=== PATIENT | female | born 1950 | race Caucasian/White ===

== ENCOUNTER 2023-04-07 12:58 | Outpatient (OUT) | payer MEDICARE, OTHER, SELFPAY ==
--- NOTE | 2023-04-07 13:04 | US_ITS ---
The [address] [address] Patient Name: ARMANDO COOK MRN: [id number] date: 1950 Sex: F Assigned Patient Location: US Current Patient Location: US Accession/Order Number: [id number] Exam Date: 04/07/2023 13:08 Report Date: 04/07/2023 15:54 At the request of: SCOTTY RIZVI Procedure: US venous doppler LE BI Exam: US venous doppler LE BI; [id number] HISTORY: Essential hypertension I10 COMPARISON: None TECHNIQUE: Venous duplex examination performed using B-mode, color flow, and spectral analysis. FINDINGS: The common femoral, saphenofemoral junction, femoral, popliteal, and left calf veins are patent. There is no evidence of intraluminal thrombus. These vessels exhibited normal compressibility. The right calf veins are not well visualized. Flow in the common femoral veins is bilaterally symmetric with normal respiratory phasicity. Bilateral Coburn cysts measuring 6.7 x 1.4 x 3.7 cm on the left and 6.2 x 2.8 x 1.9 cm on the right. US/US venous doppler LE BI IMPRESSION: 1. The right calf veins are not well visualized. 2. No acute deep venous thrombosis elsewhere in either lower extremity. 3. Bilateral Coburn's cysts. Electronically authenticated by: CECILLE CASTELLON Date: 04/07/2023 15:54
== END 2023-04-07 12:59 | disposition home or self-care (01) ==
LOC: US 12:59
PROVIDERS: PCP Family Medicine; Visit Provider Family Medicine
DX: R60.0 Localized edema (principal); M71.22 Synovial cyst of popliteal space [Baker], left knee; M71.21 Synovial cyst of popliteal space [Baker], right knee
CPT/HCPCS: 93970

== ENCOUNTER 2023-11-04 11:08 | Outpatient (OUT) | payer MEDICARE, OTHER, SELFPAY ==
[2023-11-04 12:26] LABS: Estimated Average Glucose 143 mg/dL; Glycohemoglobin A1C 6.6 % (4.5-6.2)
[2023-11-04 12:42] LABS: Basophils Percent Auto 0.8 % (0.2-2.0); Eosinophils Absolute Auto 0.1 10^3/uL (0.0-0.7); Eosinophils Percent Auto 2.5 % (0.9-7.0); Hematocrit 39.9 % (36.0-48.0); Hemoglobin 12.7 g/dL (12.0-16.0); Immature Granulocytes Abs Auto 0.01 10^3/uL (0.00-0.03); Immature Granulocytes Pct Auto 0.2 % (0.0-0.5); Lymphocytes Absolute Auto 1.4 10^3/uL (1.2-3.8); Lymphocytes Percent Auto 28.7 % (20.5-60.0); Mean Corpuscular HGB Conc 31.8 g/dL (29.9-35.2); Mean Corpuscular Hemoglobin 27.8 pg (26.7-34.0); Mean Corpuscular Volume 87.3 fL (81.0-99.0); Monocytes Absolute Auto 0.3 10^3/uL (0.3-0.8); Monocytes Percent Auto 6.7 % (1.7-12.0); Neutrophils Absolute Auto 2.9 10^3/uL (1.4-6.5); Neutrophils Percent Auto 61.1 % (43.0-75.0); Platelet Count 198 10^3/uL (150-450); Red Blood Count 4.57 10^6/uL (4.20-5.40); Red Cell Distribution Width 14.5 % (11.0-15.0); White Blood Count 4.8 10^3/uL (4.0-11.0)
[2023-11-04 13:16] LABS: Free T4 0.97 ng/dL (0.76-1.46)
[2023-11-04 13:21] LABS: Alanine Aminotransferase 59 U/L (14-59); Albumin Globulin Ratio 0.9; Albumin Level 3.6 g/dL (3.4-5.0); Alkaline Phosphatase 89 U/L (46-116); Anion Gap 14.7; Aspartate Amino Transferase 74 U/L (15-37); BUN Creatinine Ratio 14.3; Bilirubin Total 0.4 mg/dL (0.2-1.0); Calcium 9.3 mg/dL (8.5-10.1); Carbon Dioxide 25.3 mmol/L (21.0-32.0); Chloride 103 mmol/L (98-107); Chol HDL Ratio 3.5; Cholesterol 184 mg/dL (<=200); Estimated GFR (African America >60 (>=60); Estimated GFR (Non-African Ame >60 (>=60); Free T3 3.46 pg/mL (2.18-3.98); Globulin 4.2 g/dL; Glucose 165 mg/dL (74-106); HDL Cholesterol 52 mg/dL (40-60); Sodium 139 mmol/L (136-145); Thyroid Stimulating Hormone 4.406 uIU/mL (0.358-3.740); Total Protein 7.8 g/dL (6.4-8.2); Triglycerides 216 mg/dL (<=150); VLDL CHOLESTEROL 43.2 mg/dL
[2023-11-04 15:01] LABS: Bilirubin Urine NEGATIVE (NEGATIVE); Blood Urine NEGATIVE (NEGATIVE); Clarity Urine CLEAR (CLEAR); Color Urine LT. YELLOW (YELLOW); Glucose Urine UA NEGATIVE (NEGATIVE); Ketones Urine NEGATIVE (NEGATIVE); Leukocyte Esterase Urine NEGATIVE (NEGATIVE); Nitrite Urine NEGATIVE (NEGATIVE); Protein Urine NEGATIVE (NEG/TRACE); Urobilinogen Urine 0.2 EU/dL (0.2-1.0); pH Urine 5.5 (5.0-9.0)
== END 2023-11-04 11:09 | disposition home or self-care (01) ==
PROVIDERS: PCP Family Medicine; Visit Provider Family Medicine
DX: R35.0 Frequency of micturition (principal); R63.1 Polydipsia; I10 Essential (primary) hypertension; E78.5 Hyperlipidemia, unspecified
CPT/HCPCS: 80053; 80061; 81003; 83036; 84439; 84443; 84481; 85025; 87086; 87150; 87186

== ENCOUNTER 2025-01-03 11:54 | Outpatient (OUT) | payer MEDICARE, SELFPAY ==
[2025-01-03 12:48] LABS: Basophils Percent Auto 0.9 % (0.2-2.0); Eosinophils Absolute Auto 0.1 10^3/uL (0.0-0.7); Eosinophils Percent Auto 2.6 % (0.9-7.0); Hematocrit 40.5 % (36.0-48.0); Hemoglobin 13.4 g/dL (12.0-16.0); Immature Granulocytes Abs Auto 0.01 10^3/uL (0.00-0.03); Immature Granulocytes Pct Auto 0.2 % (0.0-0.5); Lymphocytes Absolute Auto 1.4 10^3/uL (1.2-3.8); Lymphocytes Percent Auto 30.8 % (20.5-60.0); Mean Corpuscular HGB Conc 33.1 g/dL (29.9-35.2); Mean Corpuscular Hemoglobin 29.1 pg (26.7-34.0); Mean Platelet Volume 10.4 fL (9.5-13.5); Monocytes Absolute Auto 0.3 10^3/uL (0.3-0.8); Monocytes Percent Auto 6.5 % (1.7-12.0); Neutrophils Absolute Auto 2.7 10^3/uL (1.4-6.5); Platelet Count 198 10^3/uL (150-450); Red Cell Distribution Width 14.2 % (11.0-15.0); White Blood Count 4.6 10^3/uL (4.0-11.0)
[2025-01-03 13:02] LABS: Alanine Aminotransferase 46 U/L (14-59); Albumin Globulin Ratio 0.9; Albumin Level 3.6 g/dL (3.4-5.0); Alkaline Phosphatase 89 U/L (46-116); Anion Gap 13.4; Aspartate Amino Transferase 42 U/L (15-37); BUN Creatinine Ratio 19.6; Bilirubin Total 0.3 mg/dL (0.2-1.0); Calcium 9.5 mg/dL (8.5-10.1); Carbon Dioxide 28.7 mmol/L (21.0-32.0); Chloride 102 mmol/L (98-107); Chol HDL Ratio 4.9; Cholesterol 240 mg/dL (<=200); Estimated GFR (African America >60 (>=60 mL/min/1.73m^2); Estimated GFR (Non-African Ame 56 (>=60 mL/min/1.73m^2); Free T3 3.08 pg/mL (2.18-3.98); Globulin 3.9 g/dL; Glucose 122 mg/dL (74-106); HDL Cholesterol 49 mg/dL (40-60); Potassium 4.1 mmol/L (3.5-5.1); Sodium 140 mmol/L (136-145); Thyroid Stimulating Hormone 2.788 uIU/mL (0.358-3.740); Total Protein 7.5 g/dL (6.4-8.2); Triglycerides 220 mg/dL (<=150)
[2025-01-03 13:14] LABS: Estimated Average Glucose 134 mg/dL; Glycohemoglobin A1C 6.3 % (4.5-6.2)
[2025-01-03 13:47] LABS: Bilirubin Urine NEGATIVE (NEGATIVE); Blood Urine TRACE-I (NEGATIVE); Clarity Urine SL CLOUDY (CLEAR); Color Urine LT. YELLOW (YELLOW); Glucose Urine UA NEGATIVE (NEGATIVE); Ketones Urine NEGATIVE (NEGATIVE); Leukocyte Esterase Urine MODERATE (NEGATIVE); Nitrite Urine POSITIVE (NEGATIVE); Protein Urine TRACE mg/dL (NEG/TRACE); Urobilinogen Urine 0.2 EU/dL (0.2-1.0)
[2025-01-03 14:03] LABS: Bacteria Urine LARGE #/HPF (NONE SEEN); Cast Seen? NONE SEEN #/LPF (NONE SEEN); Crystals Seen? None Seen #/HPF (None Seen); Mucus Urine NONE SEEN (NONE SEEN); RBC Urine 0-2 #/HPF (0-2); Squamous Epithelial Cell Urine RARE #/LPF (NONE/RARE); Transitional Epi Cells Urine RARE #/LPF (NONE SEEN); Urine Culture Indicated ALREADY ORDERED; WBC Urine 20-50 #/HPF (NONE SEEN)
== END 2025-01-03 11:55 | disposition home or self-care (01) ==
LOC: LAB 11:54
PROVIDERS: PCP Family Medicine; Visit Provider Family Medicine
DX: R53.83 Other fatigue (principal); R39.15 Urgency of urination; Z12.12 Encounter for screening for malignant neoplasm of rectum; R73.09 Other abnormal glucose; E78.5 Hyperlipidemia, unspecified
CPT/HCPCS: 36415; 80053; 80061; 81001; 83036; 84436; 84443; 84481; 85025; 87086; 87088; 87186

== ENCOUNTER 2025-03-08 14:50 | Outpatient (REF) | payer MEDICARE, SELFPAY ==
--- OUTSIDE RECORDS SUMMARY | 2025-03-11 10:22 | XMS_ITS | CCD ---
Author Organization [facility] Care Team Providers Care Photo Graphics Librarian Name Role Phone PHYSICIAN, DEFAULT Unavailable Unavailable PHYSICIAN, DEFAULT Unavailable Unavailable PHYSICIAN, DEFAULT Unavailable Unavailable PHYSICIAN, DEFAULT Unavailable Unavailable GALOUKAMIRACLE LEACH Attending Unavailable MOUKARBEL, DR RAUSCH Admitting Unavailable [...] Care Unavailable HOY, DR FAJARDO Consulting Unavailable HOY, DR FAJARDO Admitting Unavailable HOY, DR FAJARDO Attending Unavailable HOY, DR FAJARDO Primary Care Unavailable HOY, DR FAJARDO Consulting Unavailable MOUKARBEL, DR RAUSCH Admitting Unavailable MOUKARBEL, DR RAUSCH Attending Unavailable HOY, DR FAJARDO Primary Care Unavailable MOUKARBEL, DR RAUSCH Consulting Unavailable DAGO FRANK Attending Unavailable Scotty Holly MD Attending Provider Scotty Holly Attending Unavailable Scotty Holly Admitting Unavailable Scotty Holly MD Primary Care Provider [phone] Kennedy Wharton MD Attending Provider Allergies Allergy Classification Reported Allergen(s) Allergy Type Date of Onset Reaction(s) Facility (2 sources) Cephalexin; Translations: [CEPHALEXIN] Drug Allergy 8 Rash [facility] Repository (2 sources) Latex; Translations: [LATEX] Propensity to adverse reactions to drug (disorder) 9 Rash, Itching [facility] Repository (2 sources) Theophylline; Translations: [THEOPHYLLINE] Drug Allergy 7 [facility] Repository (1 source) AMOXICILLIN-POT CLAVULANATE; Translations: [AMOXICILLIN-PO T CLAVULANATE] Propensity to adverse reactions to drug (disorder) 3 [facility] Repository (1 source) Amoxicillin / Clavulanate Drug Allergy 7 [facility] Repository (1 source) Cephalexin Drug Allergy 7 [facility] Repository (1 source) natural latex rubber Drug allergy (disorder) [facility] Repository (1 source) Cephalexin Drug Allergy 8 Rash [facility] Medications Current Medications Medication Drug [...] Cx Nom (U) ORGANISM: Escherichia coli (O:ESCCOL) Lindsay Count >100,000 Aerobic SIOBHAN Charge (NMIC56) ---- [...] RESISTANT TO ALL B-LACTAM DRUGS. PERFORMED BY: [address] [place] [address] PATHOLOGIST SPECIAL DELIVERY MESSENGER RENETTA ALONZO M.D. Normal [facility] Comment on above: Performed By: #### C UU #### [address] Urine cultureOrdered By: Héctor Holly on 01-03-2025 Bacteria identified Cx Nom (U) Escherichia coli Abnormal [facility] ECHOCARDIO M/2D COMPLETEon 0 10-07-2022 ECHOCARDIO M/2D COMPLETE Patient: ARMANDO SWEET Exam Date: 10/07/2022 : 1950 Gender:F Ordering : DR MIRACLE HUERTAS M.D. Admission #: [id number] Family : DR SCOTTY HOLLY . Order #: [id number] CLICK HERE TO VIEW EXAM ECHOCARDIOGRAM REPORT [...] 63.83 ml, 63.83 ml Dictated by: Miracle Huertas M.D. on 10/07/2022 at 20:11 Approved by: Miracle Huertas M.D. on 10/07/2022 at 20:22 [facility] Office Visiton 10-06-2022 Follow-up visit [id number] MickiArmando Hari 1950 F Date Provider Department Center 10/06/2022 MIRACLE GONZALEZ [facility] Family History Problem Relation Age of Onset Coronary artery disease Mother Coronary artery disease Father Diabetes Brother Family Status - Relation Status Age at Mother Father Brother Level of Service:51103 CO OFFICE/OUTPATIENT ESTABLISHED MOD MDM 30-39 MIN Reason for Visit and Comments: Congestive Heart Failure [127] Valve Disorder [3372] Hyperlipidemia [182] Hypertension [856159] Normal [facility] INSULINon 04-30-2022 Insulin 14.5 uIU/mL Normal 2.6-24.9 [facility] Comment on above: Performed By: #### I NSULIN #### [facility] [address] [place] [address] Dr. Vicki Muro OCC BLD IMMUNO SCREENon 04-02 OCCULT BLOOD Negative Normal NEGATIVE [facility] Comment on above: Performed By: #### I NSULIN #### [facility] [address] [address] [address] Vicki Muro T4, T3U, FTI LABCORPon 04-30 Free Thyroxine Index 1.9 Normal 1.2-4.9 [facility] Comment on above: Performed By: #### T HYLC #### [facility] [address] [place] [address] Dr. Vicki Muro T3 Uptake 25 % Normal 24-39 [facility] Comment on above: Performed By: #### T HYLC #### [facility] [address] [address] [address] Vicki Muro T4 [Mass/Vol] 7.5 ug/dL Normal 4.5-12.0 [facility] Comment on above: Performed By: #### T HYLC #### [facility] [address] [place] [address] Dr. Vicki Muro VIT D 25-OH LABCORPon 2021 Vitamin D, 25-Hydroxy 54.8 ng/mL Normal 30.0-100.0 [facility] Comment on above: Result Comment: Ghislaine min D deficiency has been defined by the Adams of Medicine and an Endocrine Society practice guideline as a level of serum 25-OH vitamin D less than 20 ng/mL (1,2). The Endocrine Society went on to further define vitamin D insufficiency as a level between 21 and 29 ng/mL (2). 1. IOM (Adams of Medicine). 2010. Dietary reference intakes for calcium and D. [place]: The National Academies Press. 2. Bay MF, Michael WADSWORTH, Gaby JACOBS, et al. Evaluation, treatment, and prevention of vitamin D deficiency: an Endocrine Society clinical practice guideline. JCEM. 2010; 96(7):1911-30. Performed By: #### I NSULIN #### [facility] [address] [place] [address] Dr. Vicki Muro BNPon 04-29-2022 Natriuretic peptide B (Bld) [Mass/Vol] 350.0 pg/mL Normal <=900.0 [facility] Comment on above: Performed By: #### L IPID, CMP, BNP, TSH #### [facility] [address] [place] [address] Dr. Vicki Muro CBC AUTO DIFFon 04-29-2022 BASO # 0.0 103/ul Normal 0.0-0.1 [facility] Comment on above: Performed By: #### I NSULIN #### [facility] [address] [place] [address] Dr. Vicki Muro Basophils/100 WBC (Bld) 0.8 % Normal 0.2-2.0 [facility] Comment on above: Performed By: #### I NSULIN #### [facility] [address] [place] [address] Dr. Vicki Muro EO # 0.1 103/ul Normal 0.0-0.7 [facility] Comment on above: Performed By: #### I NSULIN #### [facility] [address] [place] [address] Dr. Vicki Muro Eosinophils/100 WBC (Bld) 2.4 % Normal 0.9-7.0 [facility] Comment on above: Performed By: #### I NSULIN #### [facility] [address] [place] [address] Dr. Vicki Muro Erythrocyte distribution width (RBC) [Ratio] 12.7 % Normal 11.0-15.0 [facility] Comment on above: Performed By: #### I NSULIN #### [facility] [address] [place] [address] Dr. Vicki Muro Hematocrit (Bld) [Volume fraction] 39.1 % Normal 36.0-48.0 [facility] Comment on above: Performed By: #### I NSULIN #### [facility] [address] [place] [address] Dr. Vicki Muro Hemoglobin (Bld) [Mass/Vol] 13.0 g/dL Normal 12.0-16.0 [facility] Comment on above: Performed By: #### I NSULIN #### [facility] [address] [place] [address] Dr. Vicki Muro IG # 0.01 10e3/ul Normal 0.00-0.03 [facility] Comment on above: Performed By: #### I NSULIN #### [facility] [address] [place] [address] Dr. Vicki Muro IG % 0.2 % Normal 0.0-0.5 [facility] Comment on above: Performed By: #### I NSULIN #### [facility] [address] [place] [address] Dr. Vicki Muro LYMPH # 1.6 103/ul Normal 1.2-3.8 [facility] Comment on above: Performed By: #### I NSULIN #### [facility] [address] [place] [address] Dr. Vicki Muro Lymphocytes/100 WBC (Bld) 29.5 % Normal 20.5-60.0 [facility] Comment on above: Performed By: #### I NSULIN #### [facility] [address] [place] [address] Dr. Vicki Muro MANUAL DIFF REQ NO Normal [facility] Comment on above: Performed By: #### I NSULIN #### [facility] [address] [place] [address] Dr. Vicki Muro MCH (RBC) [Entitic mass] 29.7 pg Normal 26.7-34.0 [facility] Comment on above: Performed By: #### I NSULIN #### [facility] [address] [place] [address] Dr. Vicki Muro MCHC (RBC) [Mass/Vol] 33.2 g/dL Normal 29.9-35.2 [facility] Comment on above: Performed By: #### I NSULIN #### [facility] [address] [place] [address] Dr. Vicki Muro MCV (RBC) [Entitic vol] 89.3 fL Normal 81.0-99.0 [facility] Comment on above: Performed By: #### I NSULIN #### [facility] [address] [place] [address] Dr. Vicki Muro MONO # 0.4 103/ul Normal 0.3-0.8 [facility] Comment on above: Performed By: #### I NSULIN #### [facility] [address] [place] [address] Dr. Vicki Muro Monocytes/100 WBC (Bld) 6.6 % Normal 1.7-12.0 [facility] Comment on above: Performed By: #### I NSULIN #### [facility] [address] [place] [address] Dr. Vicki Muro NEUT # 3.2 103/ul Normal 1.4-6.5 [facility] Comment on above: Performed By: #### I NSULIN #### [facility] [address] [place] [address] Dr. Vicki Muro Neutrophils/100 WBC (Bld) 60.5 % Normal 43.0-75.0 [facility] Comment on above: Performed By: #### I NSULIN #### [facility] [address] [place] [address] Dr. Vicki Muro Platelet mean volume (Bld) [Entitic vol] 10.0 fL Normal 9.5-13.5 [facility] Comment on above: Performed By: #### I NSULIN #### [facility] [address] [address] [address] Vicki Muro PLT 212 103/ul Normal 150-450 [facility] Comment on above: Performed By: #### I NSULIN #### [facility] [address] [address] [address] Vicki Muro RBC 4.38 106/ul Normal 4.20-5.40 [facility] Comment on above: Performed By: #### I NSULIN #### [facility] [address] [address] [address] Vicki Muro WBC 5.3 103/ul Normal 4.0-11.0 [facility] Comment on above: Performed By: #### I NSULIN #### [facility] [address] [address] [address] Vicki Muro GLYCOHEMOGLOBIN A1Con 2021 ADA RECOMMENDATION SEE BELOW Normal [facility] Comment on above: Result Comment: ADA RECOMMENDED LIMIT 4.0 - 6.0 ADA THERAPEUTIC TARGET < 7.0 ACTION SUGGESTED > 7.0 Performed By: #### I NSULIN #### [facility] [address] [address] [address] Vicki Muro Glucose [Mass/Vol] 126 mg/dL Normal [facility] Comment on above: Performed By: #### I NSULIN #### [facility] [address] [address] [address] Vicki Muro HbA1c (Bld) [Mass fraction] 6.0 % Normal 4.5-6.2 [facility] Comment on above: Performed By: #### I NSULIN #### [facility] [address] [address] [address] Vicki Muro IRONon 04-29-2022 Iron [Mass/Vol] 63.0 ug/dL Normal 50.0-170.0 [facility] Comment on above: Performed By: #### I SIERRA #### [facility] [address] [address] [address] Vicki Muro LIPID PROFILEon 04-29-2022 CHOL-HDL RATIO NORM SEE BELOW Normal [facility] Comment on above: Result Comment: 3.3 - 4.4 LOW RISK 4.4 - 7.1 AVERAGE RISK 7.1 - 11.0 MODERATE RISK >11.0 HIGH RISK Performed By: #### L IPID, CMP, BNP, TSH #### [facility] [address] [address] [address] Vicki Muro Cholesterol [Mass/Vol] 179 mg/dL Normal <=200 [facility] Comment on above: Performed By: #### L IPID, CMP, BNP, TSH #### [facility] [address] [address] [address] Vicki Muro Cholesterol in HDL [Mass/Vol] 53 mg/dL Normal 40-60 [facility] Comment on above: Performed By: #### L IPID, CMP, BNP, TSH #### [facility] [address] [place] [address] Dr. Vicki Muro Cholesterol in LDL [Mass/Vol] 85.8 mg/dL Normal [facility] Comment on above: Performed By: #### L IPID, CMP, BNP, TSH #### [facility] [address] [address] [address] Vicki Muro Cholesterol.total/Ch olesterol in HDL [Mass ratio] 3.4 {ratio} Normal [facility] Comment on above: Performed By: #### L IPID, CMP, BNP, TSH #### [facility] [address] [address] [address] Vicki Muro HDL NORMAL > or = 60 mg/dl - LO W CARDIOVASCULAR RISK <40 mg/dl - HIGH CARDIOVASCULAR RISK Normal [facility] Comment on above: Performed By: #### L IPID, CMP, BNP, TSH #### [facility] [address] [place] [address] Dr. Vicki Muro LDL CALC NORMAL SEE BELOW Normal [facility] Comment on above: Result Comment: <100 mg/dl OPTIMAL 100 - 129 mg/dl NEAR OR ABOVE OPTIMAL 130 - 159 mg/dl BORDERLINE HIGH 160 - 189 mg/dl HIGH >190 mg/dl VERY HIGH Performed By: #### L IPID, CMP, BNP, TSH #### [facility] [address] [address] [address] Vicki Muro Triglyceride [Mass/Vol] 201 mg/dL Critically high <=150 [facility] Comment on above: Performed By: #### L IPID, CMP, BNP, TSH #### [facility] [address] [address] [address] Vicki Muro VLDL CALC 40.2 mg/dL Normal [facility] Comment on above: Performed By: #### L IPID, CMP, BNP, TSH #### [facility] [address] [address] [address] Vicki Muro PROF 14(COMP METB)on 022 Albumin [Mass/Vol] 3.8 g/dL Normal 3.4-5.0 [facility] Comment on above: Performed By: #### L IPID, CMP, BNP, TSH #### [facility] [address] [place] [address] Dr. Vicki Muro Albumin/Globulin [Mass ratio] 1.0 {ratio} Normal [facility] Comment on above: Performed By: #### L IPID, CMP, BNP, TSH #### [facility] [address] [place] [address] Dr. Vicki Muro ALP [Catalytic activity/Vol] 108 U/L Normal 46-116 [facility] Comment on above: Performed By: #### L IPID, CMP, BNP, TSH #### [facility] [address] [place] [address] Dr. Vicki Muro ALT [Catalytic activity/Vol] 29 U/L Normal 14-59 [facility] Comment on above: Performed By: #### L IPID, CMP, BNP, TSH #### [facility] [address] [address] [address] Vicki Muro Anion gap [Moles/Vol] 13.1 mmol/L Normal [facility] Comment on above: Performed By: #### L IPID, CMP, BNP, TSH #### [facility] [address] [address] [address] Vicki Muro AST [Catalytic activity/Vol] 24 U/L Normal 15-37 [facility] Comment on above: Performed By: #### L IPID, CMP, BNP, TSH #### [facility] [address] [place] [address] Dr. Vicki Muro Bilirubin [Mass/Vol] 0.4 mg/dL Normal 0.2-1.0 [facility] Comment on above: Performed By: #### L IPID, CMP, BNP, TSH #### [facility] [address] [address] [address] Vicki Muro Calcium [Mass/Vol] 9.2 mg/dL Normal 8.5-10.1 [facility] Comment on above: Performed By: #### L IPID, CMP, BNP, TSH #### [facility] [address] [place] [address] Dr. Vicki Muro Chloride [Moles/Vol] 103 mmol/L Normal 98-107 [facility] Comment on above: Performed By: #### L IPID, CMP, BNP, TSH #### [facility] [address] [place] [address] Dr. Vicki Muro CO2 [Moles/Vol] 27.7 mmol/L Normal 21.0-32.0 [facility] Comment on above: Performed By: #### L IPID, CMP, BNP, TSH #### [facility] [address] [place] [address] Dr. Vicki Muro Creatinine [Mass/Vol] 0.81 mg/dL Normal 0.55-1.02 [facility] Comment on above: Performed By: #### L IPID, CMP, BNP, TSH #### [facility] [address] [place] [address] Dr. Vicki Muro EGFR-AF SAMMARINESE >60 Normal >=60 [facility] Comment on above: Performed By: #### L IPID, CMP, BNP, TSH #### [facility] [address] [place] [address] Dr. Vicki Muro EGFR-NON AF SAMMARINESE >60 Normal >=60 [facility] Comment on above: Performed By: #### L IPID, CMP, BNP, TSH #### [facility] [address] [address] [address] Vicki Muro Globulin (S) [Mass/Vol] 3.8 g/dL Normal [facility] Comment on above: Performed By: #### L IPID, CMP, BNP, TSH #### [facility] [address] [place] [address] Dr. Vicki Muro Glucose [Mass/Vol] 132 mg/dL Critically high 74-106 [facility] Comment on above: Performed By: #### L IPID, CMP, BNP, TSH #### [facility] [address] [place] [address] Dr. Vicki Muro Potassium [Moles/Vol] 3.8 mmol/L Normal 3.5-5.1 [facility] Comment on above: Performed By: #### L IPID, CMP, BNP, TSH #### [facility] [address] [place] [address] Dr. Vicki Muro Protein [Mass/Vol] 7.6 g/dL Normal 6.4-8.2 [facility] Comment on above: Performed By: #### L IPID, CMP, BNP, TSH #### [facility] [address] [place] [address] Dr. Vicki Muro Sodium [Moles/Vol] 140 mmol/L Normal 136-145 [facility] Comment on above: Performed By: #### L IPID, CMP, BNP, TSH #### [facility] [address] [place] [address] Dr. Vicki Muro Urea nitrogen [Mass/Vol] 10.0 mg/dL Normal 7.0-18.0 [facility] Comment on above: Performed By: #### L IPID, CMP, BNP, TSH #### [facility] [address] [place] [address] Dr. Vicki Muro Urea nitrogen/Creatinine [Mass ratio] 12.3 mg/mg Normal [facility] Comment on above: Performed By: #### L IPID, CMP, BNP, TSH #### [facility] [address] [place] [address] Dr. Vicki Muro TSHon 04-29-2022 TSH 2.265 uIU/mL Normal 0.358-3.740 [facility] Comment on above: Performed By: #### L IPID, CMP, BNP, TSH #### [facility] [address] [address] [address] Vicki Muro ECHOCARDIO M/2D COMPLETEon 0 12-30-2021 ECHOCARDIO M/2D COMPLETE Patient: ARMANDO SWEET Exam Date: 12/30/2021 : 1950 Gender:F Ordering : DR MIRACLE HUERTAS M.D. Admission #: [id number] Family : Order #: [id number] CLICK HERE TO VIEW EXAM ECHOCARDIOGRAM REPORT [...] Area(A4C): 21.80 cm2 Left Atrium Systolic Volume(A2C): 77944 mm3 Left Atrium Systolic Volume(A4C): 40852 mm3 Mitral Valve MV E to A [...] 4 mm[Hg] Right Atrium Dictated by: Miracle Huertas M.D. on 12/30/2021 at 15:06 Approved by: Miracle Huertas M.D. on 12/30/2021 at 15:20 Normal [facility] HEMOGRAM AND PLATELon 2021 Hematocrit (Bld) [Volume fraction] 39.8 % Normal 36.0-48.0 [facility] Comment on above: Performed By: #### H H #### [facility] [address] [place] [address] Dr. Vicki Muro Hemoglobin (Bld) [Mass/Vol] 13.0 g/dL Normal 12.0-16.0 [facility] Comment on above: Performed By: #### H H #### [facility] [address] [place] [address] Dr. Vicki Muro MCH (RBC) [Entitic mass] 30.2 pg Normal 26.7-34.0 [facility] Comment on above: Performed By: #### H H #### [facility] [address] [place] [address] Dr. Vicki Muro MCHC (RBC) [Mass/Vol] 32.7 g/dL Normal 29.9-35.2 [facility] Comment on above: Performed By: #### H H #### [facility] [address] [place] [address] Dr. Vicki Muro MCV (RBC) [Entitic vol] 92.6 fL Normal 81.0-99.0 [facility] Comment on above: Performed By: #### H H #### [facility] [address] [place] [address] Dr. Vicki Muro PLT 194 103/ul Normal 150-450 [facility] Comment on above: Performed By: #### H H #### [facility] [address] [place] [address] Dr. Vicki Muro RBC 4.30 106/ul Normal 4.20-5.40 [facility] Comment on above: Performed By: #### H H #### [facility] [address] [place] [address] Dr. Vicki Muro WBC 4.7 103/ul Normal 4.0-11.0 [facility] Comment on above: Performed By: #### H H #### [facility] [address] [address] [address] Vicki Muro LIPID PROFILEon 10-29-2021 CHOL-HDL RATIO NORM SEE BELOW Normal [facility] Comment on above: Result Comment: 3.3 - 4.4 LOW RISK 4.4 - 7.1 AVERAGE RISK 7.1 - 11.0 MODERATE RISK >11.0 HIGH RISK Performed By: #### I NSULIN #### [facility] [address] [address] [address] Vicki Muro Cholesterol [Mass/Vol] 193 mg/dL Normal <=200 [facility] Comment on above: Performed By: #### I NSULIN #### [facility] [address] [address] [address] Vicki Muro Cholesterol in HDL [Mass/Vol] 55 mg/dL Normal [facility] Comment on above: Performed By: #### I NSULIN #### [facility] [address] [address] [address] Vicki Muro Cholesterol in LDL [Mass/Vol] 97.2 mg/dL Normal [facility] Comment on above: Performed By: #### I NSULIN #### [facility] [address] [address] [address] Vicki Muro Cholesterol.total/Ch olesterol in HDL [Mass ratio] 3.5 {ratio} Normal [facility] Comment on above: Performed By: #### I NSULIN #### [facility] [address] [address] [address] Vicki Muro HDL NORMAL > or = 60 mg/dl - LO W CARDIOVASCULAR RISK <40 mg/dl - HIGH CARDIOVASCULAR RISK Normal [facility] Comment on above: Performed By: #### I NSULIN #### [facility] [address] [address] [address] Vicki Muro LDL CALC NORMAL SEE BELOW Normal [facility] Comment on above: Result Comment: <100 mg/dl OPTIMAL 100 - 129 mg/dl NEAR OR ABOVE OPTIMAL 130 - 159 mg/dl BORDERLINE HIGH 160 - 189 mg/dl HIGH >190 mg/dl VERY HIGH Performed By: #### I NSULIN #### [facility] [address] [address] [address] Vicki Muro Triglyceride [Mass/Vol] 204 mg/dL Critically high <=150 [facility] Comment on above: Performed By: #### I NSULIN #### [facility] [address] [place] [address] Dr. Vicki Muro VLDL CALC 40.8 mg/dL Normal [facility] Comment on above: Performed By: #### I NSULIN #### [facility] [address] [place] [address] Dr. Vicki Muro PROF 14(COMP METB)on 022 Albumin [Mass/Vol] 3.6 g/dL Normal 3.5-5.0 [facility] Comment on above: Performed By: #### I NSULIN #### [facility] [address] [place] [address] Dr. Vicki Muro Albumin/Globulin [Mass ratio] 1.0 {ratio} Normal [facility] Comment on above: Performed By: #### I NSULIN #### [facility] [address] [place] [address] Dr. Vicki Muro ALP [Catalytic activity/Vol] 92 U/L Normal 38-126 [facility] Comment on above: Performed By: #### I NSULIN #### [facility] [address] [place] [address] Dr. Vicki Muro ALT [Catalytic activity/Vol] 30 U/L Normal 9-52 [facility] Comment on above: Performed By: #### I NSULIN #### [facility] [address] [place] [address] Dr. Vicki Muro Anion gap [Moles/Vol] 11.3 mmol/L Normal [facility] Comment on above: Performed By: #### I NSULIN #### [facility] [address] [place] [address] Dr. Vicki Muro AST [Catalytic activity/Vol] 23 U/L Normal 14-36 [facility] Comment on above: Performed By: #### I NSULIN #### [facility] [address] [place] [address] Dr. Vicki Muro Bilirubin [Mass/Vol] 0.4 mg/dL Normal 0.2-1.3 [facility] Comment on above: Performed By: #### I NSULIN #### [facility] [address] [place] [address] Dr. Vicki Muro Calcium [Mass/Vol] 9.0 mg/dL Normal 8.4-10.2 [facility] Comment on above: Performed By: #### I NSULIN #### [facility] [address] [address] [address] Vicki Muro Chloride [Moles/Vol] 104 mmol/L Normal 98-107 [facility] Comment on above: Performed By: #### I NSULIN #### [facility] [address] [place] [address] Dr. Vicki Muro CO2 [Moles/Vol] 25.9 mmol/L Normal 22.0-30.0 [facility] Comment on above: Performed By: #### I NSULIN #### [facility] [address] [place] [address] Dr. Vicki Muro Creatinine [Mass/Vol] 0.86 mg/dL Normal 0.52-1.04 [facility] Comment on above: Performed By: #### I NSULIN #### [facility] [address] [place] [address] Dr. Vicki Muro EGFR-AF SAMMARINESE >60 Normal >=60 [facility] Comment on above: Performed By: #### I NSULIN #### [facility] [address] [place] [address] Dr. Vicki Muro EGFR-NON AF SAMMARINESE >60 Normal >=60 [facility] Comment on above: Performed By: #### I NSULIN #### [facility] [address] [address] [address] Vicki Muro Globulin (S) [Mass/Vol] 3.6 g/dL Normal [facility] Comment on above: Performed By: #### I NSULIN #### [facility] [address] [place] [address] Dr. Vicki Muro Glucose [Mass/Vol] 119 mg/dL Critically high 74-106 [facility] Comment on above: Performed By: #### I NSULIN #### [facility] [address] [address] [address] Vicki Muro Potassium [Moles/Vol] 4.4 mmol/L Normal 3.4-5.0 [facility] Comment on above: Performed By: #### I NSULIN #### [facility] [address] [address] [address] Vicki Muro Protein [Mass/Vol] 7.2 g/dL Normal 6.1-8.2 [facility] Comment on above: Performed By: #### I NSULIN #### [facility] [address] [address] [address] Vicki Muro Sodium [Moles/Vol] 137 mmol/L Normal 137-145 [facility] Comment on above: Performed By: #### I NSULIN #### [facility] [address] [address] [address] Vicki Muro Urea nitrogen [Mass/Vol] 14.0 mg/dL Normal 7.0-17.0 [facility] Comment on above: Performed By: #### I NSULIN #### [facility] [address] [address] [address] Vicki Muro Urea nitrogen/Creatinine [Mass ratio] 16.3 mg/mg Normal [facility] Comment on above: Performed By: #### I NSULIN #### [facility] [address] [address] [address] Vicki Muro Encounters Encounter Date Encounter Type Care Provider Facility Start: 03-09-2025 End: 03-09-2025 ambulatory Scotty Holly MD Work Phone: [facility] Work Phone: Start: 03-09-2025 End: 03-09-2025 Departed Referred Kennedy Wharton MD -[facility] Start: 01-27-2025 End: 02-01-2025 Transcribe Orders Scotty Holly MD Work Phone: Referring Physician Comment on above: Hypertension, unspec ified type (Primary Dx); Hyperlipidemia, unspecified hyperlipidemia type Start: 01-03-2025 End: 01-03-[address] [facility] Work Phone: Start: 01-03-2025 End: 01-03-2025 Departed Referred Scotty Holly MD Work Phone: [facility] Start: 11-17-2023 End: 11-17-2023 ambulatory DAGO Dick MAXINE Not Available Start: 10-07-2022 End: 10-08-[address] MIRACLE HUERTAS Facility:[facility] Start: 10-06-2022 End: 10-06-2022 [facility] Start: 04-30-2022 End: 04-30-[address] SCOTTY HOLLY Facility:[facility] Start: 04-29-2022 End: 04-30-[address] SCOTTY HOLLY Facility:[facility] Start: 12-30-2021 End: 12-31-[address] MIRACLE HUERTAS Facility:[facility] Start: 10-29-2021 End: 10-30-[address] MIRACLE HUERTAS Facility:[facility] Start: 08-09-2018 End: 08-10-2018 Patient encounter procedure DEFAULT PHYSICIAN Facility:[facility] Start: 06-03-2018 End: 06-04-2018 Patient encounter procedure DEFAULT PHYSICIAN Facility:[facility] Procedures Date Procedure Procedure Detail Performing Clinician Start: 01-03-2025 Urine culture Scotty chamorro MD Work Phone: Plan of Treatment Date Care Activity Detail Author Start: 2027 RSV Vaccine (1 - 1-dose 75+ series) RSV Vaccine (1 - 1-dose 75+ series) [facility] Start: 05-01-2025 Influenza vaccination Influenza Vaccine (Season Ended) [facility] Start: 03-09-2025 Bacteria identified in Urine by Culture Urine Culture [facility] Start: 03-09-2025 Urine culture [facility] Start: 01-03-2025 Bacteria identified in Urine by Culture Urine Culture [facility] Start: 01-03-2025 Urine culture [facility] Start: 08-31-2024 Advance Directive Discussion Advance Directive Discussion [facility] Start: 05-01-2024 Covid-19 Vaccine ( season) Covid-19 Vaccine ( season) [facility] Start: 2017 Screening for osteoporosis Bone Density Screening [facility] Start: 08-16-2011 Diabetes Screening Diabetes Screening [facility] Start: 2002 Pneumococcal Vaccine: 50+ (1 of 1 - PCV) Pneumococcal Vaccine: 50+ (1 of 1 - PCV) [facility] Start: 2002 Shingrix Vaccine (1 of 2) Shingrix Vaccine (1 of 2) [facility] Start: 1997 Lipid panel Lipid Screening [facility] Start: 1997 Screening for malignant neoplasm of colon [facility] Start: 1992 Screening for malignant neoplasm of breast Mammogram Screening [facility] Start: 1971 Urine microalbumin profile DTaP,Tdap,Td Vaccine (1 - Tdap) [facility] Start: 1970 Anxiety Screening Anxiety Screening [facility] Start: 1970 Depression Screening Depression Screening [facility] Start: 1970 Hepatitis C screening Hepatitis C Screening [facility] Payers Date Payer Category Payer Self-pay 2024 Medicare (Managed Care) [employer] MED[employer]ARE [id number] 2005 Private Health Insurance [employer] [id number] 1959 Medicare [id number] 1959 Unknown [id number] 1950 Unknown [id number] [id number] 1950 Unknown [id number]. 2.647 1950 Unknown [id number]. [id number] 1952 Unknown [id number]. [id number] 1952 Unknown [id number]. 2.593 1952 Unknown [id number]. [id number] 1952 Unknown [id number]. 2.593 1952 Unknown [id number] [id number] Private Health Insurance [employer] [id number] Unknown Unknown [id number] [id number] Social History Date Type Detail [facility] Start: 01-05-2025 Sex Female (finding) [facility] Start: 1950 Sex Assigned At Female F [facility] Start: 1950 Sex assigned at Not on file [facility] Gender identity Not on file [facility] inic Progress note 10-06-2022 Note Date & Type Note Facility 10-06-2022 Note [facility] - [facility] Subjective Armando Sweet is a 72 [...] but wasn't able to tolerate it. Dr. Huertas then increased her carvedilol to 12.5mg bid. [...] Substance Use Topics Alcohol use: Yes Comment: thien ALDRIDGE Armando is seen in follow-up. She is [...] 3 Recent Labs (more content not included)... [facility] Evaluation note Note Date & Type Note Facility Evaluation note No assessment information availa ble [facility] Work Phone: Evaluation note Note Date & Type Note Facility Evaluation note Diagnosis Hypertension, unspecified type- Primary Hyperlipidemia, unspecified hyperlipidemia type documented in this encounter [facility] Reason for referral (narrative) Note Date & Type Note Facility Reason for referral (narrative) No reason for referral information available [facility] Work Phone: Summary Purpose Family History No Family History Records FoundNo Family History Records FoundNo Family History Records FoundNo Family History Records FoundNo Family History Records Found Advance Directives No Advanced Directives Records FoundNo Advanced Directives Records FoundNo Advanced Directives Records FoundNo Advanced Directives Records FoundNo Advanced Directives Records Found Additional Source Comments INFORMATION SOURCE (unrecogn ized section and content) DATE CREATED AUTHOR 08/11/2018 [facility] DATE CREATED AUTHOR AUTHOR'S ORGANIZ ATION 10/06/2022 [facility] DATE CREATED AUTHOR AUTHOR'S ORGANIZ ATION 10/10/2022 [facility] DATE CREATED AUTHOR AUTHOR'S ORGANIZ ATION 11/18/2023 [facility] DATE CREATED AUTHOR AUTHOR'S ORGANIZ ATION 01/07/2025 [facility] Care Teams (unrecognized sec tion and content) Team Status: Inactive Member Role Status Dates Scotty Holly MD Attending Provider Active Sta rt: January 03, 2025 End: January 03, 2025 Photo Graphics Librarian Relationship Specialty Start Date End Date Scotty Holly MD PCP - General 05/08/08 Team Status: Inactive Member Role Status Dates Kennedy Wharton MD Attending Provider Active St art: March 09, 2025 End: March 09, 2025 Goals (unrecognized section and content) Goals may be documented in a n alternate sectionGoals may be documented in an alternate section Source Comments (unrecognize d section and content) In the event this informatio n is protected by the Federal Confidentiality of Alcohol and Drug Abuse Patient Records regulations: The Federal rules restrict any use of the information to criminally investigate or prosecute any alcohol or drug abuse patient.[facility] FOR RECORDS PERTAINING TO PATIENTS [...] BE BASED ON THE PRIMARY CLINICAL RECORDS. [employer] [facility]. provides no warranty or guarantee of the accuracy or completeness of information in this document.
== END 2025-03-08 14:51 | disposition home or self-care (01) ==
LOC: LAB 14:50
PROVIDERS: PCP Family Medicine; Visit Provider Family Medicine
DX: R53.83 Other fatigue (principal); R39.15 Urgency of urination; Z12.12 Encounter for screening for malignant neoplasm of rectum; R73.09 Other abnormal glucose; E78.5 Hyperlipidemia, unspecified
CPT/HCPCS: G0328

== ENCOUNTER 2025-03-08 22:36 | Inpatient (IN) | payer MEDICARE, SELFPAY ==
[2025-03-08] VITALS (9 sets, daily range): BP systolic 157–176; BP diastolic 73–93; PULSE 99–103; TEMP 37.4; O2SAT 88–100; BMI 42.0
--- OUTSIDE RECORDS SUMMARY | 2025-03-08 22:43 | XMS_ITS | Encounter Summary ---
Author Organization [facility] Address [address] [place] [address] Care Team Providers Care Formal Wear Rental Clerk Name Role Phone Jamie Holly MD Primary Care Provider [phone] Reason for Visit * Reason Comments Med Refill Encounter Details Date Type Department Care Team (Late st Contact Info) Description 11/16/2023 Refill [facility] Heart at [facility] [address] [place] [address] Samson Love MD [address] [facility] [address] [place] [phone] Benign hypertensive heart disease with heart failure (CMS/HCC); Nonrheumatic aortic (valve) insufficiency Social History Tobacco Use Types Packs/Day Years Used Date Smoking Tobacco: Former Cigarettes Smokeless Tobacco: Never Alcohol Use Standard Drinks/Week Comments Yes 0 (1 standard drink = 0.6 oz pur e alcohol) occasional [place] Safety & Environment Answer Date Rec orded Fear of Current or Ex-Partner Not on file Emotionally Abused Not on file 10/22/2023 Physically Abused Not on file 10/22/2023 Sexually Abused Not on file 10/22/2023 Physically or Sexually Abused Not on file Comments Unknown Sex and Gender Information Value Date Recorded Sex Assigned at Not on file Legal Sex Female 12:01 AM EDT Gender Identity Not on file Sexual Orientation Not on file documented as of this encounter Plan of Treatment Not on file documented as of this encounter Visit Diagnoses Diagnosis Benign hypertensive heart disease with heart failure (CMS/HCC) Nonrheumatic aortic (valve) insufficiency documented in this encounter Care Teams Formal Wear Rental Clerk Relationship Specialty Start Date End Date Jamie Holly MD [address] [facility] [place] [address] [address] PCP - General 10/06/22 documented as of this encounter
--- OUTSIDE RECORDS SUMMARY | 2025-03-08 22:43 | XMS_ITS | Clinical Summary ---
Author Organization [facility] Address [id number] [address] [place] [address] Care Team Providers Care Television Service Engineer Name Role Phone Unavailable Primary Care Provider Unavailabl e Medications meloxicam (MOBIC) 15 mg tabletIndications:O steoarthritis of knee, unspecified laterality, unspecified osteoarthritis type TAKE 1 TABLET BY MOUTH EVERY DAY WITH FOOD 30 tablet 3 2 Active Social History Tobacco Use Types Packs/Day Years Used Date Smoking Tobacco: Never Assessed Comments Unknown Sex and Gender Information Value Date Recorded Sex Assigned at Not on file Legal Sex Female 1:21 PM EDT Gender Identity Not on file Sexual Orientation Not on file Plan of Treatment Health Maintenance Due Date Last Done Comments Depression Screening 1964 Tobacco Screening 1964 Adult BMI Screening 1970 DTaP,Tdap and Td Vaccines (1 - Tdap) 1971 Zoster (Shingles) Vaccine (1 of 2) 2002 Fall Risk Screening 2017 Influenza Vaccine 05/01/2025 Medical Devices Not on file
--- OUTSIDE RECORDS SUMMARY | 2025-03-08 22:43 | XMS_ITS | Encounter Summary ---
Author Organization [facility] Address [address] [place] [address] Care Team Providers Care Terrazzo Mechanic Name Role Phone Jamie Holly MD Primary Care Provider [phone] Reason for Visit * Reason Comments Med Refill Encounter Details Date Type Department Care Team (Late st Contact Info) Description 04/07/2023 Refill [facility] at [facility] [address] [place] [address] Samson Love MD [address] [facility] [address] [facility] [place] [phone] Essential hypertension Social History Tobacco Use Types Packs/Day Years Used Date Smoking Tobacco: Former Cigarettes Smokeless Tobacco: Never Alcohol Use Standard Drinks/Week Comments Yes 0 (1 standard drink = 0.6 oz pur e alcohol) occasional Comments Unknown Sex and Gender Information Value Date Recorded Sex Assigned at Not on file Legal Sex Female 12:01 AM EDT Gender Identity Not on file Sexual Orientation Not on file documented as of this encounter Plan of Treatment Not on file documented as of this encounter Visit Diagnoses Diagnosis Essential hypertension Unspecified essential hypertension documented in this encounter Care Teams Terrazzo Mechanic Relationship Specialty Start Date End Date Jamie Holly MD [address] [facility] [place] [address] PCP - General 10/06/22 documented as of this encounter
--- OUTSIDE RECORDS SUMMARY | 2025-03-08 22:43 | XMS_ITS | Encounter Summary ---
Author Organization [facility] Address [address] [place] [address] Care Team Providers Care Rn Mds Name Role Phone Jamie Holly MD Primary Care Provider [phone] Reason for Visit * Reason Comments Med Refill Encounter Details Date Type Department Care Team (Late st Contact Info) Description 10/19/2022 Refill [facility] Heart at [facility] [address] [place] [address] Samson Love MD [address] [facility] [address] [facility] [place] [phone] Mixed hyperlipidemia; Nonrheumatic aortic (valve) insufficiency; Primary hypertension Social History Tobacco Use Types Packs/Day [...] on file Sexual Orientation Not on file COVID-19 Exposure Response Date Recorded In the last 10 days, have yo u been in contact with someone who was confirmed or suspected to have Coronavirus/COVID-19? No / Unsure 10/06/2022 9:38 AM EST documented as of this encounter Plan of Treatment Not on file documented as of this encounter Visit Diagnoses Diagnosis Mixed hyperlipidemia Nonrheumatic aortic (valve) insufficiency Primary hypertension Unspecified essential hypertension documented in this encounter Care Teams Rn Mds Relationship Specialty Start Date End Date Jamie Holly MD [address] [facility] [place] [place] [address] [address] PCP - General 10/06/22 documented as of this encounter
--- OUTSIDE RECORDS SUMMARY | 2025-03-08 22:43 | XMS_ITS | Encounter Summary ---
Author Organization [facility] Address [id number] [address] [place] [address] Care Team Providers Care Assistant Wrestling Coach Name Role Phone Unavailable Primary Care Provider Unavailabl e Encounter Details Date Type Department Care Team (Late st Contact Info) Description 01/22/2021 Telephone [facility] [address] [place] [phone] Keisha Fair CMA Social History Tobacco Use Types Packs/Day Years Used Date Smoking Tobacco: Never Assessed Comments Unknown Sex and Gender Information Value Date Recorded Sex Assigned at Not on file Legal Sex Female 1:21 PM EDT Gender Identity Not on file Sexual Orientation Not on file documented as of this encounter Plan of Treatment Not on file documented as of this encounter Visit Diagnoses Not on filedocumented in this encounter
--- OUTSIDE RECORDS SUMMARY | 2025-03-08 22:43 | XMS_ITS | Encounter Summary ---
Author Organization [facility] Address [address] [place] [address] Care Team Providers Care Pump Tender Name Role Phone Jamie Holly MD Primary Care Provider [phone] Reason for Visit * Reason Comments Med Refill Encounter Details Date Type Department Care Team (Late st Contact Info) Description 10/24/2023 Refill [facility] at [facility] [address] [place] [address] Samson Love MD [address] [facility] [address] [place] [phone] Mixed hyperlipidemia; Primary hypertension Social History Tobacco Use Types Packs/Day Years Used Date Smoking Tobacco: Former Cigarettes Smokeless Tobacco: Never Alcohol Use Standard Drinks/Week Comments Yes 0 (1 standard drink = 0.6 oz pur e alcohol) occasional [place] Safety & Environment Answer Date Rec orded [...] this encounter Visit Diagnoses Diagnosis Mixed hyperlipidemia Primary hypertension Unspecified essential hypertension documented in this encounter Care Teams Pump Tender Relationship Specialty Start Date End Date Jamie Holly MD [address] [place] [place] [address] PCP - General 10/06/22 documented as of this encounter
--- OUTSIDE RECORDS SUMMARY | 2025-03-08 22:43 | XMS_ITS | Clinical Summary ---
Author Organization [facility] Address [address] [place] [address] Care Team Providers Care Fur Grader Name Role Phone Jamie Holly MD Primary Care Provider [phone] Allergies Active Allergy Reactions Criticality Noted Date Comments Amoxicillin-Pot Clavulanate 10/06/19 23 Cephalexin Rash Low 06/22/2008 Latex Itching,Rash Medium 11/29/2008 Theophylline 10/06/2022 Medications aspirin 81 mg EC tablet in the morning. Active cetirizine (ZyrTEC) 10 mg tablet cetirizine 10 mg tablet TAKE 1 TABLET BY MOUTH EVERY DAY 9 Active venlafaxine XR (Effexor-XR) 150 mg 24 hr capsule 75 mg. Act imani zinc gluconate 50 mg tablet Take by mouth. Activ e rosuvastatin (Crestor) 5 mg tabletIndications: Mixed hyperlipidemia TAKE 1 TABLET BY MOUTH EVERY DAY IN THE MORNING 90 tablet 3 4 Active furosemide (Lasix) 20 mg tabletIndications: Nonrheumatic aortic (valve) insufficiency TAKE 1 TABLET BY MOUTH EVERY DAY IN THE MORNING 90 tablet 3 4 Active furosemide (Lasix) 40 mg tabletIndications: Benign hypertensive heart disease with heart failure (CMS/HCC) TAKE 1 TABLET BY MOUTH EVERY DAY IN THE MORNING 90 tablet 3 4 Active carvedilol (Coreg) 12.5 mg tabletIndications: Essential hypertension TAKE 1 TABLET (12.5 MG) BY MOUTH WITH BREAKFAST AND EVENING MEAL 180 tablet 3 4 Active carvedilol (Coreg) 6.25 mg tabletIndications: Primary hypertension TAKE 1 TABLET BY MOUTH WITH BREAKFAST AND EVENING MEAL 180 tablet 3 5 Active Active Problems Problem Noted Date Diagnosed Date Chronic diastolic congestive heart failure 10/06 Nonrheumatic aortic valve stenosis 10/06/2022 Nonrheumatic aortic valve insufficiency 10/06/19 Primary hypertension 10/06/2022 Mixed hyperlipidemia 10/06/2022 Chronic obstructive pulmonary disease 10/06/2022 LEXI (obstructive sleep apnea) 10/06/2022 Morbid obesity 10/06/2022 Encounters Date Type Department Care Team Description 01/10/2025 Refill [facility] Heart at [facility] [address] [place] [address] Samson Love MD Primary hypertension from Last 3 Months Family History Medical History Relation Name Comments Diabetes Brother Coronary artery disease Father Coronary artery disease Mother Relation Name Status Comments Brother Father Mother Social History Tobacco Use Types Packs/Day Years Used Date Smoking Tobacco: Former Cigarettes Smokeless Tobacco: Never Tobacco Cessation:Counseling Given: Not Answered Alcohol Use Standard Drinks/Week Comments Yes 0 [...] on file Sexual Orientation Not on file Last Filed Vital Signs Vital Sign Reading Time Taken Comments Blood Pressure 157/70 10/06/2022 9:42 AM EST Pulse 74 10/06/2022 9:42 AM EST Temperature - - Respiratory Rate - - Oxygen Saturation 98% 10/06/2022 9:42 AM EST Inhaled Oxygen Concentration - - Weight 125 kg (276 lb) 10/06/2022 9:42 AM EST Height 168.9 cm (5' 6.5 ) 10/06/2022 9:42 AM EST Body Mass Index 43.88 10/06/2022 9:42 AM EST Plan of Treatment Health Maintenance Due Date Last Done Comments CT Colonography 1952 Colonoscopy 1950 Colorectal Cancer Screening 1950 FIT-DNA 1950 FIT 1950 FOBT 1950 Medicare Annual Wellness (AWV) 1950 Sigmoidoscopy 1950 Depression Screening 1964 Pneumococcal Vaccine: 50+ Ye ars (1 of 2 - PCV) 1971 Adult Tetanus 1974 Mammogram 1992 Zoster Vaccines (1 of 2) 2002 Fall Risk Screening 2017 COVID-19 Vaccine (1 - 2023-2 5 season) 2024 Influenza Vaccine (#1) 2025 HIB Vaccines Aged Out No longer eligi ble based on patient's age to complete this topic HPV Vaccines Aged Out No longer eligi ble based on patient's age to complete this topic IPV Vaccines Aged Out No longer eligi ble based on patient's age to complete this topic Meningococcal B Vaccine Aged Out No l onger eligible based on patient's age to complete this topic Meningococcal Vaccine Aged Out No jeremy olga eligible based on patient's age to complete this topic Rotavirus Vaccines Aged Out No longer eligible based on patient's age to complete this topic Insurance [place] [address] Care Teams Fur Grader Relationship Specialty Start Date End Date Jamie Holly MD [address] [facility] [place] [id number] PCP - General 10/06/22
--- OUTSIDE RECORDS SUMMARY | 2025-03-08 22:43 | XMS_ITS | Encounter Summary ---
Author Organization [facility] Address [address] [address] Care Team Providers Care Mold Dresser Name Role Phone Jamie Holly MD Primary Care Provider [phone] Reason for Visit * Reason Comments Med Refill Encounter Details Date Type Department Care Team (Late st Contact Info) Description 12/25/2023 Refill [facility] Heart at [facility] [address] [place] [address] Samson Love MD [address] [facility] [address] [facility] [place] [phone] Benign hypertensive heart disease with heart failure (CMS/HCC) Social History Tobacco Use Types Packs/Day Years [...] hypertensive heart disease with heart failure (CMS/HCC) documented in this encounter Care Teams Mold Dresser Relationship Specialty Start Date End Date Jamie Holly MD [address] [facility] [place] [address] PCP - General 10/06/22 documented as of this encounter
--- OUTSIDE RECORDS SUMMARY | 2025-03-08 22:43 | XMS_ITS | Clinical Summary ---
Author Organization [facility] Address [address] [place] [address] Care Team Providers Care Cardiology Manager Name Role Phone Jamie Holly MD Primary Care Provider [phone] Allergies Active Allergy Reactions Criticality Noted Date Comments Cephalexin Rash 06/22/2008 Cephalexin Hcl Rash 06/22/2008 Latex Rash,Itching Medium 11/29/2008 Medications desvenlafaxine succinate(PRISTIQ 100 MG 24 HR TAB) take one daily 0 06/22/20 0 8 Active multivits w-ca,fe,other min(WOMEN'S MULTIPLE VITAMINS 18 MG-0.4 MG TAB) take one daily 0 06/22/20 0 8 Active COMPOUNDED PRESCRIPTION BIOTIN FORTE 0 9 Active cetirizine hcl(ZYRTEC 10 MG TAB) Take one(1) tablet daily. 30 12 9 Active anthralin(DRITHOC JEANETTE HP 1 % TOPICAL) use as instructed 1 trade size 3 9 Active clobetasol propionate(OLUX 0.05 % TOPICAL FOAM) apply to the affected areas in the scalp once daily in the morning large 3 9 Active KETOCONAZOLE 2 % SHAMPOO alternate this shampoo with head and shoulders large 3 9 Active Active Problems Problem Noted Date Diagnosed Date Alopecia areata 08/16/2008 Encounters Date Type Department Care Team Description 01/27/2025 Transcribe Orders Referring Physician [address] [place] [phone] Jamie Holly MD Hypertension, unspecified type (Primary Dx); Hyperlipidemia, unspecified hyperlipidemia type from Last 3 Months Social History Tobacco Use Types Packs/Day Years Used Date Smoking Tobacco: Never Assessed Comments No Sex and Gender Information Value Date Recorded Sex Assigned at Not on file Legal Sex Female 8:16 AM EST Gender Identity Not on file Sexual Orientation Not on file Last Filed Vital Signs Vital Sign Reading Time Taken Comments Blood Pressure 120/80 08/16/2008 10:08 AM EST Pulse - - Temperature - - Respiratory Rate - - Oxygen Saturation - - Inhaled Oxygen Concentration - - Weight - - Height - - Body Mass Index - - Plan of Treatment Health Maintenance Due Date Last Done Comments Anxiety Screening 1970 Depression Screening 1970 Hepatitis C Screening 1970 DTaP,Tdap,Td Vaccine (1 - Tdap) [address] Colonography 1997 Cologuard (FIT-DNA) 1997 Colonoscopy 1997 Colorectal Cancer Screening 1997 Fecal Occult Blood 1997 Lipid Screening 1997 Sigmoidoscopy 1997 Pneumococcal Vaccine: 50+ (1 of 1 - PCV) 2002 Shingrix Vaccine (1 of 2) 2002 Diabetes Screening 08/16/2011 08/16/2008, 06/22/2008 Bone Density Screening 2017 Covid-19 Vaccine ( season) 2024 Advance Directive Discussion 08/31/2024 Influenza Vaccine (Season Ended) 2025 RSV Vaccine (1 - 1-dose 75+ series) 2027 Procedures Procedure Name Priority Date/Time Associated Diagnosis Comments COMPREHENSIVE METABOLIC PANEL Routine 08/16/2008 11:05 AM EST Alopecia Areata Aftercare Seo Analyst Use Medicatn from Last 3 Months or Most Recently Relevant to Health Maintenance Results * COMP METABOLIC PANEL (08/16/2008 11:05 AM EST) Protein, Total 7.4 6.0 - 8.4 g/dL [facility] Albumin 4.3 3.5 - 5.0 g/dL [facility] Calcium 9.6 8.5 - 10.5 mg/dL [facility] Bilirubin, Total 0.2 0.0 - 1.5 mg/dL [facility] Alkaline Phosphatase 100 40 - 150 U/L [facility] AST 24 7 - 40 U/L [facility] Glucose 96 65 - 100 mg/dL [facility] BUN 11 8 - 25 mg/dL [facility] Creatinine 0.77 0.70 - 1.40 mg/dL [facility] Sodium 139 132 - 148 mmol/L [facility] Potassium 4.8 3.5 - 5.0 mmol/L [facility] Chloride 104 98 - 110 mmol/L [facility] CO2 26 23 - 32 mmol/L [facility] Anion Gap 9 0 - 15 mmol/L [facility] ALT 20 0 - 45 U/L [facility] eGFR- >60 [facility] eGFR-All Other Races >60 [facility] Comment: eGFR (Estimated GFR) Units of measure: mL/min/1.73 meters squared eGFR is derived from the reexpressed MDRD Study equation using the following parameters: serum creatinine, age, gender and race. The creatinine assay has been calibrated to be traceable to IDMS. An eGFR <60 mL/min/1.73m2 for >3 months is consistent with chronic kidney disease. Refer to KDOQI guidelines for clinical interpretation. Blood specimen (specimen) BLOOD SPECIMEN / Unknown 08/16/2008 11:05 AM EST us Sue Yoo MD LABORATORY Final Resul t [facility] [address] [place] [address] from Last 3 Months or Most Recently Relevant to Health Maintenance Insurance [employer] MEDICARE Care Teams Cardiology Manager Relationship Specialty Start Date End Date Jamie Holly MD PCP - General 05/08/08
--- OUTSIDE RECORDS SUMMARY | 2025-03-08 22:45 | XMS_ITS | CCD ---
Author Organization [facility] Care Team Providers Care Welding Estimator Name Role Phone PHYSICIAN, DEFAULT Unavailable Unavailable PHYSICIAN, DEFAULT Unavailable Unavailable PHYSICIAN, DEFAULT Unavailable Unavailable PHYSICIAN, DEFAULT Unavailable Unavailable MOUKAHANY, MIRACLE Attending Unavailable MOUKARBEL, DR RAUSCH Admitting Unavailable MOUKARBEL, DR RAUSCH Attending Unavailable HOY, DR FAJARDO Primary Care Unavailable MOUKARBEL, DR RAUSCH Consulting Unavailable MOUKARBEL, DR RAUSCH Admitting Unavailable MOUKARBEL, DR RAUSCH Attending Unavailable HOY, DR FAJARDO Primary Care Unavailable MOUKARBEL, DR RAUSCH Consulting Unavailable NICOLEY, DR FAJARDO Admitting Unavailable HOY, DR FAJARDO Attending Unavailable HOY, DR FAJARDO Primary Care Unavailable HOY, DR FAJARDO Consulting Unavailable DMITRI, DR FAJARDO Admitting Unavailable HOY, DR FAJARDO Attending Unavailable DMITRI, DR FAJARDO Primary Care Unavailable DMITRI, DR FAJARDO Consulting Unavailable MOUKARBEL, DR RAUSCH Admitting Unavailable MOUKARBEL, DR RAUSCH Attending Unavailable HOY, DR FAJARDO Primary Care Unavailable MOUKARBEL, DR RAUSCH Consulting Unavailable DAGO FRANK Attending Unavailable Scotty Rizvi MD Attending Provider [phone] Scotty Rizvi Attending Unavailable Scotty Rizvi Admitting Unavailable Scotty Rizvi MD Primary Care Provider Allergies Allergy Classification Reported Allergen(s) Allergy Type Date of Onset Reaction(s) Facility (2 sources) Cephalexin; Translations: [CEPHALEXIN] Drug Allergy 8 Rash [facility] Repository (2 sources) Latex; Translations: [LATEX] Propensity to adverse reactions to drug (disorder) 9 Rash, Itching [facility] Repository (2 sources) Theophylline; Translations: [THEOPHYLLINE] Drug Allergy 7 [facility] Repository (1 source) AMOXICILLIN-POT CLAVULANATE; Translations: [AMOXICILLIN-PO T CLAVULANATE] Propensity to adverse reactions to drug (disorder) 3 [facility] Repository (1 source) Amoxicillin / Clavulanate Drug Allergy 7 [facility] Repository (1 source) Cephalexin Drug Allergy 7 [facility] Repository (1 source) natural latex rubber Drug allergy (disorder) [facility] Repository (1 source) Cephalexin Drug Allergy 8 Rash [facility] Medications Current Medications Medication Drug Class(es) Dates Sig (Normalized) Sig (Original) anthralin 10 mg/ml topical cream (1 source) Start: 11-29-2008 anthralin(DRITHOCRE ME HP 1 % TOPICAL) use as instructed 1 trade size 3 11/29/2008 Active cetirizine hydrochloride 10 mg oral tablet (1 source) Histamine-1 Receptor Antagonist Start: 11-29-2008 cetirizine hcl(ZYRTEC 10 MG TAB) Take one(1) tablet daily. 30 12 11/29/2008 Active clobetasol propionate 0.5 mg/ml topical foam (1 source) Corticosteroid Start: 11-29-2008 clobetasol propionate(OLUX 0.05 % TOPICAL FOAM) apply to the affected areas in the scalp once daily in the morning large 3 11/29/2008 Active COMPOUNDED PRESCRIPTION (1 source) Start: 11-29-2008 COMPOUNDED PRESCRIPTION BIOTIN FORTE 0 11/29/2008 Active 24 hr desvenlafaxine succinate 100 mg extended release oral tablet (1 source) Serotonin and Norepinephrine Reuptake Inhibitor Start: 06-22-2008 desvenlafaxine succinate(PRISTIQ 100 MG 24 HR TAB) take one daily 0 06/22/2008 Active ketoconazole 20 mg/ml medicated shampoo (1 source) Azole Antifungal Start: 11-29-2008 KETOCONAZOLE 2 % SHAMPOO alternate this shampoo with head and shoulders large 3 11/29/2008 Active multivits w-ca,fe,other min(WOMEN'S MULTIPLE VITAMINS 18 MG-0.4 MG TAB) (1 source) Start: 06-22-2008 multivits w-ca,fe,other min(WOMEN'S MULTIPLE VITAMINS 18 MG-0.4 MG TAB) take one daily 0 06/22/2008 Active Problems Active Problems Problem Classification Problem Date Documented Da te Episodic/Chronic Chronic obstructive pulmonary disease and bronchiectasis (2 sources) Chronic obstructive pulmonary disease, unspecified; Translations: [Chronic obstructive pulmonary disease, unspecified] Onset: 10-06-2022 Chronic Congestive heart failure; nonhypertensive (3 sources) Chronic diastolic (congestive) heart failure; Translations: [Unspecified diastolic (congestive) heart failure] Onset: 04-30-2022 Chronic Disorders of lipid metabolism (12 sources) Mixed hyperlipidemia; Translations: [Hyperlipidemia, unspecified] Onset: 10-29-2021 Chronic Essential hypertension (5 sources) Essential (primary) hypertension; Translations: [Hypertensive disorder] Onset: 05-01-2022 Chronic Heart valve disorders (13 sources) Nonrheumatic aortic (valve) stenosis; Translations: [Nonrheumatic aortic (valve) insufficiency] Onset: 12-30-2021 Chronic Hypertension with complications and secondary hypertension (1 source) Hypertensive heart disease with heart failure; Translations: [HTN HEART DISEASE W/HEART FAIL] Onset: 04-30-2022 Chronic Nutritional deficiencies (1 source) Vitamin D deficiency, unspecified; Translations: [VITAMIN D DEFICIENCY UNSPECIFIED] Onset: 04-30-2022 Chronic Other nutritional; endocrine; and metabolic disorders (2 sources) Morbid (severe) obesity due to excess calories; Translations: [Morbid (severe) obesity due to excess calories] Onset: 10-06-2022 Chronic Residual codes; unclassified (2 sources) Obstructive sleep apnea (adult) (pediatric); Translations: [Obstructive sleep apnea (adult) (pediatric)] Onset: 10-06-2022 Chronic Past or Other Problems Problem Classification Problem Date Documented Da te Episodic/Chronic Deficiency and other anemia (1 source) Anemia, unspecified; Translations: [ANEMIA UNSPECIFIED] Onset: 04-30-2022 Episodic Diabetes mellitus without complication (1 source) Other abnormal glucose; Translations: [OTHER ABNORMAL GLUCOSE] Onset: 04-30-2022 Episodic Other lower respiratory disease (1 source) Other forms of dyspnea; Translations: [OTHER FORMS OF DYSPNEA] Onset: 05-01-2022 Episodic Other nutritional; endocrine; and metabolic disorders (1 source) Overweight; Translations: [OVERWEIGHT] Onset: 04-30-2022 Episodic Other screening for suspected conditions (not mental disorders or infectious disease) (5 sources) Encounter for screening for malignant neoplasm of rectum; Translations: [ENC SCREEN MALIG NEOPLASM RECTUM] Onset: 04-30-2022 Episodic Other skin disorders (1 source) Alopecia areata; Translations: [Alopecia areata, unspecified] Onset: 08-16-2008 08-16-2008 Episodic Results Test Name Value Interpretation Reference Range Facility Urine Cultureon 01-03-2025 Bacteria identified Cx Nom (U) ORGANISM: Escherichia coli (O:ESCCOL) [place] Count >100,000 Aerobic SIOBHAN Charge (NMIC56) ---- SUSCEPTIBILITY --- ORGANISM: O:ESCCOL ANTIBIOTIC INTERPRETATION SIOBHAN Amikacin S <16 Amoxacillin/K Clavulanate S <8 Ampicillin S <8 Ampicillin/Sulbactam S <4 Aztreonam S <4 Cefazolin S <2 Cefepime S <2 Ceftazidime S <1 Ceftazidime/Avibactam S <4 Ceftolozane/Tazobacta m S <2 Ceftriaxone S <1 Cefuroxime S <4 Ciprofloxacin R >2 Ertapenem S <0.5 Gentamicin S <2 Levofloxacin R >4 Meropenem S <1 Meropenem/Vaborbactam S <2 Nitrofurantoin S <32 Piperacillin/Tazobact am S <8 Tetracycline R >8 Tigecycline S <2 Tobramycin S <2 Trimethoprim/Sulfamet hoxazole S 22/38 S = SUSCEPTIBLE I = INTERMEDIATE R = RESISTANT BLANK = DATA NOT AVAILABLE, OR DRUG NOT ADVISABLE OR TESTED R* = RESISTANCE DUE TO EXTENDED SPECTRUM BETA-LACTAMASES ESBL = EXTENDED SPECTRUM BETA-LACTAMASE TFG = THYMIDINE-DEPENDENT STRAIN LUIS MIGUEL = BETA-LACTAMASE POSITIVE IB = INDUCIBLE BETA-LACTAMASE. APPEARS IN PLACE OF 'S' WITH SPECIES KNOWN TO POSSESS INDUCIBLE BETA-LACTAMASES. POTENTIALLY THEY MAY BECOME RESISTANT TO ALL B-LACTAM DRUGS. PERFORMED BY: [address] [place] [address] PATHOLOGIST CRIB PAD MAKER RENETTA ALONZO M.D. Normal [facility] Comment on above: Performed By: #### C UU #### [facility] [address] ECHOCARDIO M/2D COMPLETEon 0 10-07-2022 ECHOCARDIO M/2D COMPLETE Patient: ARMANDO SWEET Exam Date: 10/07/2022 : 1950 Gender:F Ordering : DR MIRACLE LOVE M.D. Admission #: [id number] Family : DR SCOTTY RIZVI . Order #: [id number] CLICK HERE TO VIEW EXAM ECHOCARDIOGRAM REPORT PROCEDURE: CARDIO PULMONARY ECHOCARDIO M/2D COMP INDICATIONS: Aortic valve stenosis, aortic valve insufficiency, hypertension COMPARISON: None. DESCRIPTION: COMPLETE ECHOCARDIOGRAM Real-time transthoracic echocardiography with 2D, M-mode, spectral and color flow Doppler performed. QUALITY: Technically difficult due to patients condition. 67 276# BP 132/86 LEFT VENTRICLE: Normal chamber size. Mild concentric left ventricular hypertrophy. Normal systolic function. LV EF: Normal left ventricular ejection fraction, (>55%). DIASTOLIC: Grade II diastolic dysfunction. ATRIAL SEPTUM: LEFT ATRIUM: Mild dilatation. RIGHT ATRIUM: Mild dilatation. RIGHT VENTRICLE: Normal chamber size. Normal right ventricular systolic function. TRICUSPID VALVE: Normal mobility and thickness. No stenosis with mild regurgitation. Doppler studies reveal moderately (45-60) elevated right sided pressures. RVSP 58 mmHg MITRAL VALVE: Normal mobility and thickness. No evidence of mitral valve stenosis. Moderate mitral annular calcification. Mild mitral regurgitation. AORTIC VALVE: Mildly calcified aortic valve. Doppler velocity suggest mild aortic valve stenosis. Mild aortic regurgitation. AORTIC ROOT: Normal diameter and appearance. PULMONIC VALVE: Not well visualized. No stenosis. No regurgitation. PERICARDIUM: No evidence of pericardial effusion. IVC: Not well visualized. PLEURA: CONCLUSION: 1. Mild concentric left ventricular hypertrophy. Normal ventricular systolic function. LVEF is 55 to 60%. 2. Grade 2 diastolic dysfunction. 3. Mild aortic stenosis and regurgitation. 4. Mild tricuspid and mitral regurgitation. 5. Moderately elevated right-sided pressures. 6. Technically difficult study with poor sound transmission. Adult Echocardiography Procedure Report Left Ventricle LVEDD (3.7 - 5.6 cm): 3.67 cm LVESD (2.2 - 4.0 cm): 2.61 cm LVIVS thickness (0.6 - 1.2 cm): 1.48 cm LVPW thickness (0.5 - 1.0 cm): 1.15 cm e': 0.06 m/s E - e': 17.92 LVOT Max Gradient: 5.77 mm[Hg] Peak Velocity (LVOT): 1.20 m/s Mean Velocity (LVOT): 0.77 m/s LVOT Diameter 2.48 cm Left Ventricular Ejection Fraction: 55-60 % Left Atrium LA Volume Index (2D A2C): 97.32 ml, 97.32 ml Left Atrium Systolic Dimension: 3.81 cm Mitral Valve MV E to A Ratio: 0.90 Mitral Valve A-Wave Peak Velocity: 1.17 m/s Mitral Valve E-Wave Peak Velocity: 1.05 m/s Right Ventricle Aorta AO Root Diam: 3.36 cm Aortic Valve AoV Area (Peak Rj): 3.66 cm2, 3.99 cm2 AoV Area (VTI): 3.57 cm2, 3.66 cm2 Peak Velocity(Antegrade Flow): 1.45 m/s, 1.71 m/s Peak Gradient(Antegrade Flow): 8.39 mm[Hg], 11.76 mm[Hg] Mean Velocity(Antegrade Flow): 1.10 m/s, 1.23 m/s Mean Gradient(Antegrade Flow): 5.21 mm[Hg], 6.79 mm[Hg] Velocity Time Integral: 36.56 cm, 38.28 cm Tricuspid Valve Peak Velocity (Regurgitant Flow): 3.33 m/s, 3.71 m/s Peak Velocity: 0.55 m/s Pulmonic Valve Peak Velocity: 1.05 m/s, 0.83 m/s Peak Gradient: 4.42 mm[Hg], 2.73 mm[Hg] Right Atrium Right Atrium Systolic Pressure: 63.83 ml, 63.83 ml Dictated by: Miracle Love M.D. on 10/07/2022 at 20:11 Approved by: Miracle Love M.D. on 10/07/2022 at 20:22 [facility] Office Visiton 10-06-2022 Follow-up visit [id number] Armando Sweet 1950 [facility] Provider Department [place] 10/06/2022MIRACLE ERICKSON [facility] Family History Problem Relation Age of Onset Coronary artery disease Mother Coronary artery disease Father Diabetes Brother Family Status - Relation Status Age at Mother Father Brother Level of Service:24717 NC OFFICE/OUTPATIENT ESTABLISHED MOD MDM 30-39 MIN Reason for Visit and Comments: Congestive Heart Failure [127] Valve Disorder [3372] Hyperlipidemia [182] Hypertension [186070] Normal [facility] INSULINon 04-30-2022 Insulin 14.5 uIU/mL Normal 2.6-24.9 [facility] Comment on above: Performed By: #### I NSULIN #### [facility] [address] [address] [address] Vicki Muro OCC BLD IMMUNO SCREENon 04-02 OCCULT BLOOD Negative Normal NEGATIVE [facility] Comment on above: Performed By: #### I NSULIN #### [facility] [address] [address] [address] Vicki Muro T4, T3U, FTI LABCORPon 04-30 Free Thyroxine Index 1.9 Normal 1.2-4.9 [facility] Comment on above: Performed By: #### T HYLC #### [facility] [address] [address] [address] Vicki Muro T3 Uptake 25 % Normal 24-39 [facility] Comment on above: Performed By: #### T HYLC #### [facility] [address] [address] [address] Vicki Muro T4 [Mass/Vol] 7.5 ug/dL Normal 4.5-12.0 [facility] Comment on above: Performed By: #### T HYLC #### [facility] [address] [address] [address] Vicki Muro VIT D 25-OH LABCORPon 2021 Vitamin D, 25-Hydroxy 54.8 ng/mL Normal 30.0-100.0 [facility] Comment on above: Result Comment: Ghislaine min D deficiency has been defined by the [place] of Medicine and an Endocrine Society practice guideline as a level of serum 25-OH vitamin D less than 20 ng/mL (1,2). The Endocrine Society went on to further define vitamin D insufficiency as a level between 21 and 29 ng/mL (2). 1. IOM ([place] of Medicine). 2010. Dietary reference intakes for calcium and D. [place]: The National Academies Press. 2. [place] MF, Michael WADSWORTH, Gaby JACOBS, et al. Evaluation, treatment, and prevention of vitamin D deficiency: an Endocrine Society clinical practice guideline. JCEM. 2010; 96(7):1911-30. Performed By: #### I NSULIN #### [facility] [address] [place] [address] Dr. Vicki Muro BNPon 04-29-2022 Natriuretic peptide B (Bld) [Mass/Vol] 350.0 pg/mL Normal <=900.0 [facility] Comment on above: Performed By: #### L IPID, CMP, BNP, TSH #### [facility] [address] [place] [address] Dr. Vicki Muro CBC AUTO DIFFon 04-29-2022 BASO # 0.0 103/ul Normal 0.0-0.1 [facility] Comment on above: Performed By: #### I NSULIN #### [facility] [address] [place] [address] Dr. Vicki Muro Basophils/100 WBC (Bld) 0.8 % Normal 0.2-2.0 [facility] Comment on above: Performed By: #### I NSULIN #### [facility] [address] [place] [address] Dr. Vicki Muro EO # 0.1 103/ul Normal 0.0-0.7 [facility] Comment on above: Performed By: #### I NSULIN #### [facility] [address] [place] [address] Dr. Vicki Muro Eosinophils/100 WBC (Bld) 2.4 % Normal 0.9-7.0 [facility] Comment on above: Performed By: #### I NSULIN #### [facility] [address] [place] [address] Dr. Vicki Muro Erythrocyte distribution width (RBC) [Ratio] 12.7 % Normal 11.0-15.0 [facility] Comment on above: Performed By: #### I NSULIN #### [facility] [address] [place] [address] Dr. Vicki Muro Hematocrit (Bld) [Volume fraction] 39.1 % Normal 36.0-48.0 [facility] Comment on above: Performed By: #### I NSULIN #### [facility] [address] [place] [address] Dr. Vicki Muro Hemoglobin (Bld) [Mass/Vol] 13.0 g/dL Normal 12.0-16.0 [facility] Comment on above: Performed By: #### I NSULIN #### [facility] [address] [place] [address] Dr. Vicki Muro IG # 0.01 10e3/ul Normal 0.00-0.03 [facility] Comment on above: Performed By: #### I NSULIN #### [facility] [address] [place] [address] Dr. Vicki Muro IG % 0.2 % Normal 0.0-0.5 [facility] Comment on above: Performed By: #### I NSULIN #### [facility] [address] [place] [address] Dr. Vicki Muro LYMPH # 1.6 103/ul Normal 1.2-3.8 [facility] Comment on above: Performed By: #### I NSULIN #### [facility] [address] [place] [address] Dr. Vicki Muro Lymphocytes/100 WBC (Bld) 29.5 % Normal 20.5-60.0 [facility] Comment on above: Performed By: #### I NSULIN #### [facility] [address] [place] [address] Dr. Vicki Muro MANUAL DIFF REQ NO Normal [facility] Comment on above: Performed By: #### I NSULIN #### [facility] [address] [place] [address] Dr. Vicki Muro MCH (RBC) [Entitic mass] 29.7 pg Normal 26.7-34.0 [facility] Comment on above: Performed By: #### I NSULIN #### [facility] [address] [place] [address] Dr. Vicki Muro MCHC (RBC) [Mass/Vol] 33.2 g/dL Normal 29.9-35.2 [facility] Comment on above: Performed By: #### I NSULIN #### [facility] [address] [place] [address] Dr. Vicki Muro MCV (RBC) [Entitic vol] 89.3 fL Normal 81.0-99.0 [facility] Comment on above: Performed By: #### I NSULIN #### [facility] [address] [place] [address] Dr. Vicki Muro MONO # 0.4 103/ul Normal 0.3-0.8 [facility] Comment on above: Performed By: #### I NSULIN #### [facility] [address] [place] [address] Dr. Vicki Muro Monocytes/100 WBC (Bld) 6.6 % Normal 1.7-12.0 [facility] Comment on above: Performed By: #### I NSULIN #### [facility] [address] [place] [address] Dr. Vicki Muro NEUT # 3.2 103/ul Normal 1.4-6.5 [facility] Comment on above: Performed By: #### I NSULIN #### [facility] [address] [place] [address] Dr. Vicki Muro Neutrophils/100 WBC (Bld) 60.5 % Normal 43.0-75.0 [facility] Comment on above: Performed By: #### I NSULIN #### [facility] [address] [place] [address] Dr. Vicki Muro Platelet mean volume (Bld) [Entitic vol] 10.0 fL Normal 9.5-13.5 [facility] Comment on above: Performed By: #### I NSULIN #### [facility] [address] [place] [address] Dr. Vicki Muro PLT 212 103/ul Normal 150-450 [facility] Comment on above: Performed By: #### I NSULIN #### [facility] [address] [address] [address] Vicki Muro RBC 4.38 106/ul Normal 4.20-5.40 [facility] Comment on above: Performed By: #### I NSULIN #### [facility] [address] [address] [address] Vicki Muro WBC 5.3 103/ul Normal 4.0-11.0 [facility] Comment on above: Performed By: #### I NSULIN #### [facility] [address] [address] [address] Vicki Muro GLYCOHEMOGLOBIN A1Con 2021 ADA RECOMMENDATION SEE BELOW Normal [facility] Comment on above: Result Comment: ADA RECOMMENDED LIMIT 4.0 - 6.0 ADA THERAPEUTIC TARGET < 7.0 ACTION SUGGESTED > 7.0 Performed By: #### I NSULIN #### [facility] [address] [address] [address] Vicki Muro Glucose [Mass/Vol] 126 mg/dL Normal [facility] Comment on above: Performed By: #### I NSULIN #### [facility] [address] [address] [address] Vicki Muro HbA1c (Bld) [Mass fraction] 6.0 % Normal 4.5-6.2 [facility] Comment on above: Performed By: #### I NSULIN #### [facility] [address] [address] [address] Vicki Muro IRONon 04-29-2022 Iron [Mass/Vol] 63.0 ug/dL Normal 50.0-170.0 [facility] Comment on above: Performed By: #### I SIERRA #### [facility] [address] [place] [address] Dr. Vicki Muro LIPID PROFILEon 04-29-2022 CHOL-HDL RATIO NORM SEE BELOW Normal [facility] Comment on above: Result Comment: 3.3 - 4.4 LOW RISK 4.4 - 7.1 AVERAGE RISK 7.1 - 11.0 MODERATE RISK >11.0 HIGH RISK Performed By: #### L IPID, CMP, BNP, TSH #### [facility] [address] [address] [address] Vicki Muro Cholesterol [Mass/Vol] 179 mg/dL Normal <=200 [facility] Comment on above: Performed By: #### L IPID, CMP, BNP, TSH #### [facility] [address] [address] [address] Vicki Muro Cholesterol in HDL [Mass/Vol] 53 mg/dL Normal 40-60 [facility] Comment on above: Performed By: #### L IPID, CMP, BNP, TSH #### [facility] [address] [place] [address] Dr. Vicki Muro Cholesterol in LDL [Mass/Vol] 85.8 mg/dL Normal [facility] Comment on above: Performed By: #### L IPID, CMP, BNP, TSH #### [facility] [address] [address] [address] Vicki Muro Cholesterol.total/Ch olesterol in HDL [Mass ratio] 3.4 {ratio} Normal [facility] Comment on above: Performed By: #### L IPID, CMP, BNP, TSH #### [facility] [address] [address] [address] Vicki Muro HDL NORMAL > or = 60 mg/dl - LO W CARDIOVASCULAR RISK <40 mg/dl - HIGH CARDIOVASCULAR RISK Normal [facility] Comment on above: Performed By: #### L IPID, CMP, BNP, TSH #### [facility] [address] [address] [address] Vicki Muro LDL CALC NORMAL SEE BELOW Normal [facility] Comment on above: Result Comment: <100 mg/dl OPTIMAL 100 - 129 mg/dl NEAR OR ABOVE OPTIMAL 130 - 159 mg/dl BORDERLINE HIGH 160 - 189 mg/dl HIGH >190 mg/dl VERY HIGH Performed By: #### L IPID, CMP, BNP, TSH #### [facility] [address] [address] [address] Vicki Muro Triglyceride [Mass/Vol] 201 mg/dL Critically high <=150 [facility] Comment on above: Performed By: #### L IPID, CMP, BNP, TSH #### [facility] [address] [place] [address] Dr. Vicki Muro VLDL CALC 40.2 mg/dL Normal [facility] Comment on above: Performed By: #### L IPID, CMP, BNP, TSH #### [facility] [address] [place] [address] Dr. Vicki Muro PROF 14(COMP METB)on 022 Albumin [Mass/Vol] 3.8 g/dL Normal 3.4-5.0 [facility] Comment on above: Performed By: #### L IPID, CMP, BNP, TSH #### [facility] [address] [place] [address] Dr. Vicki Muro Albumin/Globulin [Mass ratio] 1.0 {ratio} Normal [facility] Comment on above: Performed By: #### L IPID, CMP, BNP, TSH #### [facility] [address] [place] [address] Dr. Vicki Muro ALP [Catalytic activity/Vol] 108 U/L Normal 46-116 [facility] Comment on above: Performed By: #### L IPID, CMP, BNP, TSH #### [facility] [address] [place] [address] Dr. Vicki Muro ALT [Catalytic activity/Vol] 29 U/L Normal 14-59 [facility] Comment on above: Performed By: #### L IPID, CMP, BNP, TSH #### [facility] [address] [place] [address] Dr. Vicki Muro Anion gap [Moles/Vol] 13.1 mmol/L Normal [facility] Comment on above: Performed By: #### L IPID, CMP, BNP, TSH #### [facility] [address] [place] [address] Dr. Vicki Muro AST [Catalytic activity/Vol] 24 U/L Normal 15-37 [facility] Comment on above: Performed By: #### L IPID, CMP, BNP, TSH #### [facility] [address] [address] [address] Vicki Muro Bilirubin [Mass/Vol] 0.4 mg/dL Normal 0.2-1.0 [facility] Comment on above: Performed By: #### L IPID, CMP, BNP, TSH #### [facility] [address] [address] [address] Vicki Muro Calcium [Mass/Vol] 9.2 mg/dL Normal 8.5-10.1 [facility] Comment on above: Performed By: #### L IPID, CMP, BNP, TSH #### [facility] [address] [place] [address] Dr. Vicki Muro Chloride [Moles/Vol] 103 mmol/L Normal 98-107 [facility] Comment on above: Performed By: #### L IPID, CMP, BNP, TSH #### [facility] [address] [place] [address] Dr. Vicki Muro CO2 [Moles/Vol] 27.7 mmol/L Normal 21.0-32.0 [facility] Comment on above: Performed By: #### L IPID, CMP, BNP, TSH #### [facility] [address] [place] [address] Dr. Vicki Muro Creatinine [Mass/Vol] 0.81 mg/dL Normal 0.55-1.02 [facility] Comment on above: Performed By: #### L IPID, CMP, BNP, TSH #### [facility] [address] [place] [address] Dr. Vicki Muro EGFR-AF GERMAN >60 Normal >=60 [facility] Comment on above: Performed By: #### L IPID, CMP, BNP, TSH #### [facility] [address] [place] [address] Dr. Vicki Muro EGFR-NON AF GERMAN >60 Normal >=60 [facility] Comment on above: Performed By: #### L IPID, CMP, BNP, TSH #### [facility] [address] [place] [address] Dr. Vicki Muro Globulin (S) [Mass/Vol] 3.8 g/dL Normal [facility] Comment on above: Performed By: #### L IPID, CMP, BNP, TSH #### [facility] [address] [place] [address] Dr. Vicki Muro Glucose [Mass/Vol] 132 mg/dL Critically high 74-[address] [facility] Comment on above: Performed By: #### L IPID, CMP, BNP, TSH #### [facility] [address] [place] [address] Dr. Vicki Muro Potassium [Moles/Vol] 3.8 mmol/L Normal 3.5-5.1 [facility] Comment on above: Performed By: #### L IPID, CMP, BNP, TSH #### [facility] [address] [place] [address] Dr. Vicki Muro Protein [Mass/Vol] 7.6 g/dL Normal 6.4-8.2 [facility] Comment on above: Performed By: #### L IPID, CMP, BNP, TSH #### [facility] [address] [place] [address] Dr. Vicki Muro Sodium [Moles/Vol] 140 mmol/L Normal 136-145 [facility] Comment on above: Performed By: #### L IPID, CMP, BNP, TSH #### [facility] [address] [place] [address] Dr. Vicki Muro Urea nitrogen [Mass/Vol] 10.0 mg/dL Normal 7.0-18.0 [facility] Comment on above: Performed By: #### L IPID, CMP, BNP, TSH #### [facility] [address] [place] [address] Dr. Vicki Muro Urea nitrogen/Creatinine [Mass ratio] 12.3 mg/mg Normal [facility] Comment on above: Performed By: #### L IPID, CMP, BNP, TSH #### [facility] [address] [place] [address] Dr. Vicki Muro TSHon 04-29-2022 TSH 2.265 uIU/mL Normal 0.358-3.740 [facility] Comment on above: Performed By: #### L IPID, CMP, BNP, TSH #### [facility] [address] [address] [address] Vicki Muro ECHOCARDIO M/2D COMPLETEon 0 12-30-2021 ECHOCARDIO M/2D COMPLETE Patient: ARMANDO SWEET Exam Date: 12/30/2021 : 1950 Gender:F Ordering : DR MIRACLE LOVE M.D. Admission #: [id number] Family : Order #: [id number] CLICK HERE TO VIEW EXAM ECHOCARDIOGRAM REPORT PROCEDURE: CARDIO PULMONARY ECHOCARDIO M/2D COMP INDICATIONS: Aortic valve regurgitation COMPARISON: None. DESCRIPTION: COMPLETE ECHOCARDIOGRAM Real-time transthoracic echocardiography with 2D, M-mode, spectral and color flow Doppler performed. QUALITY: Technically difficult due to patient's condition. LEFT VENTRICLE: Normal chamber size. Mild concentric left ventricular hypertrophy. Visual estimation of left ventricular ejection fraction is 65%. No regional wall motion abnormalities. No significant ventricular outflow tract obstruction. LV EF: Normal left ventricular ejection fraction, (>55%). DIASTOLIC: Grade II diastolic dysfunction. ATRIAL SEPTUM: LEFT ATRIUM: Mild chamber dilation. RIGHT ATRIUM: Mild chamber dilatation. RIGHT VENTRICLE: Normal chamber size. Decreased right ventricular systolic function. TRICUSPID VALVE: Normal mobility and thickness. No stenosis with mild regurgitation. Doppler studies reveal mildly (35-45) elevated right sided pressures. RVSP 36 mmHg MITRAL VALVE: Normal mobility and thickness. Moderate mitral annular calcification. Mild mitral regurgitation. AORTIC VALVE: Normal trileaflet appearance. Moderately calcified aortic valve. Mildly diminished mobility. Doppler velocities suggest moderate aortic valve stenosis. DVI 0.3, BERNARDO (VTI) 1.45 cm?, BERNARDO (Vmax) 1.14 cm?, mean 18 mmHg, peak velocity 2.8 m/s mild aortic regurgitation. AORTIC ROOT: Normal diameter and appearance. PULMONIC VALVE: Not well visualized. No stenosis. No regurgitation. PERICARDIUM: No evidence of pericardial effusion. IVC: Not well visualized. PLEURA: CONCLUSION: 1. Mild concentric left ventricular hypertrophy. Normal left ventricular systolic function. LVEF is 65%. 2. Normal right ventricular systolic function. 3. Grade 2 diastolic dysfunction. 4. Mild left atrial enlargement. 5. Moderate aortic valve stenosis with mild regurgitation. 6. Mild mitral and tricuspid regurgitation. 7. No pericardial effusion. 8. Technically difficult study with poor sound transmission. Adult Echocardiography Procedure Report Left Ventricle LVEDD (3.7 - 5.6 cm): 4.23 cm LVESD (2.2 - 4.0 cm): 3.13 cm LVIVS thickness (0.6 - 1.2 cm): 1.47 cm LVPW thickness (0.5 - 1.0 cm): 1.14 cm e': 6.03 cm/s E - e': 20.20 LVOT Area (cm2): 4.15 cm2 LVOT Diameter 2.20 cm Left Ventricular Ejection Fraction: 65 % Left Atrium LA Volume Index (2D A2C): 29.70 ml/m2 Left Atrium Systolic Dimension: 4.10 cm Left Atrium Systolic Area(A2C): 21.50 cm2 Left Atrium Systolic Area(A4C): 21.80 cm2 Left Atrium Systolic Volume(A2C): 90963 mm3 Left Atrium Systolic Volume(A4C): 08405 mm3 Mitral Valve MV E to A Ratio: 0.90 Mitral Valve A-Wave Peak Velocity: 141.00 cm/s Mitral Valve E-Wave Peak Velocity: 122.00 cm/s Deceleration Time: 227 ms Right Ventricle Aorta AO Root Diam: 3.20 cm Aortic Valve Peak Velocity (Antegrade Flow): 224.00 cm/s, 237.00 cm/s AoV Area (Peak Rj): 1.14 cm2 AoV Area (VTI): 1.45 cm2 Peak Velocity(Antegrade Flow): 280.00 cm/s Peak Gradient(Antegrade Flow): 31 mm[Hg] Mean Velocity(Antegrade Flow): 203.00 cm/s Mean Gradient(Antegrade Flow): 18 mm[Hg] Velocity Time Integral: 65.30 cm Tricuspid Valve Peak Velocity (Regurgitant Flow): 261.00 cm/s Pulmonic Valve Peak Velocity: 96.60 cm/s Peak Gradient: 4 mm[Hg] Right Atrium Dictated by: Miracle Love M.D. on 12/30/2021 at 15:06 Approved by: Miracle Love M.D. on 12/30/2021 at 15:20 Normal [facility] HEMOGRAM AND PLATELon 2021 Hematocrit (Bld) [Volume fraction] 39.8 % Normal 36.0-48.0 [facility] Comment on above: Performed By: #### H H #### [facility] [address] [place] [address] Dr. Vicki Muro Hemoglobin (Bld) [Mass/Vol] 13.0 g/dL Normal 12.0-16.0 [facility] Comment on above: Performed By: #### H H #### [facility] [address] [place] [address] Dr. Vicki Muro MCH (RBC) [Entitic mass] 30.2 pg Normal 26.7-34.0 [facility] Comment on above: Performed By: #### H H #### [facility] [address] [place] [address] Dr. Vicki Muro MCHC (RBC) [Mass/Vol] 32.7 g/dL Normal 29.9-35.2 [facility] Comment on above: Performed By: #### H H #### [facility] [address] [place] [address] Dr. Vicki Muro MCV (RBC) [Entitic vol] 92.6 fL Normal 81.0-99.0 [facility] Comment on above: Performed By: #### H H #### [facility] [address] [place] [address] Dr. Vicki Muro PLT 194 103/ul Normal 150-450 [facility] Comment on above: Performed By: #### H H #### [facility] [address] [place] [address] Dr. Vicki Muro RBC 4.30 106/ul Normal 4.20-5.40 [facility] Comment on above: Performed By: #### H H #### [facility] [address] [place] [address] Dr. Vicki Muro WBC 4.7 103/ul Normal 4.0-11.0 [facility] Comment on above: Performed By: #### H H #### [facility] [address] [place] [address] Dr. Vicki Muro LIPID PROFILEon 10-29-2021 CHOL-HDL RATIO NORM SEE BELOW Normal [facility] Comment on above: Result Comment: 3.3 - 4.4 LOW RISK 4.4 - 7.1 AVERAGE RISK 7.1 - 11.0 MODERATE RISK >11.0 HIGH RISK Performed By: #### I NSULIN #### [facility] [address] [place] [address] Dr. Vicki Muro Cholesterol [Mass/Vol] 193 mg/dL Normal <=200 [facility] Comment on above: Performed By: #### I NSULIN #### [facility] [address] [address] [address] Vicki Muro Cholesterol in HDL [Mass/Vol] 55 mg/dL Normal [facility] Comment on above: Performed By: #### I NSULIN #### [facility] [address] [place] [address] Dr. Vicki Muro Cholesterol in LDL [Mass/Vol] 97.2 mg/dL Normal [facility] Comment on above: Performed By: #### I NSULIN #### [facility] [address] [address] [address] Vicki Muro Cholesterol.total/Ch olesterol in HDL [Mass ratio] 3.5 {ratio} Normal [facility] Comment on above: Performed By: #### I NSULIN #### [facility] [address] [place] [address] Dr. Vicki Muro HDL NORMAL > or = 60 mg/dl - LO W CARDIOVASCULAR RISK <40 mg/dl - HIGH CARDIOVASCULAR RISK Normal [facility] Comment on above: Performed By: #### I NSULIN #### [facility] [address] [place] [address] Dr. Vicki Muro LDL CALC NORMAL SEE BELOW Normal [facility] Comment on above: Result Comment: <100 mg/dl OPTIMAL 100 - 129 mg/dl NEAR OR ABOVE OPTIMAL 130 - 159 mg/dl BORDERLINE HIGH 160 - 189 mg/dl HIGH >190 mg/dl VERY HIGH Performed By: #### I NSULIN #### [facility] [address] [place] [address] Dr. Vicki Muro Triglyceride [Mass/Vol] 204 mg/dL Critically high <=150 [facility] Comment on above: Performed By: #### I NSULIN #### [facility] [address] [address] [address] Vicki Muro VLDL CALC 40.8 mg/dL Normal [facility] Comment on above: Performed By: #### I NSULIN #### [facility] [address] [place] [address] Dr. Vicki Muro PROF 14(COMP METB)on 022 Albumin [Mass/Vol] 3.6 g/dL Normal 3.5-5.0 [facility] Comment on above: Performed By: #### I NSULIN #### [facility] [address] [place] [address] Dr. Vicki Muro Albumin/Globulin [Mass ratio] 1.0 {ratio} Normal [facility] Comment on above: Performed By: #### I NSULIN #### [facility] [address] [place] [address] Dr. Vicki Muro ALP [Catalytic activity/Vol] 92 U/L Normal 38-126 [facility] Comment on above: Performed By: #### I NSULIN #### [facility] [address] [place] [address] Dr. Vicki Muro ALT [Catalytic activity/Vol] 30 U/L Normal 9-52 [facility] Comment on above: Performed By: #### I NSULIN #### [facility] [address] [place] [address] Dr. Vicki Muro Anion gap [Moles/Vol] 11.3 mmol/L Normal [facility] Comment on above: Performed By: #### I NSULIN #### [facility] [address] [place] [address] Dr. Vicki Muro AST [Catalytic activity/Vol] 23 U/L Normal 14-36 [facility] Comment on above: Performed By: #### I NSULIN #### [facility] [address] [place] [address] Dr. Vicki Muro Bilirubin [Mass/Vol] 0.4 mg/dL Normal 0.2-1.3 [facility] Comment on above: Performed By: #### I NSULIN #### [facility] [address] [address] [address] Vicki Muro Calcium [Mass/Vol] 9.0 mg/dL Normal 8.4-10.2 [facility] Comment on above: Performed By: #### I NSULIN #### [facility] [address] [address] [address] Vicki Muro Chloride [Moles/Vol] 104 mmol/L Normal 98-107 [facility] Comment on above: Performed By: #### I NSULIN #### [facility] [address] [address] [address] Vicki Muro CO2 [Moles/Vol] 25.9 mmol/L Normal 22.0-30.0 [facility] Comment on above: Performed By: #### I NSULIN #### [facility] [address] [place] [address] Dr. Vicki Muro Creatinine [Mass/Vol] 0.86 mg/dL Normal 0.52-1.04 [facility] Comment on above: Performed By: #### I NSULIN #### [facility] [address] [place] [address] Dr. Vicki Muro EGFR-AF GERMAN >60 Normal >=60 [facility] Comment on above: Performed By: #### I NSULIN #### [facility] [address] [place] [address] Dr. Vicki Muro EGFR-NON AF GERMAN >60 Normal >=60 [facility] Comment on above: Performed By: #### I NSULIN #### [facility] [address] [place] [address] Dr. Vicki Mruo Globulin (S) [Mass/Vol] 3.6 g/dL Normal [facility] Comment on above: Performed By: #### I NSULIN #### [facility] [address] [place] [address] Dr. Vicki Muro Glucose [Mass/Vol] 119 mg/dL Critically high 74-[address] [facility] Comment on above: Performed By: #### I NSULIN #### [facility] [address] [place] [address] Dr. Vicki Muro Potassium [Moles/Vol] 4.4 mmol/L Normal 3.4-5.0 [facility] Comment on above: Performed By: #### I NSULIN #### [facility] [address] [address] [address] Vicki Muro Protein [Mass/Vol] 7.2 g/dL Normal 6.1-8.2 [facility] Comment on above: Performed By: #### I NSULIN #### [facility] [address] [address] [address] Vicki Muro Sodium [Moles/Vol] 137 mmol/L Normal 137-145 [facility] Comment on above: Performed By: #### I NSULIN #### [facility] [address] [address] [address] Vicki Muro Urea nitrogen [Mass/Vol] 14.0 mg/dL Normal 7.0-17.0 [facility] Comment on above: Performed By: #### I NSULIN #### [facility] [address] [address] [address] Vicki Muro Urea nitrogen/Creatinine [Mass ratio] 16.3 mg/mg Normal [facility] Comment on above: Performed By: #### I NSULIN #### [facility] [address] [place] [address] Dr. Vicki Muro Encounters Encounter Date Encounter Type Care Provider Facility Start: 01-27-2025 End: 02-01-2025 Transcribe Orders Scotty Rizvi MD Work Phone: Referring Physician Comment on above: Hypertension, unspec ified type (Primary Dx); Hyperlipidemia, unspecified hyperlipidemia type Start: 01-03-2025 End: 01-03-2025 ambulatory Scotty Rizvi [facility] Work Phone: Start: 01-03-2025 End: 01-03-2025 Departed Referred Scotty Rizvi MD Work Phone: [facility] Start: 11-17-2023 End: 11-17-2023 ambulatory DAGO FRANK Not Available Start: 10-07-2022 End: 10-08-[address] MIRACLE LOVE Facility:[facility] Start: 10-06-2022 End: 10-06-2022 ambulatory MIRACLE LOVE [facility] Start: 04-30-2022 End: 04-30-[address] SCOTTY RIZVI Facility:[facility] Start: 04-29-2022 End: 04-30-[address] SCOTTY RIZVI Facility:[facility] Start: 12-30-2021 End: 12-31-[address] MIRACLE LOVE Facility:[facility] Start: 10-29-2021 End: 10-30-[address] MIRACLE LOVE Facility:[facility] Start: 08-09-2018 End: 08-10-2018 Patient encounter procedure DEFAULT PHYSICIAN Facility:[facility] Start: 06-03-2018 End: 06-04-2018 Patient encounter procedure DEFAULT PHYSICIAN Facility:[facility] Plan of Treatment Date Care Activity Detail Author Start: 2027 RSV Vaccine (1 - 1-dose 75+ series) RSV Vaccine (1 - 1-dose 75+ series) [facility] Start: 05-01-2025 Influenza vaccination Influenza Vaccine (Season Ended) [facility] Start: 01-03-2025 Bacteria identified in Urine by Culture Urine Culture [facility] Start: 01-03-2025 Urine culture [facility] Start: 08-31-2024 Advance Directive Discussion Advance Directive Discussion [facility] Start: 05-01-2024 Covid-19 Vaccine ( season) Covid-19 Vaccine ( season) [facility] Start: 2017 Screening for osteoporosis Bone Density Screening [facility] Start: 08-16-2011 Diabetes Screening Diabetes Screening [facility] Start: 2002 Pneumococcal Vaccine: 50+ (1 of 1 - PCV) Pneumococcal Vaccine: 50+ (1 of 1 - PCV) [facility] Start: 2002 Shingrix Vaccine (1 of 2) Shingrix Vaccine (1 of 2) [facility] Start: 1997 Lipid panel Lipid Screening [facility] Start: 1997 Screening for malignant neoplasm of colon [facility] Start: 1992 Screening for malignant neoplasm of breast Mammogram Screening [facility] Start: 1971 Urine microalbumin profile DTaP,Tdap,Td Vaccine (1 - Tdap) [facility] Start: 1970 Anxiety Screening Anxiety Screening [facility] Start: 1970 Depression Screening Depression Screening [facility] Start: 1970 Hepatitis C screening Hepatitis C Screening [facility] Payers Date Payer Category Payer Self-pay 2024 Medicare (Managed Care) [employer] [id number] 2005 Private Health Insurance [employer] [id number] 1959 Medicare [id number] 1959 Unknown [id number] 1950 Unknown [id number]. [id number] 1950 Unknown [id number] [id number]. 2.647 1950 Unknown [id number]. 2.593 1950 Unknown [id number]. 2.593 1950 Unknown [id number] [id number]. 2.593 1950 Unknown [id number] [id number]. 2.593 1950 Unknown [id number] [id number]. 2.593 1950 Unknown [id number] [id number]. 2.1259 Private Health Insurance [employer] [id number] Unknown Unknown [id number] [id number] Social History Date Type Detail [facility] Start: 01-05-2025 Sex Female (finding) [facility] Start: 1950 Sex Assigned At Female F [facility] Start: 1950 Sex assigned at Not on file [facility] Gender identity Not on file [facility] Progress note 10-06-2022 Note Date & Type Note Facility 10-06-2022 Note [facility] Subjective Armando Sweet is a 72 y.o. year old female patient being seen for Congestive Heart Failure, Valve Disorder, Hyperlipidemia, and Hypertension Patient here for 6 mo follow up diastolic heart failure, aortic valve stenosis, and hypertension. Had labs in Mar 2022. C/o swelling on the top of her feet and her toes. Denies chest pain. Says her DAVID is improving, and not as bad as it once was. She was started on amlodipine in December 2021 but wasn't able to tolerate it. Dr. Love then increased her carvedilol to 12.5mg bid. Patient Active Problem List Diagnosis Chronic diastolic congestive heart failure (CMS/HCC) Nonrheumatic aortic valve stenosis Nonrheumatic aortic valve insufficiency Primary hypertension Mixed hyperlipidemia Chronic obstructive pulmonary disease (CMS/HCC) LEXI (obstructive sleep apnea) Morbid obesity (CMS/HCC) Family History Problem Relation Name Age of Onset Coronary artery disease Mother Coronary artery disease Father Diabetes Brother Social History Tobacco Use Smoking status: Former Types: Cigarettes Smokeless tobacco: Never Substance Use Topics Alcohol use: Yes Comment: occasional LUIS CARLOS Armando is seen in follow-up. She is a 72-year-old woman with prior history of hypertension, morbid obesity [BMI 43.8], hyperlipidemia, COPD [pulmonary function testing October 2017], obstructive sleep apnea (mild, not using CPAP), diastolic heart failure, and aortic valve regurgitation. Echocardiogram in July 2018 showed moderate aortic valve regurgitation, mildly elevated right-sided pressures and grade 2 diastolic dysfunction. She is looking to possibly have bilateral knee surgery. This has been delayed due to COVID pandemic. She did not end up having surgery. At a prior visit I increased carvedilol to 6.25 mg twice daily. I checked an echocardiogram to follow-up on her aortic valve disease. This showed moderate aortic valve stenosis with mild regurgitation and normal ventricular function. I then further increased carvedilol to 12.5 mg bid. She did not tolerate amlodipine. She has no chest pain. She gets dyspnea on exertion. She is in NYHA class II-III. No palpitations. She has leg swelling, mostly at night. Review of Systems Cardiovascular: Positive for dyspnea on exertion and leg swelling. Musculoskeletal: Positive for arthritis, joint pain and myalgias. Objective Visit Vitals BP 157/70 (BP Location: Left wrist, Patient Position: Sitting) Pulse 74 Ht 1.689 m (5' 6.5 ) Wt 125 kg (276 lb) SpO2 98% BMI 43.88 kg/m??? Smoking Status Former BSA 2.42 m??? Physical Exam Constitutional: Appearance: She is well-developed. She is obese. She is not ill-appearing. HENT: Head: Normocephalic and atraumatic. Nose: Nose normal. Eyes: General: No scleral icterus. Pupils: Pupils are equal, round, and reactive to light. Neck: Thyroid: No thyromegaly. Vascular: No JVD. Cardiovascular: Rate and Rhythm: Normal rate and regular rhythm. Pulses: Radial pulses are 2+ on the right side and 2+ on the left side. Heart sounds: Murmur heard. Systolic (LUSB) murmur is present with a grade of 4/6. No friction rub. No gallop. Pulmonary: Effort: Pulmonary effort is normal. No respiratory distress. Breath sounds: Normal breath sounds. No wheezing or rales. Chest: Chest wall: No tenderness. Abdominal: General: Bowel sounds are normal. There is no distension. Palpations: Abdomen is soft. Tenderness: There is no abdominal tenderness. Musculoskeletal: General: No swelling. Cervical back: Neck supple. Right lower le+ Pitting Edema present. Left lower le+ Pitting Edema present. Skin: General: Skin is warm and dry. Neurological: General: No focal deficit present. Mental Status: She is alert and oriented to person, place, and time. Psychiatric: Mood and Affect: Mood normal. Behavior: Behavior is cooperative. Judgment: Judgment normal. Allergies Allergies Allergen Reactions Latex Itching and Rash Amoxicillin-Pot Clavulanate Theophylline Cephalexin Rash Medications Current Outpatient Medications: aspirin 81 mg EC tablet, in the morning., Disp: , Rfl: carvedilol (Coreg) 12.5 mg tablet, carvedilol 12.5 mg tablet TAKE 1 TABLET BY MOUTH TWICE A DAY, Disp: , Rfl: cetirizine (ZyrTEC) 10 mg tablet, cetirizine 10 mg tablet TAKE 1 TABLET BY MOUTH EVERY DAY, Disp: , Rfl: furosemide (Lasix) 20 mg tablet, in the morning., Disp: , Rfl: rosuvastatin (Crestor) 5 mg tablet, Take 5 mg by mouth at bedtime., Disp: , Rfl: venlafaxine XR (Effexor-XR) 150 mg 24 hr capsule, 75 mg., Disp: , Rfl: zinc gluconate 50 mg tablet, Take by mouth., Disp: , Rfl: carvedilol (Coreg) 6.25 mg tablet, Take 1 tablet (6.25 mg) by mouth with breakfast and with evening meal. Take in addition to the 12.5 mg tablet for a total of 18.75 mg twice daily., Disp: 180 tablet, Rfl: 3 Recent Labs (more content not included)... [facility] Evaluation note Note Date & Type Note Facility Evaluation note No assessment information availa [facility] Work Phone: Evaluation note Note Date & Type Note Facility Evaluation note Diagnosis Hypertension, unspecified type- Primary Hyperlipidemia, unspecified hyperlipidemia type documented in this encounter [facility] Summary Purpose Family History No Family History Records FoundNo Family History Records FoundNo Family History Records FoundNo Family History Records FoundNo Family History Records Found Advance Directives No Advanced Directives Records FoundNo Advanced Directives Records FoundNo Advanced Directives Records FoundNo Advanced Directives Records FoundNo Advanced Directives Records Found Additional Source Comments INFORMATION SOURCE (unrecogn ized section and content) DATE CREATED AUTHOR 08/11/2018 [facility] DATE CREATED AUTHOR AUTHOR'S ORGANIZ ATION 10/06/2022 [facility] DATE CREATED AUTHOR AUTHOR'S ORGANIZ ATION 10/10/2022 [facility] DATE CREATED AUTHOR AUTHOR'S ORGANIZ ATION 11/18/2023 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 Start Date End Date Scotty Rizvi MD PCP - General 05/08/08 Goals (unrecognized section and content) Goals may be documented in a n alternate section Source Comments (unrecognize d section and content) In the event this informatio n is protected by the Federal Confidentiality of Alcohol and Drug Abuse Patient Records regulations: The Federal rules restrict any use of the information to criminally investigate or prosecute any alcohol or drug abuse patient.[facility] FOR RECORDS PERTAINING TO PATIENTS WHO ARE OR HAVE BEEN ENROLLED IN A CHEMICAL DEPENDENCY/SUBSTANCEABUSE PROGRAM, SOME INFORMATION MAY BE OMITTED. This clinical summary was aggregated from multiple sources. Caution should be exercised in using it in the provision of clinical care. This summary normalizes information from multiple sources, and as a consequence, information in this document may materially change the coding, format and clinical context of patient data. In addition, data may be omitted in some cases. CLINICAL DECISIONS SHOULD BE BASED ON THE PRIMARY CLINICAL RECORDS. [facility]. provides no warranty or guarantee of the accuracy or completeness of information in this document.
--- NOTE | 2025-03-08 23:24 | ECG_ITS ---
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
--- NOTE | 2025-03-08 23:34 | ED.SOB1 ---
HPI - SOB/Dyspnea General Chief Complaint: Shortness of Breath/Dyspnea Stated Complaint: sob Time Seen by Provider: 03/08/25 23:30 Source: patient Mode of arrival: Wheelchair Limitations: no limitations History of Present Illness HPI Narrative: patient presents complaining of shortness of breath for the past week. History of COPD. ex smoker. Denies chest pain or fever but found to have low grade fever in triage. RA pulse ox 88%. Does not have home 02 Related Data Home Medications ?Medication ?Instructions ?Recorded ?Confirmed albuterol sulfate 2.5 mg/3 mL 2.5 mg inhalation Q6H PRN 03/08/25 03/09/25 (0.083 %) solution for nebulization shortness of breath or wheezing furosemide 40 mg tablet 40 mg PO .QD 03/08/25 03/09/25 venlafaxine 75 mg capsule,extended 75 mg PO .QD 03/08/25 03/09/25 release 24 hr aspirin 81 mg tablet 81 mg PO DAILY 03/09/25 03/09/25 carvedilol 6.25 mg tablet 6.25 mg PO BIDWM 03/09/25 03/09/25 cetirizine 10 mg tablet 10 mg PO .QD 03/09/25 03/09/25 cholecalciferol (vitamin D3) 125 125 mcg PO .QD 03/09/25 03/09/25 mcg (5,000 unit) capsule cyanocobalamin (vitamin B-12) 1,000 mcg sublingual .QD 03/09/25 03/09/25 1,000 mcg sublingual tablet multivitamin with folic acid 400 1 tab PO .QD 03/09/25 03/09/25 mcg tablet (Daily-Shari (with folic acid)) Allergies Allergy/AdvReac Type Severity Reaction Status Date / Time ciprofloxacin (From Cipro) Allergy Intermediate Rash Verified 03/09/25 10:17 amoxicillin (From Augmentin) Allergy Unknown Unknown Verified 03/08/25 23:45 cephalexin (From Keflex) Allergy Unknown Unknown Verified 03/08/25 23:45 clavulanic acid (From Allergy Unknown Unknown Verified 03/08/25 23:45 Augmentin) Latex, Natural Rubber Allergy Unknown Unknown Verified 03/08/25 23:45 theophylline Allergy Unknown Unknown Verified 03/08/25 23:45 Review of Systems ROS Status of ROS 10 or more systems reviewed and unremarkable except as noted in history and below [facility] Social History Highest level of school completed/degree received: high school graduate Little interest or pleasure in doing things: not at all Feeling down, depressed, or hopeless: not at all Exam Constitutional Vital Signs, click to edit/add: Last Vital Signs Temp 98.0 F 03/09/25 14:57 Pulse 69 03/09/25 14:57 Resp 16 03/09/25 14:57 BP 154/93 H 03/09/25 14:57 Pulse Ox 94 L 03/09/25 14:57 O2 Del Method Room Air 03/09/25 14:57 O2 Flow Rate 2 03/09/25 10:36 Common normals: no apparent distress, average body habitus, oriented x3, no limitations, healthy appearing, alert and well nourished HENLA Common normals: normocephalic and head/scalp atraumatic Eye Common normals: EOMs intact bilaterally and conjunctivae normal Respiratory Other: few end expiratory wheezes left chest Cardio Common normals: S1 normal heart sound and S2 normal heart sound Rate: tachycardic Heart sounds: murmur GI Common normals: Normal to inspection, nondistended, normoactive bowel sounds present, soft to palpation and non-tender Extremity Common normals: normal to inspection and full ROM Neuro Common normals: oriented x3, CN's II-XII intact bilaterally, moves all extremities and no focal motor deficits Psych Appearance: grossly normal Course Vital Signs Vital signs: Vital Signs Pulse Oximetry 89 L 03/08/25 23:07 Temperature 98.0 F 03/09/25 14:57 Pulse Rate 69 03/09/25 14:57 Respiratory Rate 16 03/09/25 14:57 Blood Pressure 154/93 H 03/09/25 14:57 Pulse Oximetry 94 L 03/09/25 14:57 Oxygen Delivery Method Room Air 03/09/25 14:57 Oxygen Delivery Flow Rate 2 03/09/25 10:36 MDM - SOB/Dyspnea MDM Narrative Medical decision making narrative: patient past history of COPD. short of breath for the past week. neg chest pain. Pulse ox at triage 88%. Troponin normal. BNP elevated. D-dimer elevated and CTA chest ordered and pending care transferred to Dr Santillan at change of shift Lab Data Labs: Lab Results 03/08/25 03/09/25 Range/Units 23:35 08:10 WBC 9.4 (4.0-11.0) 10^3/uL RBC 4.72 (4.20-5.40) 10^6/uL Hgb 13.5 (12.0-16.0) g/dL Hct 40.9 (36.0-48.0) % MCV 86.7 (81.0-99.0) fL MCH 28.6 (26.7-34.0) pg MCHC 33.0 (29.9-35.2) g/dL RDW 13.8 (11.0-15.0) % Plt Count 191 (150-450) 10^3/uL MPV 10.0 (9.5-13.5) fL Neut % (Auto) 80.3 H (43.0-75.0) % Lymph % (Auto) 11.0 L (20.5-60.0) % [place] % (Auto) 7.9 (1.7-12.0) % Eos % (Auto) 0.2 L (0.9-7.0) % Baso % (Auto) 0.2 (0.2-2.0) % Neut # (Auto) 7.5 H (1.4-6.5) 10^3/uL Lymph # (Auto) 1.0 L (1.2-3.8) 10^3/uL [place] # (Auto) 0.7 (0.3-0.8) 10^3/uL Eos # (Auto) 0.0 (0.0-0.7) 10^3/uL Baso # (Auto) 0.0 (0.0-0.1) 10^3/uL Abs Immat Gran (auto) 0.04 H (0.00-0.03) 10^3/uL Imm/Tot Granulo (auto) 0.4 (0.0-0.5) % D-Dimer 1.60 H* (<=0.59) mg/L FEU Sodium 134 L (136-145) mmol/L Potassium 3.9 (3.5-5.1) mmol/L Chloride 97 L (98-107) mmol/L Carbon Dioxide 25.8 (21.0-32.0) mmol/L Anion Gap 15.1 BUN 16.0 (7.0-18.0) mg/dL Creatinine 0.93 (0.55-1.02) mg/dL Est GFR ( Amer) >60 (>=60 mL/min/1.73m^2) Est GFR (Non-Af Amer) 59 L (>=60 mL/min/1.73m^2) BUN/Creatinine Ratio 17.2 Glucose 181 H (74-106) mg/dL Lactate 0.9 (0.4-2.0) mmol/L Calcium 9.5 (8.5-10.1) mg/dL Troponin I High Sens 38.3 (4.0-51.3) pg/mL NT-Pro-B Natriuret Pep 1057.0 H (<=900.0) pg/mL Urine Color Lt. yellow (YELLOW) Urine Clarity Clear (CLEAR) Urine pH 6.0 (5.0-9.0) Ur Specific [place] 1.015 (1.005-1.025) Urine Protein 100 A (NEG/TRACE) mg/dL Urine Glucose (UA) Negative (NEGATIVE) mg/dL Urine Ketones 15 A (NEGATIVE) mg/dL Urine Occult Blood Moderate A (NEGATIVE) Urine Nitrite Negative (NEGATIVE) Urine Bilirubin Negative (NEGATIVE) Urine Urobilinogen 0.2 (0.2-1.0) EU/dL Ur Leukocyte Esterase Small A (NEGATIVE) Urine RBC 10-20 A (0-2) #/HPF Urine WBC 20-50 A (NONE SEEN) #/HPF Ur Squamous Epith Cells Rare (NONE/RARE) #/LPF Urine Crystals None seen (None Seen) #/HPF Urine Bacteria Moderate A (NONE SEEN) #/HPF Urine Casts None seen (NONE SEEN) #/LPF Urine Mucus None seen (NONE SEEN) Ur Culture Indicated? Yes-[facility] [place] Discharge Plan Discharge Chief Complaint: Shortness of Breath/Dyspnea Clinical Impression: Acute exacerbation of chronic obstructive pulmonary disease Patient Disposition: Admitted As Inpatient Time of Disposition Decision: 08:18 Condition: Fair Discharge Date/Time: 03/09/25 10:36
--- NOTE | 2025-03-08 23:37 | XR_ITS ---
The [address] [address] Patient Name: ARMANDO COOK MRN: [id number] date: 1950 Sex: F Assigned Patient Location: ED.MAIN Current Patient Location: ED.MAIN Accession/Order Number: [id number] Exam Date: 03/09/2025 00:11 Report Date: 03/09/2025 00:12 At the request of: SHEILA TEE MD Procedure: XR chest 2V PA AND LATERAL CHEST: CLINICAL HISTORY: short of breath COMPARISON: None FINDINGS: Mildly prominent cardiomediastinal. No focal airspace opacity, effusion or pneumothorax. Degenerative changes of thoracic spine. XR/XR chest 2V IMPRESSION: NO ACUTE CARDIOPULMONARY ABNORMALITY. Impression dictated by: Tommy Garsia M.D. 03/09/2025 12:12 AM Dictation Location: [place] [address] Electronically authenticated by: [id number] Y Date: 03/09/2025 00:12
[2025-03-08 23:45] LABS: Hematocrit 40.9 % (36.0-48.0); Hemoglobin 13.5 g/dL (12.0-16.0); Immature Granulocytes Abs Auto 0.04 10^3/uL (0.00-0.03); Immature Granulocytes Pct Auto 0.4 % (0.0-0.5); Lymphocytes Absolute Auto 1.0 10^3/uL (1.2-3.8); Mean Corpuscular HGB Conc 33.0 g/dL (29.9-35.2); Mean Corpuscular Hemoglobin 28.6 pg (26.7-34.0); Mean Corpuscular Volume 86.7 fL (81.0-99.0); Platelet Count 191 10^3/uL (150-450); Red Blood Count 4.72 10^6/uL (4.20-5.40); White Blood Count 9.4 10^3/uL (4.0-11.0)
[2025-03-09] VITALS (78 sets, daily range): BP systolic 105–166; BP diastolic 43–93; PULSE 64–97; TEMP 36.6–36.7; O2SAT 72–100; BMI 42.3
[2025-03-09 00:06] LABS: Lactate/Lactic Acid 0.9 mmol/L (0.4-2.0)
[2025-03-09 00:11] LABS: Anion Gap 15.1; Blood Urea Nitrogen 16.0 mg/dL (7.0-18.0); Calcium 9.5 mg/dL (8.5-10.1); Carbon Dioxide 25.8 mmol/L (21.0-32.0); Chloride 97 mmol/L (98-107); Estimated GFR (African America >60 (>=60 mL/min/1.73m^2); Estimated GFR (Non-African Ame 59 (>=60 mL/min/1.73m^2); Glucose 181 mg/dL (74-106); NT Pro B Type Natriuretic Pept 1057.0 pg/mL (<=900.0); Potassium 3.9 mmol/L (3.5-5.1); Sodium 134 mmol/L (136-145)
[2025-03-09] MEDS: METHYLPREDNISOLONE SOD SUCC PF 125 MG/2 ML VIAL IVP (01:42)
--- NOTE | 2025-03-09 05:04 | PC.NURSE ---
this patient is back in bed from walking to the restroom, this patient and his family updated that we are still waiting on ct results to come back
[2025-03-09] MEDS: ALBUTEROL SULFATE 2.5 MG/3 ML VIAL NEB IH (08:16)
--- NOTE | 2025-03-09 08:18 | ED.GENADUL1 ---
HPI HPI - General Adult General Chief complaint: Shortness of Breath/Dyspnea Stated complaint: sob Time Seen by Provider: 03/08/25 23:30 Source: patient Mode of arrival: Wheelchair Limitations: no limitations History of Present Illness HPI narrative: 74-year-old female presented to the emergency department and was initially seen by Dr. Wharton. Please see his full history and physical exam. Related Data Home Medications ?Medication ?Instructions ?Recorded ?Confirmed albuterol sulfate 2.5 mg/3 mL mg 03/08/25 (0.083 %) solution for nebulization biotin 1 mg tablet 03/08/25 carvedilol 12.5 mg tablet mg 03/08/25 furosemide 40 mg tablet mg 03/08/25 rosuvastatin 5 mg tablet mg 03/08/25 venlafaxine 75 mg capsule,extended mg PO 03/08/25 release 24 hr aspirin 81 mg tablet 81 mg PO DAILY 03/09/25 03/09/25 cetirizine 10 mg tablet mg 03/09/25 cholecalciferol (vitamin D3) 125 03/09/25 mcg (5,000 unit) capsule cyanocobalamin (vitamin B-12) mcg 03/09/25 1,000 mcg sublingual tablet ibuprofen 800 mg tablet mg 03/09/25 multivitamin with folic acid 400 tab PO 03/09/25 mcg tablet (Daily-Shari (with folic acid)) Allergies Allergy/AdvReac Type Severity Reaction Status Date / Time amoxicillin (From Augmentin) Allergy Unknown Unknown Verified 03/08/25 23:45 cephalexin (From Keflex) Allergy Unknown Unknown Verified 03/08/25 23:45 clavulanic acid (From Allergy Unknown Unknown Verified 03/08/25 23:45 Augmentin) Latex, Natural Rubber Allergy Unknown Unknown Verified 03/08/25 23:45 theophylline Allergy Unknown Unknown Verified 03/08/25 23:45 PFSH PFSH Social History Little interest or pleasure in doing things: not at all Feeling down, depressed, or hopeless: not at all Exam Constitutional Vital Signs, click to edit/add: Last Vital Signs Temp 99.4 F 03/08/25 23:09 Pulse 82 03/09/25 04:40 Resp 22 H 03/09/25 04:40 BP 125/54 03/09/25 04:30 Pulse Ox 92 L 03/09/25 04:40 O2 Del Method Nasal Cannula 03/08/25 23:11 O2 Flow Rate 2 03/08/25 23:11 Course Vital Signs Vital signs: Vital Signs Pulse Oximetry 89 L 03/08/25 23:07 Temperature 99.4 F 03/08/25 23:09 Pulse Rate 82 03/09/25 04:40 Respiratory Rate 22 H 03/09/25 04:40 Blood Pressure 125/54 03/09/25 04:30 Pulse Oximetry 92 L 03/09/25 04:40 Oxygen Delivery Method Nasal Cannula 03/08/25 23:11 Oxygen Delivery Flow Rate 2 03/08/25 23:11 Medical Decision Making MDM Narrative Medical decision making narrative: CTA shows no evidence of PE or pneumonia or pneumothorax. She was given IV Solu-Medrol and aerosol treatment. She becomes dyspneic and hypoxic with exertion and she will be admitted. Findings were discussed with the patient. Differential Diagnosis Differential Diagnosis: Pneumonia, COPD exacerbation, pneumothorax, PE Lab Data Lab results reviewed: Yes I reviewed the patient's lab results Labs: Lab Results 03/08/25 Range/Units 23:35 WBC 9.4 (4.0-11.0) 10^3/uL RBC 4.72 (4.20-5.40) 10^6/uL Hgb 13.5 (12.0-16.0) g/dL Hct 40.9 (36.0-48.0) % MCV 86.7 (81.0-99.0) fL MCH 28.6 (26.7-34.0) pg MCHC 33.0 (29.9-35.2) g/dL RDW 13.8 (11.0-15.0) % Plt Count 191 (150-450) 10^3/uL MPV 10.0 (9.5-13.5) fL Neut % (Auto) 80.3 H (43.0-75.0) % Lymph % (Auto) 11.0 L (20.5-60.0) % [place] % (Auto) 7.9 (1.7-12.0) % Eos % (Auto) 0.2 L (0.9-7.0) % Baso % (Auto) 0.2 (0.2-2.0) % Neut # (Auto) 7.5 H (1.4-6.5) 10^3/uL Lymph # (Auto) 1.0 L (1.2-3.8) 10^3/uL [place] # (Auto) 0.7 (0.3-0.8) 10^3/uL Eos # (Auto) 0.0 (0.0-0.7) 10^3/uL Baso # (Auto) 0.0 (0.0-0.1) 10^3/uL Abs Immat Gran (auto) 0.04 H (0.00-0.03) 10^3/uL Imm/Tot Granulo (auto) 0.4 (0.0-0.5) % D-Dimer 1.60 H* (<=0.59) mg/L FEU Sodium 134 L (136-145) mmol/L Potassium 3.9 (3.5-5.1) mmol/L Chloride 97 L (98-107) mmol/L Carbon Dioxide 25.8 (21.0-32.0) mmol/L Anion Gap 15.1 BUN 16.0 (7.0-18.0) mg/dL Creatinine 0.93 (0.55-1.02) mg/dL Est GFR ( Amer) >60 (>=60 mL/min/1.73m^2) Est GFR (Non-Af Amer) 59 L (>=60 mL/min/1.73m^2) BUN/Creatinine Ratio 17.2 Glucose 181 H (74-106) mg/dL Lactate 0.9 (0.4-2.0) mmol/L Calcium 9.5 (8.5-10.1) mg/dL Troponin I High Sens 38.3 (4.0-51.3) pg/mL NT-Pro-B Natriuret Pep 1057.0 H (<=900.0) pg/mL Imaging Data Chest x-ray: Radiologist's impression: ITS Impressions Chest X-Ray 03/08/25 23:37 IMPRESSION: NO ACUTE CARDIOPULMONARY ABNORMALITY. Impression dictated by: Tommy Garsia M.D. 03/09/2025 12:12 AM Dictation Location: [place] [address] Electronically authenticated by: [id number] Y Date: 03/09/2025 00:12 CTA per radiologist shows no thoracic aortic aneurysm or dissection, no pulmonary embolus. ECG Data Attestation: I personally reviewed and interpreted this ECG as follows: (EKG on my interpretation shows sinus rhythm with a rate of 99.) Critical Care Time Critical Care Time Critical Care Time: Yes Total Critical Care Time: 40 Attestation: Due to the high probability of sudden and clinically significant deterioration in the patient's condition he/she required the highest level of my preparedness to intervene urgently I provided critical care time including documentation time, medication orders and management, reevaluation, vital sign assessment, ordering and reviewing of lab tests, ordering and reviewing of x-ray studies, and admission orders. Aggregate critical care time is 40 minutes including only time during which I was engaged in work directly related to his/her care and did not include time spent treating other patients simultaneously. Discharge Plan Discharge Chief Complaint: Shortness of Breath/Dyspnea Clinical Impression: Acute exacerbation of chronic obstructive pulmonary disease Patient Disposition: Admitted As Inpatient Time of Disposition Decision: 08:18 Condition: Fair
[2025-03-09 08:27] LABS: Glucose Urine UA NEGATIVE (NEGATIVE)
[2025-03-09 08:35] LABS: Cast Seen? NONE SEEN #/LPF (NONE SEEN); Crystals Seen? None Seen #/HPF (None Seen); Urine Culture Indicated YES-FRMC
[2025-03-09] MEDS: CIPROFLOXACIN IN 5 % DEXTROSE 400 MG/200 ML PREMIX 200 MG IV (09:38)
--- NOTE | 2025-03-09 11:58 | CA_ITS ---
Patient Name: ARMANDO COOK MR#: [id number] : 1950 Exam Date: 03/09/2025 Ordering Doctor: MATEUSZ HOLDEN ECHOCARDIOGRAM REPORT PROCEDURE: CA ECHO DOPPLER COMPLETE INDICATIONS: Diastolic HF COMPARISON: None. DESCRIPTION: COMPLETE ECHOCARDIOGRAM Real-time transthoracic echocardiography with 2D, M-mode, spectral and color flow Doppler performed. QUALITY: Technically difficult due to lung interference LEFT VENTRICLE: Normal chamber size. Mild concentric left ventricular hypertrophy. Normal left ventricle systolic function without wall motion abnormalities, estimated calculated left ventricular ejection fraction is 70%. LV EF: Normal left ventricular ejection fraction, (>55%). DIASTOLIC: Tissue Doppler was not performed, unable to evaluate diastolic function ATRIAL SEPTUM: Appears intact LEFT ATRIUM: Severe dilatation. RIGHT ATRIUM: Mild dilatation. RIGHT VENTRICLE: Normal chamber size. Systolic function appears normal. TRICUSPID VALVE: Normal mobility and thickness. No stenosis with mild regurgitation. No evidence of pulmonary hypertension.RVSP 34 mmHg MITRAL VALVE: Mitral valve leaflets were not well-visualized. Mild mitral valve stenosis mean pressure gradient 3.2 mmHg. Severe mitral annular calcification. Mild mitral regurgitation. AORTIC VALVE: Not well-visualized. Moderately calcified aortic valve. Mildly diminished mobility. No evidence of aortic valve stenosis. Mean pressure gradient 9 mmHg, DVI 0.5, BERNARDO 1.9 cm2. Mild aortic regurgitation. AORTIC ROOT: Normal diameter and appearance. Aortic arch is normal in size PULMONIC VALVE: Not well visualized. PERICARDIUM: No evidence of pericardial effusion. IVC: Not well visualized. PLEURA: CONCLUSION: Technically difficult study Mild concentric left ventricle hypertrophy Normal left ventricle systolic function without wall motion abnormalities, ejection fraction 70% Severely dilated left atrium and mildly dilated right atrium Normal right ventricle size and systolic function Normal right-sided pressures, RVSP 34 mmHg Mild mitral stenosis, mean pressure gradient 3.2 mmHg Mild mitral regurgitation Severe mitral annulus calcification Aortic valve sclerosis without stenosis Mild aortic insufficiency Mild tricuspid regurgitation Adult Echocardiography Procedure Report Left Ventricle LVEDD (3.7 - 5.6 cm): 4.30 cm LVESD (2.2 - 4.0 cm): 2.66 cm LVIVS thickness (0.6 - 1.2 cm): 1.34 cm LVPW thickness (0.5 - 1.0 cm): 1.54 cm e': E - e': LVOT Max Gradient: 4.51 mm[Hg] LVOT Area (cm2): 1.06 m/s Peak Velocity (LVOT): 1.06 m/s Mean Velocity (LVOT): 0.70 m/s LVOT Diameter 1.98 cm Left Ventricular Ejection Fraction: Left Atrium LA Volume Index (2D A2C): Left Atrium Systolic Dimension: 4.30 cm Mitral Valve MV E to A Ratio: 0.71 MV Max Gradient: MV Mean Gradient: Mitral Valve A-Wave Peak Velocity: 1.39 m/s Mitral Valve E-Wave Peak Velocity: 0.99 m/s Cardiovascular Orifice Area: Right Ventricle RV Internal Diastolic Dimension: Aorta AO Root Diam: 3.28 cm Ascending Ao Diam: Aortic Valve AoV Area (Peak Rj): 1.55 cm2, 1.55 cm2 AoV Area (VTI): 1.87 cm2, 1.87 cm2 Deceleration [place]: Pressure Half-Time: Peak Velocity(Antegrade Flow): 2.11 m/s, 1.95 m/s Peak Gradient(Antegrade Flow): 17.83 mm[Hg], 15.27 mm[Hg] Mean Velocity(Antegrade Flow): 1.38 m/s, 1.31 m/s Mean Gradient(Antegrade Flow): 8.94 mm[Hg], 8.25 mm[Hg] Velocity Time Integral: 48.94 cm, 45.03 cm Tricuspid Valve Peak Velocity (Regurgitant Flow): 2.57 m/s Peak Velocity: Pulmonic Valve Mean Gradient: Mean Velocity: Peak Velocity: 0.74 m/s Peak Gradient: 2.19 mm[Hg] Right Atrium Right Atrium Systolic Pressure: Dictated by: Amelia Avila MD on 03/10/2025 at 17:39 Approved by: Amelia Avila MD on 03/10/2025 at 17:49
--- NOTE | 2025-03-09 12:07 | PM.HP ---
HPI H&P: HPI History of Present Illness Chief complaint: sob, COPD ACUTE EXACERBATION Narrative: Mrs. Sweet is a 74-year-old female who came to the emergency room with a complaint of shortness of breath. Patient denies any cough. No fever or chills. No hemoptysis. No abdominal pain. No chest pain. Patient reported having lower extremity swelling mostly in her feet. Patient also reported having a frequent UTI. Opioid HPI Opioid Management Most Recent Pain and Opioid Data: Last Pain Assessment Today, 11:00 Last ORT Total Score 0 Today, 10:47 Last ORT Risk Category Low Risk Today, 10:47 Review of Systems ROS Status of ROS 10 or more systems reviewed and unremarkable except as noted in history and below PFSH PFSH Social History Highest level of school completed/degree received: high school graduate Little interest or pleasure in doing things: not at all Feeling down, depressed, or hopeless: not at all Meds Home Medications and Allergies Home Medications ?Medication ?Instructions ?Recorded ?Confirmed ?Type albuterol sulfate 2.5 mg/3 mL 2.5 mg inhalation Q6H PRN 03/08/25 03/09/25 History (0.083 %) solution for nebulization shortness of breath or wheezing furosemide 40 mg tablet 40 mg PO .QD 03/08/25 03/09/25 History venlafaxine 75 mg capsule,extended 75 mg PO .QD 03/08/25 03/09/25 History release 24 hr aspirin 81 mg tablet 81 mg PO DAILY 03/09/25 03/09/25 History carvedilol 6.25 mg tablet 6.25 mg PO BIDWM 03/09/25 03/09/25 History cetirizine 10 mg tablet 10 mg PO .QD 03/09/25 03/09/25 History cholecalciferol (vitamin D3) 125 125 mcg PO .QD 03/09/25 03/09/25 History mcg (5,000 unit) capsule cyanocobalamin (vitamin B-12) 1,000 mcg sublingual .QD 03/09/25 03/09/25 History 1,000 mcg sublingual tablet multivitamin with folic acid 400 1 tab PO .QD 03/09/25 03/09/25 History mcg tablet (Daily-Shari (with folic acid)) Allergies Allergy/AdvReac Type Severity Reaction Status Date / Time ciprofloxacin (From Cipro) Allergy Intermediate Rash Verified 03/09/25 10:17 amoxicillin (From Augmentin) Allergy Unknown Unknown Verified 03/08/25 23:45 cephalexin (From Keflex) Allergy Unknown Unknown Verified 03/08/25 23:45 clavulanic acid (From Allergy Unknown Unknown Verified 03/08/25 23:45 Augmentin) Latex, Natural Rubber Allergy Unknown Unknown Verified 03/08/25 23:45 theophylline Allergy Unknown Unknown Verified 03/08/25 23:45 Exam Narrative Exam Narrative: [pt is awake and alert. oriented to place, time and person, morbidly obese HEENT: [place] conjunctiva and NL buccal mucosa Neck: Supple, no tenderness Endocrine: No Thyromegaly. Vascular: No JVD or carotid bruit. Lymphatic: No cervical lymphadenopathy. Chest: Fine crackles Heart RRR, no extra sound or murmur. Abd: Soft, no tenderness, no rebound and no rigidity. Increase abd girth therefore clinically I could not exclude the possibility of intra abd mass or organomegaly. LE: No cyanosis or clubbing, no varices. Trace edema Neuro: A A O. Nl speech, comprehension and attention. Nl and symetrical motor and tone examination through out. []] Constitutional Vital Signs, click to edit/add: Last Vital Signs Temp 97.8 F 03/09/25 10:47 Pulse 69 03/09/25 10:47 Resp 16 03/09/25 10:47 BP 166/89 H 03/09/25 10:47 Pulse Ox 95 03/09/25 11:36 O2 Del Method Room Air 03/09/25 11:36 O2 Flow Rate 2 03/09/25 10:36 Results Labs Labs: Short CBC 03/08/25 Range/Units 23:35 WBC 9.4 (4.0-11.0) 10^3/uL Hgb 13.5 (12.0-16.0) g/dL Hct 40.9 (36.0-48.0) % Plt Count 191 (150-450) 10^3/uL BMP 03/08/25 23:35 Sodium 134 L Potassium 3.9 Chloride 97 L Carbon Dioxide 25.8 BUN 16.0 Creatinine 0.93 Glucose 181 H Calcium 9.5 Urine 03/09/25 Range/Units 08:10 Urine Color Lt. yellow (YELLOW) Urine Clarity Clear (CLEAR) Urine pH 6.0 (5.0-9.0) Ur Specific [place] 1.015 (1.005-1.025) Urine Protein 100 A (NEG/TRACE) mg/dL Urine Glucose (UA) Negative (NEGATIVE) mg/dL Assessment and Plan Assessment and Plan (1) Dyspnea: (2) UTI (urinary tract infection): (3) Hyperglycemia: (4) Diabetes: (5) Obesity: (6) Diastolic heart failure: (7) Hypertension: Plan Dyspnea, dyspnea on exertion which I suspect multifactorial Patient likely has acute on subacute diastolic heart failure. Patient is morbidly obese. Likely has restrictive lung disease contributing to her dyspnea sensation. Patient also may have obstructive sleep apnea. She may have a pulm hypertension contributing to her subjective dyspnea sensation. Patient was a smoker in the past but not heavy. She quit 25 years ago. She is labeled as having COPD. Not sure if the patient had the PFT in the past. I suspect her issues are more restrictive than obstructive I requested influenza and RSV testing however patient refused to have these done. I started patient on gentle diuresis. Requested echocardiogram to assess cardiac function and rule out any valvular disease. Certainly looking for pulmonary hypertension. CTA is negative for PE or any acute intrapulmonary pathology. I looked at the CTA which showed the basilar atelectasis versus lesion. Hypertension Continue home Coreg If her echocardiogram does not show cardiomyopathy, consider changing Coreg to CORNELIA inhibitor. UTI with microscopic hematuria Cultures pending. Patient is allergic to penicillin, cephalosporin and quinolones. I started patient on doxycycline. D-dimer is positive. CTA was negative for PE as per radiologist Requested venous study rule out DVT. Hyperglycemia. Patient denies any prior history of diabetes Previously recorded A1c was 6.5. Recheck A1c and started her on sliding scale coverage DVT prophylaxis Lovenox subcu Chronic medical conditions not listed above, incidental findings seen on labs and imaging. These would need to be addressed. Could be addressed when time and condition are appropriate. Could be addressed in the outpatient setting by PCP collaboration with other needed outpatient providers.
--- NOTE | 2025-03-09 12:16 | SWNOTE1 ---
Important Message from [employer] reviewed and discussed with patient. Pt. verbalized understanding and signed the form. Original given to patient and copy placed in patient?s chart.
--- NOTE | 2025-03-09 12:17 | SWNOTE1 ---
SW and I met with pt in room to discuss anticipated d/c needs. Pt is from home and lives with her . 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 She voices she has family support but does not like to ask for help a lot and be a burden. Pt was concerned about being away from home for too long. SW did confirm pt's can care for himself while she is in hospital. Otherwise pt is independent, she had a cane in the room. SW does not anticipate any needs for d/c at this time. SW to follow as needed.
[2025-03-09] MEDS: VENLAFAXINE HCL ER 75 MG CAPSULE PO (12:21)
[2025-03-09] MEDS: ENOXAPARIN SODIUM 40 MG/0.4 ML SYRINGE SUBQ (12:21)
[2025-03-09] MEDS: BUMETANIDE 1 MG/4 ML VIAL IVP ×2 (12:21→20:24)
[2025-03-09] MEDS: POTASSIUM CHLORIDE 10 MEQ ER TABLET 20 MEQ PO (12:21)
[2025-03-09] MEDS: DOXYCYCLINE HYCLATE 100 MG in 0.9 % SODIUM CHLORIDE 100 ML IV (13:18)
[2025-03-09] MEDS: INSULIN ASPART 300 UNIT/3 ML PEN SUBQ ×2 (16:45→22:44)
[2025-03-09] MEDS: CARVEDILOL 6.25 MG TABLET PO (16:46)
[2025-03-09] MEDS: METHYLPREDNISOLONE SOD SUCC PF 40 MG/ML VIAL IVP (20:20)
[2025-03-09] MEDS: IPRATROPIUM/ALBUTEROL SULFATE 3 ML AMPUL.NEB IH (21:20)
[2025-03-10] VITALS (10 sets, daily range): BP systolic 109–166; BP diastolic 59–99; PULSE 69–100; TEMP 36.6–37.2; O2SAT 93–98
[2025-03-10] MEDS: DOXYCYCLINE HYCLATE 100 MG in 0.9 % SODIUM CHLORIDE 100 ML IV (00:11)
[2025-03-10 06:06] LABS: Hematocrit 40.2 % (36.0-48.0); Hemoglobin 13.3 g/dL (12.0-16.0); Mean Corpuscular HGB Conc 33.1 g/dL (29.9-35.2); Mean Corpuscular Hemoglobin 28.9 pg (26.7-34.0); Mean Corpuscular Volume 87.4 fL (81.0-99.0); Platelet Count 235 10^3/uL (150-450); Red Blood Count 4.60 10^6/uL (4.20-5.40); White Blood Count 11.6 10^3/uL (4.0-11.0)
[2025-03-10 06:27] LABS: Alanine Aminotransferase 21 U/L (14-59); Albumin Globulin Ratio 0.7; Albumin Level 3.0 g/dL (3.4-5.0); Alkaline Phosphatase 90 U/L (46-116); Anion Gap 13.9; Aspartate Amino Transferase 19 U/L (15-37); Blood Urea Nitrogen 34.0 mg/dL (7.0-18.0); Calcium 10.1 mg/dL (8.5-10.1); Carbon Dioxide 27.4 mmol/L (21.0-32.0); Chloride 99 mmol/L (98-107); Estimated GFR (African America 60 (>=60 mL/min/1.73m^2); Estimated GFR (Non-African Ame 49 (>=60 mL/min/1.73m^2); Globulin 4.6 g/dL; Glucose 226 mg/dL (74-106); Potassium 4.3 mmol/L (3.5-5.1); Sodium 136 mmol/L (136-145); Total Protein 7.6 g/dL (6.4-8.2)
[2025-03-10] MEDS: VENLAFAXINE HCL ER 75 MG CAPSULE PO (08:09)
[2025-03-10] MEDS: POTASSIUM CHLORIDE 10 MEQ ER TABLET 20 MEQ PO (08:09)
[2025-03-10] MEDS: CARVEDILOL 6.25 MG TABLET PO ×2 (08:09→17:12)
[2025-03-10] MEDS: ASPIRIN 81 MG TAB.CHEW PO (08:09)
[2025-03-10] MEDS: ENOXAPARIN SODIUM 40 MG/0.4 ML SYRINGE SUBQ (08:09)
[2025-03-10] MEDS: BUMETANIDE 1 MG/4 ML VIAL IVP (08:09)
[2025-03-10] MEDS: METHYLPREDNISOLONE SOD SUCC PF 40 MG/ML VIAL IVP (08:09)
[2025-03-10] MEDS: INSULIN ASPART 300 UNIT/3 ML PEN SUBQ ×2 (08:10→21:22)
[2025-03-10] MEDS: IPRATROPIUM/ALBUTEROL SULFATE 3 ML AMPUL.NEB IH ×2 (09:41→20:29)
--- NOTE | 2025-03-10 11:11 | PM.PN ---
Progress Note: Subjective Subjective Interval history: Patient is feeling better today. Less shortness of breath. No abdominal pain. Less swelling in her legs Exam Narrative Exam Narrative: [pt is awake and alert. oriented to place, time and person, morbidly obese HEENT: [place] conjunctiva and NL buccal mucosa Neck: Supple, no tenderness Endocrine: No Thyromegaly. Vascular: No JVD or carotid bruit. Lymphatic: No cervical lymphadenopathy. Chest: Resolution of the fine crackles Heart RRR, no extra sound or murmur. Abd: Soft, no tenderness, no rebound and no rigidity. Increase abd girth therefore clinically I could not exclude the possibility of intra abd mass or organomegaly. LE: No cyanosis or clubbing, no varices. Resolution of the trace edema Neuro: A A O. Nl speech, comprehension and attention. Nl and symetrical motor and tone examination through out. []] Constitutional Vital Signs, click to edit/add: Last Vital Signs Temp 97.9 F 03/10/25 07:56 Pulse 74 03/10/25 09:41 Resp 18 03/10/25 04:00 BP 166/95 H 03/10/25 08:01 Pulse Ox 95 03/10/25 09:41 O2 Del Method Room Air 03/10/25 09:41 O2 Flow Rate 2 03/10/25 04:00 Progress Note: Objective Labs Labs: Short CBC 03/10/25 Range/Units 05:42 WBC 11.6 H (4.0-11.0) 10^3/uL Hgb 13.3 (12.0-16.0) g/dL Hct 40.2 (36.0-48.0) % Plt Count 235 (150-450) 10^3/uL BMP 03/10/25 05:42 Sodium 136 Potassium 4.3 Chloride 99 Carbon Dioxide 27.4 BUN 34.0 H Creatinine 1.09 H Glucose 226 H Calcium 10.1 Liver Function 03/10/25 Range/Units 05:42 Total Bilirubin 0.4 (0.2-1.0) mg/dL AST 19 (15-37) U/L ALT 21 (14-59) U/L Alkaline Phosphatase 90 (46-116) U/L Albumin 3.0 L (3.4-5.0) g/dL Progress Note: A&P Assessment and Plan (1) Dyspnea: (2) UTI (urinary tract infection): (3) Hyperglycemia: (4) Diabetes: (5) Obesity: (6) Diastolic heart failure: (7) Hypertension: Plan Dyspnea, dyspnea on exertion which I suspect multifactorial Patient likely has acute on subacute diastolic heart failure. Echocardiogram is pending Patient is morbidly obese. Likely has restrictive lung disease contributing to her dyspnea sensation. Patient also may have obstructive sleep apnea. She may have a pulm hypertension contributing to her subjective dyspnea sensation. Patient was a smoker in the past but not heavy. She quit 25 years ago. She is labeled as having COPD. Not sure if the patient had the PFT in the past. I suspect her issues are more restrictive than obstructive I requested influenza and RSV testing however patient refused to have these done. I started patient on gentle diuresis. Requested echocardiogram to assess cardiac function and rule out any valvular disease. Certainly looking for pulmonary hypertension. CTA is negative for PE or any acute intrapulmonary pathology. I looked at the CTA which showed rt basilar atelectasis versus lesion. Follow-up imaging 4 to 6 months Hypertension Continue home Coreg If her echocardiogram does not show cardiomyopathy, consider changing Coreg to CORNELIA inhibitor. UTI with microscopic hematuria Cultures pending. Patient is allergic to penicillin, cephalosporin and quinolones. I started patient on doxycycline. D-dimer is positive. CTA was negative for PE as per radiologist Requested venous study rule out DVT. This came back negative for DVT Hyperglycemia. Patient denies any prior history of diabetes Previously recorded A1c was 6.5. Recheck A1c and started her on sliding scale coverage Patient would benefit from metformin. I will initiate metformin 48 hours after CTA was completed in the emergency room department DVT prophylaxis Lovenox subcu Chronic medical conditions not listed above, incidental findings seen on labs and imaging. These would need to be addressed. Could be addressed when time and condition are appropriate. Could be addressed in the outpatient setting by PCP collaboration with other needed outpatient providers. I discussed her case with her , son and granddaughter at the bedside
[2025-03-10] MEDS: SITAGLIPTIN PHOSPHATE 50 MG TABLET 100 MG PO (11:39)
[2025-03-10] MEDS: TORSEMIDE 20 MG TABLET PO (11:39)
[2025-03-11 04:00] VITALS: BP 139/60; PULSE 79; TEMP 36.8; O2SAT 94
[2025-03-11 07:54] VITALS: BP 151/86; PULSE 82; TEMP 36.6; O2SAT 94
[2025-03-11] MEDS: CARVEDILOL 6.25 MG TABLET PO ×2 (08:30→16:08)
[2025-03-11] MEDS: VENLAFAXINE HCL ER 75 MG CAPSULE PO (08:30)
[2025-03-11] MEDS: TORSEMIDE 20 MG TABLET PO (08:30)
[2025-03-11] MEDS: POTASSIUM CHLORIDE 10 MEQ ER TABLET 20 MEQ PO (08:30)
[2025-03-11] MEDS: ASPIRIN 81 MG TAB.CHEW PO (08:30)
[2025-03-11] MEDS: SITAGLIPTIN PHOSPHATE 50 MG TABLET 100 MG PO (08:30)
[2025-03-11] MEDS: ENOXAPARIN SODIUM 40 MG/0.4 ML SYRINGE SUBQ (08:31)
[2025-03-11] MEDS: IPRATROPIUM/ALBUTEROL SULFATE 3 ML AMPUL.NEB IH ×2 (09:27→20:29)
[2025-03-11 09:29] VITALS: PULSE 82; O2SAT 98
--- NOTE | 2025-03-11 10:59 | PM.PN ---
Progress Note: Subjective Subjective Interval history: Patient is feeling much better today. Complete resolution of the shortness of breath. No abdominal pain. Less swelling in her legs Exam Narrative Exam Narrative: [pt is awake and alert. oriented to place, time and person, morbidly obese HEENT: [place] conjunctiva and NL buccal mucosa Neck: Supple, no tenderness Endocrine: No Thyromegaly. Vascular: No JVD or carotid bruit. Lymphatic: No cervical lymphadenopathy. Chest: Resolution of the fine crackles Heart RRR, no extra sound or murmur. Abd: Soft, no tenderness, no rebound and no rigidity. Increase abd girth therefore clinically I could not exclude the possibility of intra abd mass or organomegaly. LE: No cyanosis or clubbing, no varices. Resolution of the trace edema Neuro: A A O. Nl speech, comprehension and attention. Nl and symetrical motor and tone examination through out. []] Constitutional Vital Signs, click to edit/add: Last Vital Signs Temp 97.9 F 03/11/25 07:54 Pulse 82 03/11/25 09:29 Resp 20 03/11/25 07:54 BP 151/86 H 03/11/25 07:54 Pulse Ox 98 03/11/25 09:29 O2 Del Method Room Air 03/11/25 09:29 O2 Flow Rate 2 03/10/25 04:00 Progress Note: A&P Assessment and Plan (1) Dyspnea: (2) UTI (urinary tract infection): (3) Hyperglycemia: (4) Diabetes: (5) Obesity: (6) Diastolic heart failure: (7) Hypertension: Plan Dyspnea, dyspnea on exertion which I suspect multifactorial Patient likely has acute on subacute diastolic heart failure. Echocardiogram showed normal ejection fraction but left ventricular concentric hypertrophy. Patient is morbidly obese. Likely has restrictive lung disease contributing to her dyspnea sensation. Patient also may have obstructive sleep apnea. She may have a pulm hypertension contributing to her subjective dyspnea sensation. Patient was a smoker in the past but not heavy. She quit 25 years ago. She is labeled as having COPD. Not sure if the patient had the PFT in the past. I suspect her issues are more restrictive than obstructive I requested influenza and RSV testing however patient refused to have these done. I started patient on gentle diuresis. Requested echocardiogram to assess cardiac function and rule out any valvular disease. Certainly looking for pulmonary hypertension. CTA is negative for PE or any acute intrapulmonary pathology. I looked at the CTA which showed rt basilar atelectasis versus lesion. Follow-up imaging 4 to 6 months 03/11: Significant resolution of subjective shortness of breath. Improvement of her hypoxemia saturation 90% on room air. Hypertension Continue home Coreg UTI with microscopic hematuria Cultures pending. Patient is allergic to penicillin, cephalosporin and quinolones. I started patient on doxycycline. D-dimer is positive. CTA was negative for PE as per radiologist Requested venous study rule out DVT. This came back negative for DVT Type 2 diabetes Previously recorded A1c was 6.5. Start patient on metformin. DVT prophylaxis Lovenox subcu Chronic medical conditions not listed above, incidental findings seen on labs and imaging. These would need to be addressed. Could be addressed when time and condition are appropriate. Could be addressed in the outpatient setting by PCP collaboration with other needed outpatient providers. I discussed her case with her at the bedside
[2025-03-11 16:00] VITALS: BP 113/66; PULSE 87
[2025-03-11 19:42] VITALS: BP 126/69; PULSE 79; TEMP 36.7; O2SAT 92
[2025-03-11 20:29] VITALS: PULSE 86; O2SAT 95
[2025-03-11] MEDS: INSULIN ASPART 300 UNIT/3 ML PEN SUBQ (21:26)
[2025-03-12 07:35] VITALS: BP 142/82; PULSE 62; TEMP 36.5; O2SAT 94
[2025-03-12] MEDS: METFORMIN HCL 500 MG TAB.ER.24H PO (08:38)
[2025-03-12] MEDS: ENOXAPARIN SODIUM 40 MG/0.4 ML SYRINGE SUBQ (08:38)
[2025-03-12] MEDS: VENLAFAXINE HCL ER 75 MG CAPSULE PO (08:38)
[2025-03-12] MEDS: POTASSIUM CHLORIDE 10 MEQ ER TABLET 20 MEQ PO (08:38)
[2025-03-12] MEDS: SITAGLIPTIN PHOSPHATE 50 MG TABLET 100 MG PO (08:39)
[2025-03-12] MEDS: CARVEDILOL 6.25 MG TABLET PO (08:39)
[2025-03-12] MEDS: ASPIRIN 81 MG TAB.CHEW PO (08:39)
[2025-03-12] MEDS: IPRATROPIUM/ALBUTEROL SULFATE 3 ML AMPUL.NEB IH (09:34)
[2025-03-12 09:36] VITALS: PULSE 85; O2SAT 93
--- NOTE | 2025-03-12 11:26 | PM.DS1 ---
DS: Providers Provider Date of admission: 03/09/25 10:36 Primary care physician: Jamie Holly MD DS: Diagnosis Discharge Diagnosis (1) Dyspnea: (2) UTI (urinary tract infection): (3) Hyperglycemia: (4) Diabetes: (5) Obesity: (6) Diastolic heart failure: (7) Hypertension: Plan As listed above and others that are not listed DS: Summary Hospital Course Hospital Course: Mrs. Sweet is a 74-year-old female who came in with shortness of breath and dyspnea on exertion and was found to the following: Dyspnea, dyspnea on exertion which I suspect multifactorial Patient likely has acute on subacute diastolic heart failure. Echocardiogram showed normal ejection fraction but left ventricular concentric hypertrophy as well as dilatation of the left atrium.. Patient is morbidly obese. Likely has restrictive lung disease contributing to her dyspnea sensation. Patient also may have obstructive sleep apnea. She may have a pulm hypertension contributing to her subjective dyspnea sensation. Patient was a smoker in the past but not heavy. She quit 25 years ago. She is labeled as having COPD. Not sure if the patient had the PFT in the past. I suspect her issues are more restrictive than obstructive I requested influenza and RSV testing however patient refused to have these done. I started patient on gentle diuresis. Requested echocardiogram to assess cardiac function and rule out any valvular disease. CTA is negative for PE or any acute intrapulmonary pathology. I looked at the CTA which showed rt basilar atelectasis versus lesion. Follow-up imaging 4 to 6 months Venous studies negative for DVT. Positive for Coburn's cyst Patient will be discharged home on Demadex 20 mg daily and potassium 10 mEq daily. Hypertension Continue home Coreg UTI with microscopic hematuria Cultures pending. Patient is allergic to penicillin, cephalosporin and quinolones. Patient will be discharged on doxycycline after completing 4 days worth at the antibiotic. D-dimer is positive. CTA was negative for PE as per radiologist Requested venous study rule out DVT. This came back negative for DVT Type 2 diabetes Previously recorded A1c was 6.5. Start patient on metformin. Patient will be prescribed glucometer, lancets, strips to be sent to [facility]. Hospitalist team at [facility] will send to [facility] DVT prophylaxis Lovenox subcu Chronic medical conditions not listed above, incidental findings seen on labs and imaging. These would need to be addressed. Could be addressed when time and condition are appropriate. Could be addressed in the outpatient setting by PCP collaboration with other needed outpatient providers. I discussed her case with her at the bedside Patient has multiple complex medical issues as listed above and others that are not listed. All appear to be stable. Patient is feeling great. Back to baseline state. I do not have any clear or strong clinical justification to extend inpatient hospitalization. Patient however will require close and frequent monitoring as well as additional work-up, investigation and therapeutic intervention that could take place from this point on post discharge. That is to prevent relapse, decompensation, rehospitalization and other medical implications. I instructed patient to ask her primary care doctor to obtain [facility] record entirely to address abnormalities seen on labs and imaging that I have and have not addressed during this hospitalization, follow-up on pending blood work, imaging and pathology is if available and to follow-up on needed medical care in the outpatient setting. Time Spent with Patient Time attestation: Total time spent providing and/or coordinating discharge services: Exam Constitutional Vital Signs, click to edit/add: Last Vital Signs Temp 97.7 F 03/12/25 07:35 Pulse 85 03/12/25 09:36 Resp 20 03/12/25 07:35 BP 142/82 H 03/12/25 07:35 Pulse Ox 93 L 03/12/25 09:36 O2 Del Method Room Air 03/12/25 09:36 O2 Flow Rate 2 03/10/25 04:00 DS: Data Data Completed and Pending Labs on day of discharge: Labs from last 24 hours 03/12/25 03/11/25 07:29 21:25 POC Glucose 121 H 163 H Discharge Plan Discharge Disposition: Home, Self-Care Condition: Fair Discharge Medications: New ipratropium-albuterol 0.5 mg-3 mg(2.5 mg base)/3 mL Solution For Nebulization 3 ml inhalation Q6H PRN (Reason: wheezing and shortness of breath) Qty: 180 2RF metformin 500 mg Tablet Extended Release 24 Hr 500 mg PO QD@0800 Qty: 30 1RF torsemide 20 mg Tablet 20 mg PO QD Qty: 30 1RF potassium chloride 10 mEq Tablet,Er Particles/Crystals 10 meq PO QD Qty: 30 1RF doxycycline monohydrate 100 mg tablet 100 mg PO BID 6 Days Qty: 12 0RF Continued venlafaxine 75 mg capsule,extended release 24hr 75 mg PO .QD aspirin 81 mg tablet 81 mg PO DAILY cetirizine 10 mg tablet 10 mg PO .QD cyanocobalamin (vitamin B-12) 1,000 mcg tablet, sublingual 1,000 mcg sublingual .QD cholecalciferol (vitamin D3) 125 mcg (5,000 unit) capsule 125 mcg PO .QD multivitamin with folic acid [Daily-Shari (with folic acid)] 400 mcg tablet 1 tab PO .QD carvedilol 6.25 mg tablet 6.25 mg PO BIDWM Discontinued furosemide 40 mg tablet 40 mg PO .QD albuterol sulfate 2.5 mg /3 mL (0.083 %) solution for nebulization 2.5 mg inhalation Q6H PRN (Reason: shortness of breath or wheezing) Print Language: Kazakh Forms: Portal Instructions
[2025-03-12] MEDS: TORSEMIDE 20 MG TABLET 10 MG PO (11:30)
--- NOTE | 2025-03-13 11:27 | PC.NURSE ---
Follow up appt. with Dr. Holly on 03/17 @ [facility] [phone]
--- NOTE | 2025-03-13 13:14 | CM.NOTE ---
Dr. Raygoza aware of final culture report and attempted to contact pt without success. Pt will need to come as [facility] pt for IV antibiotics. [facility] form completed by Dr. Raygoza and faxed to Centralized scheduling, pharmacy and [facility] clinic. Will continue to attempt to reach pt.
--- NOTE | 2025-03-13 14:08 | CM.NOTE ---
Called Dr. Holly's office regarding final culture and updated with new IV antibiotic order x7 days in [facility]
--- NOTE | 2025-03-13 15:14 | CM.DCFOLLOWU ---
Person spoke with: Hilary How are you feeling? Having a lot of lower back pain How is your pain? lower back flank pain Did you understand your discharge instructions? Yes Do you have any questions about your discharge instructions? No Were you given any prescriptions at discharge? Yes Were you able to get your prescriptions filled? Yes Do you understand how to take your medications as ordered? Yes Do you have any questions about your follow up appointment and do you plan to keep your follow up appointment? Appt scheduled for patient and gave pt date and time today. Pt also changed to IV antibiotic d/t culture and pt will be contacted by centralized scheduling. Pt also given contact # for scheduling if she would not hear from them today. Pt verbalizes understanding of need for IV antibiotic Is there anything else that you would like to discuss? No Questions/Comments/Concerns/Other:
--- NOTE | 2025-03-14 08:17 | PM.EN ---
Event Note Event Note: Post discharge, urine culture report came back positive for ESBL E. coli. Patient was discharged home on doxycycline. Patient is allergic to Cipro, amoxicillin, cephalexin, Augmentin. Patient will be started on outpatient infusion of daily ertapenem 1 g for the next 7 days.
== END 2025-03-12 13:30 | disposition home or self-care (01) | DRG 291 ==
LOC: ER 03-09 10:42 → MS 03-09 10:42
PROVIDERS: Internal Medicine; Admitting Provider Internal Medicine; Emergency Provider Emergency Medicine; PCP Family Medicine; Visit Provider Internal Medicine
DX: I11.0 Hypertensive heart disease with heart failure (principal); I50.31 Acute diastolic (congestive) heart failure; N39.0 Urinary tract infection, site not specified; J44.1 Chronic obstructive pulmonary disease with (acute) exacerbation; Z68.41 Body mass index [BMI] 40.0-44.9, adult; R53.83 Other fatigue; R39.15 Urgency of urination; Z12.12 Encounter for screening for malignant neoplasm of rectum; E78.5 Hyperlipidemia, unspecified; R06.09 Other forms of dyspnea; E11.65 Type 2 diabetes mellitus with hyperglycemia; E66.01 Morbid (severe) obesity due to excess calories; Z87.891 Personal history of nicotine dependence; R31.29 Other microscopic hematuria; Z88.0 Allergy status to penicillin; Z88.1 Allergy status to other antibiotic agents; R79.89 Other specified abnormal findings of blood chemistry; Z79.84 Long term (current) use of oral hypoglycemic drugs; B96.20 Unspecified Escherichia coli [E. coli] as the cause of diseases classified elsewhere; J98.4 Other disorders of lung; G47.33 Obstructive sleep apnea (adult) (pediatric); M71.20 Synovial cyst of popliteal space [Baker], unspecified knee
CPT/HCPCS: 36415; 71046; 71275; 80048; 80053; 81001; 82948; 83605; 83880; 84484; 85025; 85027; 85378; 87086; 87088; 87186; 87804; 93005; 93306; 93970; 94640; 96365; 96375; 99285; G0328; J0696; J0744; J1650; J2919; Q9967

== ENCOUNTER 2025-03-21 07:54 | Outpatient (RCR) | payer MEDICARE, SELFPAY ==
[2025-03-15 10:00] VITALS: BP 147/77; PULSE 100; TEMP 36.3; O2SAT 97
[2025-03-15] MEDS: ERTAPENEM SODIUM 1 GM in 0.9 % SODIUM CHLORIDE 50 ML IV (10:15)
[2025-03-16 10:05] VITALS: BP 140/82; PULSE 84; TEMP 36.6; O2SAT 95
[2025-03-16] MEDS: ERTAPENEM SODIUM 1 GM in 0.9 % SODIUM CHLORIDE 50 ML IV (10:15)
[2025-03-17] MEDS: ERTAPENEM SODIUM 1 GM in 0.9 % SODIUM CHLORIDE 50 ML IV (10:38)
[2025-03-17 10:42] VITALS: BP 124/81; PULSE 86; TEMP 36.4; O2SAT 91
[2025-03-18] MEDS: ERTAPENEM SODIUM 1 GM in 0.9 % SODIUM CHLORIDE 50 ML IV (09:51)
[2025-03-18 10:11] VITALS: BP 137/73; PULSE 88; TEMP 36.4
[2025-03-19 09:54] VITALS: BP 132/66; PULSE 77; TEMP 36.4; O2SAT 96
[2025-03-19] MEDS: ERTAPENEM SODIUM 1 GM in 0.9 % SODIUM CHLORIDE 50 ML IV (09:56)
[2025-03-20] MEDS: ERTAPENEM SODIUM 1 GM in 0.9 % SODIUM CHLORIDE 50 ML IV (10:08)
[2025-03-20 10:17] VITALS: BP 129/82; PULSE 83; TEMP 36.4; O2SAT 96
[2025-03-21] MEDS: ERTAPENEM SODIUM 1 GM in 0.9 % SODIUM CHLORIDE 50 ML IV (13:08)
[2025-03-21 13:10] VITALS: BP 118/71; PULSE 81; TEMP 36.9; O2SAT 98
== END 2025-03-30 23:59 | disposition home or self-care (01) ==
LOC: INF 07:54
PROVIDERS: PCP Family Medicine; Visit Provider Internal Medicine
DX: N39.0 Urinary tract infection, site not specified (principal); Z16.12 Extended spectrum beta lactamase (ESBL) resistance; B96.20 Unspecified Escherichia coli [E. coli] as the cause of diseases classified elsewhere
CPT/HCPCS: 96365; G0463; J1335

== ENCOUNTER 2025-03-23 13:12 | Emergency (ER) | payer MEDICARE, SELFPAY ==
[2025-03-23 13:20] VITALS: BP 161/80; PULSE 79; TEMP 37; O2SAT 96; BMI 42.0
--- NOTE | 2025-03-23 13:42 | XR_ITS ---
The [address] [address] Patient Name: ARMANDO COOK MRN: [id number] date: 1950 Sex: F Assigned Patient Location: ER Current Patient Location: ER Accession/Order Number: [id number] Exam Date: 03/23/2025 15:00 Report Date: 03/23/2025 15:02 At the request of: MANUELA CLARK Procedure: XR lumbar spine 2-3V 2 views Lumbar Spine HISTORY: Left lower lumbar pain. COMPARISON: None POSTSURGICAL CHANGES: None BONY ALIGNMENT: Adequate HYPERMOBILITY:No bending imaging. LISTHESIS:None FRACTURE: None DEGENERATIVE CHANGES: Moderate multilevel spondylosis. Extensive lower lumbar facet degeneration SOFT TISSUES: Atherosclerosis BONY MINERALIZATION:Adequate XR/XR lumbar spine 2-3V IMPRESSION: Degenerative change greatest in the lower lumbar facets. Impression dictated by: Emir Herman M.D. 03/23/2025 3:02 PM Dictation Location: [employer] Electronically authenticated by: [id number] Date: 03/23/2025 15:02
--- NOTE | 2025-03-23 13:42 | XR_ITS ---
[facility] [place] [id number] Patient Name: ARMANDO COOK MRN: [id number] date: 1950 Sex: F Assigned Patient Location: ER Current Patient Location: ER Accession/Order Number: [id number] Exam Date: 03/23/2025 14:57 Report Date: 03/23/2025 14:59 At the request of: MANUELA CLARK Procedure: XR hip LT 2V w/ pelvis 2 views left hip with single view pelvis HISTORY: The left low back pain with radiation to the left knee comparison: None Adequate hip joint spaces. No AVN. No articular collapse. Mild bilateral SI joint degeneration. Minor spurring of the greater trochanter. XR/XR hip LT 2V w/ pelvis IMPRESSION: Mild left hip degeneration Impression dictated by: Emir Herman M.D. 03/23/2025 2:59 PM Dictation Location: [place] [address] Electronically authenticated by: [id number] Y Date: 03/23/2025 14:59
--- NOTE | 2025-03-23 13:42 | XR_ITS ---
[place] [id number] Patient Name: ARMANDO COOK MRN: [id number] date: 1950 Sex: F Assigned Patient Location: ER Current Patient Location: ER Accession/Order Number: [id number] Exam Date: 03/23/2025 14:59 Report Date: 03/23/2025 15:00 At the request of: MANUELA CLARK Procedure: XR knee LT 3V 3 views left knee plain film COMPARISON: None HISTORY: Left knee pain ACUTE FINDINGS: No acute findings DEGENERATIVE CHANGE: [id number] contact medial degeneration. Moderate patellofemoral degeneration. SOFT TISSUE FINDINGS: Unremarkable JOINT EFFUSION: None POSTOP CHANGES: None BONE MINERALIZATION: Adequate XR/XR knee LT 3V IMPRESSION: Extensive left knee degeneration Impression dictated by: Emir Herman M.D. 03/23/2025 3:00 PM Dictation Location: [place] [address] Electronically authenticated by: [id number] Y Date: 03/23/2025 15:00
--- NOTE | 2025-03-23 13:47 | ED.GENADUL1 ---
HPI HPI - General Adult General Chief complaint: Extremity Problem, Nontraumatic Stated complaint: LOWER EXTREMITY PAIN Time Seen by Provider: 03/23/25 13:14 Source: patient and family Mode of arrival: Wheelchair Limitations: no limitations History of Present Illness HPI narrative: Patient presents with Back: And hip pain that started this past week. Patient states worse with motion or change in position especially ambulating. Patient has history of arthritis she has seen orthopedics for knee injections which she states did not help was recommended for knee replacement which she refused at the time. Patient denies any falls, trauma, loss of bowel or bladder control, perineal anesthesia, loss sensation of perineum, fever, chills, dysuria, hematuria. Patient denies any ear pain, pharyngitis, cough, chest pain, belly pain. Onset (ago): day(s) Location: Reports back, pelvis, left and lower extremity Severity: moderate Quality: Reports sharp Exacerbating factors: Reports movement Related Data Home Medications ?Medication ?Instructions ?Recorded ?Confirmed venlafaxine 75 mg capsule,extended 75 mg PO .QD 03/08/25 03/23/25 release 24 hr aspirin 81 mg tablet 81 mg PO DAILY 03/09/25 03/23/25 carvedilol 6.25 mg tablet 6.25 mg PO BIDWM 03/09/25 03/23/25 cetirizine 10 mg tablet 10 mg PO .QD 03/09/25 03/23/25 cholecalciferol (vitamin D3) 125 125 mcg PO .QD 03/09/25 03/23/25 mcg (5,000 unit) capsule cyanocobalamin (vitamin B-12) 1,000 mcg sublingual .QD 03/09/25 03/23/25 1,000 mcg sublingual tablet multivitamin with folic acid 400 1 tab PO .QD 03/09/25 03/23/25 mcg tablet (Daily-Shari (with folic acid)) Previous Rx's ?Medication ?Instructions ?Recorded doxycycline monohydrate 100 mg 100 mg PO BID 6 days #12 tabs 03/12/25 tablet ipratropium 0.5 mg-albuterol 3 mg 3 ml inhalation Q6H PRN wheezing 03/12/25 (2.5 mg base)/3 mL nebulization and shortness of breath #180 mL soln metformin 500 mg tablet,extended 500 mg PO QD@0800 #30 tabs 03/12/25 release 24 hr potassium chloride 10 mEq 10 meq PO QD #30 tabs 03/12/25 tablet,extended release(part/cryst) torsemide 20 mg tablet 20 mg PO QD #30 tabs 03/12/25 tizanidine 2 mg capsule 2 mg PO Q8H #10 caps 03/23/25 tramadol 50 mg tablet 50 mg PO Q12H PRN pain #10 tabs 03/23/25 Allergies Allergy/AdvReac Type Severity Reaction Status Date / Time ciprofloxacin (From Cipro) Allergy Intermediate Rash Verified 03/23/25 13:28 amoxicillin (From Augmentin) Allergy Unknown Unknown Verified 03/23/25 13:28 cephalexin (From Keflex) Allergy Unknown Unknown Verified 03/23/25 13:28 clavulanic acid (From Allergy Unknown Unknown Verified 03/23/25 13:28 Augmentin) Latex, Natural Rubber Allergy Unknown Unknown Verified 03/23/25 13:28 theophylline Allergy Unknown Unknown Verified 03/23/25 13:28 Opioid HPI Opioid Management Most Recent Opioid Data: Last ORT Total Score 0 03/09/25, 10:47 Last ORT Risk Category Low Risk 03/09/25, 10:47 Review of Systems ROS Status of ROS 10 or more systems reviewed and unremarkable except as noted in history and below Constitutional Denies: fever or chills Ears, nose, mouth, and throat Denies: throat pain, neck pain or ear pain Cardiovascular Reports: swelling of feet/ankles; Denies: chest pain Respiratory Denies: shortness of breath or cough Gastrointestinal Denies: abdominal pain Genitourinary Reports: urinary frequency; Denies: painful urination or blood in urine Musculoskeletal Reports: back pain, extremity pain and joint pain Integumentary/Breast Denies: rash Neurological Denies: headache PFSH PFSH Social History Highest level of school completed/degree received: high school graduate Little interest or pleasure in doing things: not at all Feeling down, depressed, or hopeless: not at all Exam Constitutional Vital Signs, click to edit/add: Last Vital Signs Temp 98.6 F 03/23/25 13:20 Pulse 79 03/23/25 13:20 Resp 16 03/23/25 13:20 BP 161/80 H 03/23/25 13:20 Pulse Ox 96 03/23/25 13:20 O2 Del Method Room Air 03/23/25 13:20 Documenting provider has reviewed patient's vital signs: yes Common normals: no apparent distress and oriented x3 Exam limitations: no altered mental status General appearance: cooperative Nutritional appearance: obese Orientation/consciousness: Yes awake HENMT Common normals: normocephalic Face and sinus: normal facial exam Nose: external nose normal General ear: hearing not grossly impaired External ear: external ears normal Tympanic membrane: unable to visualize TM (cerumen Noted bilaterally) Mouth: oral and palatal mucosa normal Eye Common normals: PERRL, EOMs intact bilaterally and conjunctivae normal Neck & C-Spine Common normals: full ROM and supple General: no tenderness and no torticollis Cervical spine: cervical ROM normal Chest Common normals: inspection of chest normal Respiratory Common normals: normal respiratory effort and clear to auscultation bilaterally Effort & inspection: able to speak in complete sentences Cardio Common normals: regular rate, regular rhythm, S1 normal heart sound and S2 normal heart sound GI Common normals: Normal to inspection, nondistended, normoactive bowel sounds present, soft to palpation and non-tender Common normals: no CVA tenderness Back & Pelvis Common normals: no CVA tenderness, thoracic and lumbar spine normal to inspection and no thoracic nor lumbar tenderness Extremity Common normals: no calf tenderness and no pedal edema General: pulses normal Left lower extremity: hip joint and knee joint Other: tender Overlying posterior iliac crest, left hip, left knee Neuro Common normals: oriented x3 Sensorium/orientation: awake and alert Psych Common normals: mental status grossly normal, thought process normal, cooperative and affect normal Course Vital Signs Vital signs: Vital Signs Temperature 98.6 F 03/23/25 13:20 Pulse Rate 79 03/23/25 13:20 Respiratory Rate 16 03/23/25 13:20 Blood Pressure 161/80 H 03/23/25 13:20 Pulse Oximetry 96 03/23/25 13:20 Oxygen Delivery Method Room Air 03/23/25 13:20 Temperature 98.6 F 03/23/25 13:20 Pulse Rate 79 03/23/25 13:20 Respiratory Rate 16 03/23/25 13:20 Blood Pressure 161/80 H 03/23/25 13:20 Pulse Oximetry 96 03/23/25 13:20 Oxygen Delivery Method Room Air 03/23/25 13:20 Medical Decision Making MDM Narrative Medical decision making narrative: With reproducible musculoskeletal pain including posterior iliac crest, left hip primarily she does have some tenderness overlying inferior portion of left knee medially. Patient is ambulatory with cane she has a rollator and a walker. Patient was supposed to follow-up with her primary care doctor today but came to ER instead. She denies any loss of bowel or bladder control denies perineal anesthesia. Patient has been seen by orthopedics in the past including treatments and recommendation for TKA. We discussed follow-up including primary care, orthopedics and pain management. Patient states she does not want to go to pain management. Will add x-rays including lumbar left hip and pelvis and left knee. Medications will include Toradol 30 mg IM 60 mg orphenadrine IM and tramadol 50 mg p.o. Patient and family do not believe she took any ibuprofen today although she took it yesterday without relief. X-ray reports read by radiologist patient has DJD multiple sites including severe DJD mild to moderate DJD of hip. Postmedication patient feels better per nursing. Patient ambulatory in emergency room prior to medication including walking back to the bathroom with her cane. She does have walker and a rollator. Will discharge with tramadol 50 mg 1 every 12 hours as needed for pain no refills and tizanidine 2 mg every 8 hours #10. She will continue ibuprofen 800. Suspect care. Agreeable plan of care Differential Diagnosis Differential Diagnosis: Back pain, sciatica, DJD, musculoskeletal pain Discharge Plan Discharge Chief Complaint: Extremity Problem, Nontraumatic Clinical Impression: DJD (degenerative joint disease), DJD (degenerative joint disease) of knee, Musculoskeletal pain Patient Disposition: Home, Self-Care Time of Disposition Decision: 15:28 Mode of Transportation: Private Vehicle Prescriptions / Home Meds: New tizanidine 2 mg capsule 2 mg PO Q8H Qty: 10 0RF tramadol 50 mg tablet 50 mg PO Q12H PRN (Reason: pain) Qty: 10 0RF No Action venlafaxine 75 mg capsule,extended release 24hr 75 mg PO .QD aspirin 81 mg tablet 81 mg PO DAILY cetirizine 10 mg tablet 10 mg PO .QD cyanocobalamin (vitamin B-12) 1,000 mcg tablet, sublingual 1,000 mcg sublingual .QD cholecalciferol (vitamin D3) 125 mcg (5,000 unit) capsule 125 mcg PO .QD multivitamin with folic acid [Daily-Shari (with folic acid)] 400 mcg tablet 1 tab PO .QD carvedilol 6.25 mg tablet 6.25 mg PO BIDWM ipratropium-albuterol 0.5 mg-3 mg(2.5 mg base)/3 mL Solution For Nebulization 3 ml inhalation Q6H PRN (Reason: wheezing and shortness of breath) Qty: 180 2RF metformin 500 mg Tablet Extended Release 24 Hr 500 mg PO QD@0800 Qty: 30 1RF torsemide 20 mg Tablet 20 mg PO QD Qty: 30 1RF potassium chloride 10 mEq Tablet,Er Particles/Crystals 10 meq PO QD Qty: 30 1RF doxycycline monohydrate 100 mg tablet 100 mg PO BID 6 Days Qty: 12 0RF Print Language: Japanese Instructions: Osteoarthritis (ED), Musculoskeletal Pain (ED) Additional Instructions: Medical taking medication including tizanidine or tramadol as they may cause drowsiness follow-up with primary care and orthopedics. Return to if any symptoms worsen or new symptoms well. Referrals: Jamie Holly MD [Primary Care Provider, Family Practice] - As soon as possible Arturo Hill DO [Physician, Orthopedics] - 1 week
[2025-03-23] MEDS: KETOROLAC TROMETHAMINE 30 MG/ML VIAL IM (13:55)
[2025-03-23] MEDS: TRAMADOL HCL 50 MG TABLET PO (13:56)
[2025-03-23] MEDS: ORPHENADRINE 60 MG/2 ML VIAL IM (13:56)
== END 2025-03-23 15:58 | disposition home or self-care (01) ==
PROVIDERS: Emergency Provider Emergency Medicine; PCP Family Medicine
DX: M17.12 Unilateral primary osteoarthritis, left knee (principal); M16.12 Unilateral primary osteoarthritis, left hip; R52 Pain, unspecified
CPT/HCPCS: 72100; 73502; 73562; 96372; 99285; J1885; J2360

== ENCOUNTER 2025-04-13 09:52 | Outpatient (REF) | payer MEDICARE, SELFPAY ==
--- OUTSIDE RECORDS SUMMARY | 2025-03-29 23:59 | XMS_ITS | Continuity of Care Document ---
Author Organization [facility] Address [address] [place] [address] [place] [address] Care Team Providers Care Hand Embroiderer Name Role Phone Jamie Holly Primary Care Physician [phone] Encounter [email or web address] [id number] Date(s): 03/29/25 - 03/29/25 [facility] [address], [address], [place] [address]- us Discharge Disposition: Home (Routine DC) Attending Physician: Tavo ALONZO MD Referring Physician: Jamie Holly MD Encounter Type: Clinic Allergies, Adverse Reactions, Alerts Substance Criticality Severity Reaction Reaction Severity Status theophylline Hives Active Latex Hives Active Augmentin Hives Active Keflex Itching Active Medications aspirin 81 mg Chew Tab 81 mg = 1 tab(s), Chewed, Daily, Refills(s) 0 Start Date: 03/15/25 Status: Ordered Repeat number: 1 biotin 1000 mcg oral tablet 1,000 mcg = 1 tab(s), Oral, Daily, Refills(s) 0 Start Date: 03/15/25 Status: Ordered Repeat number: 1 budesonide 0.5 mg/2 mL Inh Susp 0.5 mg = 2 mL, NEB, BID, PRN Shortness of breath or wheezing, Refills(s) 0 Start Date: 03/15/25 Status: Ordered Repeat number: 1 carvedilol 12.5 mg Tab 12.5 mg = 1 tab(s), Oral, BID, Refills(s) 0 Start Date: 03/15/25 Status: Ordered Repeat number: 1 cetirizine 10 mg Tab 10 mg = 1 tab(s), Oral, Daily, Refills(s) 0 Start Date: 03/15/25 Status: Ordered Repeat number: 1 Collagen Skin Renewal as directed, Refill(s) 0 Start Date: 03/15/25 Status: Ordered Repeat number: 1 ibuprofen 800 mg Tab 800 mg = 1 tab(s), Oral, q6hr, PRN as needed for pain, Refills(s) 0 Start Date: 03/15/25 Status: Ordered Repeat number: 1 Lasix 40 mg Tab 40 mg = 1 tab(s), Oral, Daily, Refills(s) 0 Start Date: 03/15/25 Status: Ordered Repeat number: 1 magnesium oxide 400 mg Tab 400 mg = 1 tab(s), Oral, Daily, Refills(s) 0 Start Date: 03/15/25 Status: Ordered Repeat number: 1 Multi Vitamins oral tablet 1 tab(s), Oral, Daily, Refill(s) 0 Start Date: 03/15/25 Status: Ordered Repeat number: 1 rosuvastatin 5 mg Tab 5 mg = 1 tab(s), Oral, Daily, Refills(s) 0 Start Date: 03/15/25 Status: Ordered Repeat number: 1 venlafaxine 75 mg Cap-ER 75 mg = 1 cap(s), Oral, Daily, Refills(s) 0 Start Date: 03/15/25 Status: Ordered Repeat number: 1 Ventolin HFA 90 mcg/inh Aerosol-Adpt 2 inh, Inhalation, q6hr Shortness of breath or wheezing, Refill(s) 0 Start Date: 03/15/25 Status: Ordered Repeat number: 1 Vitamin B-12 1000 mcg oral tablet 1,000 mcg = 1 tab(s), Oral, Daily, Refills(s) 0 Start Date: 03/15/25 Status: Ordered Repeat number: 1 Vitamin D3 5000 intl units oral capsule 125 mcg = 1 cap(s), Oral, Daily, with food, Refills(s) 0 Start Date: 03/15/25 Status: Ordered Repeat number: 1 Zinc Refills(s) 0 Start Date: 03/15/25 Status: Ordered Repeat number: 1 Problem List Condition Confirmation Course Effective Dates Status H ealth Status Informant Aortic incompetence, non-rheumatic Confirmed 10/06/22 Active Aortic stenosis, non-rheumatic Confirmed 10/06/22 Active Asthma Confirmed Active Chronic diastolic heart failure Confirmed 10/06/22 Active Chronic obstructive pulmonary disease Confirmed 10/06/22 Active Diabetes mellitus Confirmed 03/09/25 Active Sigmoid diverticulosis Confirmed Active Essential hypertension Confirmed 10/06/22 Active Hyperlipidemia Confirmed 10/29/21 Active Class 3 obesity Confirmed Active LEXI (obstructive sleep apnea) Confirmed Active Occult blood positive stool Confirmed Active Restless leg syndrome Confirmed Active Procedures Procedure Date Related Diagnosis Body Site Status Colonoscopy 06/01/10 Completed History of cervical spine surgery Completed Hysterectomy Completed Social History Social History Type Response Sex Female Sex Representation Female (finding) Note * Diamond Cunningham DO: PERFORM, SIGN, VERIFY Event Display: Progress Note-Physician Authored Date: [id number] Patient: ARMANDO COOK Age: 59 years Sex: Female : 54 Associated Diagnoses: None Author: Diamond Cunningham DO Postoperative Information Date/ Time: 04/02/10 13:17:00 Preoperative Diagnosis: menorrhagia. Postoperative Diagnosis: same plus endometriosis. Procedure: laproscopic hysterectomy with BSO. Anesthesia Method: As documented on anesthesia record, General. Performed by: Chapincito Topete Jr., DO. Continuity Clerk: Haritha Barnett. Findings: endometriosis, possible adeno. Specimens Removed: uterus tubes and ovaries. Estimated Blood Loss: 200 ml. Intake and Output: Reviewed Results: . Complications: None. Electronically Signed By: Diamond Cunningham DO Date and Time Signed: 04/02/10 13:20 EDT Patient Care team information Care Team Personnel Name: Jamie Holly MD Position: FT Physician Member Role: Primary Care Physician [address]: [address] [place] [address] Telecom: Insurance Providers Guarantor name: ARMANDO COOK Health Plan Information #: 1 Payer: NA Payer Identifier: [id number] Member Number: [id number] Group Number: [id number] Subscriber Identifier: [id number] Relationship to Subscriber: Self Coverage Type: MEDICARE Coverage Verification Date: 25 Telecom: Address:
--- OUTSIDE RECORDS SUMMARY | 2025-04-10 09:30 | XMS_ITS ---
Author Organization [facility] [place] Address [address] [place] [address] Care Team Providers Care Travel Ticketing Reviewer Name Role Phone Morteza Holly Primary Care Provider Allergies Allergen (clinical drug ingredient) Drug/Non Drug Allergy documented on EMR Reaction Allergy Type Onset Date Status Latex Latex (uncoded) hives Allergy Acti ve amoxicillin / clavulanate Augmentin hives Drug Allergy Active Keflex itching Drug Allergy Active theophylline Theophylline hives/GI upset Drug Allergy Active Results Component Value Reference Range Notes UA (Urinalysis, Dipstix only - w/o micro) Reviewed date:04/10/2025 01:42:43 PM Interpretation: Performing Lab: Notes/Report: COLOR yellow Yellow - Ruth - CLARITY clear Clear - Clear GLUCOSE - 0 - 133 MG/DL ALBUMIN - NEG - NEG MG/DL BILIRUBIN - NEG - NEG MG/DL SPECIFIC GRAVITY 1.010 1.001 - 1.035 KETONES - NEG - NEG MG/DL BLOOD, UR - PH, UR 5.0 5 - 9 UROBILNOGEN - 0.2 - 1 MG/DL NITRITE - NEG - NEG ESTERASE (KAREEM) + NEG - NEG MG/DL REASON FOR VISIT check up cant sit and wait/ uti check, patient is co left hip/leg pain, trouble walking Medications Medication SIG (Take, Route, Frequency, Duration) Notes Start Date End Date Status Vitamin B12 1000 MCG 1 tablet Orally Once a day for 90 days 01/31/2025 Active Vitamin D3 125 MCG (5000 UT) 1 capsule Orally Once a day for 90 days Active Zinc Active Venlafaxine HCl ER 75 MG TAKE 1 CAPSULE BY MOUTH EVERY DAY for 90 days Active Ventolin HFA 108 (90 Base) MCG/ACT 2 puff as needed Inhalation every 4 hrs for 30 PRN 07/14/2023 Active Nebulizer - Use daily with solution four times daily as needed for 90 days Nebulizer Machine or Nebulizer Compressor 02/26/2023 Active Nebulizer Mask and Tubing-Adult - Dx: Asthma dx J45.99 qid prn for 30 days Active Nebulizer Mask and Tubing-Adult - Nebulizer mask and tubing Dx: Asthma Daily for 365 days 04/03/2023 Active Rosuvastatin Calcium 5 MG 1 tablet Orally Once a day Not-Taking tiZANidine HCl 4 MG 1 tablet at bedtime as needed Orally Once a day for 30 days 04/03/2025 Active Daily-Shari Multivitamin - TAKE 2 TABLETS BY MOUTH EVERY DAY WITH ENERGY for 30 days Active Ibuprofen 800 MG TAKE 1 TABLET BY MOUTH EVERY 6 HOURS NEEDED WITH FOOD OR MILK for 30 Active Magnesium 400 MG as directed Orally once daily 06/02/2024 Active metFORMIN HCl 500 MG 1 tablet with a meal Orally Once a day for 30 days 04/03/2025 Active Compression Stocking Below Knee 20-30mmHg - 04/03/2023 Active Budesonide 0.5 MG/2ML 2 mL Inhalation Twice a day 07/14/2023 Active Carvedilol 6.25 MG 1 tablet with food Orally Twice a day Active Cetirizine HCl Activ e Cetirizine HCl 10 MG TAKE 1 TABLET BY MOUTH EVERY DAY Orally Once a day for 90 days Active Collagen Active Biotin 1000 MCG 1 tablet Orally Once a day 06/02/2024 Active Potassium Chloride ER 10 MEQ 1 tablet with food Orally Twice a day Active Torsemide 20 MG 1 tablet Orally Once a day Active Albuterol Sulfate (2.5 MG/3ML) 0.083% 3 mL as needed Inhalation every 6 hrs Dx: J45.909 PRN 02/25/2023 Active Aspirin 81 MG 1 tablet Orally Once a day Active Social History Tobacco Use: Social History Observation Description Date Details (start date - stop date) Former Smoker NA - 09/30/2007 Tobacco Use/Smoking Question Answer Notes Patient is a former smoker When did you stop smoking? 09/30/2007 How long has it been since you last smoked? > 10 years AUDIT-C (Standard) Question Answer Notes Did you have a drink containing alcohol in the p ast year? No Points 0 Interpretation Negative Problems Problem Type SNOMED Code ICD Code Onset Dates Problem Status W/U Status Risk Notes Problem Chronic obstructive pulmonary disease, unspecified (J44.9) Active confirmed Vital Signs Blood pressure systolic 148 mm Hg 04/10/20 25 Blood pressure diastolic 78 mm Hg 025 Height 66 in 04/10/2025 Weight 256.6 lbs 04/10/2025 BMI 41.41 kg/m2 04/10/2025 Encounters Encounter Location Date Provider Diagnosis [facility] [address] [place] [address] 04/10/2025 Morteza Holly Urinary frequency R3 5.0 and Chronic obstructive pulmonary disease, unspecified J44.9 Assessments Encounter Date Diagnosis (ICD Code) Assessment Notes Treatment Notes Treatment Clinical Notes Section Notes 04/10/2025 Urinary frequency (ICD-10 - R35.0) 04/10/2025 Chronic obstructive pulmonary disease, unspecified (ICD-10 - J44.9) stable - no cough Plan Of Treatment Treatment Notes Assessment Notes Chronic obstructive pulmonary disease, u nspecified stable - no cough Pending Test Test Name Order Date Urinalysis Microscopic 04/10/2025 CULTURE URINE 04/10/2025 US renal bladder 04/10/2025 Progress Notes * Hilary COOKDOB: [birth year] (74 yo F)Acc No.[id number]:04/10/2025 Progress Note Patient: Hilary GARCES Provider: Adam Holly ([facility])MD :1950 A ge:74 Y S ex:Female Date:04/10/2025 Address:[address] [facility] Check In:01:27 PM ESTCheck O ut:02:22 PM EST Subjective: * Chief Complaints: * C heck up cant sit and wait/ uti checkPatient is co left hip/leg pain, trouble walking * HPI: G eneral: After in hiospital - has had pain in hips - diff walking - much worse after positoning for X-ray Was seen there for UTI _. * ROS: E ENT: hearing changes d enies. v isual changes d enies.?non-healing mouth sores d enies. s wollen glands or neck lumps d enies. h oarseness d enies. s ore throat d enies. d ifficulty swallowing d enies. n ose bleeds d enies. n mian congestion d enies. e ar ache d enies. e ar discharge?denies. r inging in ears d enies. l ight sensitivity d enies. e ye pain d enies. b lurring d enies. e ye irritation d enies. d ouble vision d enies.?vision loss d enies. G eneral/Constitutional: Sweats: D enies. F atigue d enies. S leep problems d enies. A norexia d enies. M alaise d enies. W eight loss d enies.?Fatigue or Weakness d enies. F ever or Chills d enies. C ardiovascular: Shortness of Breath w/lying flat d enies. L ightheadedness/dizziness d enies. C hest tightness/ heavy pressure d enies. S welling of legs, ankles, or feet d enies. W aking up with shortness of breath d enies. C hest pain denies. P alpitations d enies. W eight gain d enies. R espiratory: Chronic or frequent cough d enies. C oughing up blood?denies. D ifficulty breathing d enies. P roductive cough d enies. S noring?denies. S hortness of breath that awakens from sleep (PND) d enies. C hest pain d enies. S putum production d enies. W heezing d enies. M usculoskeletal: Joint pain d enies. J oint Fluid d enies. B ack pain d enies. K nee pain d enies. N tripp pain d enies. J oint Stiffness d enies. M uscle cramps d enies. W eakness of muscles d enies. A rthritis d enies. M uscle aches d enies. P ain in shoulder(s) d enies. S wollen joints d enies. * Active Problem List G47.33 Obstructive sleep ap keturah (adult) (pediatric) Modified On:04/03/2023 Status:confirmed I35.1 Nonrheumatic aortic (valve) insufficiency Modified On:04/03/2023 Status:confirmed I10 Essential (primary) hypertension Modified On:11/03/2023 Status:confirmed J45.909 Unspecified asthma, uncomplicated Modified On:04/03/2023 Status:confirmed E78.5 Hyperlipidemia, unsp ecified Modified On:11/03/2023 Status:confirmed G25.81 Restless legs syndro me Modified On:04/03/2023 Status:confirmed R53.82 Chronic fatigue, uns pecified Modified On:04/03/2023 Status:confirmed M19.90 Unspecified osteoart hritis, unspecified site Modified On:04/03/2023 Status:confirmed M50.30 Other cervical disc degeneration, unspecified cervical region Modified On:04/03/2023 Status:confirmed L63.9 Alopecia areata, uns pecified Modified On:04/03/2023 Status:confirmed M71.21 Synovial cyst of pop liteal space [[place]], right knee Modified On:04/08/2023 Status:confirmed M71.22 Synovial cyst of pop liteal space [[place]], left knee Modified On:04/08/2023 Status:confirmed R63.1 Polydipsia Modified On:11/03/2023 Status:confirmed G62.9 Neuropathy Modified On:07/04/2024 Status:confirmed E78.5 Borderline hyperlipi demia Modified On:11/25/2024 Status:confirmed J44.9 Chronic obstructive pulmonary disease, unspecified Modified On:04/10/2025 Status:confirmed * Medical History: * Surgical History: N tripp Surgery Partial Hysterectomy Colonoscopy * Hospitalization/Major Diagno stic Procedure: N o Hospitalization History. * Family History: F ather: , colon polyp, Heart Disease, diagnosed with Unspecified heart disease. M other: , type II diabetes, Heart Disease, diagnosed with Diabetes mellitus without mention of complication, type II or unspecified type, not stated as uncontrolled, Unspecified heart disease.?Brother(s): alive, type II diabetes, kidney failure, diagnosed with Diabetes mellitus without mention of complication, type II or unspecified type, not stated as uncontrolled, Chronic kidney disease, unspecified. S on(s): alive. D aughter(s): alive, Chron's disease. 2 brother(s) . 2 son(s) , 2 daughter(s) . . Brothers: 1 living, 1 . * Social History: T obacco Use: T obacco Use/Smoking P atient is a f ormer smoker W hen did you stop smoking? 0 09/30/2007 H ow long has it been since you last smoked??> 10 years D rug/Alcohol: A ALEXIS-C (Standard) D id you have a drink containing alcohol in the past year? N o P oints 0 I nterpretation N egative * Medications: T akingAlbuterol Sulfate (2.5 MG/3ML) 0.083% Nebulization Solution 3 mL as needed Inhalation every 6 hrs Dx: J45.909, Notes to Pharmacist: PRNAspirin 81 MG Tablet Chewable 1 tablet Orally Once a day Biotin 1000 MCG Tablet 1 tablet Orally Once a day Budesonide 0.5 MG/2ML Suspension 2 mL Inhalation Twice a day Carvedilol 6.25 MG Tablet 1 tablet with food Orally Twice a day Cetirizine HCl Cetirizine HCl 10 MG Tablet TAKE 1 TABLET BY MOUTH EVERY DAY Orally Once a day Collagen Compression Stocking Below Knee 20-30mmHg - - Daily-Shari Multivitamin(Multiple Vitamin) - Tablet TAKE 2 TABLETS BY MOUTH EVERY DAY WITH ENERGY Ibuprofen 800 MG Tablet TAKE 1 TABLET BY MOUTH EVERY 6 HOURS NEEDED WITH FOOD OR MILK Magnesium 400 MG Capsule as directed Orally once daily metFORMIN HCl 500 MG Tablet 1 tablet with a meal Orally Once a day Nebulizer - Miscellaneous Use daily with solution four times daily as needed , Notes to Pharmacist: Nebulizer Machine or Nebulizer CompressorNebulizer Mask and Tubing-Adult - miscellaneous Dx: Asthma dx J45.99 qid prn Nebulizer Mask and Tubing-Adult - miscellaneous Nebulizer mask and tubing Dx: Asthma Daily Potassium Chloride ER 10 MEQ Tablet Extended Release 1 tablet with food Orally Twice a day tiZANidine HCl 4 MG Tablet 1 tablet at bedtime as needed Orally Once a day Torsemide 20 MG Tablet 1 tablet Orally Once a day Venlafaxine HCl ER 75 MG Capsule Extended Release 24 Hour TAKE 1 CAPSULE BY MOUTH EVERY DAY Ventolin HFA(Albuterol Sulfate HFA) 108 (90 Base) MCG/ACT Aerosol Solution 2 puff as needed Inhalation every 4 hrs , Notes to Pharmacist: PRNVitamin B12 1000 MCG Tablet 1 tablet Orally Once a day Vitamin D3 125 MCG (5000 UT) Capsule 1 capsule Orally Once a day Zinc Taking Albuterol Sulfate (2.5 MG/3ML) 0.083% Nebulization Solution 3 mL as needed Inhalation every 6 hrs Dx: J45.909, Notes to Pharmacist: PRNTaking Aspirin 81 MG Tablet Chewable 1 tablet Orally Once a day Taking Biotin 1000 MCG Tablet 1 tablet Orally Once a day Taking Budesonide 0.5 MG/2ML Suspension 2 mL Inhalation Twice a day Taking Carvedilol 6.25 MG Tablet 1 tablet with food Orally Twice a day Taking Cetirizine HCl Taking Cetirizine HCl 10 MG Tablet TAKE 1 TABLET BY MOUTH EVERY DAY Orally Once a day Taking Collagen Taking Compression Stocking Below Knee 20-30mmHg - - Taking Daily-Shari Multivitamin(Multiple Vitamin) - Tablet TAKE 2 TABLETS BY MOUTH EVERY DAY WITH ENERGY Taking Ibuprofen 800 MG Tablet TAKE 1 TABLET BY MOUTH EVERY 6 HOURS NEEDED WITH FOOD OR MILK Taking Magnesium 400 MG Capsule as directed Orally once daily Taking metFORMIN HCl 500 MG Tablet 1 tablet with a meal Orally Once a day Taking Nebulizer - Miscellaneous Use daily with solution four times daily as needed , Notes to Pharmacist: Nebulizer Machine or Nebulizer CompressorTaking Nebulizer Mask and Tubing-Adult - miscellaneous Dx: Asthma dx J45.99 qid prn Taking Nebulizer Mask and Tubing-Adult - miscellaneous Nebulizer mask and tubing Dx: Asthma Daily Taking Potassium Chloride ER 10 MEQ Tablet Extended Release 1 tablet with food Orally Twice a day Taking tiZANidine HCl 4 MG Tablet 1 tablet at bedtime as needed Orally Once a day Taking Torsemide 20 MG Tablet 1 tablet Orally Once a day Taking Venlafaxine HCl ER 75 MG Capsule Extended Release 24 Hour TAKE 1 CAPSULE BY MOUTH EVERY DAY Taking Ventolin HFA(Albuterol Sulfate HFA) 108 (90 Base) MCG/ACT Aerosol Solution 2 puff as needed Inhalation every 4 hrs , Notes to Pharmacist: PRNTaking Vitamin B12 1000 MCG Tablet 1 tablet Orally Once a day Taking Vitamin D3 125 MCG (5000 UT) Capsule 1 capsule Orally Once a day Taking Zinc Not-Taking/PRNRosuvastatin Calcium 5 MG Tablet 1 tablet Orally Once a day Medication List reviewed and reconciled with the patientNot-Taking/PRN Rosuvastatin Calcium 5 MG Tablet 1 tablet Orally Once a day Medication List reviewed and reconciled with the patient * Allergies: A ugmentin: hives - AllergyTheophylline: hives/GI upset - AllergyKeflex: itching - AllergyLatex: hives - Allergyno[Allergies Verified] Objective: * Vitals: W t:256.6lbs, Ht: 66 in, BP:148/78mm Hg, BMI:41.41Index, Ht-cm: 167.64 cm, Wt-k.39 kg. * Examination: P hysical Exam: GENERAL: w ell developed, well nourished, in no acute distress. HEAD: n ormocephalic/atraumatic. EYES: p upils equal, round and reactive to light, conjunctivae and sclerae normal. EARS: n o deformity or lesion of external ear, canals and TM appear normal bilaterally, TM's intact, not inflamed with normal light reflex, hearing grossly normal to conversational speech. NOSE: n o deformity, discharge, inflammation, or lesions.? MOUTH: m ucous membranes moist, normal oropharynx and posterior pharynx without lesions or exudates, tongue normal, dentition normal. NECK: n tripp supple, no masses or palpable cervical nodes, trachea midline, thyroid without nodules, masses, tenderness, or enlargement. CHEST: n o chest wall deformity, no chest wall tenderness.? LUNGS: n ormal respiratory effort and clear to auscultation, no wheezes, rales, or rhonchi, good air exchange. CARDIO: r egular rate and rhythm, normal S1 and S2, nor murmur, rub, or gallop. PULSES: n ormal capillary refill. ABDOMEN: s oft, non-distended, non-tender, no masses. MUSCULOSKELETAL: n o deformity or scoliosis noted, normal range of motion, joints normal, no erythema, edema, effusion, or ecchymosis. EXTREMITY: n o clubbing, cyanosis, edema, or deformity with normal ROM in both upper and lower bilateral extremities. NEUROLOGIC: g rossly normal. SKIN: n o rashes, ulcerations, or suspicious lesions. LYMPH NODES: n o cervical adenopathy, nodes normal. MENTAL STATUS: a lert and oriented x3, normal mood and affect. Assessment: * Assessment: 1. U rinary frequency - R35.0 (Primary) 2 . C hronic obstructive pulmonary disease, unspecified - J44.9 Plan: * Treatment: 2.?Chronic obstructive pulmonary disease, unspecified? Notes: stable - no cough?? * Labs: * L ab: UA (Urinalysis, Dipstix only - w/o micro) (Collection Date & Time - 04/10/2025) Value Reference Range C OLOR yellow Yellow - Ruth - * C LARITY clear Clear - Clear * G LUCOSE - 0 - 133 MG/DL * A LBUMIN - NEG - NEG MG/DL * B ILIRUBIN - NEG - NEG MG/DL * S PECIFIC GRAVITY 1.010 1.001 - 1.035 * K ETONES - NEG - NEG MG/DL * B LOOD, UR - * P H, UR 5.0 5 - 9 * U ROBILNOGEN - 0.2 - 1 MG/DL * N ITRITE - NEG - NEG * E STERASE (KAREEM) + NEG - NEG MG/DL * Procedure Codes: 8 1002 URINALYSIS WO MICRO * Preventive Medicine: Screenings/Counseling: B GA ACTION PLAN Above Normal BMI Follow-up D ietary management education, guidance, and counseling F ALL RISK SCREENING Fall Risk Assessment: N o falls in the past year * * Sign off status: Completed Visit Status: C HK (Check Out) true * Provider: Adam Holly ([facility])MD Date: 0 04/10/2025 Generated for Damaris palumbo/Amaury/eTransmitting on: 0 04/13/2025 09:54 AM EDT History and Physical Notes * HPI (History of Present Illness) Category Sub-Category Detail Notes Category Not es General After in hiospital - has had pain in hips - diff walking - much worse after positoning for X-ray Was seen there for UTI _ Examination Category Sub-Category Detail Notes Category Not es Physical Exam GENERAL: well developed, well nourished, in no acute distress HEAD: normocephalic/atraum atic EYES: pupils equal, round and reactive to light, conjunctivae and sclerae normal EARS: no deformity or lesi on of external ear, canals and TM appear normal bilaterally, TM's intact, not inflamed with normal light reflex, hearing grossly normal to conversational speech NOSE: no deformity, discha rge, inflammation, or lesions MOUTH: mucous membranes jerry st, normal oropharynx and posterior pharynx without lesions or exudates, tongue normal, dentition normal NECK: neck supple, no mass es or palpable cervical nodes, trachea midline, thyroid without nodules, masses, tenderness, or enlargement CHEST: no chest wall deform ity, no chest wall tenderness LUNGS: normal respiratory e ffort and clear to auscultation, no wheezes, rales, or rhonchi, good air exchange CARDIO: regular rate and rhy thm, normal S1 and S2, nor murmur, rub, or gallop PULSES: normal capillary ref ill ABDOMEN: soft, non-distended, non-tender, no masses RECTAL: MUSCULOSKELETAL: no deformity or scol iosis noted, normal range of motion, joints normal, no erythema, edema, effusion, or ecchymosis EXTREMITY: no clubbing, cyanosi s, edema, or deformity with normal ROM in both upper and lower bilateral extremities NEUROLOGIC: grossly normal SKIN: no rashes, ulceratio ns, or suspicious lesions LYMPH NODES: no cervical adenopat hy, nodes normal MENTAL STATUS: alert and oriented x 3, normal mood and affect
--- OUTSIDE RECORDS SUMMARY | 2025-04-10 09:53 | XMS_ITS ---
Author Organization [facility] in [place] Address [address] [place] [address] Care Team Providers Care Technical Systems Architect Name Role Phone Morteza Holly Primary Care Provider [phone] Allergies Allergen (clinical drug ingredient) Drug/Non Drug Allergy documented on EMR Reaction Allergy Type Onset Date Status Latex Latex (uncoded) hives Allergy Acti ve amoxicillin / clavulanate Augmentin hives Drug Allergy Active Keflex itching Drug Allergy Active ciprofloxacin Ciprofloxacin Unknown Drug Allergy Active theophylline Theophylline hives/GI upset Drug Allergy Active REASON FOR VISIT Cipro Encounters Encounter Location Date Provider Diagnosis [facility] [address] [place] [address] 04/10/2025 Morteza Elayne Plan Of Treatment No Information Progress Notes * Hilary COOKDOB: [birth year] (74 yo F)Acc No.[id number]:04/10/2025 Patient: Zarina GARCIAHilary RODRIGUEZ :1950 A ge:74 Y S ex:Female Address:[address] [place] [id number] Subjective: * Chief Complaints: * C ipro * Medical History: * Surgical History: * Hospitalization/Major Diagno stic Procedure: * Medications: * Allergies: A ugmentin: hives - AllergyTheophylline: hives/GI upset - AllergyKeflex: itching - AllergyLatex: hives - AllergyCiprofloxacin Objective: * Vitals: * Physical Examination: Assessment: Plan: * Treatment: * Procedure Codes: * true * Date: Generated for Damaris palumbo/Amaury/Abel on: 0 04/13/2025 09:55 AM EDT
--- OUTSIDE RECORDS SUMMARY | 2025-04-13 09:54 | XMS_ITS | Clinical Summary ---
Author Organization [facility] Address [address] [place] [address] Care Team Providers Care First Aid Teacher Name Role Phone Jamie Holly MD Primary Care Provider [phone] Allergies Active Allergy Reactions Criticality Noted Date Comments Amoxicillin-Pot Clavulanate Other 10/06/19 Cephalexin Other,Rash,Unknown Low 06/22/2008 Cortisone Unknown 11/17/2023 Latex Itching,Other,Rash Medium 11/29/2008 Theophylline Other 10/06/2022 Medications aspirin 81 MG EC tablet Take 2 tablets every day by oral route. Active biotin 1000 MCG tablet Take 1 mg by mouth Daily 10/20/2023 Active carvedilol (Coreg) 12.5 MG tablet Take 1 tablet by mouth in the morning and 1 tablet before bedtime. Active carvedilol (Coreg) 6.25 MG tablet TAKE 1 TABLET TWICE A DAY BY ORAL ROUTE FOR 90 DAYS. 10/26/2023 Active cetirizine (ZyrTEC) 10 MG tablet Take 1 tablet by mouth Daily Active furosemide (Lasix) 40 MG tablet Take 40 mg by mouth in the morning. 10/08/2023 Active Multiple Vitamin (Daily-Shari Multivitamin) tablet TAKE 2 TABLETS BY MOUTH EVERY DAY WITH ENERGY 10/25/2023 Active rosuvastatin (Crestor) 5 MG tablet Take 1 tablet by mouth Daily Active venlafaxine XR (Effexor XR) 75 MG 24 hr capsule Take 1 capsule by mouth Daily Active zinc gluconate 50 MG tablet Take by mouth Active Active Problems Problem Noted Date Diagnosed Date Chronic diastolic congestive heart failure 10/06 Chronic obstructive pulmonary disease 10/06/2022 LEXI (obstructive sleep apnea) 10/06/2022 Primary hypertension 10/06/2022 Mixed hyperlipidemia 07/14/2017 Family History Medical History Relation Name Comments Stroke Father Diabetes Mother Heart disease Mother Stroke Mother Cancer Other GI problems Other Glaucoma Other Mental illness Other Relation Name Status Comments Father Mother Other Social History Tobacco Use Types Packs/Day Years Used Date Smoking Tobacco: Former Cigarettes 0.5 35 1 972 - 2007 Tobacco Cessation:Counseling Given: Not Answered Comments:Last smoked >10 years Alcohol Use Standard Drinks/Week Comments Never 0 (1 standard drink = 0.6 oz pur e alcohol) Comments Unknown Sex and Gender Information Value Date Recorded Sex Assigned at Not on file Legal Sex Female 6:38 PM EDT Gender Identity Not on file Sexual Orientation Not on file Last Filed Vital Signs Vital Sign Reading Time Taken Comments Blood Pressure - - Pulse - - Temperature - - Respiratory Rate - - Oxygen Saturation - - Inhaled Oxygen Concentration - - Weight 125 kg (275 lb) 11/17/2023 2:09 PM EDT Height 167.6 cm (5' 6 ) 11/17/2023 2:09 PM EDT Body Mass Index 44.39 11/17/2023 2:09 PM EDT Plan of Treatment Not on file Insurance [employer] Care Teams First Aid Teacher Relationship Specialty Start Date End Date Jamie Holly MD PCP - General Family Medicine 11/17/23
--- OUTSIDE RECORDS SUMMARY | 2025-04-13 09:54 | XMS_ITS | Clinical Summary ---
Author Organization [facility] Address [address] [place] [id number] Care Team Providers Care Recharger Name Role Phone Jamie Holly MD Primary Care Provider [phone] Allergies Active Allergy Reactions Criticality Noted Date [...] Team Description 01/27/2025 Transcribe Orders Referring Physician [address] [place] [phone] Jamie Holly MD Hypertension, unspecified type (Primary [...] 08/16/2011 08/16/2008, 06/22/2008 Bone Density Screening 2017 Advance Directive Discussion 08/31/2024 Influenza Vaccine (#1) 2025 RSV Vaccine (1 - 1-dose 75+ series) 2027 Procedures Procedure Name Priority Date/Time Associated Diagnosis Comments COMPREHENSIVE METABOLIC PANEL Routine 08/16/2008 11:05 AM EST Alopecia Areata Aftercare [facility] Use Medicatn from Last 3 Months or Most Recently Relevant to Health Maintenance Results * COMP METABOLIC PANEL (08/16/2008 11:05 AM EST) Protein, Total 7.4 6.0 - 8.4 g/dL [facility] Albumin 4.3 3.5 - 5.0 g/dL [facility] Calcium 9.6 8.5 - 10.5 mg/dL [facility] Bilirubin, Total 0.2 0.0 - 1.5 mg/dL [facility] Alkaline Phosphatase 100 40 - 150 U/L [facility] AST 24 7 - 40 U/L [facility] Glucose 96 65 - 100 mg/dL [facility] BUN 11 8 - 25 mg/dL [facility] Creatinine 0.77 0.70 - 1.40 mg/dL [facility] Sodium 139 132 - 148 mmol/L [facility] Potassium 4.8 3.5 - 5.0 mmol/L [facility] Chloride 104 98 - 110 mmol/L [facility] CO2 26 23 - 32 mmol/L [facility] Anion Gap 9 0 - 15 mmol/L [facility] ALT 20 0 - 45 U/L [facility] eGFR- >60 [facility] eGFR-All Other Races >60 [facility] Comment: eGFR (Estimated GFR) Units of [...] Sue Yoo MD LABORATORY Final Resul t [facility] [address] [place] [address] from Last 3 Months or Most Recently Relevant to Health Maintenance Insurance [employer] MED[employer] Care Teams Recharger Relationship Specialty Start Date End Date Jamie Holly MD PCP - General 05/08/08
--- OUTSIDE RECORDS SUMMARY | 2025-04-13 09:55 | XMS_ITS | Patient Health Record ---
Author Organization [facility] in [place] Address [address] [place] [address] Care Team Providers Care Inventory Management Specialist Name Role Phone Morteza Holly Primary Care [...] ESTERASE (KAREEM) + NEG - NEG MG/DL FREE T3 Reviewed date:01/03/2025 02:56:40 PM Interpretation: Performing Lab: Notes/Report: [facility] , Free T3 3.08 2.18-3.98 pg/mL Performing Lab: see note ML - [facility] LB GLYCOHEMOGLOBIN A1C Reviewed date:01/03/2025 02:56:40 PM Interpretation: Performing Lab: Notes/Report: [facility] , Glycohemoglobin A1C 6.3 4.5-6.2 % ADA THERAPEUTIC TARGET < 7.0 ACTION SUGGESTED > 7.0 ADA RECOMMENDED LIMIT 4.0 - 6.0 Estimated Average Glucose 134 Performing Lab: see note ML - [facility] LB LIPID PROFILE Reviewed date:01/03/2025 02:56:40 PM Interpretation: Performing Lab: Notes/Report: [facility] , Triglycerides 220 <=150 mg/dL Cholesterol 240 <=200 mg/dL HDL Cholesterol 49 40-60 mg/dL <40 mg/dl - HIGH CARDIOVASCULAR RISK > or =60 mg/dl - LOW CARDIOVASCULAR RISK LDL Cholesterol Calculated 147.0 >190 mg/dl VERY HIGH 130-159 mg/dl BORDERLINE HIGH <100 mg/dl OPTIMAL 160-189 mg/dl HIGH 100-129 mg/dl NEAR OR ABOVE OPTIMAL VLDL CHOLESTEROL 44.0 Chol HDL Ratio 4.9 >11.0 HIGH RISK 4.4 - 7.1 AVERAGE RISK 3.3 - 4.4 LOW RISK 7.1 - 11.0 MODERATE RISK Performing Lab: see note ML - [facility] LB PROF 14(COMP METB) Reviewed date:01/03/2025 02:56:40 PM Interpretation: Performing Lab: Notes/Report: [facility] , Sodium 140 136-145 mmol/L Potassium 4.1 3.5-5.1 mmol/L Chloride 102 98-107 mmol/L Carbon Dioxide 28.7 21.0-32.0 mmol/L Anion Gap 13.4 Glucose 122 74-106 mg/dL Blood Urea Nitrogen 19.0 7.0-18.0 mg/dL Creatinine 0.97 0.55-1.02 mg/dL Estimated GFR ( Hawa >60 >=60 mL/min/1.73m 2 Estimated GFR (Non- Rosario 56 >=60 mL/min/1.73m 2 BUN Creatinine Ratio 19.6 Calcium 9.5 8.5-10.1 mg/dL Bilirubin Total 0.3 0.2-1.0 mg/dL Aspartate Amino Transferase 42 15-37 U/L Alanine Aminotransferase 46 14-59 U/L Alkaline Phosphatase 89 46-116 U/L Total Protein 7.5 6.4-8.2 g/dL Albumin Level 3.6 3.4-5.0 g/dL Globulin 3.9 Albumin Globulin Ratio 0.9 Performing Lab: see note ML - [facility] LB T4 Reviewed date:01/03/2025 02:56:40 PM Interpretation: Performing Lab: Notes/Report: [facility] , T4 Thyroxine 8.20 4.80-13.90 ug/dL Performing Lab: see note ML - [facility] LB TSH Reviewed date:01/03/2025 02:56:40 PM Interpretation: Performing Lab: Notes/Report: [facility] , Thyroid Stimulating Hormone 2.788 0.358-3.740 uIU/mL Performing Lab: see note ML - [facility] LB CBC AUTO DIFF Reviewed date:03/09/2025 06:51:33 PM Interpretation: Performing Lab: Notes/Report: [facility] , White Blood Count 9.4 4.0-11.0 10 3/uL Red Blood Count 4.72 4.20-5.40 10 6/uL Hemoglobin 13.5 12.0-16.0 g/dL Hematocrit 40.9 36.0-48.0 % Mean Corpuscular Volume 86.7 81.0-99.0 fL Mean Corpuscular Hemoglobin 28.6 26.7-34.0 pg Mean Corpuscular HGB Conc 33.0 29.9-35.2 g/dL Red Cell Distribution Width 13.8 11.0-15.0 % Platelet Count 191 150-450 10 3/uL Mean Platelet Volume 10.0 9.5-13.5 fL Neutrophils Percent Auto 80.3 43.0-75.0 % Lymphocytes Percent Auto 11.0 20.5-60.0 % Monocytes Percent Auto 7.9 1.7-12.0 % Eosinophils Percent Auto 0.2 0.9-7.0 % Basophils Percent Auto 0.2 0.2-2.0 % Immature Granulocytes Pct Auto 0.4 0.0-0.5 % Neutrophils Absolute Auto 7.5 1.4-6.5 10 3/uL Lymphocytes Absolute Auto 1.0 1.2-3.8 10 3/uL Monocytes Absolute Auto 0.7 0.3-0.8 10 3/uL Eosinophils Absolute Auto 0.0 0.0-0.7 10 3/uL Basophils Absolute Auto 0.0 0.0-0.1 10 3/uL Immature Granulocytes Abs Auto 0.04 0.00-0.03 10 3/uL Performing Lab: see note ML - [facility] LB D-DIMER Reviewed date:03/09/2025 06:51:33 PM Interpretation: Performing Lab: Notes/Report: [facility] , D Dimer 1.60 <=0.59 mg/L FEU of disorders including advanced age, , coronary reference range. D-Dimers may also be elevated for a variety or anticoagulant therapy, stress, and generalized event cannot be diagnosed with certainty on the basis of the hospitalization. size, and age of the thrombus. Therefore, a thromboembolic disease, cancer, liver disease, infection, inflammation, thromboembolic events can be variable due to localization, Increases in D-Dimer concentration observed with RESULTS CALLED TO AUGUST ROTH RN @BY Cecilia Roche at 0126 hematoma, DIC, trauma, post-surgery, diabetes, thrombolytic Performing Lab: see note ML - [facility] LB LACTATE or LACTIC ACID Reviewed date:03/09/2025 06:51:33 PM Interpretation: Performing Lab: Notes/Report: [facility] , Lactate/Lactic Acid 0.9 0.4-2.0 mmol/L Performing Lab: see note ML - [facility] LB PROF CHEM 8 (BAS METB) Reviewed date:03/09/2025 06:51:33 PM Interpretation: Performing Lab: Notes/Report: [facility] , Sodium 134 136-145 mmol/L Potassium 3.9 3.5-5.1 mmol/L Chloride 97 98-107 mmol/L Carbon Dioxide 25.8 21.0-32.0 mmol/L Anion Gap 15.1 Glucose 181 74-106 mg/dL Blood Urea Nitrogen 16.0 7.0-18.0 mg/dL Creatinine 0.93 0.55-1.02 mg/dL Estimated GFR ( Hawa >60 >=60 mL/min/1.73m 2 Estimated GFR (Non- Rosario 59 >=60 mL/min/1.73m 2 BUN Creatinine Ratio 17.2 Calcium 9.5 8.5-10.1 mg/dL Performing Lab: see note ML - [facility] LB Troponin I High Sensitivity Reviewed date:03/09/2025 06:51:33 PM Interpretation: Performing Lab: Notes/Report: [facility] , Troponin I High Sensitivity 38.3 4.0-51.3 pg/mL NOTE: HIGH-SENSITIVITY TROPONIN ASSAY IS NOT INTENDED TO BE PERCENTILE OF cTnI DISTRIBUTION IN A REFERENCE POPULATION, REFERENCE LIMIT (URL) OF TROPONIN, DEFINED THE 99TH UNIVERSAL DEFINITION OF MYOCARDIAL INFARCTION. THE UPPER 99TH PERCENTILE = 51.4 PG/ML CUT-OFF POINTS HAVE BEEN ESTABLISHED BASED ON THE FOURTH HAS BEEN CONFIRMED THE DECISION THRESHOLD FOR NH WITH OTHER DIAGNOSTIC AND CLINICAL INFORMATION. DIAGNOSIS. USED IN ISOLATION BUT SHOULD BE INTERPRETED IN CONJUNCTION Performing Lab: see note ML - [facility] LB Occult Blood* Reviewed date:03/12/2025 04:17:26 PM Interpretation: Performing Lab: Notes/Report: [facility] , Occult Blood Positive Performing Lab: see note - [facility] LB ECG 12 lead Reviewed date:03/14/2025 08:59:32 PM Interpretation: Performing Lab: Notes/Report: Source Facility: [place] [address] [place] [address] Electrocardiograph Report Signed Patient: ARMANDO SWEET MR#: [id number] : 1950 Acct:[id number] Age/Sex: 74 / F ADM Date: 03/08/25 Loc: [place] 222-[address]: Urban Holden M.D. 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 Signed By: 03/14/25 1300 DD/ 23 TD/TT: Slope Tender: [place] [address] Electrocardiograph Report Signed Patient: DO RICO SWEET MR#: [id number] : 1950 Acct:[id number] Age/Sex: 74 / F ADM Date: 03/08/25 Loc: [place] 222-[address]: Urban Holden M.D. 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 Signed By: 03/14/25 1300 DD/ 23 TD/TT: Slope Tender: EASTON Cortes, reflex to culture Reviewed date:03/09/2025 06:51:33 PM Interpretation: Performing Lab: Notes/Report: [facility] , Color Urine LT. YELLOW YELLOW Clarity Urine CLEAR CLEAR Specific [place] Urine 1.015 1.005-1.025 pH Urine 6.0 5.0-9.0 Protein Urine 100 NEG/TRACE mg/dL Glucose Urine UA NEGATIVE NEGATIVE mg/dL Bilirubin Urine NEGATIVE NEGATIVE Ketones Urine 15 NEGATIVE mg/dL Blood Urine MODERATE NEGATIVE Nitrite Urine NEGATIVE NEGATIVE Urobilinogen Urine 0.2 0.2-1.0 EU/dL Leukocyte Esterase Urine SMALL NEGATIVE WBC Urine 20-50 NONE SEEN #/HPF RBC Urine 10-20 0-2 #/HPF Bacteria Urine MODERATE NONE SEEN #/HPF Mucus Urine NONE SEEN NONE SEEN Squamous Epithelial Cell Urine RARE NONE/RARE #/LPF Crystals Seen? None Seen None Seen #/HPF Cast Seen? NONE SEEN NONE SEEN #/LPF Urine Culture Indicated YES-[facility] Performing Lab: see note ML - [facility] LB Urine Culture - [facility] Reviewed date:03/14/2025 08:59:32 PM Interpretation: Performing Lab: Notes/Report: [facility] , Urine Culture - [facility] See Below For Report Isolated Urine Culture - FR Antibiotic Interpretation SIOBHAN Status O:ESBLPESCL Testing performed at [facility] [place] Count Organism: 1.1 Urine Culture - [facility] Urine Culture - FR [address], [place] [address] Isolated Urine Culture - FR Antibiotic Interpretation SIOBHAN Status O:ESBLPESCL Testing performed at [facility] [place] Count Organism: 1.1 Urine Culture - FR Urine Culture - [facility] See Below For Report Isolated Urine Culture - FR Antibiotic Interpretation SIOBHAN Status O:ESBLPESCL Testing performed at [facility] [place] Count Organism: 1.1 Urine Culture - FR Urine Culture - [facility] See Below For Report Isolated Urine Culture - FR Antibiotic Interpretation SIOBHAN Status O:ESBLPESCL Testing performed at [facility] [place] Count Organism: 1.1 Urine Culture - [facility] Urine Culture - [facility] >100,000 Isolated Urine Culture - [facility] Antibiotic Interpretation SIOBHAN Status O:ESBLPESCL Testing performed at [facility] [place] Count Organism: 1.1 Urine Culture - FR Urine Culture - FR See Below For Report Isolated Urine Culture - [facility] Antibiotic Interpretation SIOBHAN Status O:ESBLPESCL Testing performed at [facility] [place] Count Organism: 1.1 Urine Culture - FR Urine Culture - [facility] Amikacin S F Isolated Urine Culture - FR Antibiotic Interpretation SIOBHAN Status O:ESBLPESCL Testing performed at [facility] [place] Count Organism: 1.1 Urine Culture - FR Urine Culture - FR Amoxicillin/Clavula vibha S F Isolated Urine Culture - FR Antibiotic Interpretation SIOBHAN Status O:ESBLPESCL Testing performed at [facility] [place] Count Organism: 1.1 Urine Culture - FR Urine Culture - [facility] Ampicillin R F Isolated Urine Culture - [facility] Antibiotic Interpretation SIOBHAN Status O:ESBLPESCL Testing performed at [facility] [place] Count Organism: 1.1 Urine Culture - [facility] Urine Culture - [facility] Aztreonam R F Isolated Urine Culture - [facility] Antibiotic Interpretation SIOBHAN Status O:ESBLPESCL Testing performed at [facility] [place] Count Organism: 1.1 Urine Culture - [facility] Urine Culture - [facility] Ceftazidime R F Isolated Urine Culture - [facility] [place] Antibiotic Interpretation SIOBHAN Status O:ESBLPESCL Testing performed at [facility] [place] Count Organism: 1.1 Urine Culture - [facility] Urine Culture - [facility] Ceftazidime/Avibact am S F Isolated Urine Culture - [facility] [place] Antibiotic Interpretation SIOBHAN Status O:ESBLPESCL Testing performed at [facility] [place] Count Organism: 1.1 Urine Culture - [facility] Urine Culture - [facility] Ceftolozane/Tazobac iqbal S F Isolated Urine Culture - [facility] [place] Antibiotic Interpretation SIOBHAN Status O:ESBLPESCL Testing performed at [facility] [place] Count Organism: 1.1 Urine Culture - [facility] Urine Culture - [facility] Ciprofloxacin I F Isolated Urine Culture - [facility] Antibiotic Interpretation SIOBHAN Status O:ESBLPESCL Testing performed at [facility] [place] Count Organism: 1.1 Urine Culture - [facility] Urine Culture - [facility] Ertapenem S F Isolated Urine Culture - [facility] Antibiotic Interpretation SIOBHAN Status O:ESBLPESCL Testing performed at [facility] [place] Count Organism: 1.1 Urine Culture - [facility] Urine Culture - [facility] Gentamicin R F Isolated Urine Culture - [facility] [place] Antibiotic Interpretation SIOBHAN Status O:ESBLPESCL Testing performed at [facility] [place] Count Organism: 1.1 Urine Culture - [facility] [place] Urine Culture - [facility] Levofloxacin S F Isolated Urine Culture - [facility] Antibiotic Interpretation SIOBHAN Status O:ESBLPESCL Testing performed at [facility] [place] Count Organism: 1.1 Urine Culture - [facility] Urine Culture - [facility] Meropenem S F Isolated Urine Culture - [facility] Antibiotic Interpretation SIOBHAN Status O:ESBLPESCL Testing performed at [facility] [place] Count Organism: 1.1 Urine Culture - [facility] Urine Culture - [facility] Meropenem/Vaborbact am S F Isolated Urine Culture - [facility] [place] Antibiotic Interpretation SIOBHAN Status O:ESBLPESCL Testing performed at [facility] [place] Count Organism: 1.1 Urine Culture - [facility] Urine Culture - [facility] Nitrofurantoin S F Isolated Urine Culture - [facility] Antibiotic Interpretation SIOBHAN Status O:ESBLPESCL Testing performed at [facility] [place] Count Organism: 1.1 Urine Culture - [facility] Urine Culture - [facility] Tetracycline R F Isolated Urine Culture - [facility] Antibiotic Interpretation SIOBHAN Status O:ESBLPESCL Testing performed at [facility] [place] Count Organism: 1.1 Urine Culture - [facility] Urine Culture - [facility] Tigecycline S F Isolated Urine Culture - [facility] Antibiotic Interpretation SIOBHAN Status O:ESBLPESCL Testing performed at [facility] [place] Count Organism: 1.1 Urine Culture - [facility] Urine Culture - [facility] Tobramycin R F Isolated Urine Culture - [facility] Antibiotic Interpretation SIOBHAN Status O:ESBLPESCL Testing performed at [facility] Count Organism: 1.1 Urine Culture - [facility] Urine Culture - [facility] Ampicillin/Sulbactam I F Isolated Urine Culture - [facility] Antibiotic Interpretation SIOBHAN Status O:ESBLPESCL Testing performed at [facility] Count Organism: 1.1 Urine Culture - [facility] Urine Culture - [facility] Cefazolin R F Isolated Urine Culture - [facility] Antibiotic Interpretation SIOBHAN Status O:ESBLPESCL Testing performed at [facility] Count Organism: 1.1 Urine Culture - [facility] Urine Culture - [facility] Cefepime R F Isolated Urine Culture - [facility] Antibiotic Interpretation SIOBHNA Status O:ESBLPESCL Testing performed at [facility] Count Organism: 1.1 Urine Culture - [facility] Urine Culture - [facility] Ceftriaxone R F Isolated Urine Culture - [facility] Antibiotic Interpretation SIOBHAN Status O:ESBLPESCL Testing performed at [facility] Count Organism: 1.1 Urine Culture - [facility] Urine Culture - [facility] Cefuroxime R F Isolated Urine Culture - [facility] Antibiotic Interpretation SIOBHAN Status O:ESBLPESCL Testing performed at [facility] Count Organism: 1.1 Urine Culture - [facility] Urine Culture - [facility] Piperacillin/Tazoba ctam S F Isolated Urine Culture - [facility] [place] Antibiotic Interpretation SIOBHAN Status O:ESBLPESCL Testing performed at [facility] Count Organism: 1.1 Urine Culture - [facility] [place] Urine Culture - [facility] Trimethoprim/Sulfa R F Isolated Urine Culture - [facility] [place] Antibiotic Interpretation SIOBHAN Status O:ESBLPESCL Testing performed at [facility] Count Organism: 1.1 Urine Culture - [facility] Performing Lab: see note SEE REPORT - [employer] Sticker Id information not found for OBX-specific senior producer legend ML - [facility] LB XR chest 2V Reviewed date:03/09/2025 06:51:33 PM Interpretation: Performing Lab: Notes/Report: Source Facility: [facility] [place] [address] [place] [address] XRay Report Signed Patient: ARMANDO SWEET MR#: [id number] : 1950 Acct:[id number] Age/Sex: 74 / F ADM Date: 03/08/25 Loc: ER Attending Dr: Ordering Physician: Kennedy Wharton Date of Service: 03/08/25 Procedure(s): XR chest 2V Accession Number(s): [id number] cc: Kennedy Wharton; Jamie Holly M.D. [place] [address] Patient Name: ARMANDO SWEET MRN: [id number] date: 1950 Sex: F Assigned Patient Location: ED.MAIN Current Patient Location: ED.MAIN Accession/Order Number: [id number] Exam Date: 03/09/2025 00:11 Report Date: 03/09/2025 00:12 At the request of: KENNEDY WHARTON MD Procedure: XR chest 2V PA AND LATERAL CHEST: CLINICAL HISTORY: short of breath COMPARISON: None FINDINGS: Mildly prominent cardiomediastinal. No focal airspace opacity, effusion or pneumothorax. Degenerative changes of thoracic spine. XR/XR chest 2V IMPRESSION: NO ACUTE CARDIOPULMONARY ABNORMALITY. Impression dictated by: Tommy Garsia M.D. 03/09/2025 12:12 AM Dictation Location: [place] [address] Electronically authenticated by: [id number] Y Date: 03/09/2025 00:12 Dictated By: Tommy Garsia M.D. Signed By: 03/09/25 001 DD/ TD/TT: Slope Tender: [place] [address] XRay Report Signed Patient: DO RICO SWEET MR#: [id number] : 1950 Acct:[id number] Age/Sex: 74 / F ADM Date: 03/08/25 Loc: ER Attending Dr: Ordering Physician: Kennedy Wharton Date of Service: 03/08/25 Procedure(s): XR chest 2V Accession Number(s): [id number] cc: Kennedy Wharton; Jamie Holly M.D. [place] [address] Patient Name: ARMANDO SWEET MRN: [id number] date: 1950 Sex: F Assigned Patient Location: ED.MAIN Current Patient Loca tion: ED.MAIN Accession/Order Numb er: [id number] Exam Date: 03/09/2025 00:11 Report Date: 03/09/2025 00:12 At the request of: KENNEDY WHARTON MD Procedure: XR chest 2V PA AND LATERAL CHEST: CLINICAL HISTORY: sh ort of breath COMPARISON: None FINDINGS: Mildly prominent cardiomediastinal. No focal airspace opacity, effusion or pneumothorax. Degenerative changes of thoracic spine. X R/XR chest 2V IMPRESSION: NO ACUTE CARDIOPULMO NARY ABNORMALITY. Impression dictated by: Tommy Garsia M.D. 03/09/2025 12:12 AM Dictation Location: [place] [address] Electronically authenticated by: [id number] Y Date: 03/09/2025 00:12 Dictated By: Lorraine Garsia M.D. Signed By: 03/09/25 0014 DD/ 0012 TD/TT: Slope Tender: PROF Reid(COMP METB) Reviewed date:03/12/2025 04:17:26 PM Interpretation: Performing Lab: Notes/Report: [facility] , Sodium 136 136-145 mmol/L Potassium 4.3 3.5-5.1 mmol/L Chloride 99 98-107 mmol/L Carbon Dioxide 27.4 21.0-32.0 mmol/L Anion Gap 13.9 Glucose 226 74-106 mg/dL Blood Urea Nitrogen 34.0 7.0-18.0 mg/dL Creatinine 1.09 0.55-1.02 mg/dL Estimated GFR ( Hawa 60 >=60 mL/min/1.73m 2 Estimated GFR (Non- Rosario 49 >=60 mL/min/1.73m 2 BUN Creatinine Ratio 31.2 Calcium 10.1 8.5-10.1 mg/dL Bilirubin Total 0.4 0.2-1.0 mg/dL Aspartate Amino Transferase 19 15-37 U/L Alanine Aminotransferase 21 14-59 U/L Alkaline Phosphatase 90 46-116 U/L Total Protein 7.6 6.4-8.2 g/dL Albumin Level 3.0 3.4-5.0 g/dL Globulin 4.6 Albumin Globulin Ratio 0.7 Performing Lab: see note ML - [facility] LB CBC no Diff (Hemogram) Reviewed date:03/12/2025 04:17:26 PM Interpretation: Performing Lab: Notes/Report: [facility] , White Blood Count 11.6 4.0-11.0 10 3/uL Red Blood Count 4.60 4.20-5.40 10 6/uL Hemoglobin 13.3 12.0-16.0 g/dL Hematocrit 40.2 36.0-48.0 % Mean Corpuscular Volume 87.4 81.0-99.0 fL Mean Corpuscular Hemoglobin 28.9 26.7-34.0 pg Mean Corpuscular HGB Conc 33.1 29.9-35.2 g/dL Red Cell Distribution Width 13.8 11.0-15.0 % Platelet Count 235 150-450 10 3/uL Mean Platelet Volume 10.4 9.5-13.5 fL Performing Lab: see note - [facility] LB XR lumbar spine 2-3V Reviewed date:03/23/2025 05:03:13 PM Interpretation: Performing Lab: Notes/Report: Source Facility: [facility] [place] [address] [place] [address] XRay Report Signed Patient: ARMANDO SWEET MR#: [id number] : 1950 Acct:[id number] Age/Sex: 74 / F ADM Date: 03/23/25 Loc: ER Attending Dr: Ordering Physician: Manuela Gutierrez Date of Service: 03/23/25 Procedure(s): XR lumbar spine 2-3V Accession Number(s): [id number] cc: Manuela Gutierrez; Jamie Holly M.D. [address] [address] Patient Name: ARMANDO SWEET MRN: [id number] date: 1950 Sex: F Assigned Patient Location: ER Current Patient Location: ER Accession/Order Number: [id number] Exam Date: 03/23/2025 15:00 Report Date: 03/23/2025 15:02 At the request of: MANUELA CLARK Procedure: XR lumbar spine 2-3V 2 views Lumbar Spine HISTORY: Left lower lumbar pain. COMPARISON: None POSTSURGICAL CHANGES: None BONY ALIGNMENT: Adequate HYPERMOBILITY:No bending imaging. LISTHESIS:None FRACTURE: None DEGENERATIVE CHANGES: Moderate multilevel spondylosis. Extensive lower lumbar facet degeneration SOFT TISSUES: Atherosclerosis BONY MINERALIZATION:Adequate XR/XR lumbar spine 2-3V IMPRESSION: Degenerative change greatest in the lower lumbar facets. Impression dictated by: Emir Herman M.D. 03/23/2025 3:02 PM Dictation Location: [place] [address] Electronically authenticated by: [id number] Y Date: 03/23/2025 15:02 Dictated By: Emir Herman D.O. Signed By: 03/23/25 1504 DD/ 1502 TD/TT: Slope Tender: [place] [address] XRay Report Signed Patient: DO RICO SWEET MR#: [id number] : 1950 Acct:[id number] Age/Sex: 74 / F ADM Date: 03/23/25 Loc: ER Attending Dr: Ordering Physician: Manuela Gutierrez Date of Service: 03/23/25 Procedure(s): XR lum bar spine 2-3V Accession Number(s): [id number] cc: Manuela santiago; Jamie Holly M.D. [place] [address] Patient Name: ARMANDO SWEET MRN: [id number] date: 1950 Sex: F Assigned Patient Location: ER Current Patient Loca tion: ER Accession/Order Numb er: [id number] Exam Date: 03/23/2025 15:00 Report Date: 03/23/2025 15:02 At the request of: MANUELA CLARK Procedure: XR lumbar spine 2-3V 2 views Lumbar Spine HISTORY: Left lower lumbar pain. COMPARISON: None POSTSURGICAL CHANGES : None BONY ALIGNMENT: Adequate HYPERMOBILITY:No jess ding imaging. LISTHESIS:None FRACTURE: None DEGENERATIVE CHANGES : Moderate multilevel spondylosis. Extensive lower lumbar facet degeneration SOFT TISSUES: Atherosclerosis BONY MINERALIZATION:Adequate X R/XR lumbar spine 2-3V IMPRESSION: Degenera tive change greatest in the lower lumbar facets. Impression dictated by: Emir Herman M.D. 03/23/2025 3:02 PM Dictation Location: [place] [address] Electronically authenticated by: [id number] Y Date: 03/23/2025 15:02 Dictated By: Donald Herman D.O. Signed By: 03/23/25 1504 DD/ 150 TD/TT: Slope Tender: XR KNEE LT 3V Reviewed date:03/23/2025 05:03:13 PM Interpretation: Performing Lab: Notes/Report: Source Facility: [place] [address] XRay Report Signed Patient: ARMANDO SWEET MR#: [id number] : 1950 Acct:[id number] Age/Sex: 74 / F ADM Date: 03/23/25 Loc: ER Attending Dr: Ordering Physician: Manuela Gutierrez Date of Service: 03/23/25 Procedure(s): XR knee LT 3V Accession Number(s): [id number] cc: Manuela Gutierrez; Jamie Holly M.D. The [address] [address] Patient Name: ARMANDO SWEET MRN: [id number] date: 1950 Sex: F Assigned Patient Location: ER Current Patient Location: ER Accession/Order Number: [id number] Exam Date: 03/23/2025 14:59 Report Date: 03/23/2025 15:00 At the request of: MANUELA CLARK Procedure: XR knee LT 3V 3 views left knee plain film COMPARISON: None HISTORY: Left knee pain ACUTE FINDINGS: No acute findings DEGENERATIVE CHANGE: Zzzv-xx-aynx contact medial degeneration. Moderate patellofemoral degeneration. SOFT TISSUE FINDINGS: Unremarkable JOINT EFFUSION: None POSTOP CHANGES: None BONE MINERALIZATION: Adequate XR/XR knee LT 3V IMPRESSION: Extensive left knee degeneration Impression dictated by: Emir Herman M.D. 03/23/2025 3:00 PM Dictation Location: [place] [address] Electronically authenticated by: [id number] Y Date: 03/23/2025 15:00 Dictated By: Emir Herman D.O. Signed By: 03/23/25 1503 DD/ 1500 TD/TT: Slope Tender: [place] [address] XRay Report Signed Patient: DO RICO SWEET MR#: [id number] : 1950 Acct:[id number] Age/Sex: 74 / F ADM Date: 03/23/25 Loc: ER Attending Dr: Ordering Physician: Manuela Gutierrez Date of Service: 03/23/25 Procedure(s): XR kne e LT 3V Accession Number(s): [id number] cc: Manuela santiago; Jamie Holly M.D. [address] [address] Patient Name: ARMANDO SWEET MRN: [id number] date: 1950 Sex: F Assigned Patient Location: ER Current Patient Loca tion: ER Accession/Order Numb er: [id number] Exam Date: 03/23/2025 14:59 Report Date: 03/23/2025 15:00 At the request of: MANUELA CLARK Procedure: XR knee LT 3V [address] ain film COMPARISON: None HISTORY: Left knee pain ACUTE FINDINGS: No a cute findings DEGENERATIVE CHANGE: Yizu-do-vhnf contact medial degeneration. Moderate patellofemoral degeneration. SOFT TISSUE FINDINGS : Unremarkable JOINT EFFUSION: None POSTOP CHANGES: None BONE MINERALIZATION: Adequate X R/XR knee LT 3V IMPRESSION: Extensiv e left knee degeneration Impression dictated by: Emir Herman M.D. 03/23/2025 3:00 PM Dictation Location: [place] [address] Electronically authenticated by: [id number] Y Date: 03/23/2025 15:00 Dictated By: Donald Herman D.O. Signed By: 03/23/25 1503 DD/ 1500 TD/TT: Slope Tender: BNP Reviewed date:03/09/2025 06:51:33 PM Interpretation: Performing Lab: Notes/Report: [facility] , NT Pro B Type Natriuretic Pept 1057.0 <=900.0 pg/mL Performing Lab: see note ML - [facility] LB Urine Culture - FR Reviewed date:01/09/2025 08:52:33 PM Interpretation: Performing Lab: Notes/Report: [facility] , Urine Culture - FR See Below For Report Isolated Urine Culture - [facility] O:ESCCOL Testing performed at [facility] Antibiotic Interpretation SIOBHAN Status Urine Culture - FR Organism: 1.1 [place] Count Urine Culture - FR [address] [place] [address] Isolated Urine Culture - FR O:ESCCOL Testing performed at [facility] Antibiotic Interpretation SIOBHAN Status Urine Culture - FR Organism: 1.1 [place] Count Urine Culture - [facility] See Below For Report Isolated Urine Culture - [facility] O:ESCCOL Testing performed at [facility] Antibiotic Interpretation SIOBHAN Status Urine Culture - FR Organism: 1.1 [place] Count Urine Culture - [facility] See Below For Report Isolated Urine Culture - [facility] O:ESCCOL Testing performed at [facility] Antibiotic Interpretation SIOBHAN Status Urine Culture - FR Organism: 1.1 [place] Count Urine Culture - [facility] >100,000 Isolated Urine Culture - FR O:ESCCOL Testing performed at [facility] Antibiotic Interpretation SIOBHAN Status Urine Culture - FR Organism: 1.1 [place] Count Urine Culture - [facility] See Below For Report Isolated Urine Culture - [facility] O:ESCCOL Testing performed at [facility] Antibiotic Interpretation SIOBHAN Status Urine Culture - FR Organism: 1.1 [place] Count Urine Culture - [facility] Amikacin S F Isolated Urine Culture - FR O:ESCCOL Testing performed at [facility] Antibiotic Interpretation SIOBHAN Status Urine Culture - FR Organism: 1.1 [place] Count Urine Culture - [facility] Amoxicillin/Clavula vibha S F Isolated Urine Culture - [facility] O:ESCCOL Testing performed at [facility] Antibiotic Interpretation SIOBHAN Status Urine Culture - FR Organism: 1.1 [place] Count Urine Culture - [facility] Ampicillin S F Isolated Urine Culture - [facility] O:ESCCOL Testing performed at [facility] Antibiotic Interpretation SIOBHAN Status Urine Culture - FR Organism: 1.1 [place] Count Urine Culture - [facility] Aztreonam S F Isolated Urine Culture - [facility] O:ESCCOL Testing performed at [facility] Antibiotic Interpretation SOIBHAN Status Urine Culture - [facility] Organism: 1.1 [place] Count Urine Culture - [facility] Ceftazidime S F Isolated Urine Culture - [facility] O:ESCCOL Testing performed at [facility] Antibiotic Interpretation SIOBHAN Status Urine Culture - [facility] Organism: 1.1 [place] Count Urine Culture - [facility] Ceftazidime/Avibactam S F Isolated Urine Culture - [facility] O:ESCCOL Testing performed at [facility] Antibiotic Interpretation SIOBHAN Status Urine Culture - [facility] Organism: 1.1 [place] Count Urine Culture - [facility] Ceftolozane/Tazobac iqbal S F Isolated Urine Culture - [facility] O:ESCCOL Testing performed at [facility] Antibiotic Interpretation SIOBHAN Status Urine Culture - FR Organism: 1.1 [place] Count Urine Culture - [facility] Ciprofloxacin R F Isolated Urine Culture - FR O:ESCCOL Testing performed at [facility] Antibiotic Interpretation SIOBHAN Status Urine Culture - [facility] Organism: 1.1 [place] Count Urine Culture - [facility] Ertapenem S F Isolated Urine Culture - FR O:ESCCOL Testing performed at [facility] Antibiotic Interpretation SIOBHAN Status Urine Culture - FR Organism: 1.1 [place] Count Urine Culture - [facility] Gentamicin S F Isolated Urine Culture - FR O:ESCCOL Testing performed at [facility] Antibiotic Interpretation SIOBHAN Status Urine Culture - FR Organism: 1.1 [place] Count Urine Culture - [facility] Levofloxacin R F Isolated Urine Culture - FR O:ESCCOL Testing performed at [facility] Antibiotic Interpretation SIOBHAN Status Urine Culture - FR Organism: 1.1 [place] Count Urine Culture - FR Meropenem S F Isolated Urine Culture - FR O:ESCCOL Testing performed at [facility] Antibiotic Interpretation SIOBHAN Status Urine Culture - FR Organism: 1.1 [place] Count Urine Culture - [facility] Meropenem/Vaborbact am S F Isolated Urine Culture - FR O:ESCCOL Testing performed at [facility] Antibiotic Interpretation SIOBHAN Status Urine Culture - FR Organism: 1.1 [place] Count Urine Culture - [facility] Nitrofurantoin S F Isolated Urine Culture - FR O:ESCCOL Testing performed at [facility] Antibiotic Interpretation SIOBHAN Status Urine Culture - FR Organism: 1.1 [place] Count Urine Culture - [facility] Tetracycline R F Isolated Urine Culture - FR O:ESCCOL Testing performed at [facility] Antibiotic Interpretation SIOBHAN Status Urine Culture - [facility] Organism: 1.1 [place] Count Urine Culture - [facility] Tigecycline S F Isolated Urine Culture - [facility] O:ESCCOL Testing performed at [facility] Antibiotic Interpretation SIOBHAN Status Urine Culture - [facility] Organism: 1.1 [place] Count Urine Culture - [facility] Tobramycin S F Isolated Urine Culture - FR O:ESCCOL Testing performed at [facility] Antibiotic Interpretation SIOBHAN Status Urine Culture - FR Organism: 1.1 [place] Count Urine Culture - [facility] Ampicillin/Sulbactam S F Isolated Urine Culture - FR O:ESCCOL Testing performed at [facility] Antibiotic Interpretation SIOBHAN Status Urine Culture - FR Organism: 1.1 [place] Count Urine Culture - [facility] Cefazolin S F Isolated Urine Culture - FR O:ESCCOL Testing performed at [facility] Antibiotic Interpretation SIOBHAN Status Urine Culture - FR Organism: 1.1 [place] Count Urine Culture - [facility] Cefepime S F Isolated Urine Culture - FR O:ESCCOL Testing performed at [facility] Antibiotic Interpretation SIOBHAN Status Urine Culture - FR Organism: 1.1 [place] Count Urine Culture - FR Ceftriaxone S F Isolated Urine Culture - [facility] O:ESCCOL Testing performed at [facility] Antibiotic Interpretation SIOBHAN Status Urine Culture - [facility] Organism: 1.1 [place] Count Urine Culture - [facility] Cefuroxime S F Isolated Urine Culture - [facility] O:ESCCOL Testing performed at [facility] Antibiotic Interpretation SIOBHAN Status Urine Culture - [facility] Organism: 1.1 [place] Count Urine Culture - [facility] Piperacillin/Tazoba ctam S F Isolated Urine Culture - [facility] O:ESCCOL Testing performed at [facility] Antibiotic Interpretation SIOBHAN Status Urine Culture - [facility] Organism: 1.1 [place] Count Urine Culture - [facility] Trimethoprim/Sulfa S F Isolated Urine Culture - [facility] O:ESCCOL Testing performed at [facility] Antibiotic Interpretation SIOBHAN Status Urine Culture - [facility] Organism: 1.1 [place] Count Performing Lab: see note ML - [facility] LB SEE REPORT - [employer] Sticker Id information not found for OBX-specific senior producer legend UA RANDOM W or MICROSCOPIC Reviewed date:01/03/2025 02:56:40 PM Interpretation: Performing Lab: Notes/Report: [facility] , Color Urine LT. YELLOW YELLOW Clarity Urine SL CLOUDY CLEAR Specific [place] Urine 1.020 1.005-1.025 pH Urine 6.0 5.0-9.0 Protein Urine TRACE NEG/TRACE mg/dL Glucose Urine UA NEGATIVE NEGATIVE mg/dL Bilirubin Urine NEGATIVE NEGATIVE Ketones Urine NEGATIVE NEGATIVE mg/dL Blood Urine TRACE-I NEGATIVE Nitrite Urine POSITIVE NEGATIVE Urobilinogen Urine 0.2 0.2-1.0 EU/dL Leukocyte Esterase Urine MODERATE NEGATIVE WBC Urine 20-50 NONE SEEN #/HPF RBC Urine 0-2 0-2 #/HPF Bacteria Urine LARGE NONE SEEN #/HPF Mucus Urine NONE SEEN NONE SEEN Squamous Epithelial Cell Urine RARE NONE/RARE #/LPF Transitional Epi Cells Urine RARE NONE SEEN #/LPF Crystals Seen? None Seen None Seen #/HPF Cast Seen? NONE SEEN NONE SEEN #/LPF Urine Culture Indicated ALREADY ORDERED Performing Lab: see note ML - [facility] LB CBC AUTO DIFF Reviewed date:01/03/2025 02:56:40 PM Interpretation: Performing Lab: Notes/Report: [facility] , White Blood Count 4.6 4.0-11.0 10 3/uL Red Blood Count 4.60 4.20-5.40 10 6/uL Hemoglobin 13.4 12.0-16.0 g/dL Hematocrit 40.5 36.0-48.0 % Mean Corpuscular Volume 88.0 81.0-99.0 fL Mean Corpuscular Hemoglobin 29.1 26.7-34.0 pg Mean Corpuscular HGB Conc 33.1 29.9-35.2 g/dL Red Cell Distribution Width 14.2 11.0-15.0 % Platelet Count 198 150-450 10 3/uL Mean Platelet Volume 10.4 9.5-13.5 fL Neutrophils Percent Auto 59.0 43.0-75.0 % Lymphocytes Percent Auto 30.8 20.5-60.0 % Monocytes Percent Auto 6.5 1.7-12.0 % Eosinophils Percent Auto 2.6 0.9-7.0 % Basophils Percent Auto 0.9 0.2-2.0 % Immature Granulocytes Pct Auto 0.2 0.0-0.5 % Neutrophils Absolute Auto 2.7 1.4-6.5 10 3/uL Lymphocytes Absolute Auto 1.4 1.2-3.8 10 3/uL Monocytes Absolute Auto 0.3 0.3-0.8 10 3/uL Eosinophils Absolute Auto 0.1 0.0-0.7 10 3/uL Basophils Absolute Auto 0.0 0.0-0.1 10 3/uL Immature Granulocytes Abs Auto 0.01 0.00-0.03 10 3/uL Performing Lab: see note ML - [facility] LB UA DIP NONAUTO WO MICRO ([phone]) - IN OFFICE Reviewed date:01/03/2025 02:56:40 PM Interpretation: Performing Lab: Notes/Report: COLOR bright yellow CLARITY clear GLUCOSE n BILIRUBIN n KETONE n SPECIFIC GRAVITY 1.010 BLOOD 5-10 PH n PROTEIN 150 UROBILINOGEN n NITRITE n LEUKOCYTE ESTERASE 70++ XR hip LT 2V w/ pelvis Reviewed date:03/23/2025 05:03:13 PM Interpretation: Performing Lab: Notes/Report: Source Facility: [facility] [place] [address] [place] [address] XRay Report Signed Patient: ARMANDO SWEET MR#: [id number] : 1950 Acct:[id number] Age/Sex: 74 / F ADM Date: 03/23/25 Loc: ER Attending Dr: Ordering Physician: Manuela Gutierrez Date of Service: 03/23/25 Procedure(s): XR hip LT 2V w/ pelvis Accession Number(s): [id number] cc: Manuela Gutierrez; Jamie Holly M.D. [place] [address] Patient Name: ARMANDO SWEET MRN: [facility]:[id number] date: 1950 Sex: F Assigned Patient Location: ER Current Patient Location: ER Accession/Order Number: [id number] Exam Date: 03/23/2025 14:57 Report Date: 03/23/2025 14:59 At the request of: MANUELA CLARK Procedure: XR hip LT 2V w/ pelvis 2 views left hip with single view pelvis HISTORY: The left low back pain with radiation to the left knee comparison: None Adequate hip joint spaces. No AVN. No articular collapse. Mild bilateral SI joint degeneration. Minor spurring of the greater trochanter. XR/XR hip LT 2V w/ pelvis IMPRESSION: Mild left hip degeneration Impression dictated by: Emir Herman M.D. 03/23/2025 2:59 PM Dictation Location: [place] [address] Electronically authenticated by: [id number] Y Date: 03/23/2025 14:59 Dictated By: Emir Herman D.O. Signed By: 03/23/25 1507 DD/ 1459 TD/TT: Slope Tender: [place] [address] XRay Report Signed Patient: DO RICO SWEET MR#: [id number] : 1950 Acct:[id number] Age/Sex: 74 / F ADM Date: 03/23/25 Loc: ER Attending Dr: Ordering Physician: Manuela Gutierrez Date of Service: 03/23/25 Procedure(s): XR hip LT 2V w/ pelvis Accession Number(s): [id number] cc: Manuela santiago; Jamie Holly M.D. [place] [address] Patient Name: ARMANDO SWEET MRN: [facility]:[id number] date: 1950 Sex: F Assigned Patient Location: ER Current Patient Loca tion: ER Accession/Order Numb er: [id number] Exam Date: 03/23/2025 14:57 Report Date: 03/23/2025 14:59 At the request of: MANUELA CLARK Procedure: XR hip LT 2V w/ pelvis 2 views left hip wit h single view pelvis HISTORY: The left lo w back pain with radiation to the left knee comparison: None Adequate hip joint spaces. No AVN. No articular collapse. Mild bilateral SI joint degeneration. Minor spurring of the greater trochanter. X R/XR hip LT 2V w/ pelvis IMPRESSION: Mild lef t hip degeneration Impression dictated by: Emir Herman M.D. 03/23/2025 2:59 PM Dictation Location: [place] [address] Electronically authenticated by: [id number] Y Date: 03/23/2025 14:59 Dictated By: Donald Herman D.O. Signed By: 03/23/25 1501 DD/ 1459 TD/TT: Slope Tender: RAVINDER echo doppler complete Reviewed date:03/12/2025 04:17:26 PM Interpretation: Performing Lab: Notes/Report: Source Facility: [place] [address] [place] [address] Cardiology Report Signed Patient: ARMANDO SWEET MR#: [id number] : 1950 Acct:[id number] Age/Sex: 74 / F ADM Date: 03/08/25 Loc: [place] 222-[address]: Urban Holden M.D. Ordering Physician: Urban Holden M.D. Date of Service: 03/09/25 Procedure(s): CA echo doppler complete Accession Number(s): [id number] cc: Jamie Holly M.D.; Urban Holden M.D. Patient Name: ARMANDO SWEET MR#: [id number] : 1950 Exam Date: 03/09/2025 Ordering Doctor: URBAN HOLDEN ECHOCARDIOGRAM REPORT PROCEDURE: CA ECHO DOPPLER COMPLETE INDICATIONS: Diastolic HF COMPARISON: None. DESCRIPTION: COMPLETE ECHOCARDIOGRAM Real-time transthoracic echocardiography with 2D, M-mode, spectral and color flow Doppler performed. QUALITY: Technically difficult due to lung interference LEFT VENTRICLE: Normal chamber size. Mild concentric left ventricular hypertrophy. Normal left ventricle systolic function without wall motion abnormalities, estimated calculated left ventricular ejection fraction is 70%. LV EF: Normal left ventricular ejection fraction, (>55%). DIASTOLIC: Tissue Doppler was not performed, unable to evaluate diastolic function ATRIAL SEPTUM: Appears intact LEFT ATRIUM: Severe dilatation. RIGHT ATRIUM: Mild dilatation. RIGHT VENTRICLE: Normal chamber size. Systolic function appears normal. TRICUSPID VALVE: Normal mobility and thickness. No stenosis with mild regurgitation. No evidence of pulmonary hypertension.RVSP 34 mmHg MITRAL VALVE: Mitral valve leaflets were not well-visualized. Mild mitral valve stenosis mean pressure gradient 3.2 mmHg. Severe mitral annular calcification. Mild mitral regurgitation. AORTIC VALVE: Not well-visualized. Moderately calcified aortic valve. Mildly diminished mobility. No evidence of aortic valve stenosis. Mean pressure gradient 9 mmHg, DVI 0.5, BERNARDO 1.9 cm2. Mild aortic regurgitation. AORTIC ROOT: Normal diameter and appearance. Aortic arch is normal in size PULMONIC VALVE: Not well visualized. PERICARDIUM: No evidence of pericardial effusion. IVC: Not well visualized. PLEURA: CONCLUSION: Technically difficult study Mild concentric left ventricle hypertrophy Normal left ventricle systolic function without wall motion abnormalities, ejection fraction 70% Severely dilated left atrium and mildly dilated right atrium Normal right ventricle size and systolic function Normal right-sided pressures, RVSP 34 mmHg Mild mitral stenosis, mean pressure gradient 3.2 mmHg Mild mitral regurgitation Severe mitral annulus calcification Aortic valve sclerosis without stenosis Mild aortic insufficiency Mild tricuspid regurgitation Adult Echocardiography Procedure Report Left Ventricle LVEDD (3.7 - 5.6 cm): 4.30 cm LVESD (2.2 - 4.0 cm): 2.66 cm LVIVS thickness (0.6 - 1.2 cm): 1.34 cm LVPW thickness (0.5 - 1.0 cm): 1.54 cm e': E - e': LVOT Max Gradient: 4.51 mm[Hg] LVOT Area (cm2): 1.06 m/s Peak Velocity (LVOT): 1.06 m/s Mean Velocity (LVOT): 0.70 m/s LVOT Diameter 1.98 cm Left Ventricular Ejection Fraction: Left Atrium LA Volume Index (2D A2C): Left Atrium Systolic Dimension: 4.30 cm Mitral Valve MV E to A Ratio: 0.71 MV Max Gradient: MV Mean Gradient: Mitral Valve A-Wave Peak Velocity: 1.39 m/s Mitral Valve E-Wave Peak Velocity: 0.99 m/s Cardiovascular Orifice Area: Right Ventricle RV Internal Diastolic Dimension: Aorta AO Root Diam: 3.28 cm Ascending Ao Diam: Aortic Valve AoV Area (Peak Rj): 1.55 cm2, 1.55 cm2 AoV Area (VTI): 1.87 cm2, 1.87 cm2 Deceleration [place]: Pressure Half-Time: Peak Velocity(Antegrade Flow): 2.11 m/s, 1.95 m/s Peak Gradient(Antegrade Flow): 17.83 mm[Hg], 15.27 mm[Hg] Mean Velocity(Antegrade Flow): 1.38 m/s, 1.31 m/s Mean Gradient(Antegrade Flow): 8.94 mm[Hg], 8.25 mm[Hg] Velocity Time Integral: 48.94 cm, 45.03 cm Tricuspid Valve Peak Velocity (Regurgitant Flow): 2.57 m/s Peak Velocity: Pulmonic Valve Mean Gradient: Mean Velocity: Peak Velocity: 0.74 m/s Peak Gradient: 2.19 mm[Hg] Right Atrium Right Atrium Systolic Pressure: Dictated by: Amelia Avila MD on 03/10/2025 at 17:39 Approved by: Amelia Avila MD on 03/10/2025 at 17:49 Dictated By: Amelia Avila M.D. Signed By: 03/10/251749 DD/ 174 TD/TT: Slope Tender: [place] [address] Cardiology Report Signed Patient: DO RICO SWEET MR#: [id number] : 1950 Acct:[id number] Age/Sex: 74 / F ADM Date: 03/08/25 Loc: [place] 222-[address]: Urban Holden M.D. Ordering Physician: Urban Holden M.D. Date of Service: 03/09/25 Procedure(s): CA ech o doppler complete Accession Number(s): [id number] cc: Jamie Holly M.D. ; Urban Holden M.D. Patient Name: ARMANDO SWEET MR#: [id number] : 1950 Exam Date: 03/09/2025 Ordering Doctor: JUAN HOLDEN ECHOCARDIOGRAM REPORT PROCEDURE: CA ECHO DOPPLER COMPLETE INDICATIONS: Diastolic HF COMPARISON: None. DESCRIPTION: COMPLET E ECHOCARDIOGRAM Real-time transthoracic echocardiography wit h 2D, M-mode, spectral and color flow Doppler performed. QUALITY: Technically difficult due to lung interference LEFT VENTRICLE: Norm al chamber size. Mild concentric left ventricular hypertrophy. Normal left ventricle systolic function without wall motion abnormalities, estim ated calculated left ventricular ejection fraction is 70%. LV EF: Normal left ventricular ejection fraction, (>55%). DIASTOLIC: Tissue Do ppler was not performed, unable to evaluate diastolic function ATRIAL SEPTUM: Appea rs intact LEFT ATRIUM: Severe dilatation. RIGHT ATRIUM: Mild dilatation. RIGHT VENTRICLE: Nor mal chamber size. Systolic function appears normal. TRICUSPID VALVE: Nor mal mobility and thickness. No stenosis with mild regurgitation. No evidence of pulmonary hypertension.RVSP 34 mmHg MITRAL VALVE: Mitral valve leaflets were not well-visualized. Mild mitral valve stenosi s mean pressure gradient 3.2 mmHg. Severe mitral annular calcification. Mild mitral regurgitation. AORTIC VALVE: Not well-visualized. Moderately calcified aortic valve. Mildly diminished mobility. No evidence of aortic valve stenosis. Mean pressure gradient 9 mmHg, DVI 0.5, BERNARDO 1.9 cm2. Mild aortic regurgitation. AORTIC ROOT: Normal diameter and appearance. Aortic arch is jackson l in size PULMONIC VALVE: Not well visualized. PERICARDIUM: No evid ence of pericardial effusion. IVC: Not well visualized. PLEURA: CONCLUSION: Technically difficul t study Mild concentric left ventricle hypertrophy Normal left ventricl e systolic function without wall motion abnormalities, ejection fraction 70% Severely dilated lef t atrium and mildly dilated right atrium Normal right ventric le size and systolic function Normal right-sided pressures, RVSP 34 mmHg Mild mitral stenosis , mean pressure gradient 3.2 mmHg Mild mitral regurgitation Severe mitral annulu s calcification Aortic valve scleros is without stenosis Mild aortic insufficiency Mild tricuspid regurgitation Adult Echocardiograp hy Procedure Report Left Ventricle LVEDD (3.7 - 5.6 cm) : 4.30 cm LVESD (2.2 - 4.0 cm) : 2.66 cm LVIVS thickness (0.6 - 1.2 cm): 1.34 cm LVPW thickness (0.5 - 1.0 cm): 1.54 cm e': E - e': LVOT Max Gradient: 4 .51 mm[Hg] LVOT Area (cm2): 1.06 m/s Peak Velocity (LVOT) : 1.06 m/s Mean Velocity (LVOT) : 0.70 m/s LVOT Diameter 1.98 cm Left Ventricular Eje ction Fraction: Left Atrium LA Volume Index (2D A2C): Left Atrium Systolic Dimension: 4.30 cm Mitral Valve MV E to A Ratio: 0.71 MV Max Gradient: MV Mean Gradient: Mitral Valve A-Wave Peak Velocity: 1.39 m/s Mitral Valve E-Wave Peak Velocity: 0.99 m/s Cardiovascular Orifi ce Area: Right Ventricle RV Internal Diastoli c Dimension: Aorta AO Root Diam: 3.28 cm Ascending Ao Diam: Aortic Valve AoV Area (Peak Rj): 1.55 cm2, 1.55 cm2 AoV Area (VTI): 1.87 cm2, 1.87 cm2 Deceleration Sabine: Pressure Half-Time: Peak Velocity(Antegr tomasa Flow): 2.11 m/s, 1.95 m/s Peak Gradient(Antegr tomasa Flow): 17.83 mm[Hg], 15.27 mm[Hg] Mean Velocity(Antegr tomasa Flow): 1.38 m/s, 1.31 m/s Mean Gradient(Antegr tomasa Flow): 8.94 mm[Hg], 8.25 mm[Hg] Velocity Time Integr al: 48.94 cm, 45.03 cm Tricuspid Valve Peak Velocity (Regurgitant Flow): 2.57 m/s Peak Velocity: Pulmonic Valve Mean Gradient: Mean Velocity: Peak Velocity: 0.74 m/s Peak Gradient: 2.19 mm[Hg] Right Atrium Right Atrium Systoli c Pressure: Dictated by: Amelia Avila MD on 03/10/2025 at 17:39 Approved by: Amelia Avila MD on 03/10/2025 at 17:49 Dictated By: Amelia Avila M.D. Signed By: 03/10/251749 DD/ 48 TD/TT: Slope Tender: Reason For Referral Diagnosis 1 Positive occult stoo l blood test (R19.5) Referral Organization [facility] Referring Provider First Name Morteza Referring Provider Last Name Elayne Referring Provider Speciality Family Med kendall Referred Provider Tavo Borrego Referred Provider Specialty General Surg ana Referral Priority Routine Medications Medication SIG (Take, Route, Frequency, Duration) Notes Start Date End Date Status Biotin 1000 MCG 1 tablet Orally Once a day 06/02/2024 Active Budesonide 0.5 MG/2ML 2 mL Inhalation Twice a day 07/14/2023 Active Carvedilol 6.25 MG 1 tablet with food Orally Twice a day Active Cetirizine HCl Activ e Potassium Chloride ER 10 MEQ 1 tablet with food Orally Twice a day Active Vitamin B12 1000 MCG 1 tablet Orally Once a day for 90 days 01/31/2025 Active Torsemide 20 MG 1 tablet Orally Once a day Active Vitamin D3 125 MCG (5000 UT) 1 capsule Orally Once a day for 90 days Active Albuterol Sulfate (2.5 MG/3ML) 0.083% 3 mL as needed Inhalation every 6 hrs Dx: J45.909 PRN 02/25/2023 Active Zinc Active Aspirin 81 MG 1 tablet Orally Once a day Active Rosuvastatin Calcium 5 MG 1 tablet Orally Once a day Not-Taking tiZANidine HCl 4 MG 1 tablet at bedtime as needed Orally Once a day for 30 days 04/03/2025 Active Venlafaxine HCl ER 75 MG TAKE [...] Asthma Daily for 365 days 04/03/2023 Active Daily-Shari Multivitamin - TAKE 2 TABLETS [...] a day for 30 days 04/03/2025 Active Cetirizine HCl 10 MG TAKE 1 TABLET BY MOUTH EVERY DAY Orally Once a day for 90 days Active Collagen Active Compression Stocking Below Knee 20-30mmHg - 04/03/2023 Active Social History Tobacco Use: Social History Observation Description Date Details (start date - stop date) Former Smoker NA - 09/30/2007 Tobacco Use/Smoking Question Answer Notes Patient is a former smoker When did you stop smoking? 09/30/2007 How long has it been since you last smoked? > 10 years Alcohol Screen (Audit-C) Question Answer Notes Did you have a drink containing alcohol in the p ast year? No Points 0 Interpretation Negative AUDIT-C (Standard) Question Answer Notes Did you have a drink containing alcohol in the p ast year? No Points 0 Interpretation Negative Problems Problem Type SNOMED Code ICD Code Onset Dates Problem Status W/U Status Risk Notes Problem 00853917 Essential (primary) hypertension (I10) Active confirmed Problem 72552668 Obstructive slee p apnea (adult) (pediatric) (G47.33) Active confirmed Problem Chronic obstructive pulmonary disease (46020745) Chronic obstructive pulmonary disease, unspecified (J44.9) Active confirmed Problem 91184942 Hyperlipidemia, unspecified (E78.5) Active confirmed Problem 11788132 Restless legs syndrome (G25.81) Active confirmed Problem 570024307 Nonrheumatic aortic (valve) insufficiency (I35.1) Active confirmed Problem 001932169 Unspecified asthma, uncomplicated (J45.909) Active confirmed Problem 80825872 Alopecia areata, unspecified (L63.9) Active confirmed Problem 351758618 Unspecified osteoarthritis, unspecified site (M19.90) Active confirmed Problem 09577411 Other cervical disc degeneration, unspecified cervical region (M50.30) Active confirmed Problem 505078133050361 Synovial cyst of popliteal space [[place]], right knee (M71.21) Active confirmed Problem 225770022028754 Synovial cyst of popliteal space [[place]], left knee (M71.22) Active confirmed Problem 26826144 Chronic fatigue, unspecified (R53.82) Active confirmed Problem 67926823 Polydipsia (R63.1) Active confirmed Problem Neuropathy (409071835) Neuropathy (G62.9) Active confirmed Problem Hyperlipidaemia (41151456) Borderline hyperlipidemia (E78.5) Active confirmed Vital Signs Blood pressure diastolic 78 mm Hg 04/10/2025 Height 66 in 04/10/2025 Blood pressure systolic 148 mm Hg 04/10/2025 Weight 256.6 lbs 04/10/2025 BMI 41.41 kg/m2 04/10/2025 Encounters Encounter Location Date Provider Diagnosis [facility] [address] [place] [address] 04/10/2025 Morteza Hoy Urinary frequency R3 5.0 and Chronic obstructive pulmonary disease, unspecified J44.9 [facility] [address] [place] [address] 06/02/2024 Morteza Hoy Urinary frequency R3 5.0 ; Obstructive sleep apnea (adult) (pediatric) G47.33 ; Essential (primary) hypertension I10 ; Unspecified osteoarthritis, unspecified site M19.90 and Polydipsia R63.1 [facility] [address] [place] [address] 04/18/2024 [facility] [address] [place] [address] 05/16/2024 Morteza Holly [facility] [address] [place] [address] 06/02/2024 Morteza [facility] [address] [place] [address] 06/30/2024 [facility] [address] [place] [address] 08/03/2024 Morteza Hoy Urinary frequency R3 5.0 [facility] [address] [place] [address] 08/08/2024 Morteza [facility] [address] [place] [address] 08/09/2024 Morteza srikanth [facility] [address] [facility] [address] 11/22/2024 Morteza Hoy Urinary urgency R39. 15 ; Other fatigue R53.83 ; Other abnormal glucose R73.09 ; Borderline hyperlipidemia E78.5 and Encounter for screening for malignant neoplasm of rectum Z12.12 [facility] [address] [facility] [address] 01/03/2025 Morteza srikanth [facility] [address] [facility] [place] [address] 01/05/2025 Morteza srikanth [facility] [address] [facility] [place] [address] 01/08/2025 Morteza srikanth [facility] [address] [facility] [address] 01/11/2025 Morteza [facility] [address] [facility] [address] 01/24/2025 Morteza Holly Dysuria R30.0 [facility] [address] [facility] [address] 01/31/2025 Morteza srikanth [facility] [address] [facility] [place] [address] 03/09/2025 Morteza [facility] [address] [facility] [address] 03/12/2025 Morteza Holly Positive occult stoo l blood test R19.5 [facility] [address] [facility] [place] [address] 03/13/2025 Morteza Holly [facility] [address] [facility] [place] [address] 03/14/2025 Morteza Holly [facility] [address] [facility] [place] [address] 03/23/2025 Morteza Holly [facility] [address] [facility] [place] [address] 03/27/2025 Morteza [facility] [address] [facility] [address] 04/03/2025 Morteza Holly Urinary frequency R3 5.0 [facility] [address] [place] [address] 04/10/2025 Morteza Holly Assessments Encounter Date Diagnosis (ICD Code) Assessment Notes Treatment Notes Treatment Clinical Notes Section Notes 04/10/2025 Urinary frequency (ICD-10 - R35.0) 04/10/2025 Chronic obstructive pulmonary disease, unspecified (ICD-10 - J44.9) stable - no cough 08/03/2024 Urinary frequency (ICD-10 - R35.0) 11/22/2024 Urinary urgency (ICD-10 - R39.15) 06/02/2024 Urinary frequency (ICD-10 - R35.0) 06/02/2024 Obstructive sleep apnea (adult) (pediatric) (ICD-10 - G47.33) wearing mask 01/24/2025 Dysuria (ICD-10 - R30.0) 03/12/2025 Positive occult stool blood test (ICD-10 - R19.5) 04/03/2025 Urinary frequency (ICD-10 - R35.0) 06/02/2024 Essential (primary) hypertension (ICD-10 - I10) great control 11/22/2024 Other fatigue (ICD-10 - R53.83) 11/22/2024 Other abnormal glucose (ICD-10 - R73.09) 06/02/2024 Unspecified osteoarthritis, unspecified site (ICD-10 - M19.90) stabel with meds 06/02/2024 Polydipsia (ICD-10 - R63.1) treating for UTI 11/22/2024 Borderline hyperlipidemia (ICD-10 - E78.5) 11/22/2024 Encounter for screening for malignant neoplasm of rectum (ICD-10 - Z12.12) Plan Of Treatment Pending Test Test Name Order Date CMP (COMPLETE METABOLIC PANEL) UA (URINALYSIS, COMPLETE) 11/22/2024 UA (URINALYSIS, COMPLETE) 01/24/2025 US Lower Extremity LT 04/03/2023 US Lower Extremity RT 04/03/2023 T3 FREE, T4 FREE and TSH 11/02/2023 Urinalysis Microscopic 04/10/2025 Urine Culture 11/02/2023 Urine Culture 11/22/2024 Urine Culture 01/24/2025 FECAL OCCULT BLOOD 11/22/2024 CMP - Comprehensive Metabolic Panel 10/30 CBC AUTO DIFF 11/22/2024 CULTURE URINE 04/10/2025 GLYCOHEMOGLOBIN A1C 11/04/2023 GLYCOHEMOGLOBIN A1C 11/22/2024 LIPID PROFILE 11/22/2024 SNR 04 URINALYSIS 11/02/2023 THYROID PROFILE WITH TSH 11/04/2023 URINE MICROSCOPIC ONLY 11/22/2024 US JAXON DOP LEG BRYAN 04/06/2023 THYROID PANEL (T4/TSH/FREE T3) US renal bladder 04/10/2025 Insurance Providers Payer Name Payer Address Payer Phone Subscriber Number Group Number Insured Name Patient Relationship to Insured Coverage Start Date Coverage End Date [place]ICARE [place] [address] [phone] [id number] Armando Sweet Self - patient is the insured O MEDICARE SUPPLEMEN T [address] [place] [address] [id number] Armando Sweet Self - patient is the insured Medical (General) History Medical History History ICD Code LEXI (obstructive sleep apnea) G47.33 Over weight E66.3 COVID-19 U07.1 Diastolic heart failure I50.30 Aortic insufficiency I35.1 Asthma J45.909 Hypertension I10 Hyperlipidemia E78.5 Kidney stones N20.0 Dyspnea R06.00 Restless legs G25.81 Chronic fatigue syndrome R53.82 Knee osteoarthritis M17.9 Cervical disc disease M50.90 Alopecia areata L63.9 Shingles B02.9 atrial enlargement Surgical History Surgery Date(Month/Year) Colonoscopy Partial Hysterectomy Neck Surgery
--- OUTSIDE RECORDS SUMMARY | 2025-04-13 09:55 | XMS_ITS | Clinical Summary ---
Author Organization [facility] Address [id number] [address] [place] [address] Care Team Providers Care Self Contained Behavior Unit Teacher Name Role Phone Unavailable Primary Care Provider [...]
--- OUTSIDE RECORDS SUMMARY | 2025-04-13 09:55 | XMS_ITS | Encounter Summary ---
Author Organization [facility] Address [id number] [address] [place] [address] Care Team Providers Care Psych Assistant Name Role Phone Unavailable Primary Care Provider Unavailabl e Encounter Details Date Type Department Care Team (Late st Contact Info) Description 01/22/2021 Telephone [facility] [address] [place] [address] Keisha Fair CMA Social History Tobacco Use [...]
--- OUTSIDE RECORDS SUMMARY | 2025-04-13 09:57 | XMS_ITS | CCD ---
Author Organization [facility] Care Team Providers Care Ostomy Nurse Name Role Phone PHYSICIAN, DEFAULT Unavailable Unavailable PHYSICIAN, DEFAULT Unavailable Unavailable PHYSICIAN, DEFAULT Unavailable Unavailable PHYSICIAN, DEFAULT Unavailable Unavailable MOUKARBEL, DR RAUSCH Admitting Unavailable MOUKARBEL, DR RAUSCH Attending Unavailable HOY, DR FAJARDO Primary Care Unavailable MOUKARBEL, DR RAUSCH Consulting Unavailable MOUKARBEL, DR RAUSCH Admitting Unavailable MOUKARBEL, DR RAUSCH Attending Unavailable HOY, DR FAJARDO Primary Care Unavailable MOUKARBEL, DR RAUSCH Consulting Unavailable HOY, DR FAJARDO Admitting Unavailable [...] Scotty Holly MD Attending Provider Scotty Holly MD Primary Care Provider [phone] Kennedy Wharton MD Attending Provider Scotty Holly Attending Unavailable Scotty Holly Admitting Unavailable Kennedy Wharton Admitting Unavailable Kennedy Wharton Attending Unavailable Scotty Holly Primary Care Physician [phone] Tavo ALONZO Attending Unavailable Scotty Holly Referring Unavailable Allergies Allergy Classification Reported Allergen(s) Allergy Type Date of Onset Reaction(s) Facility (2 sources) Amoxicillin / Clavulanate; Translations: [Augmentin] Drug Allergy 7 [facility] Repository (2 sources) Cephalexin; Translations: [Keflex] Drug Allergy 7 [facility] Repository (1 source) natural latex rubber Drug allergy (disorder) [facility] Repository (2 sources) Theophylline; Translations: [theophylline] Drug Allergy 7 [facility] Repository (2 sources) Cephalexin; Translations: [cephalexin] Drug Allergy 8 Rash, Itching (finding) [facility] (1 source) Cephalexin Drug Allergy 8 Rash [facility] (3 sources) Latex; Translations: [Latex] Drug Intolerance 9 Rash, Itching, Weal (disorder) [facility] (1 source) Amoxicillin / Clavulanate; Translations: [amoxicillin-cl avulanate] Drug Allergy Weal (disorder) [facility] (1 source) Theophylline; Translations: [theophylline] Drug Allergy Weal (disorder) [facility] Medications Current Medications Medication Drug Class(es) Dates Sig (Normalized) Sig (Original) anthralin 10 mg/ml topical cream (1 source) Start: 11-29-2008 anthralin(DRITHO CREME HP 1 % TOPICAL) use as instructed 1 trade size 3 11/29/2008 Active aspirin 81 mg chewable tablet (1 source) Platelet Aggregation Inhibitor, Nonsteroidal Anti-inflammatory Drug Start: 03-15-2025 aspirin 81 mg Chew Tab 81 mg = 1 tab(s), Chewed, Daily, Refills(s) 0 Start Date: 03/15/25 Status: Ordered Repeat number: 1 biotin 1 mg oral tablet (1 source) Start: 03-15-2025 take 1 tablet by mouth once daily biotin 1000 mcg oral tablet 1,000 mcg = 1 tab(s), Oral, Daily, Refills(s) 0 Start Date: 03/15/25 Status: Ordered Repeat number: 1 budesonide 0.25 mg/ml inhalation suspension (1 source) Corticosteroid Start: 03-15-2025 take 0.5 mg by inhalation twice daily as needed for wheezing budesonide 0.5 mg/2 mL Inh Susp 0.5 mg = 2 mL, NEB, BID, PRN Shortness of breath or wheezing, Refills(s) 0 Start Date: 03/15/25 Status: Ordered Repeat number: 1 carvedilol 12.5 mg oral tablet (1 source) alpha-Adrenergic Otoniel, beta-Adrenergic Otoniel Start: 03-15-2025 take 1 tablet by mouth twice daily carvedilol 12.5 mg Tab 12.5 mg = 1 tab(s), Oral, BID, Refills(s) 0 Start Date: 03/15/25 Status: Ordered Repeat number: 1 cetirizine hydrochloride 10 mg oral tablet (2 sources) Histamine-1 Receptor Antagonist Start: 03-15-2025 take 1 tablet by mouth once daily cetirizine 10 mg Tab 10 mg = 1 tab(s), Oral, Daily, Refills(s) 0 Start Date: 03/15/25 Status: Ordered Repeat number: 1 Start: 11-29-2008 cetirizine hcl (ZYRTEC 10 MG TAB) Take one(1) tablet daily. 30 12 11/29/2008 Active clobetasol propionate 0.5 mg/ml topical foam (1 source) Corticosteroid Start: 11-29-2008 clobetasol propionate(OLUX 0.05 % TOPICAL FOAM) apply to the affected areas in the scalp once daily in the morning large 3 11/29/2008 Active Collagen Skin Renewal (1 source) Start: 03-15-2025 Collagen Skin Renewal as directed, Refill(s) 0 Start Date: 03/15/25 Status: Ordered Repeat number: 1 COMPOUNDED PRESCRIPTION (1 source) Start: 11-29-2008 COMPOUNDED PRESCRIPTION BIOTIN FORTE 0 11/29/2008 Active 24 hr desvenlafaxine succinate 100 mg extended release oral tablet (1 source) Serotonin and Norepinephrine Reuptake Inhibitor Start: 06-22-2008 desvenlafaxine succinate(PRISTIQ 100 MG 24 HR TAB) take one daily 0 06/22/2008 Active furosemide 40 mg oral tablet (1 source) Loop Diuretic Start: 03-15-2025 take 1 tablet by mouth once daily Lasix 40 mg Tab 40 mg = 1 tab(s), Oral, Daily, Refills(s) 0 Start Date: 03/15/25 Status: Ordered Repeat number: 1 ibuprofen 800 mg oral tablet (1 source) Nonsteroidal Anti-inflammatory Drug Start: 03-15-2025 take 1 tablet by mouth every six hours as needed for pain ibuprofen 800 mg Tab 800 mg = 1 tab(s), Oral, q6hr, PRN as needed for pain, Refills(s) 0 Start Date: 03/15/25 Status: Ordered Repeat number: 1 ketoconazole 20 mg/ml medicated shampoo (1 source) Azole Antifungal Start: 11-29-2008 KETOCONAZOLE 2 % SHAMPOO alternate this shampoo with head and shoulders large 3 11/29/2008 Active magnesium oxide 400 mg oral tablet (1 source) Start: 03-15-2025 take 1 tablet by mouth once daily magnesium oxide 400 mg Tab 400 mg = 1 tab(s), Oral, Daily, Refills(s) 0 Start Date: 03/15/25 Status: Ordered Repeat number: 1 Multi Vitamins oral tablet (1 source) Start: 03-15-2025 take 1 tablet by mouth once daily Multi Vitamins oral tablet 1 tab(s), Oral, Daily, Refill(s) 0 Start Date: 03/15/25 Status: Ordered Repeat number: 1 multivits w-ca,fe,other min(WOMEN'S MULTIPLE VITAMINS 18 MG-0.4 MG TAB) (1 source) Start: 06-22-2008 multivits w-ca,fe,other min(WOMEN'S MULTIPLE VITAMINS 18 MG-0.4 MG TAB) take one daily 0 06/22/2008 Active rosuvastatin calcium 5 mg oral tablet (1 source) HMG-CoA Reductase Inhibitor Start: 03-15-2025 take 1 tablet by mouth once daily rosuvastatin 5 mg Tab 5 mg = 1 tab(s), Oral, Daily, Refills(s) 0 Start Date: 03/15/25 Status: Ordered Repeat number: 1 24 hr venlafaxine 75 mg extended release oral capsule (1 source) Serotonin and Norepinephrine Reuptake Inhibitor Start: 03-15-2025 take 1 capsule by mouth once daily venlafaxine 75 mg Cap-ER 75 mg = 1 cap(s), Oral, Daily, Refills(s) 0 Start Date: 03/15/25 Status: Ordered Repeat number: 1 Ventolin HFA 90 mcg/inh Aerosol-Adpt (1 source) Start: 03-15-2025 Ventolin HFA 90 mcg/inh Aerosol-Adpt 2 inh, Inhalation, q6hr Shortness of breath or wheezing, Refill(s) 0 Start Date: 03/15/25 Status: Ordered Repeat number: 1 Vitamin B-12 1000 mcg oral tablet (1 source) Start: 03-15-2025 take 1 tablet by mouth once daily Vitamin B-12 1000 mcg oral tablet 1,000 mcg = 1 tab(s), Oral, Daily, Refills(s) 0 Start Date: 03/15/25 Status: Ordered Repeat number: 1 Vitamin D3 5000 intl units oral capsule (1 source) Start: 03-15-2025 take 1 capsule by mouth once daily at mealtime Vitamin D3 5000 intl units oral capsule 125 mcg = 1 cap(s), Oral, Daily, with food, Refills(s) 0 Start Date: 03/15/25 Status: Ordered Repeat number: 1 Zinc (1 source) Start: 03-15-2025 Zinc Refills(s) 0 Start Date: 03/15/25 Status: Ordered Repeat number: 1 Problems Active Problems Problem Classification Problem Date Documented Da te Episodic/Chronic Asthma (1 source) Asthma 03-15-2025 Chronic Chronic obstructive pulmonary disease and bronchiectasis (1 source) Chronic obstructive lung disease Onset: 10-06-2022 03-15-2025 Chronic Congestive heart failure; nonhypertensive (2 sources) Unspecified diastolic (congestive) heart failure; Translations: [Chronic diastolic heart failure] Onset: 04-30-2022 03-15-2025 Chronic Diabetes mellitus without complication (2 sources) Type 2 diabetes mellitus without complications; Translations: [Diabetes mellitus] Onset: 03-09-2025 03-15-2025 Chronic Disorders of lipid metabolism (11 sources) Hyperlipidemia, unspecified; Translations: [Mixed hyperlipidemia] Onset: 10-29-2021 Chronic Diverticulosis and diverticulitis (1 source) Diverticulosis of sigmoid colon 03-22-2025 Chronic Essential hypertension (4 sources) Essential (primary) hypertension; Translations: [Hypertensive disorder] Onset: 05-01-2022 02-01-2025 Chronic Heart valve disorders (11 sources) Nonrheumatic aortic (valve) stenosis; 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, aortic and tricuspid valves] Onset: 12-30-2021 Chronic Hypertension with complications and secondary hypertension (1 source) Hypertensive heart disease with heart failure; Translations: [HTN HEART DISEASE W/HEART FAIL] Onset: 04-30-2022 Chronic Nutritional deficiencies (1 source) Vitamin D deficiency, unspecified; Translations: [VITAMIN D DEFICIENCY UNSPECIFIED] Onset: 08-31-2022 Chronic Other gastrointestinal disorders (1 source) Occult blood in stools 03-22-2025 Episodic Other hereditary and degenerative nervous system conditions (1 source) Restless legs 03-15-2025 Chronic Other nutritional; endocrine; and metabolic disorders (1 source) Obese class III 03-15-2025 Chronic Residual codes; unclassified (1 source) Obstructive sleep apnea syndrome 03-15-2025 Chronic Past or Other Problems Problem Classification [...] Test Name Value Interpretation Reference Range Facility 36on 03-31-2025 36 Patient hasn't been seen since 2022 [facility] Urine Cultureon 03-09-2025 Bacteria identified Cx Nom (U) ORGANISM: Escherichia coli (ESBL) (O:ESCCOLESBL) Kimball Count >100,000 Aerobic SIOBHAN Charge (NMIC56) ---- SUSCEPTIBILITY --- ORGANISM: O:ESCCOLESBL ANTIBIOTIC INTERPRETATION SIOBHAN Amikacin S <16 Amoxacillin/K Clavulanate S <8 Ampicillin R >16 Ampicillin/Sulbactam I 1616/8 Aztreonam R >16 Cefazolin R >16 Cefepime R >16 Ceftazidime R 4 Ceftazidime/Avibactam S <4 Ceftolozane/Tazobacta m S <2 Ceftriaxone R >32 Cefuroxime R >16 Ciprofloxacin I 0.5 Ertapenem S <0.5 Gentamicin R >8 Levofloxacin S <0.5 Meropenem S <1 Meropenem/Vaborbactam S <2 Nitrofurantoin S <32 Piperacillin/Tazobact am S <8 Tetracycline R >8 Tigecycline S <2 Tobramycin R >8 Trimethoprim/Sulfamet hoxazole R >2 S = SUSCEPTIBLE I = INTERMEDIATE R [...] RESISTANT TO ALL B-LACTAM DRUGS. PERFORMED BY: [place] [address] PATHOLOGIST [employer]ILITY GELATIN MAKER NETTIE OLIVERA M.D. Normal [facility] Comment on above: Performed By: #### C UU #### [address] Urine Cultureon 01-03-2025 Bacteria identified Cx Nom (U) ORGANISM: Escherichia coli (O:ESCCOL) Kimball Count >100,000 Aerobic SIOBHAN Charge (NMIC56) ---- [...] <2 Tobramycin S <2 Trimethoprim/Sulfamet hoxazole S S = SUSCEPTIBLE I = INTERMEDIATE R [...] RESISTANT TO ALL B-LACTAM DRUGS. PERFORMED BY: [place] [address] PATHOLOGIST UTILITY GELATIN MAKER RENETTA ALONZO M.D. Normal [facility] Comment on above: Performed By: #### C UU #### [address] Urine cultureOrdered By: Héctor Holly on 01-03-2025 Bacteria identified Cx Nom (U) Escherichia coli Abnormal [facility] ECHOCARDIO M/2D COMPLETEon 0 10-07-2022 ECHOCARDIO M/2D COMPLETE Patient: ARMANDO SWEET Exam Date: 10/07/2022 : 1950 Gender:F Ordering : DR MIRACLE HUERTAS M.D. Admission #: [id number] Family : DR SCOTTY HOLLY . Order #: [id number] CLICK HERE TO VIEW EXAM ECHOCARDIOGRAM REPORT [...] Miracle Huertas M.D. on 10/07/2022 at 20:22 Normal [facility] INSULINon 04-30-2022 Insulin 14.5 uIU/mL Normal 2.6-24.9 [facility] Comment on above: Performed By: #### I NSULIN #### [facility] Laboratory [address] [place] [address] Dr. Vicki Muro OCC BLD IMMUNO SCREENon 04-02 OCCULT BLOOD Negative Normal NEGATIVE [facility] Comment on above: Performed By: #### I NSULIN #### [facility] Laboratory [address] [place] [address] Dr. Vicki Muro T4, T3U, FTI LABCORPon 04-30 Free Thyroxine Index 1.9 Normal 1.2-4.9 [facility] Comment on above: Performed By: #### T HYLC #### [facility] Laboratory [address] [place] [address] Dr. Vicki Muro T3 Uptake 25 % Normal 24-39 [facility] Comment on above: Performed By: #### T HYLC #### [facility] Laboratory [address] [place] [address] Dr. Vicki Muro T4 [Mass/Vol] 7.5 ug/dL Normal 4.5-12.0 [facility] Comment on above: Performed By: #### T HYLC #### [facility] Laboratory [address] [place] [address] Dr. Vicki Muro VIT D 25-OH LABCORPon 2021 Vitamin D, 25-Hydroxy 54.8 ng/mL Normal 30.0-100.0 [facility] Comment on above: Result Comment: Ghislaine min D deficiency has been defined by the [place] of Medicine and an Endocrine Society practice guideline as a level of serum 25-OH vitamin D less than 20 ng/mL (1,2). The Endocrine Society went on to further define vitamin D insufficiency as a level between 21 and 29 ng/mL (2). 1. IOM ([place] of Medicine). 2010. Dietary reference intakes for calcium and D. [place]: The National Academies Press. 2. Bay MF, Michael [place], Gaby JACOBS, et al. Evaluation, treatment, and prevention of vitamin D deficiency: an Endocrine Society clinical practice guideline. JCEM. 2010; 96(7):1911-30. Performed By: #### I NSULIN #### [facility] Laboratory [address] [place] [address] Dr. Vicki Muro BNPon 04-29-2022 Natriuretic peptide B (Bld) [Mass/Vol] 350.0 pg/mL Normal <=900.0 [facility] Comment on above: Performed By: #### L IPID, CMP, BNP, TSH #### [facility] Laboratory [address] [place] [address] Dr. Vicki Muro CBC AUTO DIFFon 04-29-2022 BASO # 0.0 103/ul Normal 0.0-0.1 [facility] Comment on above: Performed By: #### I NSULIN #### [facility] Laboratory [address] [place] [address] Dr. Vicki Muro Basophils/100 WBC (Bld) 0.8 % Normal 0.2-2.0 [facility] Comment on above: Performed By: #### I NSULIN #### [facility] Laboratory [address] [place] [address] Dr. Vicki Muro EO # 0.1 103/ul Normal 0.0-0.7 [facility] Comment on above: Performed By: #### I NSULIN #### [facility] Laboratory [address] [place] [address] Dr. Vicki Muro Eosinophils/100 WBC (Bld) 2.4 % Normal 0.9-7.0 [facility] Comment on above: Performed By: #### I NSULIN #### [facility] [address] [place] [address] Dr. Vicki Muro Erythrocyte distribution width (RBC) [Ratio] 12.7 % Normal 11.0-15.0 [facility] Comment on above: Performed By: #### I NSULIN #### [facility] Laboratory [address] [place] [address] Dr. Vicki Muro Hematocrit (Bld) [Volume fraction] 39.1 % Normal 36.0-48.0 [facility] Comment on above: Performed By: #### I NSULIN #### [facility] Laboratory [address] [place] [address] Dr. Vicki Muro Hemoglobin (Bld) [Mass/Vol] 13.0 g/dL Normal 12.0-16.0 [facility] Comment on above: Performed By: #### I NSULIN #### [facility] [address] [place] [address] Dr. Vicki Muro IG # 0.01 10e3/ul Normal 0.00-0.03 [facility] Comment on above: Performed By: #### I NSULIN #### [facility] Laboratory [address] [place] [address] Dr. Vicki Muro IG % 0.2 % Normal 0.0-0.5 [facility] Comment on above: Performed By: #### I NSULIN #### [facility] Laboratory [address] [place] [address] Dr. Vicki Muro LYMPH # 1.6 103/ul Normal 1.2-3.8 [facility] Comment on above: Performed By: #### I NSULIN #### [facility] Laboratory [address] [place] [address] Dr. Vicki Muro Lymphocytes/100 WBC (Bld) 29.5 % Normal 20.5-60.0 [facility] Comment on above: Performed By: #### I NSULIN #### [facility] [address] [place] [address] Dr. Vicki Muro MANUAL DIFF REQ NO Normal [facility] Comment on above: Performed By: #### I NSULIN #### [facility] Laboratory [address] [place] [address] Dr. Vicki Muro MCH (RBC) [Entitic mass] 29.7 pg Normal 26.7-34.0 [facility] Comment on above: Performed By: #### I NSULIN #### [facility] [address] [place] [address] Dr. Vicki Muro MCHC (RBC) [Mass/Vol] 33.2 g/dL Normal 29.9-35.2 [facility] Comment on above: Performed By: #### I NSULIN #### [facility] [address] [place] [address] Dr. Vicki Muro MCV (RBC) [Entitic vol] 89.3 fL Normal 81.0-99.0 [facility] Comment on above: Performed By: #### I NSULIN #### [facility] [address] [place] [address] Dr. Vicki Muro MONO # 0.4 103/ul Normal 0.3-0.8 [facility] Comment on above: Performed By: #### I NSULIN #### [facility] Laboratory [address] [place] [address] Dr. Vicki Muro Monocytes/100 WBC (Bld) 6.6 % Normal 1.7-12.0 [facility] Comment on above: Performed By: #### I NSULIN #### [facility] Laboratory [address] [place] [address] Dr. Vicki Muro NEUT # 3.2 103/ul Normal 1.4-6.5 [facility] Comment on above: Performed By: #### I NSULIN #### [facility] Laboratory [address] [place] [address] Dr. Vicki Muro Neutrophils/100 WBC (Bld) 60.5 % Normal 43.0-75.0 [facility] Comment on above: Performed By: #### I NSULIN #### [facility] Laboratory [address] [address] [address] Vicki Muro Platelet mean volume (Bld) [Entitic vol] 10.0 fL Normal 9.5-13.5 [facility] Comment on above: Performed By: #### I NSULIN #### [facility] [address] [place] [address] Dr. Vicki Muro PLT 212 103/ul Normal 150-450 [facility] Comment on above: Performed By: #### I NSULIN #### [facility] [address] [address] [address] Vicki Muro RBC 4.38 106/ul Normal 4.20-5.40 [facility] Comment on above: Performed By: #### I NSULIN #### [facility] [address] [place] [address] Dr. Vicki Muro WBC 5.3 103/ul Normal 4.0-11.0 [facility] Comment on above: Performed By: #### I NSULIN #### [facility] [address] [place] [address] Dr. Vicki Muro GLYCOHEMOGLOBIN A1Con 2021 ADA RECOMMENDATION SEE BELOW Normal [facility] Comment on above: Result Comment: ADA RECOMMENDED LIMIT 4.0 - 6.0 ADA THERAPEUTIC TARGET < 7.0 ACTION SUGGESTED > 7.0 Performed By: #### I NSULIN #### [facility] [address] [place] [address] Dr. Vicki Muro Glucose [Mass/Vol] 126 mg/dL Normal [facility] Comment on above: Performed By: #### I NSULIN #### [facility] [address] [place] [address] Dr. Vicki Muro HbA1c (Bld) [Mass fraction] 6.0 % Normal 4.5-6.2 [facility] Comment on above: Performed By: #### I NSULIN #### [facility] [address] [place] [address] Dr. Vicki Muro IRONon 04-29-2022 Iron [Mass/Vol] 63.0 ug/dL Normal 50.0-170.0 [facility] Comment on above: Performed By: #### I SIERRA #### [facility] [address] [address] [address] Vicki Muro LIPID PROFILEon 04-29-2022 CHOL-HDL RATIO NORM SEE BELOW Normal [facility] Comment on above: Result Comment: 3.3 - 4.4 LOW RISK 4.4 - 7.1 AVERAGE RISK 7.1 - 11.0 MODERATE RISK >11.0 HIGH RISK Performed By: #### L IPID, CMP, BNP, TSH #### [facility] [address] [address] [address] Vicki Muro Cholesterol [Mass/Vol] 179 mg/dL Normal <=200 [facility] Comment on above: Performed By: #### L IPID, CMP, BNP, TSH #### [facility] [address] [address] [address] Vicki Muro Cholesterol in HDL [Mass/Vol] 53 mg/dL Normal 40-60 [facility] Comment on above: Performed By: #### L IPID, CMP, BNP, TSH #### [facility] [address] [address] [address] Vicki Muro Cholesterol in LDL [Mass/Vol] 85.8 mg/dL Normal [facility] Comment on above: Performed By: #### L IPID, CMP, BNP, TSH #### [facility] [address] [address] [address] Vicki Muro Cholesterol.total/Ch olesterol in HDL [Mass ratio] 3.4 {ratio} Normal [facility] Comment on above: Performed By: #### L IPID, CMP, BNP, TSH #### [facility] [address] [address] [address] Vicki Muro HDL NORMAL > or = 60 mg/dl - LO W CARDIOVASCULAR RISK <40 mg/dl - HIGH CARDIOVASCULAR RISK Normal [facility] Comment on above: Performed By: #### L IPID, CMP, BNP, TSH #### [facility] [address] [address] [address] Vicki Muro LDL CALC NORMAL SEE BELOW Normal [facility] Comment on above: Result Comment: <100 mg/dl OPTIMAL 100 - 129 mg/dl NEAR OR ABOVE OPTIMAL 130 - 159 mg/dl BORDERLINE HIGH 160 - 189 mg/dl HIGH >190 mg/dl VERY HIGH Performed By: #### L IPID, CMP, BNP, TSH #### [facility] [address] [address] [address] Vicki Muro Triglyceride [Mass/Vol] 201 mg/dL Critically high <=150 [facility] Comment on above: Performed By: #### L IPID, CMP, BNP, TSH #### [facility] [address] [address] [address] Vicki Muro VLDL CALC 40.2 mg/dL Normal [facility] Comment on above: Performed By: #### L IPID, CMP, BNP, TSH #### [facility] [address] [address] [address] Vicki Muro PROF 14(COMP METB)on 022 Albumin [Mass/Vol] 3.8 g/dL Normal 3.4-5.0 [facility] Comment on above: Performed By: #### L IPID, CMP, BNP, TSH #### [facility] [address] [address] [address] Vicki Muro Albumin/Globulin [Mass ratio] 1.0 {ratio} Normal [facility] Comment on above: Performed By: #### L IPID, CMP, BNP, TSH #### [facility] [address] [address] [address] Vicki Muro ALP [Catalytic activity/Vol] 108 U/L Normal 46-116 [facility] Comment on above: Performed By: #### L IPID, CMP, BNP, TSH #### [facility] Laboratory [address] [address] [address] Vicki Muro ALT [Catalytic activity/Vol] 29 U/L Normal 14-59 [facility] Comment on above: Performed By: #### L IPID, CMP, BNP, TSH #### [facility] Laboratory [address] [address] [address] Vicki Muro Anion gap [Moles/Vol] 13.1 mmol/L Normal [facility] Comment on above: Performed By: #### L IPID, CMP, BNP, TSH #### [facility] Laboratory [address] [address] [address] Vicki Muro AST [Catalytic activity/Vol] 24 U/L Normal 15-37 [facility] Comment on above: Performed By: #### L IPID, CMP, BNP, TSH #### [facility] Laboratory [address] [address] [address] Vicki Muro Bilirubin [Mass/Vol] 0.4 mg/dL Normal 0.2-1.0 [facility] Comment on above: Performed By: #### L IPID, CMP, BNP, TSH #### [facility] Laboratory [address] [place] [address] Dr. Vicki Muro Calcium [Mass/Vol] 9.2 mg/dL Normal 8.5-10.1 [facility] Comment on above: Performed By: #### L IPID, CMP, BNP, TSH #### [facility] Laboratory [address] [address] [address] Vicki Muro Chloride [Moles/Vol] 103 mmol/L Normal 98-107 [facility] Comment on above: Performed By: #### L IPID, CMP, BNP, TSH #### [facility] Laboratory [address] [place] [address] Dr. Vicki Muro CO2 [Moles/Vol] 27.7 mmol/L Normal 21.0-32.0 [facility] Comment on above: Performed By: #### L IPID, CMP, BNP, TSH #### [facility] Laboratory [address] [place] [address] Dr. Vicki Muro Creatinine [Mass/Vol] 0.81 mg/dL Normal 0.55-1.02 [facility] Comment on above: Performed By: #### L IPID, CMP, BNP, TSH #### [facility] Laboratory [address] [place] [address] Dr. Vicki Muro EGFR-AF SUDANESE >60 Normal >=60 [facility] Comment on above: Performed By: #### L IPID, CMP, BNP, TSH #### [facility] Laboratory [address] [address] [address] Vicki Muro EGFR-NON AF SUDANESE >60 Normal >=60 [facility] Comment on above: Performed By: #### L IPID, CMP, BNP, TSH #### [facility] Laboratory [address] [address] [address] Vicki Muro Globulin (S) [Mass/Vol] 3.8 g/dL Normal [facility] Comment on above: Performed By: #### L IPID, CMP, BNP, TSH #### [facility] Laboratory [address] [address] [address] Vicki Muro Glucose [Mass/Vol] 132 mg/dL Critically high 74-106 [facility] Comment on above: Performed By: #### L IPID, CMP, BNP, TSH #### [facility] Laboratory [address] [address] [address] Vicki Muro Potassium [Moles/Vol] 3.8 mmol/L Normal 3.5-5.1 [facility] Comment on above: Performed By: #### L IPID, CMP, BNP, TSH #### [facility] Laboratory [address] [address] [address] Vicki Muro Protein [Mass/Vol] 7.6 g/dL Normal 6.4-8.2 [facility] Comment on above: Performed By: #### L IPID, CMP, BNP, TSH #### [facility] Laboratory [address] [address] [address] Vicki Muro Sodium [Moles/Vol] 140 mmol/L Normal 136-145 [facility] Comment on above: Performed By: #### L IPID, CMP, BNP, TSH #### [facility] Laboratory [address] [address] [address] Vicki Muro Urea nitrogen [Mass/Vol] 10.0 mg/dL Normal 7.0-18.0 [facility] Comment on above: Performed By: #### L IPID, CMP, BNP, TSH #### [facility] Laboratory [address] [address] [address] Vicki Muro Urea nitrogen/Creatinine [Mass ratio] 12.3 mg/mg Normal [facility] Comment on above: Performed By: #### L IPID, CMP, BNP, TSH #### [facility] Laboratory [address] [address] [address] Vicki Muro TSHon 04-29-2022 TSH 2.265 uIU/mL Normal 0.358-3.740 [facility] Comment on above: Performed By: #### L IPID, CMP, BNP, TSH #### [facility] Laboratory [id number] Vicki Muro ECHOCARDIO M/2D COMPLETEon 0 12-30-2021 ECHOCARDIO M/2D COMPLETE Patient: ARMANDO SWEET Exam Date: 12/30/2021 : 1950 Gender:F Ordering : DR MIRACLE HUERTAS M.D. Admission #: [id number] Family : Order #: [id number] CLICK HERE TO VIEW EXAM ECHOCARDIOGRAM REPORT [...] Area(A4C): 21.80 cm2 Left Atrium Systolic Volume(A2C): 86785 mm3 Left Atrium Systolic Volume(A4C): 97419 mm3 Mitral Valve MV E to A [...] M.D. on 12/30/2021 at 15:20 Normal [facility] HEMOGRAM AND PLATELon 2021 Hematocrit (Bld) [Volume fraction] 39.8 % Normal 36.0-48.0 [facility] Comment on above: Performed By: #### H H #### [facility] Laboratory [address] [place] [address] Dr. Vicki Muro Hemoglobin (Bld) [Mass/Vol] 13.0 g/dL Normal 12.0-16.0 [facility] Comment on above: Performed By: #### H H #### [facility] Laboratory [address] [place] [address] Dr. Vicki Muro MCH (RBC) [Entitic mass] 30.2 pg Normal 26.7-34.0 [facility] Comment on above: Performed By: #### H H #### [facility] Laboratory [address] [place] [address] Dr. Vicki Muro MCHC (RBC) [Mass/Vol] 32.7 g/dL Normal 29.9-35.2 [facility] Comment on above: Performed By: #### H H #### [facility] Laboratory [address] [place] [address] Dr. Vicki Muro MCV (RBC) [Entitic vol] 92.6 fL Normal 81.0-99.0 [facility] Comment on above: Performed By: #### H H #### [facility] Laboratory [address] [place] [address] Dr. Vicki Muro PLT 194 103/ul Normal 150-450 [facility] Comment on above: Performed By: #### H H #### [facility] Laboratory [address] [place] [address] Dr. Vicki Muro RBC 4.30 106/ul Normal 4.20-5.40 [facility] Comment on above: Performed By: #### H H #### [facility] Laboratory [address] [place] [address] Dr. Vicki Muro WBC 4.7 103/ul Normal 4.0-11.0 [facility] Comment on above: Performed By: #### H H #### [facility] Laboratory [address] [address] [address] Vicki Muro LIPID PROFILEon 10-29-2021 CHOL-HDL RATIO NORM SEE BELOW Normal [facility] Comment on above: Result Comment: 3.3 - 4.4 LOW RISK 4.4 - 7.1 AVERAGE RISK 7.1 - 11.0 MODERATE RISK >11.0 HIGH RISK Performed By: #### I NSULIN #### [facility] Laboratory [address] [address] [address] Vicki Muro Cholesterol [Mass/Vol] 193 mg/dL Normal <=200 [facility] Comment on above: Performed By: #### I NSULIN #### [facility] Laboratory [address] [address] [address] Vicki Muro Cholesterol in HDL [Mass/Vol] 55 mg/dL Normal [facility] Comment on above: Performed By: #### I NSULIN #### [facility] Laboratory [address] [address] [address] Vicki Muro Cholesterol in LDL [Mass/Vol] 97.2 mg/dL Normal [facility] Comment on above: Performed By: #### I NSULIN #### [facility] Laboratory [address] [address] [address] Vicki Muro Cholesterol.total/Ch olesterol in HDL [Mass ratio] 3.5 {ratio} Normal [facility] Comment on above: Performed By: #### I NSULIN #### [facility] Laboratory [address] [address] [address] Vicki Muro HDL NORMAL > or = 60 mg/dl - LO W CARDIOVASCULAR RISK <40 mg/dl - HIGH CARDIOVASCULAR RISK Normal [facility] Comment on above: Performed By: #### I NSULIN #### [facility] Laboratory [address] [address] [address] Vicki Muro LDL CALC NORMAL SEE BELOW Normal [facility] Comment on above: Result Comment: <100 mg/dl OPTIMAL 100 - 129 mg/dl NEAR OR ABOVE OPTIMAL 130 - 159 mg/dl BORDERLINE HIGH 160 - 189 mg/dl HIGH >190 mg/dl VERY HIGH Performed By: #### I NSULIN #### [facility] Laboratory [address] [place] [address] Dr. Vicki Muro Triglyceride [Mass/Vol] 204 mg/dL Critically high <=150 [facility] Comment on above: Performed By: #### I NSULIN #### [facility] Laboratory [address] [place] [address] Dr. Vicki Muro VLDL CALC 40.8 mg/dL Normal [facility] Comment on above: Performed By: #### I NSULIN #### [facility] Laboratory [address] [place] [address] Dr. Vicki Muro PROF 14(COMP METB)on 022 Albumin [Mass/Vol] 3.6 g/dL Normal 3.5-5.0 [facility] Comment on above: Performed By: #### I NSULIN #### [facility] Laboratory [address] [place] [address] Dr. Vicki Muro Albumin/Globulin [Mass ratio] 1.0 {ratio} Normal [facility] Comment on above: Performed By: #### I NSULIN #### [facility] Laboratory [address] [place] [address] Dr. Vicki Muro ALP [Catalytic activity/Vol] 92 U/L Normal 38-126 [facility] Comment on above: Performed By: #### I WAYNEULIN #### [facility] Laboratory [address] [place] [address] Dr. Vicki Muro ALT [Catalytic activity/Vol] 30 U/L Normal 9-52 [facility] Comment on above: Performed By: #### I NSULIN #### [facility] Laboratory [address] [place] [address] Dr. Vicki Muro Anion gap [Moles/Vol] 11.3 mmol/L Normal [facility] Comment on above: Performed By: #### I NSULIN #### [facility] Laboratory [address] [place] [address] Dr. Vicki Muro AST [Catalytic activity/Vol] 23 U/L Normal 14-36 [facility] Comment on above: Performed By: #### I NSULIN #### [facility] Laboratory [address] [address] [address] Vicki Muro Bilirubin [Mass/Vol] 0.4 mg/dL Normal 0.2-1.3 [facility] Comment on above: Performed By: #### I NSULIN #### [facility] Laboratory [address] [address] [address] Vicki Muro Calcium [Mass/Vol] 9.0 mg/dL Normal 8.4-10.2 [facility] Comment on above: Performed By: #### I NSULIN #### [facility] Laboratory [address] [place] [address] Dr. Vicki Muro Chloride [Moles/Vol] 104 mmol/L Normal 98-107 [facility] Comment on above: Performed By: #### I NSULIN #### [facility] Laboratory [address] [place] [address] Dr. Vicki Muro CO2 [Moles/Vol] 25.9 mmol/L Normal 22.0-30.0 [facility] Comment on above: Performed By: #### I NSULIN #### [facility] Laboratory [address] [place] [address] Dr. Vicki Muro Creatinine [Mass/Vol] 0.86 mg/dL Normal 0.52-1.04 [facility] Comment on above: Performed By: #### I NSULIN #### [facility] Laboratory [address] [place] [address] Dr. Vicki Muro EGFR-AF SUDANESE >60 Normal >=60 [facility] Comment on above: Performed By: #### I NSULIN #### [facility] Laboratory [address] [place] [address] Dr. Vicki Muor EGFR-NON AF SUDANESE >60 Normal >=60 [facility] Comment on above: Performed By: #### I NSULIN #### [facility] Laboratory [address] [place] [address] Dr. Vicki Muro Globulin (S) [Mass/Vol] 3.6 g/dL Normal [facility] Comment on above: Performed By: #### I NSULIN #### [facility] Laboratory [address] [address] [address] Vicki Muro Glucose [Mass/Vol] 119 mg/dL Critically high 74-106 [facility] Comment on above: Performed By: #### I NSULIN #### [facility] Laboratory [address] [address] [address] Vicki Muro Potassium [Moles/Vol] 4.4 mmol/L Normal 3.4-5.0 [facility] Comment on above: Performed By: #### I NSULIN #### [facility] Laboratory [address] [address] [address] Vicki Muro Protein [Mass/Vol] 7.2 g/dL Normal 6.1-8.2 [facility] Comment on above: Performed By: #### I NSULIN #### [facility] Laboratory [address] [place] [address] Dr. Vicki Muro Sodium [Moles/Vol] 137 mmol/L Normal 137-145 [facility] Comment on above: Performed By: #### I NSULIN #### [facility] Laboratory [address] [address] [address] Vicki Muro Urea nitrogen [Mass/Vol] 14.0 mg/dL Normal 7.0-17.0 [facility] Comment on above: Performed By: #### I NSULIN #### [facility] Laboratory [address] [address] [address] Vicki Muro Urea nitrogen/Creatinine [Mass ratio] 16.3 mg/mg Normal [facility] Comment on above: Performed By: #### I NSULIN #### [facility] Laboratory [address] [address] [address] Vicki Muro Encounters Encounter Date Encounter Type Care Provider Facility Start: 03-29-2025 End: 03-29-2025 ambulatory Tavo ALONZO Facility:[facility] Start: 03-29-2025 End: 03-29-2025 Patient encounter procedure Tavo ALONZO [facility] [place] Start: 03-13-2025 ambulatory Tavo ALONZO Facility:[facility] Start: 03-09-2025 End: 03-09-2025 ambulatory Kennedy Wharton [facility] Work Phone: Start: 03-09-2025 End: 03-09-2025 Departed Referred Kennedy Wharton MD -[facility] Start: 01-27-2025 End: 02-01-2025 Transcribe Orders Scotty Holly MD Work Phone: Referring Physician Comment on above: Hypertension, unspec ified type (Primary Dx); Hyperlipidemia, unspecified hyperlipidemia type Start: 01-03-2025 End: 01-03-2025 ambulatory Scotty Holly [facility] Work Phone: Start: 01-03-2025 End: 01-03-2025 Departed Referred Scotty Holly MD Work Phone: [facility] Start: 11-17-2023 End: 11-17-2023 ambulatory DAGO FRANK Not Available Start: 10-07-2022 End: 10-08-[address] MIRACLE HUERTAS Facility:[facility] Start: 04-30-2022 End: 04-30-[address] SCOTTY HOLLY Facility:[facility] Start: 04-29-2022 End: 04-30-[address] SCOTTY HOLLY Facility:[facility] Start: 12-30-2021 End: 12-31-[address] MIRACLE HUERTAS Facility:[facility] Start: 10-29-2021 End: 10-30-[address] MIRACLE HUERTAS Facility:[facility] Start: 08-09-2018 End: 08-10-2018 Patient encounter procedure DEFAULT PHYSICIAN Facility:[facility] Start: 06-03-2018 End: 06-04-2018 Patient encounter procedure DEFAULT PHYSICIAN Facility:[facility] Procedures Date Procedure Procedure Detail Performing Clinician Start: 01-03-2025 Urine culture Scotty chamorro MD Work Phone: Start: 06-01-2010 Colonoscopy Tavo SMITH History of surgical procedure on cervical spine Tavo ALONZO Hysterectomy Tavo ALONZO Plan of Treatment Date Care Activity Detail Author Start: 2027 RSV Vaccine (1 - 1-dose 75+ series) RSV Vaccine (1 - 1-dose 75+ series) [facility] Start: 05-01-2025 Influenza vaccination Influenza Vaccine (Season Ended) [facility] Start: 03-09-2025 Bacteria identified in Urine by Culture Urine Culture [facility] Start: 03-09-2025 Urine culture [facility] Start: 01-03-2025 Bacteria identified in Urine by Culture Urine Culture [facility] Start: 01-03-2025 Urine culture [facility] Start: 08-31-2024 Advance Directive Discussion Advance Directive Discussion [facility] Start: 05-01-2024 Covid-19 Vaccine ( season) Covid-19 Vaccine ( season) [facility] Start: 2017 Screening for osteoporosis Bone Density Screening [facility] Start: 08-16-2011 Diabetes Screening Diabetes Screening [facility] Start: 2002 Pneumococcal Vaccine: 50+ (1 of 1 - PCV) Pneumococcal Vaccine: 50+ (1 of 1 - PCV) [facility] Start: 2002 Shingrix Vaccine (1 of 2) Shingrix Vaccine (1 of 2) [facility] Start: 1997 Lipid panel Lipid Screening [facility] Start: 1997 Screening for malignant neoplasm of colon [facility] Start: 1992 Screening for malignant neoplasm of breast Mammogram Screening [facility] Start: 1971 Urine microalbumin profile DTaP,Tdap,Td Vaccine (1 - Tdap) [facility] Start: 1970 Anxiety Screening Anxiety Screening [facility] Start: 1970 Depression Screening Depression Screening [facility] Start: 1970 Hepatitis C screening Hepatitis C Screening [facility] Payers Date Payer Category Payer Medicare [id number] 2025 Private Health Insurance [id number] 2025 Self-pay 2024 Medicare (Managed Care) [employer] MED[employer]ARE [id number] 2005 Private Health Insurance [employer] [id number] 1959 Medicare [id number] 1959 Unknown [id number] 1950 Unknown [id number]. 2.647 1950 Unknown [id number] [id number]. 2.647 1950 Unknown [id number] [id number]. 2.593 1950 Unknown [id number] [id number]. 2.593 1950 Unknown [id number] [id number]. 2.593 1950 Unknown [id number] [id number]. 2.593 1950 Unknown [id number] [id number]. 2.593 1950 Unknown [id number] [id number]. 2.1259 1950 Unknown [id number] [id number]. 2.727 Private Health Insurance [employer] [id number] Unknown Unknown [id number] [id number]. 2.531 Unknown [id number] [id number]. 2.531 Social History Date Type Detail Facility Tobacco smoking stat [facility] Unknown if ever smoked [facility] Start: 12-12-2009 End: 01-05-2025 Sex Female (finding) [facility] Start: 1950 Sex Assigned At Female F [facility] Start: 1950 Sex assigned at Not on file [facility] Gender identity Not on file [facility] Tobacco smoking status [facility] [place] Evaluation + Plan note Note Date & Type Note Facility Evaluation + Plan note No data available for this section [facility] [place] Evaluation note Note Date & Type Note Facility Evaluation note No assessment information availa [facility] Work Phone: Evaluation note Note Date & Type Note Facility Evaluation note Diagnosis Hypertension, unspecified type- Primary Hyperlipidemia, unspecified hyperlipidemia type documented in this encounter [facility] Discharge instructions Note Date & Type Note Facility Hospital Discharge instructions No data available for this section [facility] [place] Progress note Note Date & Type Note Facility Progress note No data available for this section [facility] [place] Reason for referral (narrative) Note Date & Type Note Facility Reason for referral (narrative) No reason for referral information available [facility] Work Phone: Summary Purpose Family History No Family History Records FoundNo Family History Records FoundNo Family History Records FoundNo Family History Records Found No data available for this section No Family History Records FoundNo Family History Records Found Advance Directives No Advanced Directives Records FoundNo Advanced Directives Records FoundNo Advanced Directives Records FoundNo Advanced Directives Records FoundNo Advanced Directives Records FoundNo Advanced Directives Records Found Additional Source Comments INFORMATION SOURCE (unrecogn ized section and content) DATE CREATED AUTHOR 08/11/2018 [facility] DATE CREATED AUTHOR AUTHOR'S ORGANIZ ATION 10/10/2022 [facility] DATE CREATED AUTHOR AUTHOR'S ORGANIZ ATION 11/18/2023 [facility] EPIC DATE CREATED AUTHOR AUTHOR'S ORGANIZ ATION 03/13/2025 [facility] DATE CREATED AUTHOR AUTHOR'S ORGANIZ ATION 04/01/2025 [facility] DATE CREATED AUTHOR AUTHOR'S ORGANIZ ATION 04/02/2025 [facility] Care Teams (unrecognized sec tion and content) Team Status: Inactive Member Role Status Dates Scotty Holly MD Attending Provider Active Sta rt: January 03, 2025 End: January 03, 2025 Ostomy Nurse Relationship Specialty Start Date End Date Scotty Holly MD PCP - General 05/08/08 Team Status: Inactive Member Role Status Dates Kennedy Wharton MD Attending Provider Active St art: March 09, 2025 End: March 09, 2025 Goals (unrecognized section and content) Goals may be documented in a n alternate sectionGoals may be documented in an alternate section No data available for this section Source Comments (unrecognize d section and content) In the event this informatio n is protected by the Federal Confidentiality of Alcohol and Drug Abuse Patient Records regulations: The Federal rules restrict any use of the information to criminally investigate or prosecute any alcohol or drug abuse patient.[facility] FOR RECORDS PERTAINING TO PATIENTS WHO ARE [...] BE BASED ON THE PRIMARY CLINICAL RECORDS. [facility] [employer]. provides no warranty or guarantee of the accuracy or completeness of information in this document.
[2025-04-13 10:06] LABS: Glucose Urine UA NEGATIVE (NEGATIVE)
[2025-04-13 10:30] LABS: Cast Seen? SEEN #/LPF (NONE SEEN); Crystals Seen? None Seen #/HPF (None Seen); Urine Culture Indicated ALREADY ORDERED
== END 2025-04-13 09:53 | disposition home or self-care (01) ==
LOC: LAB 09:52
PROVIDERS: PCP Family Medicine; Visit Provider Family Medicine
DX: R35.0 Frequency of micturition (principal)
CPT/HCPCS: 81001; 87086; 87088; 87186

== ENCOUNTER 2025-05-04 12:35 | Outpatient (OUT) | payer MEDICARE, SELFPAY ==
--- OUTSIDE RECORDS SUMMARY | 2025-04-16 10:36 | XMS_ITS ---
Author Organization [facility] in [place] Address [address] [place] [address] Care Team Providers Care Head Resident Name Role Phone Morteza Holly Primary Care Provider [phone] REASON FOR VISIT Urine Cx Medications Medication SIG (Take, Route, Fr equency, Duration) Notes Start Date End Date Status Macrobid 100 MG 1 capsule with food Orally every 12 hrs for 5 day(s) 04/18/2025 Active Encounters Encounter Location Date Provider Diagnosis [facility] [address] [place] [address] 04/16/2025 Morteza Holly Plan Of Treatment Medication Medication Name Sig Start Date Stop Date Notes Macrobid 100 MG 1 capsule with food Orally every 12 hrs for 5 day(s) 04/18/2025 Progress Notes * Hilary COOKDOB: [birth year] (74 yo F)Acc No.[id number]:04/16/2025 Patient: Zarina Hilary RICHARD :1950 A ge:74 Y S ex:Female Address:[address] [place], [address] * Refills Start Macrobid Capsule, 100 MG, Orally, 10, 1 capsule with food, every 12 hrs, 5 day(s) * true * Date: Generated for Printi ng/Faxing/eTransmitting on: 0 05/04/2025 12:37 PM EDT
--- OUTSIDE RECORDS SUMMARY | 2025-04-24 10:58 | XMS_ITS ---
Author Organization The [facility] in [place] Address [address] [place] [address] Care Team Providers Care Treatment Specialist Name Role Phone Morteza Holly Primary Care Provider REASON FOR VISIT refill Medications Medication SIG (Take, Route, Fr equency, Duration) Notes Start Date End Date Status tiZANidine HCl 4 MG 1 tablet at bedtime as needed Orally Once a day for 30 days 04/03/2025 Ac tive Encounters Encounter Location Date Provider Diagnosis [facility] [address] [place] [address] 04/24/2025 Morteza Holly Plan Of Treatment Medication Medication Name Sig Start Date Stop Date Notes tiZANidine HCl 4 MG 1 tablet at bedtime as needed Orally Once a day for 30 days 04/03/2025 Progress Notes * Hilary COOKDOB: [birth year] (74 yo F)Acc No.[id number]:04/24/2025 Patient: Zarina Hilary RICHARD :1950 A ge:74 Y S ex:Female Address:[address] [place] [address], [address] * Refills Refill tiZANidine HCl Tablet, 4 MG, Orally, 30, 1 tablet at bedtime as needed, Once a day, 30 days, Refills=11 * true * Date: Generated for Printi ng/Faxing/eTransmitting on: 0 05/04/2025 12:38 PM EDT
--- OUTSIDE RECORDS SUMMARY | 2025-04-25 12:27 | XMS_ITS ---
Author Organization The [facility] in [place] Address [address] [place] [address] Care Team Providers Care News Writer Name Role Phone Morteza Holly Primary Care Provider REASON FOR VISIT Back Pain/ Med Issue Encounters Encounter Location Date Provider Diagnosis [facility] [address] [place] [address] 04/25/2025 Morteza Holly Plan Of Treatment No Information Progress Notes * Hilary COOKDOB: [birth year] (74 yo F)Acc No.[id number]:04/25/2025 Patient: Zarina Hilary RICHARD :1950 A ge:74 Y S ex:Female Address:[address] [facility] [address] * true * Date: Generated for Roxyi linwood/Faluisg/eTransmitting on: 0 05/04/2025 12:37 PM EDT
--- OUTSIDE RECORDS SUMMARY | 2025-04-27 09:30 | XMS_ITS ---
Author Organization The [facility] in [place] Address [address] [place] [address] Care Team Providers Care Automotive Wholesale Parts Advisor Name Role Phone Morteza Holly Primary Care Provider [phone] Allergies Allergen (clinical drug ingredient) Drug/Non Drug Allergy documented on EMR Reaction Allergy Type Onset Date Status Latex Latex (uncoded) hives Allergy Acti ve amoxicillin / clavulanate Augmentin hives Drug Allergy Active Keflex itching Drug Allergy Active ciprofloxacin Ciprofloxacin Unknown Drug Allergy Active theophylline Theophylline hives/GI upset Drug Allergy Active REASON FOR VISIT low back pain- ongoing - Had UTI and finished ATB 3 days ago- has repeat urine set up for [facility] and US renal/ bladder next Medications Medication SIG (Take, Route, Frequency, Duration) Notes Start Date End Date Status Cefdinir 300 MG 2 capsule Orally once a day for 10 days tolerated in the past 04/27/2025 Active metFORMIN HCl 500 MG 1 tablet with a meal Orally Once a day for 30 days 04/03/2025 Active Nebulizer - Use daily with solution four times daily as needed for 90 days Nebulizer Machine or Nebulizer Compressor 02/26/2023 Active Nebulizer Mask and Tubing-Adult - Dx: Asthma dx J45.99 qid prn for 30 days Active Magnesium 400 MG as directed Orally once daily 06/02/2024 Active Daily-Shari Multivitamin - TAKE 2 TABLETS BY MOUTH EVERY DAY WITH ENERGY for 30 days Active Ibuprofen 800 MG TAKE 1 TABLET BY MOUTH EVERY 6 HOURS NEEDED WITH FOOD OR MILK for 30 Active Compression Stocking Below Knee 20-30mmHg - 04/03/2023 Active Budesonide 0.5 MG/2ML 2 mL Inhalation Twice a day 07/14/2023 Active Carvedilol 6.25 MG 1 tablet with food Orally Twice a day Active Cetirizine HCl 10 MG TAKE 1 TABLET BY MOUTH EVERY DAY FOR 90 DAYS for 90 Active Pyridium 200 MG 1 tablet after meals Orally Three times a day for 2 days 04/27/2025 Active Albuterol Sulfate (2.5 MG/3ML) 0.083% 3 mL as needed Inhalation every 6 hrs Dx: J45.909 PRN 02/25/2023 Active Aspirin 81 MG 1 tablet Orally Once a day Active Zinc Active Ventolin HFA 108 (90 Base) MCG/ACT 2 puff as needed Inhalation every 4 hrs for 30 PRN 07/14/2023 Active Vitamin B12 1000 MCG 1 tablet Orally Once a day for 90 days 01/31/2025 Active Venlafaxine HCl ER 75 MG TAKE 1 CAPSULE BY MOUTH EVERY DAY for 90 days Active Nebulizer Mask and Tubing-Adult - Nebulizer mask and tubing Dx: Asthma Daily for 365 days 04/03/2023 Active Potassium Chloride ER 10 MEQ 1 tablet with food Orally Twice a day Active tiZANidine HCl 4 MG 1 tablet at bedtime as needed Orally Once a day for 30 days 04/03/2025 Active Torsemide 20 MG 1 tablet Orally Once a day Active Social History Tobacco Use: Social History Observation Description Date Details (start date - stop date) Former Smoker NA - 09/30/2007 Tobacco Use/Smoking Question Answer Notes Patient is a former smoker When did you stop smoking? 09/30/2007 How long has it been since you last smoked? > 10 years Vital Signs Blood pressure systolic 124 mm Hg 04/27/20 25 Blood pressure diastolic 78 mm Hg 025 Height 66 in 04/27/2025 Weight 262.0 lbs 04/27/2025 BMI 42.28 kg/m2 04/27/2025 Encounters Encounter Location Date Provider Diagnosis [address] [address] 04/27/2025 Morteza Hoy UTI (urinary tract infection), uncomplicated N39.0 and Dysuria R30.0 Assessments Encounter Date Diagnosis (ICD Code) Assessment Notes Treatment Notes Treatment Clinical Notes Section Notes 04/27/2025 UTI (urinary tract infection), uncomplicated (ICD-10 - N39.0) Drink plenty of water. Avoid drinks like coffee, alcohol and soft frinks, as these can irritate your bladder and aggravate your frequent or urgent need to urinate. Apply a warm heating pad to your abdomen to minimize bladder pressure or discomfort. You have been prescribed antibiotics for a urinary tract infection. Antibiotics may bother your stomach, so try taking them with a light meal (unless instructed otherwise by your pharmacist). It is important to take them until they are finished. You can use idab-cef-kqoeabx acetaminophen or ibuprofen if needed for pain. You should follow up with your Primary Care Physician or return to clinic if not improving in the next 3-5 days. 04/27/2025 Dysuria (ICD-10 - R30.0) Plan Of Treatment Medication Medication Name Sig Start Date Stop Date Notes Cefdinir 300 MG 2 capsule Orally onc e a day for 10 days 04/27/2025 tolerated in the pas t Pyridium 200 MG 1 tablet after meals Orally Three times a day for 2 days 04/27/2025 Treatment Notes Assessment Notes UTI (urinary tract infection ), uncomplicated Drink plenty of water. Avoid drinks like coffee, alcohol and soft frinks, as these can irritate your bladder and aggravate your frequent or urgent need to urinate. Apply a warm heating pad to your abdomen to minimize bladder pressure or discomfort. You have been prescribed antibiotics for a urinary tract infection. Antibiotics may bother your stomach, so try taking them with a light meal (unless instructed otherwise by your pharmacist). It is important to take them until they are finished. You can use eyzl-txp-ksevmip acetaminophen or ibuprofen if needed for pain. You should follow up with your Primary Care Physician or return to clinic if not improving in the next 3-5 days. Next Appt Details Follow Up: 3-5 days if no im provement, Reason: Progress Notes * Hilary COOKDOB: [birth year] (74 yo F)Acc No.[id number]:04/27/2025 Progress Note Patient: Hilary GARCES Provider: Adam Holly ([facility])MD :1950 A ge:74 Y S ex:Female Date:04/27/2025 Address:[address], [place], [id number] Check In:01:13 PM ESTCheck O ut:02:05 PM EST Subjective: * Chief Complaints: * l ow back pain- ongoing - Had UTI and finished ATB 3 days ago- has repeat urine set up for [facility] and US renal/ bladder next * HPI: U TI: The patient complains of s ymptoms of UTI. The symptoms have been present for 1 -2 days. The symptoms are m oderate. Symptomatic treatment has included O TC Medication. Associated symptoms include i ncreased urge to urinate, painful urination, pelvic pain. poor romin back due to gemini - laying make wrosae unless feet are up. * ROS: G eneral/Constitutional: Malaise d enies. C hills d enies. F ever d enies. S kin: Rash d enies. C ardiovascular: Edema d enies. P alpitations d enies. ? R espiratory: Chest pain d enies. C ough d enies. ? G astrointestinal: Abdominal pain d enies. N ausea d enies. V omiting d enies. G enitourinary: Comments S [facility] for details. S kin: Rash d enies. * Active Problem List G47.33 [...] Hysterectomy Colonoscopy * Hospitalization/Major Diagno stic Procedure: D enies Past Hospitalization * Family History: F ather: , colon [...] been since you last smoked??> 10 years * Medications: T akingAlbuterol Sulfate (2.5 MG/3ML) 0.083% Nebulization Solution 3 mL as needed Inhalation every 6 hrs Dx: J45.909, Notes to Pharmacist: PRNAspirin 81 MG Tablet Chewable 1 tablet Orally Once a day Budesonide 0.5 MG/2ML Suspension 2 mL Inhalation Twice a day Carvedilol 6.25 MG Tablet 1 tablet with food Orally Twice a day Cetirizine HCl 10 MG Tablet TAKE 1 TABLET BY MOUTH EVERY DAY FOR 90 DAYS Compression Stocking Below Knee 20-30mmHg - - [...] Tablet 1 tablet Orally Once a day Zinc Taking Albuterol [...] Orally Twice a day Taking Cetirizine HCl 10 MG Tablet TAKE 1 TABLET BY MOUTH EVERY DAY FOR 90 DAYS Taking Compression Stocking Below Knee 20-30mmHg - [...] 1 tablet Orally Once a day Taking Zinc DiscontinuedBactrim DS(Sulfamethoxazole-Trimethoprim) 800-160 MG Tablet 1 tablet Orally Twice daily Biotin 1000 MCG Tablet 1 tablet Orally Once a day Cetirizine HCl Collagen Ibuprofen 800 MG Tablet 1 tablet with food or milk as needed Orally every 8 hrs Macrobid(Nitrofurantoin Monohyd Macro) 100 MG Capsule 1 capsule with food Orally every 12 hrs Rosuvastatin Calcium 5 MG Tablet 1 tablet Orally Once a day Vitamin D3 125 MCG (5000 UT) Capsule 1 capsule Orally Once a day Medication List reviewed and reconciled with the patientDiscontinued Bactrim DS(Sulfamethoxazole- Trimethoprim) 800-160 MG Tablet 1 tablet Orally Twice daily Discontinued Biotin 1000 MCG Tablet 1 tablet Orally Once a day Discontinued Cetirizine HCl Discontinued Collagen Discontinued Ibuprofen 800 MG Tablet 1 tablet with food or milk as needed Orally every 8 hrs Discontinued Macrobid(Nitrofurantoin Monohyd Macro) 100 MG Capsule 1 capsule with food Orally every 12 hrs Discontinued Rosuvastatin Calcium 5 MG Tablet 1 tablet Orally Once a day Discontinued Vitamin D3 125 MCG (5000 UT) Capsule 1 capsule Orally Once a day Medication List reviewed and reconciled with the patient * Allergies: A ugmentin: hives - AllergyTheophylline: hives/GI upset - AllergyKeflex: itching - AllergyLatex: hives - AllergyCiprofloxacinno[Allergies Verified] Objective: * Vitals: W t:262.0lbs, Ht: 66 in, BP:124/78mm Hg, BMI:42.28Index, Ht-cm: 167.64 cm, Wt-k.84 kg. * Examination: G eneral Examination: GENERAL APPEARANCE: w ell developed, well nourished, in no acute distress. ENT: ear and nose external appearance normal. ENMT: tongue, hard and soft palate and posterior pharynx appear normal. LYMPH NODES: n o axillary, supraclavicular or inguinal adenopathy. LUNGS: c lear to auscultation bilaterally. CARDIO: S 1, S2 normal, no murmurs, rubs, gallops. ABDOMEN: s oft, nontender, nondistended. GENITOURINARY: Bladder non-distended, urethra normal.? MUSCULOSKELETAL: full range of motion. SKIN: no rashes, warm and dry. NEUROLOGIC: alert and oriented to time, place, & person. PSYCH: mood/affect full range. Assessment: * Assessment: 1. U TI (urinary tract infection), uncomplicated - N39.0 (Primary) 2 . D ysuria - R30.0 Plan: * Treatment: * Procedure Codes: 8 1000 URINALYSIS, Modifiers: QW * Preventive Medicine: Screenings/Counseling: B CT ACTION PLAN Above Normal BMI Follow-up D ietary management education, guidance, and counseling * Follow Up: 3 -5 days if no improvement * * Sign off status: Completed Visit Status: C HK (Check Out) true * Provider: Adam Holly ([facility])MD Date: 0 04/27/2025 Generated for Roxyi linwood/Amaury/eTransmitting on: 0 05/04/2025 12:38 PM EDT History and Physical Notes * HPI (History of Present Illness) Category Sub-Category Detail Notes Category Not es UTI The patient complains of symptoms of UTI poor romin back due to gemini - laying make wrosae unless feet are up The symptoms have been present for 1-2 d ays The symptoms are moderate Symptomatic treatment has included OTC M edication Associated symptoms include increased ur ge to urinate, painful urination, pelvic pain Examination Category Sub-Category Detail Notes Category Not es General Examination GENERAL APPEARANCE: well dev eloped, well nourished, in no acute distress ENT: ear and nose externa l appearance normal CARDIO: S1, S2 normal, no mu rmurs, rubs, gallops LUNGS: clear to auscultatio n bilaterally ABDOMEN: soft, nontender, non distended NEUROLOGIC: alert and oriented t o time, place, & person SKIN: no rashes, warm and dry MUSCULOSKELETAL: full range of motion LYMPH NODES: no axillary, supracl avicular or inguinal adenopathy PSYCH: mood/affect full ran ge ENMT: tongue, hard and sof t palate and posterior pharynx appear normal GENITOURINARY: Bladder non-distende d, urethra normal
--- OUTSIDE RECORDS SUMMARY | 2025-04-28 09:45 | XMS_ITS ---
Author Organization The [facility] in [place] Address [address] [place] [address] Care Team Providers Care Deck Molder Name Role Phone Morteza Holly Primary Care Provider [phone] REASON FOR VISIT rf potassium Medications Medication SIG (Take, Route, Frequency, Duration) Notes Start Date End Date Status Potassium Chloride ER 10 MEQ 1 tablet with food Orally Twice a day for 90 days Active Encounters Encounter Location Date Provider Diagnosis [facility] [address] [place] [address] 04/28/2025 Morteza Holly Plan Of Treatment Medication Medication Name Sig Start Date Stop Date Notes Potassium Chloride ER 10 MEQ 1 tablet wi th food Orally Twice a day for 90 days Progress Notes * Hilary COOKDOB: [birth year] (74 yo F)Acc No.[id number]:04/28/2025 Patient: Zarina Hilary RICHARD :1950 A ge:74 Y S ex:Female Address:[address] [place], [address] * Refills Refill Potassium Chloride ER Tablet Extended Release, 10 MEQ, Orally, 180 Tablet, 1 tablet with food, Twice a day, 90 days, Refills=3 * true * Date: Generated for Damaris palumbo/Moirag/eTransmitting on: 0 05/04/2025 12:38 PM EDT
--- NOTE | 2025-05-04 12:36 | US_ITS ---
The [address] [address] Patient Name: ARMANDO COOK MRN: [id number] date: 1950 Sex: F Assigned Patient Location: US Current Patient Location: US Accession/Order Number: [id number] Exam Date: 05/04/2025 12:40 Report Date: 05/04/2025 13:24 At the request of: SCOTTY RIZVI MD Procedure: US renal bladder BILATERAL RENAL AND BLADDER ULTRASOUND CLINICAL HISTORY: Urinary Frequency COMPARISON: None Estimation of renal size is approximately 8.8 cm on the right and 10.7 cm on the left. There is an echogenic focus with twinkle artifact at the inferior pole of the left kidney that may be a stone. It is approximately 3 - 4 mm in size. No hydronephrosis is identified. No renal mass lesions were imaged. There is no perinephric fluid. The urinary bladder is partially distended with a volume of 43 mL. No obvious contour or intraluminal abnormalities are seen. Bilateral ureteral jets are visualized. US/US renal bladder IMPRESSION: NO OBSTRUCTIVE UROPATHY. POSSIBLE LEFT NEPHROLITHIASIS. Impression dictated by: Rosa Isela Coello M.D. 05/04/2025 1:24 PM Dictation Location: [place] [address] Electronically authenticated by: [id number] Y Date: 05/04/2025 13:24
--- OUTSIDE RECORDS SUMMARY | 2025-05-04 12:37 | XMS_ITS | Clinical Summary ---
Author Organization [facility] Address [address] [place], [place] [address] Care Team Providers Care Comb Machine Operator Name Role Phone Jamie Holly MD Primary Care Provider [phone] Allergies Active Allergy Reactions Criticality Noted Date [...] Noted Date Diagnosed Date Alopecia areata 08/16/2008 Social History Tobacco Use Types Packs/Day Years [...] 08/16/2008 11:05 AM EST Alopecia Areata Aftercare [facility] Use Medicatn from Last 3 Months or Most Recently Relevant to Health Maintenance Results * COMP METABOLIC PANEL (08/16/2008 11:05 AM EST) Protein, Total 7.4 6.0 - 8.4 g/dL [facility] Albumin 4.3 3.5 - 5.0 g/dL [facility] Calcium 9.6 8.5 - 10.5 mg/dL [facility] Bilirubin, Total 0.2 0.0 - 1.5 mg/dL [facility] Alkaline Phosphatase 100 40 - 150 U/L [facility] AST 24 7 - 40 U/L [facility] Glucose 96 65 - 100 mg/dL [facility] BUN 11 8 - 25 mg/dL [facility] Creatinine 0.77 0.70 - 1.40 mg/dL [facility] Sodium 139 132 - 148 mmol/L [facility] Potassium 4.8 3.5 - 5.0 mmol/L [facility] Chloride 104 98 - 110 mmol/L [facility] CO2 26 23 - 32 mmol/L [facility] Anion Gap 9 0 - 15 mmol/L [facility] ALT 20 0 - 45 U/L [facility] eGFR- >60 [facility] eGFR-All Other Races >60 [facility] Comment: eGFR (Estimated GFR) Units of [...] Sue Yoo MD LABORATORY Final Resul t [facility] [address] [facility] [place] [address] from Last 3 Months or Most Recently Relevant to Health Maintenance Insurance [employer] MED[employer]ARE Care Teams Comb Machine Operator Relationship Specialty Start Date End Date Jamie Holly MD PCP - General 05/08/08
--- OUTSIDE RECORDS SUMMARY | 2025-05-04 12:38 | XMS_ITS | Patient Health Record ---
Author Organization The [facility] in [place] Address [address] [place] [address] Care Team Providers Care Nightclub Manager Name Role Phone Morteza Holly Primary Care [...] Results Component Value Reference Range Notes UA DIP NONAUTO WO MICRO (810 02) - IN OFFICE Reviewed date:01/03/2025 02:56:40 PM Interpretation: Performing Lab: Notes/Report: COLOR bright yellow CLARITY clear GLUCOSE n BILIRUBIN n KETONE n SPECIFIC GRAVITY 1.010 BLOOD 5-10 PH n PROTEIN 150 UROBILINOGEN n NITRITE n LEUKOCYTE ESTERASE 70++ UA (Urinalysis, Dipstix only - w/o micro) [...] ESTERASE (KAREEM) + NEG - NEG MG/DL GLYCOHEMOGLOBIN A1C Reviewed date:01/03/2025 02:56:40 PM Interpretation: Performing Lab: Notes/Report: [facility] , Glycohemoglobin A1C 6.3 4.5-6.2 % ADA THERAPEUTIC TARGET < 7.0 ACTION SUGGESTED > 7.0 ADA RECOMMENDED LIMIT 4.0 - 6.0 Estimated Average Glucose 134 Performing Lab: see note ML - [facility] LB Occult Blood* Reviewed date:03/12/2025 04:17:26 PM Interpretation: Performing Lab: Notes/Report: [facility] , Occult Blood Positive Performing Lab: see note - [facility] LB UA Micro, reflex to culture Reviewed date:03/09/2025 06:51:33 PM Interpretation: Performing Lab: Notes/Report: [facility] , Color Urine LT. YELLOW YELLOW Clarity Urine CLEAR CLEAR Specific Randolph Urine 1.015 1.005-1.025 pH Urine 6.0 5.0-9.0 [...] SEEN NONE SEEN #/LPF Urine Culture Indicated [place] [place] Performing Lab: see note ML - [facility] Urine Culture - [facility] [place] Reviewed date:03/14/2025 08:59:32 PM Interpretation: Performing Lab: Notes/Report: [facility] , Urine Culture - [facility] [place] See Below For Report Isolated Urine Culture - [facility] [place] Antibiotic Interpretation SIOBHAN Status O:ESBLPESCL Testing performed at [facility] [place] Count Organism: 1.1 Urine Culture - [facility] [place] Urine Culture - [facility] [place] [address] [place] [address] Isolated Urine Culture - [facility] [place] Antibiotic Interpretation SIOBHAN Status O:ESBLPESCL Testing performed at [facility] [place] Count Organism: 1.1 Urine Culture - [facility] [place] Urine Culture - [facility] [place] See Below For Report Isolated Urine Culture - [facility] [place] Antibiotic Interpretation SIOBHAN Status O:ESBLPESCL Testing performed at [facility] [place] Count Organism: 1.1 Urine Culture - [facility] [place] Urine Culture - [facility] [place] See Below For Report Isolated Urine Culture - [facility] [place] Antibiotic Interpretation SIOBHAN Status O:ESBLPESCL Testing performed at [facility] [place] Count Organism: 1.1 Urine Culture - [facility] [place] Urine Culture - [facility] [place] >100,000 Isolated Urine Culture - [facility] [place] Antibiotic Interpretation SIOBHAN Status O:ESBLPESCL Testing performed at [facility] [place] Count Organism: 1.1 Urine Culture - [facility] [place] Urine Culture - [facility] [place] See Below For Report Isolated Urine Culture - [facility] [place] Antibiotic Interpretation SIOBHAN Status O:ESBLPESCL Testing performed at [facility] [place] Count Organism: 1.1 Urine Culture - [facility] [place] Urine Culture - [facility] [place] Amikacin S F Isolated Urine Culture - [facility] [place] Antibiotic Interpretation SIOBHAN Status O:ESBLPESCL Testing performed at [facility] [place] Count Organism: 1.1 Urine Culture - [facility] [place] Urine Culture - [facility] [place] Amoxicillin/Clavula vibha S F Isolated Urine Culture - [facility] [place] Antibiotic Interpretation SIOBHAN Status O:ESBLPESCL Testing performed at [facility] [place] Count Organism: 1.1 Urine Culture - [facility] [place] Urine Culture - [facility] [place] Ampicillin R F Isolated Urine Culture - [facility] [place] Antibiotic Interpretation SIOBHAN Status O:ESBLPESCL Testing performed at [facility] [place] Count Organism: 1.1 Urine Culture - [facility] [place] Urine Culture - [facility] [place] Aztreonam R F Isolated Urine Culture - [facility] [place] Antibiotic Interpretation SIOBHAN Status O:ESBLPESCL Testing performed at [facility] [place] Count Organism: 1.1 Urine Culture - [facility] [place] Urine Culture - [facility] [place] Ceftazidime R F Isolated Urine Culture - [facility] [place] Antibiotic Interpretation SIOBHAN Status O:ESBLPESCL Testing performed at [facility] [place] Count Organism: 1.1 Urine Culture - [facility] [place] Urine Culture - [facility] [place] Ceftazidime/Avibactam S F Isolated Urine Culture - [facility] [place] Antibiotic Interpretation SIOBHAN Status O:ESBLPESCL Testing performed at [facility] [place] Count Organism: 1.1 Urine Culture - [facility] [place] Urine Culture - [facility] [place] Ceftolozane/Tazobac iqbal S F Isolated Urine Culture - [facility] [place] Antibiotic Interpretation SIOBHAN Status O:ESBLPESCL Testing performed at [facility] [place] Count Organism: 1.1 Urine Culture - [facility] [place] Urine Culture - [facility] [place] Ciprofloxacin I F Isolated Urine Culture - [facility] [place] Antibiotic Interpretation SIOBHAN Status O:ESBLPESCL Testing performed at [facility] [place] Count Organism: 1.1 Urine Culture - [facility] [place] Urine Culture - [facility] [place] Ertapenem S F Isolated Urine Culture - [facility] [place] Antibiotic Interpretation SIOBHAN Status O:ESBLPESCL Testing performed at [facility] [place] Count Organism: 1.1 Urine Culture - [facility] [place] Urine Culture - [facility] [place] Gentamicin R F Isolated Urine Culture - [facility] [place] Antibiotic Interpretation SIOBHAN Status O:ESBLPESCL Testing performed at [facility] [place] Count Organism: 1.1 Urine Culture - [facility] [place] Urine Culture - [facility] [place] Levofloxacin S F Isolated Urine Culture - [facility] [place] Antibiotic Interpretation SIOBHAN Status O:ESBLPESCL Testing performed at [facility] [place] Count Organism: 1.1 Urine Culture - [facility] [place] Urine Culture - [facility] [place] Meropenem S F Isolated Urine Culture - [facility] [place] Antibiotic Interpretation SIOBHAN Status O:ESBLPESCL Testing performed at [facility] [place] Count Organism: 1.1 Urine Culture - [facility] [place] Urine Culture - [facility] [place] Meropenem/Vaborbactam S F Isolated Urine Culture - [facility] [place] Antibiotic Interpretation SIOBHAN Status O:ESBLPESCL Testing performed at [facility] [place] Count Organism: 1.1 Urine Culture - [facility] [place] Urine Culture - [facility] [place] Nitrofurantoin S F Isolated Urine Culture - [facility] [place] Antibiotic Interpretation SIOBHAN Status O:ESBLPESCL Testing performed at [facility] [place] Count Organism: 1.1 Urine Culture - [facility] [place] Urine Culture - [facility] [place] Tetracycline R F Isolated Urine Culture - [facility] [place] Antibiotic Interpretation SIOBHAN Status O:ESBLPESCL Testing performed at [facility] [place] Count Organism: 1.1 Urine Culture - [facility] [place] Urine Culture - [facility] [place] Tigecycline S F Isolated Urine Culture - [facility] [place] Antibiotic Interpretation SIOBHAN Status O:ESBLPESCL Testing performed at [facility] [place] Count Organism: 1.1 Urine Culture - [facility] [place] Urine Culture - [facility] [place] Tobramycin R F Isolated Urine Culture - [facility] [place] Antibiotic Interpretation SIOBHAN Status O:ESBLPESCL Testing performed at [facility] [place] Count Organism: 1.1 Urine Culture - [facility] [place] Urine Culture - [facility] [place] Ampicillin/Sulbactam I F Isolated Urine Culture - [facility] [place] Antibiotic Interpretation SIOBHAN Status O:ESBLPESCL Testing performed at [facility] [place] Count Organism: 1.1 Urine Culture - [facility] [place] Urine Culture - [facility] [place] Cefazolin R F Isolated Urine Culture - [facility] [place] Antibiotic Interpretation SIOBHAN Status O:ESBLPESCL Testing performed at [facility] [place] Count Organism: 1.1 Urine Culture - FR Urine Culture - [facility] [place] Cefepime R F Isolated Urine Culture - [facility] [place] Antibiotic Interpretation SIOBHAN Status O:ESBLPESCL Testing performed at [facility] [place] Count Organism: 1.1 Urine Culture - FR Urine Culture - FR Ceftriaxone R F Isolated Urine Culture - [facility] [place] Antibiotic Interpretation SIOBHAN Status O:ESBLPESCL Testing performed at [facility] [place] Count Organism: 1.1 Urine Culture - FR Urine Culture - FR Cefuroxime R F Isolated Urine Culture - [facility] [place] Antibiotic Interpretation SIOBHAN Status O:ESBLPESCL Testing performed at [facility] [place] Count Organism: 1.1 Urine Culture - [facility] [place] Urine Culture - [facility] [place] Piperacillin/Tazoba ctam S F Isolated Urine Culture - [facility] [place] Antibiotic Interpretation SIOBHAN Status O:ESBLPESCL Testing performed at [facility] [place] Count Organism: 1.1 Urine Culture - [facility] [place] Urine Culture - [place] Trimethoprim/Sulfa R F Isolated Urine Culture - [facility] [place] Antibiotic Interpretation SIOBHAN Status O:ESBLPESCL Testing performed at 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 Ordering Physician: Urban Holden M.D. Date of Service: 03/09/25 Procedure(s): CA echo doppler complete Accession Number(s): [id number] cc: Jamie Holly M.D.; Urban Holden M.D. Patient Name: ARMANDO SWEET MR#: [id number] : 1950 Exam Date: 03/09/2025 Ordering Doctor: [...] Area (VTI): 1.87 cm2, 1.87 cm2 Deceleration [place]: Pressure Half-Time: Peak Velocity(Antegrade Flow): 2.11 m/s, [...] Dictated By: Amelia Avila M.D. Signed By: 03/10/25 1750 DD/ 1749 TD/TT: Line Haul Driver: [place] [address] Cardiology Report Signed Patient: DO RICO SWEET MR#: [id number] : 1950 Acct:[id number] Age/Sex: 74 / F ADM Date: 03/08/25 Loc: [place] 222-[address]: Urban Holden M.D. Ordering Physician: Urban Holden M.D. Date of Service: 03/09/25 Procedure(s): CA ech o doppler complete Accession Number(s): [id number] cc: Jamie Holly M.D. ; Urban Holden M.D. Patient Name: ARMANDO SWEET MR#: [id number] : 1950 Exam Date: 03/09/2025 Ordering Doctor: [...] Area (VTI): 1.87 cm2, 1.87 cm2 Deceleration [place]: Pressure Half-Time: Peak Velocity(Antegr tomasa Flow): 2.11 [...] M.D. Signed By: 03/10/251749 DD/ 174 TD/TT: Line Haul Driver: EASTON RANDOM W or MICROSCOPIC Reviewed date:04/13/2025 04:49:25 PM Interpretation: Performing Lab: Notes/Report: [facility] , Color Urine LT. YELLOW YELLOW Clarity Urine CLEAR CLEAR Specific Randolph Urine 1.015 1.005-1.025 pH Urine 5.5 5.0-9.0 Protein Urine NEGATIVE NEG/TRACE mg/dL Glucose Urine UA NEGATIVE NEGATIVE mg/dL Bilirubin Urine NEGATIVE NEGATIVE Ketones Urine NEGATIVE NEGATIVE mg/dL Blood Urine TRACE-I NEGATIVE Nitrite Urine POSITIVE NEGATIVE Urobilinogen Urine 0.2 0.2-1.0 EU/dL Leukocyte Esterase Urine TRACE NEGATIVE WBC Urine 10-20 NONE SEEN #/HPF RBC Urine 2-5 0-2 #/HPF Bacteria Urine MODERATE NONE SEEN #/HPF Mucus Urine NONE SEEN NONE SEEN Squamous Epithelial Cell Urine RARE NONE/RARE #/LPF Crystals Seen? None Seen None Seen #/HPF Cast Seen? SEEN NONE SEEN #/LPF Hyaline Casts Urine RARE Urine Culture Indicated ALREADY ORDERED Performing Lab: see note ML - [facility] PROF 14(COMP METB) Reviewed date:03/12/2025 04:17:26 PM Interpretation: Performing Lab: Notes/Report: [facility] , Sodium 136 136-145 mmol/L Potassium [...] 0.7 Performing Lab: see note ML - [facility] LB XR chest 2V Reviewed date:03/09/2025 06:51:33 PM Interpretation: Performing Lab: Notes/Report: Source Facility: [facility] [place] [address] [place] [address] XRay Report Signed Patient: ARMANDO SWEET MR#: [id number] : 1950 Acct:[id number] Age/Sex: 74 / F ADM Date: 03/08/25 Loc: ER Attending Dr: Ordering Physician: Kennedy Wharton Date of Service: 03/08/25 Procedure(s): XR chest 2V Accession Number(s): [id number] cc: Jamie Bautista M.D. [place] [address] Patient Name: ARMANDO SWEET MRN: [id number] date: 1950 Sex: F Assigned Patient Location: ED.MAIN Current Patient Location: ED.MAIN Accession/Order Number: [id number] Exam Date: 03/09/2025 00:11 Report Date: 03/09/2025 [...] Garsia M.D. 03/09/2025 12:12 AM Dictation Location: [place] [address] Electronically authenticated by: [id number] Y Date: 03/09/2025 00:12 Dictated By: Tommy Garsia M.D. Signed By: 03/09/2513 DD/ TD/TT: Line Haul Driver: [place] [address] XRay Report Signed Patient: DO RICO SWEET MR#: [id number] : 1950 Acct:[id number] Age/Sex: 74 / F ADM Date: 03/08/25 Loc: ER Attending Dr: Ordering Physician: Kennedy Wharton Date of Service: 03/08/25 Procedure(s): XR chest 2V Accession Number(s): [id number] cc: Kennedy Wharton; Jamie Holly M.D. [address] [address] Patient Name: ARMANDO SWEET MRN: [id number] date: 1950 Sex: F Assigned Patient Location: ED.MAIN Current Patient Loca tion: ED.MAIN Accession/Order Numb er: [id number] Exam Date: 03/09/2025 00:11 Report Date: 03/09/2025 [...] Garsia M.D. 03/09/2025 12:12 AM Dictation Location: [place] [address] Electronically authenticated by: [id number] Y Date: 03/09/2025 00:12 Dictated By: Lorraine Garsia M.D. Signed By: 03/09/25 0014 DD/ TD/TT: Line Haul Driver: ECG 12 lead Reviewed date:03/14/2025 08:59:32 PM Interpretation: Performing Lab: Notes/Report: Source Facility: [place] [address] Electrocardiograph Report Signed Patient: ARMANDO SWEET MR#: [id number] : 1950 Acct:[id number] Age/Sex: 74 / F ADM Date: 03/08/25 Loc: [place] 222-[address]: Urban Holden M.D. 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 Signed By: 03/14/25 1300 DD/ 23 TD/TT: Line Haul Driver: [place] [address] Electrocardiograph Report Signed Patient: DO RICO SWEET MR#: [id number] : 1950 Acct:[id number] Age/Sex: 74 / F ADM Date: 03/08/25 Loc: MS 222-[address]: Urban Holden M.D. 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 Signed By: 03/14/25 1300 DD/ 2324 TD/TT: Line Haul Driver: Troponin I High Sensitivity Reviewed date:03/09/2025 06:51:33 PM Interpretation: Performing Lab: Notes/Report: [facility] , Troponin I High Sensitivity 38.3 4.0-51.3 pg/mL NOTE: HIGH-SENSITIVITY TROPONIN ASSAY IS NOT INTENDED TO BE PERCENTILE OF cTnI DISTRIBUTION IN A REFERENCE POPULATION, REFERENCE LIMIT (URL) OF TROPONIN, DEFINED THE 99TH UNIVERSAL DEFINITION OF MYOCARDIAL INFARCTION. THE UPPER 99TH PERCENTILE = 51.4 PG/ML CUT-OFF POINTS HAVE BEEN ESTABLISHED BASED ON THE FOURTH HAS BEEN CONFIRMED THE DECISION THRESHOLD FOR DE WITH OTHER DIAGNOSTIC AND CLINICAL INFORMATION. DIAGNOSIS. USED IN ISOLATION BUT SHOULD BE INTERPRETED IN CONJUNCTION Performing Lab: see note ML - [facility] LB PROF CHEM 8 (BAS METB) Reviewed date:03/09/2025 06:51:33 PM Interpretation: Performing Lab: Notes/Report: [facility] , Sodium 134 136-145 mmol/L Potassium [...] mg/dL Performing Lab: see note ML - [facility] LB LACTATE or LACTIC ACID Reviewed date:03/09/2025 06:51:33 PM Interpretation: Performing Lab: Notes/Report: [facility] , Lactate/Lactic Acid 0.9 0.4-2.0 mmol/L Performing Lab: see note ML - [facility] LB D-DIMER Reviewed date:03/09/2025 06:51:33 PM Interpretation: Performing Lab: Notes/Report: [facility] , D Dimer 1.60 <=0.59 mg/L [...] thrombolytic Performing Lab: see note ML - [facility] LB CBC AUTO DIFF Reviewed date:03/09/2025 06:51:33 PM Interpretation: Performing Lab: Notes/Report: [facility] , White Blood Count 9.4 4.0-11.0 [...] Performing Lab: see note ML - [facility] LB BNP Reviewed date:03/09/2025 06:51:33 PM Interpretation: Performing Lab: Notes/Report: [facility] , NT Pro B Type Natriuretic Pept 1057.0 <=900.0 pg/mL Performing Lab: see note ML - [facility] LB Urine Culture - [facility] [place] Reviewed date:01/09/2025 08:52:33 PM Interpretation: Performing Lab: Notes/Report: [facility] , Urine Culture - [facility] [place] See Below For Report Isolated Urine Culture - [facility] [place] O:ESCCOL Testing performed at [facility] Antibiotic Interpretation SIOBHAN Status Urine Culture - [facility] [place] Organism: 1.1 [place] Urine Culture - [facility] [place] [address] [place] [address] Isolated Urine Culture - [facility] [place] O:ESCCOL Testing performed at [facility] Antibiotic Interpretation SIOBHAN Status Urine Culture - [facility] [place] Organism: 1.1 [place] Count Urine Culture - [facility] [place] See Below For Report Isolated Urine Culture - FR O:ESCCOL Testing performed at [facility] Antibiotic Interpretation SIOBHAN Status Urine Culture - FR Organism: 1.1 [place] Count Urine Culture - [facility] See Below For Report Isolated Urine Culture - [facility] O:ESCCOL Testing performed at [facility] Antibiotic Interpretation SIOBHAN Status Urine Culture - FR Organism: 1.1 [place] Count Urine Culture - FR >100,000 Isolated Urine Culture - FR O:ESCCOL Testing performed at [facility] Antibiotic Interpretation SIOBHAN Status Urine Culture - FR Organism: 1.1 [place] Count Urine Culture - [facility] See Below For Report Isolated Urine Culture - FR O:ESCCOL Testing performed at [facility] Antibiotic Interpretation SIOBHAN Status Urine Culture - FR Organism: 1.1 [place] Count Urine Culture - FR Amikacin S F Isolated Urine Culture - FR O:ESCCOL Testing performed at [facility] Antibiotic Interpretation SIOBHAN Status Urine Culture - FR Organism: 1.1 [place] Count Urine Culture - FR Amoxicillin/Clavula vibha S F Isolated Urine Culture - FR O:ESCCOL Testing performed at [facility] Antibiotic Interpretation SIOBHAN Status Urine Culture - FR Organism: 1.1 [place] Count Urine Culture - FR Ampicillin S F Isolated Urine Culture - FR O:ESCCOL Testing performed at [facility] Antibiotic Interpretation SIOBHAN Status Urine Culture - FR Organism: 1.1 [place] Count Urine Culture - FR Aztreonam S F Isolated Urine Culture - FR O:ESCCOL Testing performed at [facility] Antibiotic Interpretation SIOBHAN Status Urine Culture - FR Organism: 1.1 [place] Count Urine Culture - FR Ceftazidime S F Isolated Urine Culture - FR O:ESCCOL Testing performed at [facility] Antibiotic Interpretation SIOBHAN Status Urine Culture - FR Organism: 1.1 [place] Count Urine Culture - FR Ceftazidime/Avibactam S F Isolated Urine Culture - FR O:ESCCOL Testing performed at [facility] Antibiotic Interpretation SIOBHAN Status Urine Culture - FR Organism: 1.1 [place] Count Urine Culture - FR Ceftolozane/Tazobac iqbal S F Isolated Urine Culture - FR O:ESCCOL Testing performed at [facility] Antibiotic Interpretation SIOBHAN Status Urine Culture - FR Organism: 1.1 [place] Count Urine Culture - FR Ciprofloxacin R F Isolated Urine Culture - FR O:ESCCOL Testing performed at [facility] Antibiotic Interpretation SIOBHAN [place] Culture [place] [facility] [place]: 1.1 [place] Count Urine Culture [place] [facility] [place] Ertapenem S F Isolated Urine Culture - FR O:ESCCOL Testing performed at [facility] Antibiotic Interpretation SIOBHAN Status Urine Culture - FR Organism: 1.1 [place] Count Urine Culture - [facility] [place] Gentamicin S F Isolated Urine Culture - FR O:ESCCOL Testing performed at [facility] Antibiotic Interpretation SIOBHAN Status Urine Culture - FR Organism: 1.1 [place] Count Urine Culture - [facility] [place] Levofloxacin R F Isolated Urine Culture [place] [facility] [place] O:ESCCOL Testing performed at [facility] Antibiotic Interpretation SIOBHAN Status Urine Culture - [facility] [place]ism: 1.1 [place] Count Urine Culture - [facility] [place] Meropenem S F Isolated Urine Culture - [facility] [place] O:ESCCOL Testing performed at [facility] Antibiotic Interpretation SIOBHAN Status Urine Culture - [facility] [place]ism: 1.1 [place] Count Urine Culture - [facility] [place] Meropenem/Vaborbactam S F Isolated Urine Culture - [facility] [place] O:ESCCOL Testing performed at [facility] Antibiotic Interpretation SIOBHAN Status Urine Culture - [facility] [place] Organism: 1.1 [place] Count Urine Culture - [facility] [place] Nitrofurantoin S F Isolated Urine Culture - [facility] [place] O:ESCCOL Testing performed at [facility] Antibiotic Interpretation SIOBHAN Status Urine Culture - [facility] [place] Organism: 1.1 [place] Count Urine Culture - [facility] [place] Tetracycline R F Isolated Urine Culture - [facility] [place] O:ESCCOL Testing performed at [facility] Antibiotic Interpretation SIOBHAN Status Urine Culture - [facility] [place] Organism: 1.1 [place] Count Urine Culture - [facility] [place] Tigecycline S F Isolated Urine Culture - FR O:ESCCOL Testing performed at [facility] Antibiotic Interpretation SIOBHAN Status Urine Culture - [facility] [place] Organism: 1.1 [place] Count Urine Culture - [facility] [place] Tobramycin S F Isolated Urine Culture - FR O:ESCCOL Testing performed at [facility] Antibiotic Interpretation SIOBHAN Status Urine Culture - [facility] [place] Organism: 1.1 [place] Count Urine Culture - [facility] [place] Ampicillin/Sulbactam S F Isolated Urine Culture - FR O:ESCCOL Testing performed at [facility] Antibiotic Interpretation SIOBHAN Status Urine Culture - [facility] [place] Organism: 1.1 [place] Count Urine Culture - [facility] [place] Cefazolin S F Isolated Urine Culture - FR O:ESCCOL Testing performed at [facility] Antibiotic Interpretation SIOBHAN Status Urine [facility] - [facility] Organism: 1.1 [place] Count Urine Culture - [facility] Cefepime S F Isolated Urine Culture - [facility] O:ESCCOL Testing performed at [facility] Antibiotic Interpretation SIOBHAN Status Urine Culture - [facility] Organism: 1.1 [place] Count Urine Culture - [facility] Ceftriaxone S F Isolated Urine Culture - [facility] O:ESCCOL Testing performed at [facility] Antibiotic Interpretation SIOBHAN Status Urine Culture - [facility] Organism: 1.1 [place] Count Urine Culture - [facility] Cefuroxime S F Isolated Urine Culture - [facility] O:ESCCOL Testing performed at [facility] Antibiotic Interpretation SIOBHAN Status Urine Culture - [facility] Organism: 1.1 [place] Count Urine Culture - [facility] Piperacillin/Tazoba ctam S F Isolated Urine Culture - [facility] O:ESCCOL Testing performed at [facility] Antibiotic Interpretation SIOBHAN Status Urine Culture - [facility] Organism: 1.1 [place] Count Urine Culture - [facility] Trimethoprim/Sulfa S F Isolated Urine Culture - [facility] O:ESCCOL Testing performed at 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 YELLOW YELLOW Clarity Urine SL CLOUDY CLEAR Specific [place] Urine 1.020 1.005-1.025 pH Urine 6.0 5.0-9.0 [...] ORDERED Performing Lab: see note ML - [facility] LB TSH Reviewed date:01/03/2025 02:56:40 PM Interpretation: Performing Lab: Notes/Report: [facility] , Thyroid Stimulating Hormone 2.788 0.358-3.740 uIU/mL Performing Lab: see note ML - [facility] LB T4 Reviewed date:01/03/2025 02:56:40 PM Interpretation: Performing Lab: Notes/Report: [facility] , T4 Thyroxine 8.20 4.80-13.90 ug/dL Performing Lab: see note ML - [facility] LB PROF 14(COMP METB) Reviewed date:01/03/2025 02:56:40 PM Interpretation: Performing Lab: Notes/Report: [facility] , Sodium 140 136-145 mmol/L Potassium [...] Performing Lab: see note ML - [facility] LB LIPID PROFILE Reviewed date:01/03/2025 02:56:40 PM Interpretation: Performing Lab: Notes/Report: [facility] , Triglycerides 220 <=150 mg/dL Cholesterol [...] Performing Lab: see note ML - [facility] LB FREE T3 Reviewed date:01/03/2025 02:56:40 PM Interpretation: Performing Lab: Notes/Report: [facility] , Free T3 3.08 2.18-3.98 pg/mL Performing Lab: see note ML - [facility] LB CBC AUTO DIFF Reviewed date:01/03/2025 02:56:40 PM Interpretation: Performing Lab: Notes/Report: [facility] , White Blood Count 4.6 4.0-11.0 [...] Performing Lab: see note ML - [facility] LB Urine Culture - [facility] Reviewed date:04/17/2025 01:58:49 PM Interpretation: Performing Lab: Notes/Report: [facility] , Urine Culture - [facility] See Below For Report Organism: 1.1 [place] Count Urine Culture - [facility] Isolated Testing performed at [facility] O:ESBLPESCL Urine Culture - [facility] Antibiotic Interpretation SIOBHAN Status Urine Culture - [facility] [address], [place] [address] Organism: 1.1 [place] Count Urine Culture - [facility] Isolated Testing performed at [facility] O:ESBLPESCL Urine Culture - [facility] Antibiotic Interpretation SIOBHAN Status Urine Culture - [facility] See Below For Report Organism: 1.1 [place] Count Urine Culture - [facility] Isolated Testing performed at [facility] O:ESBLPESCL Urine Culture - [facility] Antibiotic Interpretation SIOBHAN Status Urine Culture - [facility] See Below For Report Organism: 1.1 [place] Count Urine Culture - [facility] Isolated Testing performed at [facility] O:ESBLPESCL Urine Culture - [facility] Antibiotic Interpretation SIOBHAN Status Urine Culture - [facility] >100,000 Organism: 1.1 [place] Count Urine Culture - [facility] Isolated Testing performed at [facility] O:ESBLPESCL Urine Culture - [facility] Antibiotic Interpretation SIOBHAN Status Urine Culture - [facility] See Below For Report Organism: 1.1 [place] Count Urine Culture - [facility] Isolated Testing performed at [facility] O:ESBLPESCL Urine Culture - [facility] Antibiotic Interpretation SIOBHAN Status Urine Culture - [facility] Amikacin S F Organism: 1.1 [place] Count Urine Culture - [facility] Isolated Testing performed at [facility] O:ESBLPESCL Urine Culture - [facility] Antibiotic Interpretation SIOBHAN Status Urine Culture - [facility] Amoxicillin/Clavula vibha S F Organism: 1.1 [place] Count Urine Culture - [facility] Isolated Testing performed at [facility] O:ESBLPESCL Urine Culture - [facility] Antibiotic Interpretation SIOBHAN Status Urine Culture - [facility] Ampicillin R F Organism: 1.1 [place] Count Urine Culture - [facility] Isolated Testing performed at [facility] O:ESBLPESCL Urine Culture - [facility] Antibiotic Interpretation SIOBHAN Status Urine Culture - [facility] Aztreonam R F Organism: 1.1 [place] Count Urine Culture - [facility] Isolated Testing performed at [facility] O:ESBLPESCL Urine Culture - FR Antibiotic Interpretation SIOBHAN Status Urine Culture - FR Ceftazidime R F Organism: 1.1 [place] Count Urine Culture - [facility] Isolated Testing performed at [facility] O:ESBLPESCL Urine Culture - [facility] Antibiotic Interpretation SIOBHAN Status Urine Culture - [facility] Ceftazidime/Avibactam S F Organism: 1.1 [place] Count Urine Culture - [facility] Isolated Testing performed at [facility] O:ESBLPESCL Urine Culture - [facility] Antibiotic Interpretation SIOBHAN Status Urine Culture - [facility] Ceftolozane/Tazobac iqbal S F Organism: 1.1 [place] Count Urine Culture - [facility] Isolated Testing performed at [facility] O:ESBLPESCL Urine Culture - FR Antibiotic Interpretation SIOBHAN Status Urine Culture - FR Ciprofloxacin S F Organism: 1.1 [place] Count Urine Culture - [facility] Isolated Testing performed at [facility] O:ESBLPESCL Urine Culture - [facility] Antibiotic Interpretation SIOBHAN Status Urine Culture - FR Ertapenem S F Organism: 1.1 [place] Count Urine Culture - [facility] Isolated Testing performed at [facility] O:ESBLPESCL Urine Culture - [facility] Antibiotic Interpretation SIOBHAN Status Urine Culture - FR Gentamicin R F Organism: 1.1 [place] Count Urine Culture - [facility] Isolated Testing performed at [facility] O:ESBLPESCL Urine Culture - FR Antibiotic Interpretation SIOBHAN Status Urine Culture - FR Levofloxacin S F Organism: 1.1 [place] Count Urine Culture - [facility] Isolated Testing performed at [facility] O:ESBLPESCL Urine Culture - [facility] Antibiotic Interpretation SIOBHAN Status Urine Culture - [facility] Meropenem S F Organism: 1.1 [place] Count Urine Culture - [facility] Isolated Testing performed at [facility] O:ESBLPESCL Urine Culture - [facility] Antibiotic Interpretation SIOBHAN Status Urine Culture - [facility] Meropenem/Vaborbactam S F Organism: 1.1 [place] Count Urine Culture - [facility] Isolated Testing performed at [facility] O:ESBLPESCL Urine Culture - [facility] Antibiotic Interpretation SIOBHAN Status Urine Culture - FR Nitrofurantoin S F Organism: 1.1 [place] Count Urine Culture - [facility] Isolated Testing performed at [facility] O:ESBLPESCL Urine Culture - [facility] Antibiotic Interpretation SIOBHAN Status Urine Culture - [facility] Tetracycline R F Organism: 1.1 [place] Count Urine Culture - [facility] Isolated Testing performed at [facility] O:ESBLPESCL Urine Culture - [facility] Antibiotic Interpretation SIOBHAN Status Urine Culture - [facility] Tigecycline S F Organism: 1.1 [place] Count Urine Culture - [facility] Isolated Testing performed at [facility] O:ESBLPESCL Urine Culture - [facility] Antibiotic Interpretation SIOBHAN Status Urine Culture - [facility] Tobramycin I F Organism: 1.1 [place] Count Urine Culture - [facility] Isolated Testing performed at [facility] O:ESBLPESCL Urine Culture - [facility] Antibiotic Interpretation SIOBHAN Status Urine Culture - [facility] Ampicillin/Sulbactam I F Organism: 1.1 [place] Count Urine Culture - [facility] Isolated Testing performed at [facility] O:ESBLPESCL Urine Culture - [facility] Antibiotic Interpretation SIOBHAN Status Urine Culture - [facility] Cefazolin R F Organism: 1.1 [place] Count Urine Culture - [facility] Isolated Testing performed at [facility] O:ESBLPESCL Urine Culture - [facility] Antibiotic Interpretation SIOBHAN Status Urine Culture - [facility] Cefepime R F Organism: 1.1 [place] Count Urine Culture - [facility] Isolated Testing performed at [facility] O:ESBLPESCL Urine Culture - [facility] Antibiotic Interpretation SIOBHAN Status Urine Culture - [facility] Ceftriaxone R F Organism: 1.1 [place] Count Urine Culture - [facility] Isolated Testing performed at [facility] O:ESBLPESCL Urine Culture - [facility] Antibiotic Interpretation SIOBHAN Status Urine Culture - [facility] Cefuroxime R F Organism: 1.1 [place] Count Urine Culture - [facility] Isolated Testing performed at [facility] O:ESBLPESCL Urine Culture - [facility] Antibiotic Interpretation SIOBHAN Status Urine Culture - [facility] Piperacillin/Tazoba ctam S F Organism: 1.1 [place] Count Urine Culture - [facility] Isolated Testing performed at [facility] O:ESBLPESCL Urine Culture - [facility] Antibiotic Interpretation SIOBHAN Status Urine Culture - [facility] Trimethoprim/Sulfa R F Organism: 1.1 [place] Count Urine Culture - [facility] Isolated Testing performed at 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 The [place] [address] Patient Name: ARMANDO SWEET MRN: [id number] date: 1950 Sex: F Assigned Patient Location: ER Current Patient Location: ER Accession/Order Number: [id number] Exam Date: 03/23/2025 15:00 Report Date: 03/23/2025 [...] Herman M.D. 03/23/2025 3:02 PM Dictation Location: [place] [address] Electronically authenticated by: [id number] Y Date: 03/23/2025 15:02 Dictated By: Emir Herman D.O. Signed By: 03/23/25 1504 DD/ 150 TD/TT: Line Haul Driver: [place] [address] XRay Report Signed Patient: DO RICO SWEET MR#: [id number] : 1950 Acct:[id number] Age/Sex: 74 / F ADM Date: 03/23/25 Loc: ER Attending Dr: Ordering Physician: Manuela Tucker Date of Service: 03/23/25 Procedure(s): XR lum bar spine 2-3V Accession Number(s): [id number] cc: Manuela santiago; Jamie Holly M.D. The [place] [address] Patient Name: ARMANDO SWEET MRN: [id number] date: 1950 Sex: F Assigned Patient Location: ER Current Patient Loca tion: ER Accession/Order Numb er: [id number] Exam Date: 03/23/2025 15:00 Report Date: 03/23/2025 15:02 At the request of: MANUELA TUCKER II PA Procedure: XR lumbar spine 2-3V 2 views [...] Herman M.D. 03/23/2025 3:02 PM Dictation Location: [place] [address] Electronically authenticated by: [id number] Y Date: 03/23/2025 15:02 Dictated By: Donald Herman D.O. Signed By: 03/23/25 1504 DD/ 1502 TD/TT: Line Haul Driver: XR hip LT 2V w/ pelvis Reviewed date:03/23/2025 05:03:13 PM Interpretation: Performing Lab: Notes/Report: Source Facility: [place] [address] [place] [address] XRay Report Signed Patient: ARMANDO SWEET MR#: [id number] : 1950 Acct:[id number] Age/Sex: 74 / F ADM Date: 03/23/25 Loc: ER Attending Dr: Ordering Physician: Manuela Tucker Date of Service: 03/23/25 Procedure(s): XR hip LT 2V w/ pelvis Accession Number(s): [id number] cc: Manuela Tucker; Jamie Holly M.D. The [address] [id number] Patient Name: ARMANDO SWEET MRN: [id number] date: 1950 Sex: F Assigned Patient Location: ER Current Patient Location: ER Accession/Order Number: [id number] Exam Date: 03/23/2025 14:57 Report Date: 03/23/2025 [...] Herman M.D. 03/23/2025 2:59 PM Dictation Location: [place] [address] Electronically authenticated by: [id number] Y Date: 03/23/2025 14:59 Dictated By: Emir Herman D.O. Signed By: 03/23/25 1501 DD/ 1459 TD/TT: Line Haul Driver: [place] [address] XRay Report Signed Patient: DO RICO SWEET MR#: [id number] : 1950 Acct:[id number] Age/Sex: 74 / F ADM Date: 03/23/25 Loc: ER Attending Dr: Ordering Physician: Manuela Tucker Date of Service: 03/23/25 Procedure(s): XR hip LT 2V w/ pelvis Accession Number(s): [id number] cc: Manuela santiago; Jamie Holly M.D. The [place] [address] Patient Name: ARMANDO SWEET MRN: [id number] date: 1950 Sex: F Assigned Patient Location: ER Current Patient Loca tion: ER Accession/Order Numb er: [id number] Exam Date: 03/23/2025 14:57 Report Date: 03/23/2025 [...] Herman M.D. 03/23/2025 2:59 PM Dictation Location: [place] [address] Electronically authenticated by: [id number] Y Date: 03/23/2025 14:59 Dictated By: Donald Herman D.O. Signed By: 03/23/25 1501 DD/ 1459 TD/TT: Line Haul Driver: XR KNEE LT 3V Reviewed date:03/23/2025 05:03:13 PM Interpretation: Performing Lab: Notes/Report: Source Facility: [place] [address] XRay Report Signed Patient: ARMANDO SWEET MR#: [id number] : 1950 Acct:[id number] Age/Sex: 74 / F ADM Date: 03/23/25 Loc: ER Attending Dr: Ordering Physician: Manuela Tucker Date of Service: 03/23/25 Procedure(s): XR knee LT 3V Accession Number(s): [id number] cc: Manuela Tucker; Jamie Holly M.D. The [place] [id number] Patient Name: ARMANDO SWEET MRN: [id number] date: 1950 Sex: F Assigned Patient Location: ER Current Patient Location: ER Accession/Order Number: [id number] Exam Date: 03/23/2025 14:59 Report Date: 03/23/2025 15:00 At the request of: MANUELA CLARK Procedure: XR knee LT 3V 3 views left knee plain film COMPARISON: None HISTORY: Left knee pain ACUTE FINDINGS: No acute findings DEGENERATIVE CHANGE: Fnnn-yj-ijuv contact medial degeneration. Moderate patellofemoral degeneration. SOFT TISSUE FINDINGS: Unremarkable JOINT EFFUSION: None POSTOP CHANGES: None BONE MINERALIZATION: Adequate XR/XR knee LT 3V IMPRESSION: Extensive left knee degeneration Impression dictated by: Emir Herman M.D. 03/23/2025 3:00 PM Dictation Location: [place] [address] Electronically authenticated by: [id number] Y Date: 03/23/2025 15:00 Dictated By: Emir Herman D.O. Signed By: 03/23/25 1503 DD/ 1500 TD/TT: Line Haul Driver: [place] [address] XRay Report Signed Patient: DO RICO SWEET MR#: [id number] : 1950 Acct:[id number] Age/Sex: 74 / F ADM Date: 03/23/25 Loc: ER Attending Dr: Ordering Physician: Manuela Tucker Date of Service: 03/23/25 Procedure(s): XR kne e LT 3V Accession Number(s): [id number] cc: Manuela santiago; Jamie Holly M.D. [place] [id number] Patient Name: ARMANDO SWEET MRN: [id number] date: 1950 Sex: F Assigned Patient Location: ER Current Patient Loca tion: ER Accession/Order Numb er: [id number] Exam Date: 03/23/2025 14:59 Report Date: 03/23/2025 15:00 At the request of: MANUELA CLARK Procedure: XR knee LT 3V [address] ain film COMPARISON: None HISTORY: Left knee pain ACUTE FINDINGS: No a cute findings DEGENERATIVE CHANGE: Phck-cs-arfi contact medial degeneration. Moderate patellofemoral degeneration. SOFT TISSUE FINDINGS : Unremarkable JOINT EFFUSION: None POSTOP CHANGES: None BONE MINERALIZATION: Adequate X R/XR knee LT 3V IMPRESSION: Extensiv e left knee degeneration Impression dictated by: Emir Herman M.D. 03/23/2025 3:00 PM Dictation Location: [employer] Electronically authenticated by: [id number] Y Date: 03/23/2025 15:00 Dictated By: Donald Herman D.O. Signed By: 03/23/25 1503 DD/ 1500 TD/TT: Line Haul Driver: Reason For Referral Diagnosis 1 Positive occult stoo l blood test (R19.5) Referral Organization [facility] Referring Provider First Name Morteza Referring Provider Last Name Elayne Referring Provider Speciality Family Med k[place]all Referred Provider Tavo Borrego Referred Provider Specialty General Surg ana Referral Priority Routine Medications Medication SIG (Take, Route, Frequency, Duration) Notes Start Date End Date Status Cefdinir 300 MG 2 capsule Orally once a day for 10 days tolerated in the past 04/27/2025 Active Potassium Chloride ER 10 MEQ 1 tablet with food Orally Twice a day for 90 days Active metFORMIN HCl 500 MG 1 tablet with a meal Orally Once a day for 30 days 04/03/2025 Active Zinc Active Budesonide 0.5 MG/2ML 2 mL Inhalation Twice a day 07/14/2023 Active Nebulizer - Use daily with solution four times daily as needed for 90 days Nebulizer Machine or Nebulizer Compressor 02/26/2023 Active Carvedilol 6.25 MG 1 tablet with food Orally Twice a day Active Nebulizer Mask and Tubing-Adult - Dx: Asthma dx J45.99 qid prn for 30 days Active Daily-Shari Multivitamin - TAKE 2 TABLETS BY MOUTH EVERY DAY WITH ENERGY for 30 days Active Venlafaxine HCl ER 75 MG TAKE 1 CAPSULE BY MOUTH EVERY DAY for 90 days Active Ibuprofen 800 MG TAKE 1 TABLET BY MOUTH EVERY 6 HOURS NEEDED WITH FOOD OR MILK for 30 Active Ventolin HFA 108 (90 Base) MCG/ACT 2 puff as needed Inhalation every 4 hrs for 30 PRN 07/14/2023 Active Albuterol Sulfate (2.5 MG/3ML) 0.083% 3 mL as needed Inhalation every 6 hrs Dx: J45.909 PRN 02/25/2023 Active Vitamin B12 1000 MCG 1 tablet Orally Once a day for 90 days 01/31/2025 Active Aspirin 81 MG 1 tablet Orally Once a day Active Magnesium 400 MG as directed Orally once daily 06/02/2024 Active Nebulizer Mask and Tubing-Adult - Nebulizer mask and tubing Dx: Asthma Daily for 365 days 04/03/2023 Active Cetirizine HCl 10 MG TAKE 1 TABLET BY MOUTH EVERY DAY FOR 90 DAYS for 90 Active tiZANidine HCl 4 MG 1 tablet at bedtime as needed Orally Once a day for 30 days 04/03/2025 Active Compression Stocking Below Knee 20-30mmHg - 04/03/2023 Active Torsemide 20 MG 1 tablet Orally Once a day Active Pyridium 200 MG 1 tablet after meals Orally Three times a day for 2 days 04/27/2025 Active Social History Tobacco Use: Social History [...] Problem Status W/U Status Risk Notes Problem 04259034 Essential (primary) hypertension (I10) Active confirmed Problem 21087396 Obstructive slee p apnea (adult) (pediatric) (G47.33) Active confirmed Problem Chronic obstructive pulmonary disease (34461162) Chronic obstructive pulmonary disease, unspecified (J44.9) Active confirmed Problem 46913060 Hyperlipidemia, unspecified (E78.5) Active confirmed Problem 89755890 Restless legs syndrome (G25.81) Active confirmed Problem 342269501 Nonrheumatic aortic (valve) insufficiency (I35.1) Active confirmed Problem 639885635 Unspecified asthma, uncomplicated (J45.909) Active confirmed Problem 90910362 Alopecia areata, unspecified (L63.9) Active confirmed Problem 501529745 Unspecified osteoarthritis, unspecified site (M19.90) Active confirmed Problem 90037500 Other cervical disc degeneration, unspecified cervical region (M50.30) Active confirmed Problem [id number] Synovial cyst of popliteal space [[place]], right knee (M71.21) Active confirmed Problem 599851922454519 Synovial cyst of popliteal space [[place]], left knee (M71.22) Active confirmed Problem 97115756 Chronic fatigue, unspecified (R53.82) Active confirmed Problem 07319189 Polydipsia (R63.1) Active confirmed Problem Neuropathy (372491315) Neuropathy (G62.9) Active confirmed Problem Hyperlipidaemia (68314519) Borderline hyperlipidemia (E78.5) Active confirmed Vital Signs Blood pressure diastolic 78 mm Hg 04/27/2025 Height 66 in 04/27/2025 Blood pressure systolic 124 mm Hg 04/27/2025 Weight 262.0 lbs 04/27/2025 BMI 42.28 kg/m2 04/27/2025 Encounters Encounter Location Date Provider Diagnosis [facility] [address] [place] [address] 04/10/2025 [facility] [address] [place] [address] 04/13/2025 [facility] [address] [place] [address] 04/16/2025 [facility] [address] [place] [address] 04/24/2025 [facility] [address] [place] [address] 04/25/2025 [facility] [address] [place] [address] 04/28/2025 [facility] [address] [place] [address] 03/12/2025 Morteza Hoy Positive occult stoo l blood test R19.5 [facility] [address] [facility] [place] [address] 03/13/2025 Morteza Elayne [facility] [address] [facility] [place] [address] 03/14/2025 Morteza Holly [facility] [address] [facility] [place] [address] 03/23/2025 Morteza Miky H [facility] [address] [facility] [place] [address] 03/27/2025 Morteza Elayne [facility] [address] [facility] [place] [address] 04/03/2025 Morteza Hoy Urinary frequency R3 5.0 [facility] [address] [facility] [place] [address] 01/05/2025 Morteza Elayne [facility] [address] [facility] [place] [address] 01/08/2025 Morteza Miky [facility] [address] [facility] [place] [address] 01/11/2025 Morteza Elayne [facility] [address] [facility] [place] [address] 01/24/2025 Morteza Hoy Dysuria R30.0 [facility] [address] [facility] [place] [address] 01/31/2025 Morteza Hoy [facility] [address] [facility] [place] [address] 03/09/2025 Morteza Hoy [facility] [address] [facility] [place] [address] 06/30/2024 Morteza Miky [facility] [address] [facility] [place] [address] 08/03/2024 Morteza Hoy Urinary frequency R3 5.0 [facility] [address] [facility] [place] [address] 08/08/2024 Morteza [facility] [address] [place] [address] 08/09/2024 Morteza srikanth [facility] [address] [place] [address] 11/22/2024 Morteza Hoy Urinary urgency R39. 15 ; Other fatigue R53.83 ; Other abnormal glucose R73.09 ; Borderline hyperlipidemia E78.5 and Encounter for screening for malignant neoplasm of rectum Z12.12 [facility] [address] [place] [address] 01/03/2025 Morteza srikanth [facility] [address] [place] [address] 05/16/[address] [facility] [address] [place] [address] 06/02/2024 Morteza [facility] [address] [place] [address] 04/10/2025 Morteza Hoy Urinary frequency R3 5.0 and Chronic obstructive pulmonary disease, unspecified J44.9 [facility] [address] [place] [address] 04/27/2025 Morteza Hoy UTI (urinary tract infection), uncomplicated N39.0 and Dysuria R30.0 [facility] [address] [place] [address] 06/02/2024 Morteza Hoy Urinary frequency R3 5.0 ; Obstructive sleep apnea (adult) (pediatric) G47.33 ; Essential (primary) hypertension I10 ; Unspecified osteoarthritis, unspecified site M19.90 and Polydipsia R63.1 Assessments Encounter Date Diagnosis (ICD Code) Assessment Notes Treatment Notes Treatment Clinical Notes Section Notes 06/02/2024 Urinary frequency (ICD-10 - R35.0) 06/02/2024 Obstructive sleep apnea (adult) (pediatric) (ICD-10 - G47.33) wearing mask 04/10/2025 Urinary frequency (ICD-10 - R35.0) 04/10/2025 Chronic obstructive pulmonary disease, unspecified (ICD-10 - J44.9) stable - no cough 04/27/2025 UTI (urinary tract infection), uncomplicated (ICD-10 [...] until they are finished. You can use [id number] acetaminophen or ibuprofen if needed for pain. You should follow up with your Primary Care Physician or return to clinic if not improving in the next 3-5 days. 08/03/2024 Urinary frequency (ICD-10 - R35.0) 11/22/2024 Urinary urgency (ICD-10 - R39.15) 01/24/2025 Dysuria (ICD-10 - R30.0) 03/12/2025 Positive occult stool blood test (ICD-10 - R19.5) 04/03/2025 Urinary frequency (ICD-10 - R35.0) 11/22/2024 Other fatigue (ICD-10 - R53.83) 04/27/2025 Dysuria (ICD-10 - R30.0) 06/02/2024 Essential (primary) hypertension (ICD-10 - I10) great control 06/02/2024 Unspecified osteoarthritis, unspecified site (ICD-10 - M19.90) stabel with meds 11/22/2024 Other abnormal glucose (ICD-10 - R73.09) 11/22/2024 Borderline hyperlipidemia (ICD-10 - E78.5) 06/02/2024 Polydipsia (ICD-10 - R63.1) treating for UTI 11/22/2024 Encounter for screening for malignant neoplasm [...] End Date MEDICARE [place] [address] [place] [address] [id number] Armando Sweet Self - patient is the insured O MEDICARE SUPPLEMEN T [address] [place] [address] [id number] Armando Sweet Self - patient is the [...] B02.9 atrial enlargement Surgical History Surgery Date(Month/Year) Neck Surgery Colonoscopy Partial Hysterectomy
--- OUTSIDE RECORDS SUMMARY | 2025-05-04 12:38 | XMS_ITS | Clinical Summary ---
Author Organization [facility] Address [id number] [address] [place] [address] Care Team Providers Care Content Creation Manager Name Role Phone Unavailable Primary Care Provider [...]
--- OUTSIDE RECORDS SUMMARY | 2025-05-04 12:38 | XMS_ITS | Encounter Summary ---
Author Organization [facility] Address [id number] [address] [place] [address] Care Team Providers Care Balling Machine Operator Name Role Phone Unavailable Primary Care Provider Unavailabl e Encounter Details Date Type Department Care Team (Late st Contact Info) Description 01/22/2021 Telephone [facility] [address] [place] [id number] Keisha Fair CMA Social History Tobacco Use [...]
--- OUTSIDE RECORDS SUMMARY | 2025-05-04 12:40 | XMS_ITS | CCD ---
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 Role Phone PHYSICIAN, DEFAULT Unavailable Unavailable [...] Provider Scotty Holly MD Primary Care Provider [phone] Kennedy Wharton MD Attending Provider Scotty Holly Primary Care Physician Tavo ALONZO Attending Unavailable Scotty Holly Referring Unavailable Scotty Holly MD Attending Provider [phone] Scotty Holly Admitting Unavailable Scotty Holly Attending Unavailable Kennedy Wharton Admitting Unavailable Kennedy Wharton Attending Unavailable Scotty Holly Admitting Unavailable Scotty Holly Attending Unavailable Allergies Allergy Classification Reported Allergen(s) Allergy Type Date of Onset Reaction(s) Facility (2 sources) Amoxicillin / Clavulanate; Translations: [Augmentin] Drug Allergy 11-01-201 7 [facility] Repository (2 sources) Cephalexin; Translations: [Keflex] Drug Allergy 7 [facility] Repository (1 source) natural latex rubber Drug allergy (disorder) [facility] Repository (2 sources) Theophylline; Translations: [theophylline] Drug Allergy 7 [facility] Repository (2 sources) Cephalexin; Translations: [cephalexin] Drug Allergy 8 Rash, Itching (finding) [facility] (1 source) Cephalexin Drug Allergy 8 Rash [facility] (3 sources) Latex; Translations: [Latex] Drug Intolerance 9 Rash, Itching, Weal (disorder) [facility] (1 source) Amoxicillin / Clavulanate; Translations: [amoxicillin-cl avulanate] Drug Allergy Weal (disorder) [facility] (1 source) Theophylline; Translations: [theophylline] Drug Allergy Weal (disorder) [facility] Medications Current Medications Medication Drug Class(es) Dates Sig (Normalized) Sig (Original) anthralin 10 mg/ml topical cream (1 source) Start: 11-29-2008 anthralin(DRITHOC JEANETTE HP 1 % TOPICAL) use [...] Date: 03/15/25 Status: Ordered Repeat number: 1 Blood-Glucose Meter kit (1 source) Start: 03-12-2025 Blood-Glucose Meter kit Active 1 March 12, 2025 12:00am fingerstick blood sugar ACHS budesonide 0.25 mg/ml inhalation suspension (1 source) [...] Date: 03/15/25 Status: Ordered Repeat number: 1 isopropyl alcohol 0.7 ml/ml medicated pad (1 source) Start: 03-12-2025 ketoconazole 20 mg/ml medicated shampoo (1 source) [...] Chronic Diabetes mellitus without complication (2 sources) Diabetes mellitus; Translations: [Type 2 diabetes mellitus without complications] Onset: 03-09-2025 03-15-2025 Chronic Disorders of lipid [...] D DEFICIENCY UNSPECIFIED] Onset: 04-30-2022 Chronic Other gastrointestinal disorders (1 source) Occult [...] Value Interpretation Reference Range Facility Urine Cultureon 04-13-2025 Bacteria identified Cx Nom (U) ORGANISM: Escherichia coli (ESBL) (O:ESCCOLESBL) [place] Count >100,000 Aerobic SIOBHAN Charge (NMIC56) ---- SUSCEPTIBILITY --- ORGANISM: O:ESCCOLESBL ANTIBIOTIC INTERPRETATION SIOBHAN Amikacin S <16 Amoxacillin/K Clavulanate S <8 Ampicillin R >16 Ampicillin/Sulbactam I 1616/8 Aztreonam R >16 Cefazolin R >16 Cefepime R >16 Ceftazidime R 4 Ceftazidime/Avibactam S <4 Ceftolozane/Tazobacta m S <2 Ceftriaxone R >32 Cefuroxime R >16 Ciprofloxacin S <0.25 Ertapenem S <0.5 Gentamicin R >8 Levofloxacin S <0.5 Meropenem S <1 Meropenem/Vaborbactam S <2 Nitrofurantoin S <32 Piperacillin/Tazobact am S <8 Tetracycline R >8 Tigecycline S <2 Tobramycin I 8 Trimethoprim/Sulfamet hoxazole R >2 S = SUSCEPTIBLE [...] RESISTANT TO ALL B-LACTAM DRUGS. PERFORMED BY: [place] [address] PATHOLOGIST HOSE INSPECTOR AND PATCHER NETTIE OLIVERA M.D. Normal [facility] Comment on above: Performed By: #### C UU #### [address] 36on 03-31-2025 36 Patient hasn't been seen since 2022 Normal [facility] Urine Cultureon 03-09-2025 Bacteria identified Cx Nom (U) ORGANISM: Escherichia coli (ESBL) (O:ESCCOLESBL) [place] Count >100,000 Aerobic SIOBHAN Charge (NMIC56) ---- [...] RESISTANT TO ALL B-LACTAM DRUGS. PERFORMED BY: [place] [address] PATHOLOGIST HOSE INSPECTOR AND PATCHER NETTIE OLIVERA M.D. Normal [facility] Comment on above: Performed By: #### C UU #### [address] Urine cultureOrdered By: Marin Wharton on 03-09-2025 Bacteria identified Cx Nom (U) Escherichia coli (ESBL) Abnormal [facility] Urine Cultureon 01-03-2025 Bacteria identified Cx Nom (U) ORGANISM: Escherichia coli (O:ESCCOL) [place] Count >100,000 Aerobic SIOBHAN Charge (NMIC56) ---- [...] <2 Tobramycin S <2 Trimethoprim/Sulfamet hoxazole S 22/ S = SUSCEPTIBLE I = INTERMEDIATE R [...] RESISTANT TO ALL B-LACTAM DRUGS. PERFORMED BY: [place] [address] PATHOLOGIST HOSE INSPECTOR AND PATCHER RENETTA ALONZO M.D. Normal [facility] Comment on above: Performed By: #### C UU #### [address] Urine cultureOrdered By: Héctor Holly on 01-03-2025 Bacteria identified Cx Nom (U) Escherichia coli Abnormal [facility] ECHOCARDIO M/2D COMPLETEon 0 10-07-2022 ECHOCARDIO M/2D COMPLETE Patient: ARMANDO SWEET Exam Date: 10/07/2022 : 1950 Gender:F Ordering : DR MIRACLE HUERTAS M.D. Admission #: [id number] Family : DR SCOTTY HOLLY . Order #: [id number] CLICK HERE TO VIEW EXAM ECHOCARDIOGRAM REPORT [...] Huertas M.D. on 10/07/2022 at 20:22 Normal [facility] INSULINon 04-30-2022 Insulin 14.5 uIU/mL Normal 2.6-24.9 [facility] Comment on above: Performed By: #### I NSULIN #### [facility] [address] [place] [address] Dr. Vicki Muro OCC BLD IMMUNO SCREENon 04-02 OCCULT BLOOD Negative Normal NEGATIVE [facility] Comment on above: Performed By: #### I NSULIN #### [facility] [address] [place] [address] Dr. Vicki Muro T4, T3U, FTI LABCORPon 04-30 Free Thyroxine Index 1.9 Normal 1.2-4.9 [facility] Comment on above: Performed By: #### T HYLC #### [facility] [address] [place] [address] Dr. Vicki Muro T3 Uptake 25 % Normal 24-39 [facility] Comment on above: Performed By: #### T HYLC #### [facility] [address] [address] [address] Vicki Muro T4 [Mass/Vol] 7.5 ug/dL Normal 4.5-12.0 [facility] Comment on above: Performed By: #### T HYLC #### [facility] [address] [address] [address] Vicki Muro VIT D 25-OH LABCORPon 2021 Vitamin D, 25-Hydroxy 54.8 ng/mL Normal 30.0-100.0 [facility] Comment on above: Result Comment: Ghislaine min D deficiency has been defined by the Icard of Medicine and an Endocrine Society practice guideline as a level of serum 25-OH vitamin D less than 20 ng/mL (1,2). The Endocrine Society went on to further define vitamin D insufficiency as a level between 21 and 29 ng/mL (2). 1. IOM (Icard of Medicine). 2010. Dietary reference intakes for calcium and D. [place]: The National Academies Press. 2. [place] MF, Michael NC, Gaby JACOBS, et al. Evaluation, treatment, and prevention of vitamin D deficiency: an Endocrine Society clinical practice guideline. JCEM. 2010; 96(7):1911-30. Performed By: #### I NSULIN #### [facility] [address] [place] [address] Dr. Vicki Muro BNPon 04-29-2022 Natriuretic peptide B (Bld) [Mass/Vol] 350.0 pg/mL Normal <=900.0 [facility] Comment on above: Performed By: #### L IPID, CMP, BNP, TSH #### [facility] [address] [address] [address] Vicki Muro CBC AUTO DIFFon 04-29-2022 BASO # 0.0 103/ul Normal 0.0-0.1 [facility] Comment on above: Performed By: #### I NSULIN #### [facility] [address] [address] [address] Vicki Muro Basophils/100 WBC (Bld) 0.8 % Normal 0.2-2.0 [facility] Comment on above: Performed By: #### I NSULIN #### [facility] [address] [place] [address] Dr. Vicki Muro EO # 0.1 103/ul Normal 0.0-0.7 [facility] Comment on above: Performed By: #### I NSULIN #### [facility] [address] [place] [address] Dr. Vicki Muro Eosinophils/100 WBC (Bld) 2.4 % Normal 0.9-7.0 [facility] Comment on above: Performed By: #### I NSULIN #### [facility] [address] [place] [address] Dr. Vicki Muro Erythrocyte distribution width (RBC) [Ratio] 12.7 % Normal 11.0-15.0 [facility] Comment on above: Performed By: #### I NSULIN #### [facility] [address] [place] [address] Dr. Vicki Muro Hematocrit (Bld) [Volume fraction] 39.1 % Normal 36.0-48.0 [facility] Comment on above: Performed By: #### I NSULIN #### [facility] [address] [place] [address] Dr. Vicki Muro Hemoglobin (Bld) [Mass/Vol] 13.0 g/dL Normal 12.0-16.0 [facility] Comment on above: Performed By: #### I NSULIN #### [facility] [address] [place] [address] Dr. Vicki Muro IG # 0.01 10e3/ul Normal 0.00-0.03 [facility] Comment on above: Performed By: #### I NSULIN #### [facility] [address] [place] [address] Dr. Vicki Muro IG % 0.2 % Normal 0.0-0.5 [facility] Comment on above: Performed By: #### I NSULIN #### [facility] [address] [place] [address] Dr. Vicki Mruo LYMPH # 1.6 103/ul Normal 1.2-3.8 [facility] Comment on above: Performed By: #### I NSULIN #### [facility] [address] [address] [address] Vicki Muro Lymphocytes/100 WBC (Bld) 29.5 % Normal 20.5-60.0 [facility] Comment on above: Performed By: #### I NSULIN #### [facility] [address] [address] [address] Vicki Muro MANUAL DIFF REQ NO Normal [facility] Comment on above: Performed By: #### I NSULIN #### [facility] [address] [place] [address] Dr. Vicki Muro MCH (RBC) [Entitic mass] 29.7 pg Normal 26.7-34.0 [facility] Comment on above: Performed By: #### I NSULIN #### [facility] [address] [place] [address] Dr. Vicki Muro MCHC (RBC) [Mass/Vol] 33.2 g/dL Normal 29.9-35.2 [facility] Comment on above: Performed By: #### I NSULIN #### [facility] [address] [place] [address] Dr. Vicki Muro MCV (RBC) [Entitic vol] 89.3 fL Normal 81.0-99.0 [facility] Comment on above: Performed By: #### I NSULIN #### [facility] [address] [place] [address] Dr. Vicki Muro MONO # 0.4 103/ul Normal 0.3-0.8 [facility] Comment on above: Performed By: #### I NSULIN #### [facility] [address] [place] [address] Dr. Vicki Muro Monocytes/100 WBC (Bld) 6.6 % Normal 1.7-12.0 [facility] Comment on above: Performed By: #### I NSULIN #### [facility] [address] [place] [address] Dr. Vicki Muro NEUT # 3.2 103/ul Normal 1.4-6.5 [facility] Comment on above: Performed By: #### I NSULIN #### [facility] [address] [address] [address] Vicki Muro Neutrophils/100 WBC (Bld) 60.5 % Normal 43.0-75.0 [facility] Comment on above: Performed By: #### I NSULIN #### [facility] [address] [address] [address] Vicki Muro Platelet mean volume (Bld) [Entitic vol] 10.0 fL Normal 9.5-13.5 [facility] Comment on above: Performed By: #### I NSULIN #### [facility] [address] [address] [address] Vicki Muro PLT 212 103/ul Normal 150-450 [facility] Comment on above: Performed By: #### I NSULIN #### [facility] [address] [place] [address] Dr. Vicki Muro RBC 4.38 106/ul Normal 4.20-5.40 [facility] Comment on above: Performed By: #### I NSULIN #### [facility] [address] [address] [address] Vicki Muro WBC 5.3 103/ul Normal 4.0-11.0 [facility] Comment on above: Performed By: #### I NSULIN #### [facility] [address] [place] [address] Dr. Vicki Muro GLYCOHEMOGLOBIN A1Con 2021 ADA RECOMMENDATION SEE BELOW Normal [facility] Comment on above: Result Comment: ADA RECOMMENDED LIMIT 4.0 - 6.0 ADA THERAPEUTIC TARGET < 7.0 ACTION SUGGESTED > 7.0 Performed By: #### I NSULIN #### [facility] [address] [place] [address] Dr. Vicki Muro Glucose [Mass/Vol] 126 mg/dL Normal [facility] Comment on above: Performed By: #### I NSULIN #### [facility] [address] [address] [address] Vicki Muro HbA1c (Bld) [Mass fraction] 6.0 % Normal 4.5-6.2 [facility] Comment on above: Performed By: #### I NSULIN #### [facility] [address] [address] [address] Vicki Muro IRONon 04-29-2022 Iron [Mass/Vol] 63.0 ug/dL Normal 50.0-170.0 [facility] Comment on above: Performed By: #### I SIERRA #### [facility] [address] [address] [address] Vicki Muro LIPID PROFILEon 04-29-2022 CHOL-HDL RATIO NORM SEE BELOW Normal [facility] Comment on above: Result Comment: 3.3 - 4.4 LOW RISK 4.4 - 7.1 AVERAGE RISK 7.1 - 11.0 MODERATE RISK >11.0 HIGH RISK Performed By: #### L IPID, CMP, BNP, TSH #### [facility] [address] [address] [address] Vicki Muro Cholesterol [Mass/Vol] 179 mg/dL Normal <=200 [facility] Comment on above: Performed By: #### L IPID, CMP, BNP, TSH #### [facility] [address] [address] [address] Vicki Muro Cholesterol in HDL [Mass/Vol] 53 mg/dL Normal 40-60 [facility] Comment on above: Performed By: #### L IPID, CMP, BNP, TSH #### [facility] [address] [address] [address] Vicki Muro Cholesterol in LDL [Mass/Vol] 85.8 mg/dL Normal [facility] Comment on above: Performed By: #### L IPID, CMP, BNP, TSH #### [facility] [address] [address] [address] Vicki Muro Cholesterol.total/Ch olesterol in HDL [Mass ratio] 3.4 {ratio} Normal [facility] Comment on above: Performed By: #### L IPID, CMP, BNP, TSH #### [facility] [address] [address] [address] Vicki Muro HDL NORMAL > or = 60 mg/dl - LO W CARDIOVASCULAR RISK <40 mg/dl - HIGH CARDIOVASCULAR RISK Normal [facility] Comment on above: Performed By: #### L IPID, CMP, BNP, TSH #### [facility] [address] [address] [address] Vicki Muro LDL CALC NORMAL SEE BELOW Normal [facility] Comment on above: Result Comment: <100 mg/dl OPTIMAL 100 - 129 mg/dl NEAR OR ABOVE OPTIMAL 130 - 159 mg/dl BORDERLINE HIGH 160 - 189 mg/dl HIGH >190 mg/dl VERY HIGH Performed By: #### L IPID, CMP, BNP, TSH #### [facility] [address] [address] [address] Vicki Muro Triglyceride [Mass/Vol] 201 mg/dL Critically high <=150 [facility] Comment on above: Performed By: #### L IPID, CMP, BNP, TSH #### [facility] [address] [address] [address] Vicki Muro VLDL CALC 40.2 mg/dL Normal [facility] Comment on above: Performed By: #### L IPID, CMP, BNP, TSH #### [facility] [address] [address] [address] Vicki Mruo PROF 14(COMP METB)on 022 Albumin [Mass/Vol] 3.8 g/dL Normal 3.4-5.0 [facility] Comment on above: Performed By: #### L IPID, CMP, BNP, TSH #### [facility] [address] [address] [address] Vicki Muro Albumin/Globulin [Mass ratio] 1.0 {ratio} Normal [facility] Comment on above: Performed By: #### L IPID, CMP, BNP, TSH #### [facility] [address] [address] [address] Vicki Muro ALP [Catalytic activity/Vol] 108 U/L Normal 46-116 [facility] Comment on above: Performed By: #### L IPID, CMP, BNP, TSH #### [facility] [address] [address] [address] Vicki Muro ALT [Catalytic activity/Vol] 29 U/L Normal 14-59 [facility] Comment on above: Performed By: #### L IPID, CMP, BNP, TSH #### [facility] [address] [address] [address] Vicki Muro Anion gap [Moles/Vol] 13.1 mmol/L Normal [facility] Comment on above: Performed By: #### L IPID, CMP, BNP, TSH #### [facility] [address] [place] [address] Dr. iVcki Muro AST [Catalytic activity/Vol] 24 U/L Normal 15-37 [facility] Comment on above: Performed By: #### L IPID, CMP, BNP, TSH #### [facility] [address] [place] [address] Dr. Vicki Muro Bilirubin [Mass/Vol] 0.4 mg/dL Normal 0.2-1.0 [facility] Comment on above: Performed By: #### L IPID, CMP, BNP, TSH #### [facility] [address] [place] [address] Dr. Vicki Muro Calcium [Mass/Vol] 9.2 mg/dL Normal 8.5-10.1 [facility] Comment on above: Performed By: #### L IPID, CMP, BNP, TSH #### [facility] [address] [place] [address] Dr. Vicki Muro Chloride [Moles/Vol] 103 mmol/L Normal 98-107 [facility] Comment on above: Performed By: #### L IPID, CMP, BNP, TSH #### [facility] [address] [place] [address] Dr. Vicki Muro CO2 [Moles/Vol] 27.7 mmol/L Normal 21.0-32.0 [facility] Comment on above: Performed By: #### L IPID, CMP, BNP, TSH #### [facility] [address] [place] [address] Dr. Vicki Muro Creatinine [Mass/Vol] 0.81 mg/dL Normal 0.55-1.02 [facility] Comment on above: Performed By: #### L IPID, CMP, BNP, TSH #### [facility] [address] [address] [address] Vicki Muro EGFR-AF IVORIAN >60 Normal >=60 [facility] Comment on above: Performed By: #### L IPID, CMP, BNP, TSH #### [facility] [address] [address] [address] Vicki Muro EGFR-NON AF IVORIAN >60 Normal >=60 [facility] Comment on above: Performed By: #### L IPID, CMP, BNP, TSH #### [facility] [address] [address] [address] Vicki Muro Globulin (S) [Mass/Vol] 3.8 g/dL Normal [facility] Comment on above: Performed By: #### L IPID, CMP, BNP, TSH #### [facility] [address] [address] [address] Vicki Muro Glucose [Mass/Vol] 132 mg/dL Critically high 74-106 [facility] Comment on above: Performed By: #### L IPID, CMP, BNP, TSH #### [facility] [address] [address] [address] Vicki Muro Potassium [Moles/Vol] 3.8 mmol/L Normal 3.5-5.1 [facility] Comment on above: Performed By: #### L IPID, CMP, BNP, TSH #### [facility] [address] [address] [address] Vicki Muro Protein [Mass/Vol] 7.6 g/dL Normal 6.4-8.2 [facility] Comment on above: Performed By: #### L IPID, CMP, BNP, TSH #### [facility] [address] [address] [address] Vicki Muro Sodium [Moles/Vol] 140 mmol/L Normal 136-145 [facility] Comment on above: Performed By: #### L IPID, CMP, BNP, TSH #### [facility] [address] [address] [address] Vicki Muro Urea nitrogen [Mass/Vol] 10.0 mg/dL Normal 7.0-18.0 [facility] Comment on above: Performed By: #### L IPID, CMP, BNP, TSH #### [facility] [address] [address] [address] Vicki Muro Urea nitrogen/Creatinine [Mass ratio] 12.3 mg/mg Normal [facility] Comment on above: Performed By: #### L IPID, CMP, BNP, TSH #### [facility] [address] [address] [address] Vicki Muro TSHon 04-29-2022 TSH 2.265 uIU/mL Normal 0.358-3.740 [facility] Comment on above: Performed By: #### L IPID, CMP, BNP, TSH #### [facility] [address] [place] [address] Dr. Vicki Muro ECHOCARDIO M/2D COMPLETEon 0 12-30-2021 ECHOCARDIO M/2D COMPLETE Patient: ARMANDO SWEET Exam Date: 12/30/2021 : 1950 Gender:F Ordering : DR MIRACLE HUERTAS M.D. Admission #: [id number] Family : Order #: [id number] CLICK HERE TO VIEW EXAM ECHOCARDIOGRAM REPORT [...] Area(A4C): 21.80 cm2 Left Atrium Systolic Volume(A2C): 56602 mm3 Left Atrium Systolic Volume(A4C): 92150 mm3 Mitral Valve MV E to A [...] M.D. on 12/30/2021 at 15:20 Normal [facility] HEMOGRAM AND PLATELon 2021 Hematocrit (Bld) [Volume fraction] 39.8 % Normal 36.0-48.0 [facility] Comment on above: Performed By: #### H H #### [facility] [address] [address] [address] Vicki Muro Hemoglobin (Bld) [Mass/Vol] 13.0 g/dL Normal 12.0-16.0 [facility] Comment on above: Performed By: #### H H #### [facility] [address] [address] [address] Vicki Muro MCH (RBC) [Entitic mass] 30.2 pg Normal 26.7-34.0 [facility] Comment on above: Performed By: #### H H #### [facility] [address] [address] [address] Vicki Muro MCHC (RBC) [Mass/Vol] 32.7 g/dL Normal 29.9-35.2 [facility] Comment on above: Performed By: #### H H #### [facility] [address] [address] [address] Vicki Muro MCV (RBC) [Entitic vol] 92.6 fL Normal 81.0-99.0 [facility] Comment on above: Performed By: #### H H #### [facility] [address] [address] [address] Vicki Muro PLT 194 103/ul Normal 150-450 [facility] Comment on above: Performed By: #### H H #### [facility] [address] [address] [address] Vicki Muro RBC 4.30 106/ul Normal 4.20-5.40 [facility] Comment on above: Performed By: #### H H #### [facility] [address] [address] [address] Vicki Muro WBC 4.7 103/ul Normal 4.0-11.0 [facility] Comment on above: Performed By: #### H H #### [facility] [address] [address] [address] Vicki Muro LIPID PROFILEon 10-29-2021 CHOL-HDL RATIO NORM SEE BELOW Normal [facility] Comment on above: Result Comment: 3.3 - 4.4 LOW RISK 4.4 - 7.1 AVERAGE RISK 7.1 - 11.0 MODERATE RISK >11.0 HIGH RISK Performed By: #### I NSULIN #### [facility] [address] [address] [address] Vicki Muro Cholesterol [Mass/Vol] 193 mg/dL Normal <=200 [facility] Comment on above: Performed By: #### I NSULIN #### [facility] [address] [address] [address] Vicki Muro Cholesterol in HDL [Mass/Vol] 55 mg/dL Normal [facility] Comment on above: Performed By: #### I NSULIN #### [facility] [address] [address] [address] Vicki Muro Cholesterol in LDL [Mass/Vol] 97.2 mg/dL Normal [facility] Comment on above: Performed By: #### I NSULIN #### [facility] [address] [address] [address] Vicki Muro Cholesterol.total/Ch olesterol in HDL [Mass ratio] 3.5 {ratio} Normal [facility] Comment on above: Performed By: #### I NSULIN #### [facility] [address] [address] [address] Vicki Muro HDL NORMAL > or = 60 mg/dl - LO W CARDIOVASCULAR RISK <40 mg/dl - HIGH CARDIOVASCULAR RISK Normal [facility] Comment on above: Performed By: #### I NSULIN #### [facility] [address] [address] [address] Vicki Muro LDL CALC NORMAL SEE BELOW Normal [facility] Comment on above: Result Comment: <100 mg/dl OPTIMAL 100 - 129 mg/dl NEAR OR ABOVE OPTIMAL 130 - 159 mg/dl BORDERLINE HIGH 160 - 189 mg/dl HIGH >190 mg/dl VERY HIGH Performed By: #### I NSULIN #### [facility] [address] [address] [address] Vicki Muro Triglyceride [Mass/Vol] 204 mg/dL Critically high <=150 [facility] Comment on above: Performed By: #### I NSULIN #### [facility] [address] [place] [address] Dr. Vicki Muro VLDL CALC 40.8 mg/dL Normal [facility] Comment on above: Performed By: #### I NSULIN #### [facility] [address] [place] [address] Dr. Vicki Muro PROF 14(COMP METB)on 022 Albumin [Mass/Vol] 3.6 g/dL Normal 3.5-5.0 [facility] Comment on above: Performed By: #### I NSULIN #### [facility] [address] [place] [address] Dr. Vicki Muro Albumin/Globulin [Mass ratio] 1.0 {ratio} Normal [facility] Comment on above: Performed By: #### I NSULIN #### [facility] [address] [place] [address] Dr. Vicki Muro ALP [Catalytic activity/Vol] 92 U/L Normal 38-126 [facility] Comment on above: Performed By: #### I NSULIN #### [facility] [address] [place] [address] Dr. Vicki Muro ALT [Catalytic activity/Vol] 30 U/L Normal 9-52 [facility] Comment on above: Performed By: #### I NSULIN #### [facility] [address] [address] [address] Vicki Muro Anion gap [Moles/Vol] 11.3 mmol/L Normal [facility] Comment on above: Performed By: #### I NSULIN #### [facility] [address] [place] [address] Dr. Vicki Muro AST [Catalytic activity/Vol] 23 U/L Normal 14-36 [facility] Comment on above: Performed By: #### I NSULIN #### [facility] [address] [address] [address] Vicki Muro Bilirubin [Mass/Vol] 0.4 mg/dL Normal 0.2-1.3 [facility] Comment on above: Performed By: #### I NSULIN #### [facility] [address] [place] [address] Dr. Vicki Muro Calcium [Mass/Vol] 9.0 mg/dL Normal 8.4-10.2 [facility] Comment on above: Performed By: #### I NSULIN #### [facility] [address] [place] [address] Dr. Vicki Muro Chloride [Moles/Vol] 104 mmol/L Normal 98-107 [facility] Comment on above: Performed By: #### I NSULIN #### [facility] [address] [place] [address] Dr. Vicki Muro CO2 [Moles/Vol] 25.9 mmol/L Normal 22.0-30.0 [facility] Comment on above: Performed By: #### I NSULIN #### [facility] [address] [place] [address] Dr. Vicki Muro Creatinine [Mass/Vol] 0.86 mg/dL Normal 0.52-1.04 [facility] Comment on above: Performed By: #### I NSULIN #### [facility] [address] [place] [address] Dr. Vicki Muro EGFR-AF IVORIAN >60 Normal >=60 [facility] Comment on above: Performed By: #### I NSULIN #### [facility] [address] [place] [address] Dr. Vicki Muro EGFR-NON AF IVORIAN >60 Normal >=60 [facility] Comment on above: Performed By: #### I NSULIN #### [facility] [address] [address] [address] Vicki Muro Globulin (S) [Mass/Vol] 3.6 g/dL Normal [facility] Comment on above: Performed By: #### I NSULIN #### [facility] [address] [address] [address] Vicki Muro Glucose [Mass/Vol] 119 mg/dL Critically high 74-106 T [facility] Comment on above: Performed By: #### I NSULIN #### [facility] [address] [place] [address] Dr. Vicki Muro Potassium [Moles/Vol] 4.4 mmol/L Normal 3.4-5.0 [facility] Comment on above: Performed By: #### I NSULIN #### [facility] [address] [address] [address] Vicki Muro Protein [Mass/Vol] 7.2 g/dL Normal 6.1-8.2 [facility] Comment on above: Performed By: #### I NSULIN #### [facility] [address] [place] [address] Dr. Vicki Muro Sodium [Moles/Vol] 137 mmol/L Normal 137-145 [facility] Comment on above: Performed By: #### I NSULIN #### [facility] [address] [address] [address] Vicki Muro Urea nitrogen [Mass/Vol] 14.0 mg/dL Normal 7.0-17.0 [facility] Comment on above: Performed By: #### I NSULIN #### [facility] [address] [place] [address] Dr. Vicki Muro Urea nitrogen/Creatinine [Mass ratio] 16.3 mg/mg Normal [facility] Comment on above: Performed By: #### I NSULIN #### [facility] [address] [place] [address] Dr. Vicki Muro Encounters Encounter Date Encounter Type Care Provider Facility Start: 04-13-2025 End: 04-13-2025 ambulatory Scotty Holly [facility] Work Phone: Start: 04-13-2025 End: 04-13-2025 Departed Referred Scotty Andersen MD [facility] Start: 03-29-2025 End: 03-29-2025 ambulatory Tavo Olman [place] Facility:[facility] Start: 03-29-2025 End: 03-29-2025 Patient encounter procedure Tavo Thurman SANGITASyed [facility] Start: 03-13-2025 ambulatory Tavo [place] Facility:[facility] Start: 03-09-2025 End: 03-09-2025 ambulatory Kennedy Wharton [facility] Work Phone: Start: 03-09-2025 End: 03-09-2025 Departed Referred Kennedy Wharton MD [facility] Start: 01-27-2025 End: 02-01-2025 Transcribe Orders Scotty Holly MD Work Phone: Referring Physician Comment on above: Hypertension, unspec ified type (Primary Dx); Hyperlipidemia, unspecified hyperlipidemia type Start: 01-03-2025 End: 01-03-2025 ambulatory Scotty Holly [facility] Work Phone: Start: 01-03-2025 End: 01-03-2025 Departed Referred Scotty Holly MD Work Phone: [facility] Start: 11-17-2023 [...] End: 08-10-2018 Patient encounter procedure DEFAULT PHYSICIAN Facility:[facility] Start: 06-03-2018 End: 06-04-2018 Patient encounter procedure DEFAULT PHYSICIAN Facility:[facility] Procedures Date Procedure Procedure Detail Performing Clinician Start: 03-09-2025 Urine culture Kennedy juarez MD Work Phone: Start: 01-03-2025 Urine culture Scotty chamorro MD Work Phone: Start: 06-01-2010 Colonoscopy Tavo SMITH History of surgical procedure on cervical spine Tavo ALONZO Hysterectomy Tavo ALONZO Plan of Treatment Date Care Activity Detail Author Start: 2027 RSV Vaccine (1 - 1-dose 75+ series) RSV Vaccine (1 - 1-dose 75+ series) [facility] Start: 05-01-2025 Influenza vaccination Influenza Vaccine (Season Ended) [facility] Start: 04-13-2025 Bacteria identified in Urine by Culture Urine Culture [facility] Start: 04-13-2025 Urine culture [facility] Start: 03-09-2025 Bacteria identified in Urine by Culture Urine Culture [facility] Start: 03-09-2025 Urine culture [facility] Start: 01-03-2025 Bacteria identified in Urine by Culture Urine Culture [facility] Start: 01-03-2025 Urine culture [facility] Start: 08-31-2024 Advance Directive Discussion Advance Directive Discussion [facility] Start: 05-01-2024 Covid-19 Vaccine ( season) Covid-19 Vaccine ( season) [facility] Start: 2017 Screening for osteoporosis Bone Density Screening [facility] Start: 08-16-2011 Diabetes Screening Diabetes Screening [facility] Start: 2002 Pneumococcal Vaccine: 50+ (1 of 1 - PCV) Pneumococcal Vaccine: 50+ (1 of 1 - PCV) [facility] Start: 2002 Shingrix Vaccine (1 of 2) Shingrix Vaccine (1 of 2) [facility] Start: 1997 Lipid panel Lipid Screening [facility] Start: 1997 Screening for malignant neoplasm of colon [facility] Start: 1992 Screening for malignant neoplasm of breast Mammogram Screening [facility] Start: 1971 Urine microalbumin profile DTaP,Tdap,Td Vaccine (1 - Tdap) [facility] Start: 1970 Anxiety Screening Anxiety Screening [facility] Start: 1970 Depression Screening Depression Screening [facility] Start: 1970 Hepatitis C screening Hepatitis C Screening [facility] Payers Date Payer Category Payer Medicare [id number] 2025 Private Health Insurance [id number] 2025 Self-pay 2024 Medicare (Managed Care) [employer] MEDICARE [id number] 2005 Private Health Insurance [employer] [id number] 1959 Medicare [id number] 1959 Unknown [id number] 1952 Unknown [id number] [id number]. 2.647 1952 Unknown [id number] 2.16.840.1.501451.3.579. 2.647 1952 Unknown [id number] 2.16.840.1.720520.3.579. 2.593 1952 Unknown [id number] 2.16.840.1.642719.3.579. 2.593 1952 Unknown [id number] 2.16.840.1.732961.3.579. 2.593 1952 Unknown [id number] 2.16.840.1.246852.3.579. 2.593 1952 Unknown [id number] 2.16.840.1.488217.3.579. 2.593 1952 Unknown [id number] 2.16.840.1.504804.3.579. 2.1259 1952 Unknown [id number] 2.16.840.1.590379.3.579. 2.727 Private Health Insurance [employer] [id number] Unknown Unknown [id number] [id number]. 2.531 Unknown [id number] 2.16.840.1.538426.3.579. 2.531 Unknown [id number] 2.16.840.1.714511.3.579. 2.531 Social History Date Type Detail Facility [facility] ever [facility] Start: 12-12-2009 End: 01-05-2025 Sex Female (finding) [facility] Start: 1950 Sex Assigned At Female [facility] Start: 1950 Sex assigned at Not on file [facility] Gender identity Not on file [facility] Tobacco smoking status [facility] Medical Equipment Procedure Code Equipment Code Equipment Origin al Text Equipment Identifier Dates Blood Sugar Diagnostic strip Start: 03-12-2025 Lancets misc Start: 03-12-2025 Evaluation + Plan note Note Date & Type Note Facility Evaluation + Plan note No data available for this section [facility] Evaluation note Note Date & Type Note Facility Evaluation note No assessment information availa ble [facility] Work Phone: Evaluation note Note Date & Type Note Facility Evaluation note Diagnosis Hypertension, unspecified type- Primary Hyperlipidemia, unspecified hyperlipidemia type documented in this encounter [facility] Discharge instructions Note Date & Type Note Facility Hospital Discharge instructions No data available for this section [facility] Progress note Note Date & Type Note Facility Progress note No data available for this section [facility] Reason for referral (narrative) Note Date & Type Note Facility Reason for referral (narrative) No reason for referral information available [facility] Work Phone: Summary Purpose Family History [...] section and content) DATE CREATED AUTHOR 08/11/2018 [facility] DATE CREATED AUTHOR AUTHOR'S ORGANIZ ATION 10/10/2022 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 Specialty Start Date End Date Scotty Holly MD PCP - General 05/08/08 Team Status: Inactive Member Role Status Dates Kennedy Wharton MD Attending Provider Active St art: March 09, 2025 End: March 09, 2025 Team Status: Inactive Member Role Status Dates Scotty Holly MD Attending Provider Active Sta rt: April 13, 2025 End: April 13, 2025 Goals (unrecognized section and content) Goals may be documented in a n alternate sectionGoals may be documented in an alternate section No data available for this sectionGoals may be documented in an alternate section Source Comments (unrecognize d section and content) In the event this informatio n is protected by the Federal Confidentiality of Alcohol and Drug Abuse Patient Records regulations: The Federal rules restrict any use of the information to criminally investigate or prosecute any alcohol or drug abuse patient.[facility] FOR RECORDS PERTAINING TO [...] BE BASED ON THE PRIMARY CLINICAL RECORDS. [facility]. provides no warranty or guarantee of the accuracy or completeness of information in this document.
== END 2025-05-04 12:36 | disposition home or self-care (01) ==
LOC: US 12:35
PROVIDERS: PCP Family Medicine; Visit Provider Family Medicine
DX: R35.0 Frequency of micturition (principal); N20.0 Calculus of kidney
CPT/HCPCS: 76770

== ENCOUNTER 2025-05-09 12:51 | Outpatient (OUT) | payer MEDICARE, SELFPAY ==
--- OUTSIDE RECORDS SUMMARY | 2025-04-24 10:58 | XMS_ITS ---
Author Organization The [facility] in [place] Address [address] [place] [address] Care Team Providers Care Global Marketing Coordinator Name Role Phone Morteza Holly Primary Care Provider [phone] REASON FOR VISIT refill Medications Medication SIG (Take, Route, Fr equency, Duration) Notes Start Date End Date Status tiZANidine HCl 4 MG 1 tablet at bedtime as needed Orally Once a day for 30 days 04/03/2025 Ac tive Encounters Encounter Location Date Provider Diagnosis [facility] [address] [place] [address] 04/24/2025 Morteza Holly Plan Of Treatment Medication Medication Name Sig Start Date Stop Date Notes tiZANidine HCl 4 MG 1 tablet at bedtime as needed Orally Once a day for 30 days 04/03/2025 Progress Notes * Hilary COOKDOB: [birth year] (74 yo F)Acc No.[id number]:04/24/2025 Patient: Zarina Hilary RICHARD :1950 A ge:74 Y S ex:Female Address:[address] [place] [address], [address] * Refills Refill tiZANidine HCl Tablet, 4 MG, Orally, 30, 1 tablet at bedtime as needed, Once a day, 30 days, Refills=11 * true * Date: Generated for Printi ng/Faxing/eTransmitting on: 0 2025 12:53 PM EDT
--- OUTSIDE RECORDS SUMMARY | 2025-04-27 09:30 | XMS_ITS ---
Author Organization The [facility] in [place] Address [address] [place] [address] Care Team Providers Care Awning Hanger Supervisor Name Role Phone Morteza Holly Primary Care Provider [phone] Allergies Allergen (clinical drug ingredient) Drug/Non Drug [...] ago- has repeat urine set up for [facility] and US renal/ bladder next Medications [...] last smoked? > 10 years Vital Signs Weight 262.0 lbs 04/27/2025 Height 66 in 04/27/2025 Blood pressure systolic 124 mm Hg 04/27/20 25 Blood pressure diastolic 78 mm Hg 025 BMI 42.28 kg/m2 04/27/2025 Encounters Encounter Location Date Provider Diagnosis [address] [address] 04/27/2025 Morteza Hoy UTI (urinary tract infection), [...] until they are finished. You can use mcuc-ecz-xqczsrx acetaminophen or ibuprofen if needed for pain. [...] until they are finished. You can use zwwo-jeu-asugqkg acetaminophen or ibuprofen if needed for pain. You should follow up with your Primary Care Physician or return to clinic if not improving in the next 3-5 days. Next Appt Details Follow Up: 3-5 days if no im provement, Reason: Progress Notes * Hilary COOKDOB: [birth year] (74 yo F)Acc No.[id number]:04/27/2025 Progress Note Patient: Hilary GARCES Provider: Adam Holly ([facility])MD :1950 A ge:74 Y S ex:Female Date:04/27/2025 Address:[address], [place], [id number] Check In:01:13 PM ESTCheck O ut:02:05 PM [...] omiting d enies. G enitourinary: Comments S [facility] for details. S kin: Rash d enies. [...] Modifiers: QW * Preventive Medicine: Screenings/Counseling: B IN ACTION PLAN Above Normal BMI Follow-up D ietary management education, guidance, and counseling * Follow Up: 3 -5 days if no improvement * * Sign off status: Completed Visit Status: C HK (Check Out) true * Provider: Adam Holly ([facility])MD Date: 0 04/27/2025 Generated for Roxyi linwood/Amaury/eTransmitting on: 0 2025 12:53 PM EDT History and Physical Notes * [...]
--- OUTSIDE RECORDS SUMMARY | 2025-04-28 09:45 | XMS_ITS ---
Author Organization The [facility] in [place] Address [address] [place] [address] Care Team Providers Care Java Systems Analyst Name Role Phone Morteza Holly Primary Care Provider REASON FOR VISIT rf potassium Medications Medication SIG (Take, Route, Frequency, Duration) Notes Start Date End Date Status Potassium Chloride ER 10 MEQ 1 tablet with food Orally Twice a day for 90 days Active Encounters Encounter Location Date Provider Diagnosis [facility] [address] [place] [address] 04/28/2025 Morteza Holly Plan Of Treatment Medication Medication Name Sig Start Date Stop Date Notes Potassium Chloride ER 10 MEQ 1 tablet wi th food Orally Twice a day for 90 days Progress Notes * Hilary COOKDOB: [birth year] (74 yo F)Acc No.[id number]:04/28/2025 Patient: Zarina Hilary RICHARD :1950 A ge:74 Y S ex:Female Address:[address] [place], [address] * Refills Refill Potassium Chloride ER Tablet Extended Release, 10 MEQ, Orally, 180 Tablet, 1 tablet with food, Twice a day, 90 days, Refills=3 * true * Date: Generated for Damaris palumbo/Moirag/eTransmitting on: 0 2025 12:54 PM EDT
--- OUTSIDE RECORDS SUMMARY | 2025-05-04 12:40 | XMS_ITS ---
Author Organization [facility] [place] Address [address] [place] [address] Care Team Providers Care Residential Case Manager Name Role Phone ElayneMorteza Primary Care Provider REASON FOR VISIT us kidney bladder Encounters Encounter Location Date Provider Diagnosis [facility] [address] [place] [address] 05/04/2025 Morteza Holly Low back pain at multiple sites M54.50 Assessments Encounter Date Diagnosis (ICD Code) Assessment Notes Treatment Notes Treatment Clinical Notes Section Notes 05/04/2025 Low back pain at multiple sites (ICD-10 - M54.50) Plan Of Treatment Pending Test Test Name Order Date XR Spine Lumbosacral 2 or 3 Views 2024 MRI Lumbar Spine w/o contrast 05/04/2025 Progress Notes * Hilary COOKDOB: [birth year] (74 yo F)Acc No.[id number]:05/04/2025 Patient: Zarina Hilary RICHARD :1950 A ge:74 Y S ex:Female Address:[address] [place], [address] Subjective: * Chief Complaints: * U s kidney bladder * Medical History: * Surgical History: * Hospitalization/Major Diagno stic Procedure: * Medications: Objective: * Vitals: * Physical Examination: Assessment: * Assessment: 1. L ow back pain at multiple sites - M54.50 (Primary) Plan: * Treatment: * Procedure Codes: * true * Date: Generated for Damaris palumbo/Amaury/Abel on: 0 2025 12:53 PM EDT
--- OUTSIDE RECORDS SUMMARY | 2025-05-09 12:53 | XMS_ITS | Clinical Summary ---
Author Organization [facility] Address [address] [place] [address] Care Team Providers Care Habilitative Interventionist Name Role Phone Jamie Holly MD Primary Care Provider [phone] Allergies Active Allergy Reactions Criticality Noted Date [...] of Treatment Not on file Insurance MEDICARE [employer] Care Teams Habilitative Interventionist Relationship Specialty Start Date End Date Jamie Holly MD [address] [place] [address] PCP - General Family Medicine 11/17/23
--- OUTSIDE RECORDS SUMMARY | 2025-05-09 12:53 | XMS_ITS | Clinical Summary ---
Author Organization [facility] Address [address] [place], [place] [address] Care Team Providers Care Population Geneticist Name Role Phone Jamie Holly MD Primary Care Provider [phone] Allergies Active Allergy Reactions Criticality Noted Date [...] 08/16/2008 11:05 AM EST Alopecia Areata Aftercare Fpc Use Medicatn from Last 3 Months or Most Recently Relevant to Health Maintenance Results * COMP METABOLIC PANEL (08/16/2008 11:05 AM EST) Protein, Total 7.4 6.0 - 8.4 g/dL [facility] Albumin 4.3 3.5 - 5.0 g/dL [facility] Calcium 9.6 8.5 - 10.5 mg/dL [facility] Bilirubin, Total 0.2 0.0 - 1.5 mg/dL [facility] Alkaline Phosphatase 100 40 - 150 U/L [facility] AST 24 7 - 40 U/L [facility] Glucose 96 65 - 100 mg/dL [facility] BUN 11 8 - 25 mg/dL [facility] Creatinine 0.77 0.70 - 1.40 mg/dL [facility] Sodium 139 132 - 148 mmol/L [facility] Potassium 4.8 3.5 - 5.0 mmol/L [facility] Chloride 104 98 - 110 mmol/L [facility] CO2 26 23 - 32 mmol/L [facility] Anion Gap 9 0 - 15 mmol/L [facility] ALT 20 0 - 45 U/L [facility] eGFR- >60 [facility] eGFR-All Other Races >60 [facility] Comment: eGFR (Estimated GFR) Units [...] Sue Yoo MD LABORATORY Final Resul t [facility] [address] [facility] [place] [address] from Last 3 Months or Most Recently Relevant to Health Maintenance Insurance [employer] MEDICARE Care Teams Population Geneticist Relationship Specialty Start Date End Date Jamie Holly MD PCP - General 05/08/08
--- OUTSIDE RECORDS SUMMARY | 2025-05-09 12:53 | XMS_ITS | Patient Health Record ---
Author Organization [facility] in [place] Address [address] [place] [address] Care Team Providers Care Renewable Energy Technician Name Role Phone Morteza Holly Primary Care [...] ESTERASE (KAREEM) + NEG - NEG MG/DL US renal bladder Reviewed date:05/04/2025 04:40:58 PM Interpretation: Performing Lab: Notes/Report: Source Facility: [place] [address] Ultrasound Report Signed Patient: ARMANDO SWEET MR#: [id number] : 1950 Acct:[id number] Age/Sex: 74 / F ADM Date: 05/04/25 Loc: US Attending Dr: Scotty Holly M.D. Ordering Physician: Scotty Holly M.D. Date of Service: 05/04/25 Procedure(s): US renal bladder Accession Number(s): [id number] cc: Scotty Holly M.D. [place] [address] Patient Name: ARMANDO SWEET MRN: [id number] date: 1950 Sex: F Assigned Patient Location: US Current Patient Location: US Accession/Order Number: [id number] Exam Date: 05/04/2025 12:40 Report Date: 05/04/2025 13:24 At the request of: SCOTTY HOLLY MD Procedure: US renal bladder BILATERAL RENAL AND BLADDER ULTRASOUND CLINICAL HISTORY: Urinary Frequency COMPARISON: None Estimation of renal size is approximately 8.8 cm on the right and 10.7 cm on the left. There is an echogenic focus with twinkle artifact at the inferior pole of the left kidney that may be a stone. It is approximately 3 - 4 mm in size. No hydronephrosis is identified. No renal mass lesions were imaged. There is no perinephric fluid. The urinary bladder is partially distended with a volume of 43 mL. No obvious contour or intraluminal abnormalities are seen. Bilateral ureteral jets are visualized. US/US renal bladder IMPRESSION: NO OBSTRUCTIVE UROPATHY. POSSIBLE LEFT NEPHROLITHIASIS. Impression dictated by: Rosa Isela Coello M.D. 05/04/2025 1:24 PM Dictation Location: [place] [address] Electronically authenticated by: [id number] Y Date: 05/04/2025 13:24 Dictated By: Rosa Isela Coello M.D. Signed By: 05/04/25 1326 DD/ 1324 TD/TT: Occupational Therapy Professor: [address] [address] Ultrasound Report Signed Patient: DO RICO SWEET MR#: [id number] : 1950 Acct:[id number] Age/Sex: 74 / F ADM Date: 05/04/25 Loc: US Attending Dr: Raghu Holly M.D. Ordering Physician: Scotty Holly M.D. Date of Service: 05/04/25 Procedure(s): US anuja al bladder Accession Number(s): [id number] cc: Scotty Holly M.D. [place] [id number] Patient Name: ARMANDO SWEET MRN: [id number] date: 1950 Sex: F Assigned Patient Location: US Current Patient Loca tion: US Accession/Order Numb er: [id number] Exam Date: 05/04/2025 12:40 Report Date: 05/04/2025 13:24 At the request of: SCOTTY HOLLY MD Procedure: US renal bladder BILATERAL RENAL AND BLADDER ULTRASOUND CLINICAL HISTORY: Ur inary Frequency COMPARISON: None Estimation of renal size is approximately 8.8 cm on the right and 10.7 cm on the left. There is a n echogenic focus with twinkle artifact at the inferior pole of the left gilda salvador that may be a stone. It is approximately 3 - 4 mm in size. No hydronephro sis is identified. No renal mass lesions were imaged. There is no perineph ene fluid. The urinary bladder is partially distended with a volume of 43 mL. No obvious contour or intralumi nal abnormalities are seen. Bilateral ureteral jets are visualized. U S/US renal bladder IMPRESSION: NO OBSTRUCTIVE UROPATHY. POSSIBLE LEFT NEPHROLITHIASIS. Impression dictated by: Rosa Isela Coello M.D. 05/04/2025 1:24 PM Dictation Location: [place] [address] Electronically authenticated by: [id number] Y Date: 05/04/2025 13:24 Dictated By: Rosa Isela Coello M.D. Signed By: 05/04/25 1326 DD/ 1324 TD/TT: Occupational Therapy Professor: [facility] RANDOM W or MICROSCOPIC Reviewed date:01/03/2025 02:56:40 PM Interpretation: Performing Lab: Notes/Report: [facility] , Color Urine LT. YELLOW YELLOW Clarity Urine SL CLOUDY CLEAR Specific [place] Urine 1.020 1.005-1.025 pH Urine 6.0 5.0-9.0 [...] ORDERED Performing Lab: see note ML - [facility] LB Occult Blood* Reviewed date:03/12/2025 04:17:26 PM Interpretation: Performing Lab: Notes/Report: [facility] , Occult Blood Positive Performing Lab: see note - [facility] LB Urine Culture - [facility] Reviewed date:03/14/2025 08:59:32 PM Interpretation: Performing Lab: Notes/Report: [facility] , Urine Culture - [facility] See Below For Report Isolated Urine Culture - FR Antibiotic Interpretation SIOBHAN Status O:ESBLPESCL Testing performed at [facility] [place] Count Organism: 1.1 Urine Culture - FR Urine Culture - FR [address], [place] [address] Isolated Urine Culture - [facility] Antibiotic Interpretation SIOBHAN Status O:ESBLPESCL Testing performed at [facility] [place] Count Organism: 1.1 Urine Culture - FR Urine Culture - [facility] See Below For Report Isolated Urine Culture - FR Antibiotic Interpretation SIOBHAN Status O:ESBLPESCL Testing performed at [facility] [place] Count Organism: 1.1 Urine Culture - FR Urine Culture - [facility] See Below For Report Isolated Urine Culture - [facility] Antibiotic Interpretation SIOBHAN Status O:ESBLPESCL Testing performed at [facility] [place] Count Organism: 1.1 Urine Culture - [facility] Urine Culture - [facility] >100,000 Isolated Urine Culture - [facility] Antibiotic Interpretation SIOBHAN Status O:ESBLPESCL Testing performed at [facility] [place] Count Organism: 1.1 Urine Culture - [facility] Urine Culture - [facility] See Below For Report Isolated Urine Culture - [facility] Antibiotic Interpretation SIOBHAN Status O:ESBLPESCL Testing performed at [facility] [place] Count Organism: 1.1 Urine Culture - [facility] Urine Culture - [facility] Amikacin S F Isolated Urine Culture - [facility] Antibiotic Interpretation SIOBHAN Status O:ESBLPESCL Testing performed at [facility] [place] Count Organism: 1.1 Urine Culture - [facility] Urine Culture - [facility] Amoxicillin/Clavula vibha S F Isolated Urine Culture - [facility] Antibiotic Interpretation SIOBHAN Status O:ESBLPESCL Testing performed at [facility] [place] Count Organism: 1.1 Urine Culture - [facility] Urine Culture - [facility] Ampicillin R F Isolated Urine Culture - [facility] Antibiotic Interpretation SIOBHAN Status O:ESBLPESCL Testing performed at [facility] [place] Count Organism: 1.1 Urine Culture - [facility] Urine Culture - [facility] Aztreonam R F Isolated Urine Culture - [facility] Antibiotic Interpretation SIOBHAN Status O:ESBLPESCL Testing performed at [facility] [place] Count Organism: 1.1 Urine Culture - [facility] Urine Culture - [facility] Ceftazidime R F Isolated Urine Culture - [facility] Antibiotic Interpretation SIOBHAN Status O:ESBLPESCL Testing performed at [facility] [place] Count Organism: 1.1 Urine Culture - [facility] Urine Culture - [facility] Ceftazidime/Avibactam S F Isolated Urine Culture - [facility] Antibiotic Interpretation SIOBHAN Status O:ESBLPESCL Testing performed at [facility] [place] Count Organism: 1.1 Urine Culture - [facility] Urine Culture - [facility] Ceftolozane/Tazobac iqbal S F Isolated Urine Culture - [facility] Antibiotic Interpretation SIOBHAN Status O:ESBLPESCL Testing performed at [facility] [place] Count Organism: 1.1 Urine Culture - [facility] Urine Culture - [facility] Ciprofloxacin I F Isolated Urine Culture - [facility] Antibiotic Interpretation SIOBHAN Status O:ESBLPESCL Testing performed at [facility] [place] Count Organism: 1.1 Urine Culture - [facility] Urine Culture - [facility] Ertapenem S F Isolated Urine Culture - [facility] Antibiotic Interpretation SIOBHAN Status O:ESBLPESCL Testing performed at [facility] [place] Count Organism: 1.1 Urine Culture - [facility] Urine Culture - [facility] Gentamicin R F Isolated Urine Culture - [facility] Antibiotic Interpretation SIOBHAN Status O:ESBLPESCL Testing performed at [facility] [place] Count Organism: 1.1 Urine Culture - [facility] Urine Culture - [facility] Levofloxacin S F Isolated Urine Culture - [facility] Antibiotic Interpretation SIOBHAN Status O:ESBLPESCL Testing performed at [facility] [place] Count Organism: 1.1 Urine Culture - [facility] Urine Culture - [facility] Meropenem S F Isolated Urine Culture - [facility] Antibiotic Interpretation SIOBHAN Status O:ESBLPESCL Testing performed at [facility] [place] Count Organism: 1.1 Urine Culture - [facility] Urine Culture - [facility] Meropenem/Vaborbact am S F Isolated Urine Culture - [facility] Antibiotic Interpretation SIOBHAN Status O:ESBLPESCL Testing performed at [facility] [place] Count Organism: 1.1 Urine Culture - [facility] Urine Culture - [facility] Nitrofurantoin S F Isolated Urine Culture - [facility] Antibiotic Interpretation SIOBHAN Status O:ESBLPESCL Testing performed at [facility] [place] Count Organism: 1.1 Urine Culture - [facility] Urine Culture - [facility] Tetracycline R F Isolated Urine Culture - [facility] Antibiotic Interpretation SIOBHAN Status O:ESBLPESCL Testing performed at [facility] [place] Count Organism: 1.1 Urine Culture - [facility] Urine Culture - [facility] Tigecycline S F Isolated Urine Culture - [facility] Antibiotic Interpretation SIOBHAN Status O:ESBLPESCL Testing performed at [facility] [place] Count Organism: 1.1 Urine Culture - [facility] Urine Culture - [facility] Tobramycin R F Isolated Urine Culture - [facility] Antibiotic Interpretation SIOBHAN Status O:ESBLPESCL Testing performed at [facility] [place] Count Organism: 1.1 Urine Culture - [facility] Urine Culture - [facility] Ampicillin/Sulbactam I F Isolated Urine Culture - [facility] Antibiotic Interpretation SIOBHAN Status O:ESBLPESCL Testing performed at [facility] [place] Count Organism: 1.1 Urine Culture - [facility] Urine Culture - [facility] Cefazolin R F Isolated Urine Culture - [facility] Antibiotic Interpretation SIOBHAN Status O:ESBLPESCL Testing performed at [facility] [place] Count Organism: 1.1 Urine Culture - [facility] Urine Culture - [facility] Cefepime R F Isolated Urine Culture - FR Antibiotic Interpretation SIOBHAN Status O:ESBLPESCL Testing performed at [facility] [place] Count Organism: 1.1 Urine Culture - [facility] Urine Culture - [facility] Ceftriaxone R F Isolated Urine Culture - [facility] Antibiotic Interpretation SIOBHAN Status O:ESBLPESCL Testing performed at [facility] [place] Count Organism: 1.1 Urine Culture - FR Urine Culture - FR Cefuroxime R F Isolated Urine Culture - FR Antibiotic Interpretation SIOBHAN Status O:ESBLPESCL Testing performed at [facility] [place] Count Organism: 1.1 Urine Culture - [facility] Urine Culture - FR Piperacillin/Tazoba ctam S F Isolated Urine Culture - FR Antibiotic Interpretation SIOBHAN Status O:ESBLPESCL Testing performed at [facility] [place] Count Organism: 1.1 Urine Culture - FR Urine Culture - FR Trimethoprim/Sulfa R F Isolated Urine Culture - [facility] Antibiotic Interpretation SIOBHAN Status O:ESBLPESCL Testing performed at [facility] [place] Count Organism: 1.1 Urine Culture - [facility] Performing Lab: see note SEE REPORT - Printed Circuit Board Assembly Repairer Id information not found for OBX-specific type proof reproducer legend ML - [facility] LB PROF 14(COMP METB) Reviewed date:03/12/2025 04:17:26 PM Interpretation: Performing Lab: Notes/Report: [facility] , Sodium 136 136-145 mmol/L Potassium [...] Globulin Ratio 0.7 Performing Lab: see note - [facility] CBC no Diff (Hemogram) Reviewed date:03/12/2025 04:17:26 PM Interpretation: Performing Lab: Notes/Report: [facility] , White Blood Count 11.6 4.0-11.0 [...] 9.5-13.5 fL Performing Lab: see note - [facility] CA echo doppler complete Reviewed date:03/12/2025 04:17:26 PM Interpretation: Performing Lab: Notes/Report: Source Facility: [place] [address] Cardiology Report Signed Patient: ARMANDO SWEET MR#: [id number] : 1950 Acct:[id number] Age/Sex: 74 / F ADM Date: 03/08/25 Loc: [place] 222-[address]: Urban Holden M.D. Ordering Physician: Urban Holden M.D. Date of Service: 03/09/25 Procedure(s): CA echo doppler complete Accession Number(s): [id number] cc: Scotty Holly M.D.; Urban Holden M.D. Patient Name: ARMANDO SWEET MR#: [id number] : 1950 Exam Date: 03/09/2025 Ordering Doctor: [...] Area (VTI): 1.87 cm2, 1.87 cm2 Deceleration Kay: Pressure Half-Time: Peak Velocity(Antegrade Flow): 2.11 m/s, [...] By: Amelia Avila M.D. Signed By: 03/10/25 175 DD/ 1749 TD/TT: Occupational Therapy Professor: [place] [address] Cardiology Report Signed Patient: DO RICO SWEET MR#: [id number] : 1950 Acct:[id number] Age/Sex: 74 / F ADM Date: 03/08/25 Loc: [place] 222-[address]: Urban Holden M.D. Ordering Physician: Urban Holden M.D. Date of Service: 03/09/25 Procedure(s): CA ech o doppler complete Accession Number(s): [id number] cc: Scotty Holly M.D. ; Urban Holden M.D. Patient Name: ARMANDO SWEET MR#: [id number] : 1950 Exam Date: 03/09/2025 Ordering Doctor: [...] Area (VTI): 1.87 cm2, 1.87 cm2 Deceleration Kay: Pressure Half-Time: Peak Velocity(Antegr tomasa Flow): 2.11 [...] Right Atrium Systoli c Pressure: Dictated by: Aemlia Avila MD on 03/10/2025 at 17:39 Approved by: Amelia Avila MD on 03/10/2025 at 17:49 Dictated By: Amelia Avila M.D. Signed By: 03/10/25 6980 DD/ 892 TD/TT: Occupational Therapy Professor: [facility] RANDOM W or MICROSCOPIC Reviewed date:04/13/2025 04:49:25 PM Interpretation: Performing Lab: Notes/Report: [facility] , Color Urine LT. YELLOW YELLOW Clarity Urine CLEAR CLEAR Specific [place] Urine 1.015 1.005-1.025 pH Urine 5.5 5.0-9.0 [...] ORDERED Performing Lab: see note ML - [facility] LB Urine Culture - [facility] Reviewed date:04/17/2025 01:58:49 PM Interpretation: Performing Lab: Notes/Report: [facility] , Urine Culture - [facility] See Below For Report Organism: 1.1 [place] Urine Culture - [facility] Isolated Testing performed at [facility] O:ESBLPESCL Urine Culture - [facility] Antibiotic Interpretation SIOBHAN Status Urine Culture - [facility] [address], [place] [address] Organism: 1.1 [place] Urine Culture - [facility] Isolated Testing performed at [facility] O:ESBLPESCL Urine Culture - [facility] Antibiotic Interpretation SIOBHAN Status Urine Culture - [facility] See Below For Report Organism: 1.1 [place] Urine Culture - [facility] Isolated Testing performed at [facility] O:ESBLPESCL Urine Culture - [facility] Antibiotic Interpretation SIOBHAN Status Urine Culture - [facility] See Below For Report Organism: 1.1 [place] Urine Culture - [facility] Isolated Testing performed at [facility] O:ESBLPESCL Urine Culture - [facility] Antibiotic Interpretation SIOBHAN Status Urine Culture - [facility] >100,000 Organism: 1.1 [place] Urine Culture - [facility] Isolated Testing performed at [facility] O:ESBLPESCL Urine Culture - [facility] Antibiotic Interpretation SIOBHAN Status Urine Culture - [facility] See Below For Report Organism: 1.1 [place] Urine Culture - [facility] Isolated Testing performed at [facility] O:ESBLPESCL Urine Culture - [facility] Antibiotic Interpretation SIOBHAN Status Urine Culture - FR Amikacin S F Organism: 1.1 [place] Urine Culture - [facility] Isolated Testing performed at [facility] O:ESBLPESCL Urine Culture - [facility] Antibiotic Interpretation SIOBHAN Status Urine Culture - FR Amoxicillin/Clavula vibha S F Organism: 1.1 [place] Urine Culture - [facility] Isolated Testing performed at [facility] O:ESBLPESCL Urine Culture - [facility] Antibiotic Interpretation SIOBHAN Status Urine Culture - FR Ampicillin R F Organism: 1.1 [place] Urine Culture - [facility] Isolated Testing performed at [facility] O:ESBLPESCL Urine Culture - [facility] Antibiotic Interpretation SIOBHAN Status Urine Culture - FR Aztreonam R F Organism: 1.1 [place] Urine Culture - [facility] Isolated Testing performed at [facility] O:ESBLPESCL Urine Culture - [facility] Antibiotic Interpretation SIOBHAN Status Urine Culture - FR Ceftazidime R F Organism: 1.1 [place] Urine Culture - [facility] Isolated Testing performed at [facility] O:ESBLPESCL Urine Culture - [facility] Antibiotic Interpretation SIOBHAN Status Urine Culture - FR Ceftazidime/Avibactam S F Organism: 1.1 [place] Count Urine Culture - [facility] Isolated Testing performed at [facility] O:ESBLPESCL Urine Culture - [facility] Antibiotic Interpretation SIOBHAN Status Urine Culture - FR Ceftolozane/Tazobac iqbal S F Organism: 1.1 [place] Urine Culture - [facility] Isolated Testing performed at [facility] O:ESBLPESCL Urine Culture - [facility] Antibiotic Interpretation SIOBHAN Status Urine Culture - FR Ciprofloxacin S F Organism: 1.1 [place] Urine Culture - [facility] Isolated Testing performed at [facility] O:ESBLPESCL Urine Culture - [facility] Antibiotic Interpretation SIOBHAN Status Urine Culture - FR Ertapenem S F Organism: 1.1 [place] Urine Culture - [facility] Isolated Testing performed at [facility] O:ESBLPESCL Urine Culture - [facility] Antibiotic Interpretation SIOBHAN Status Urine Culture - FR Gentamicin R F Organism: 1.1 [place] Urine Culture - [facility] Isolated Testing performed at [facility] O:ESBLPESCL Urine Culture - [facility] Antibiotic Interpretation SIOBHAN Status Urine Culture - FR Levofloxacin S F Organism: 1.1 [place] Urine Culture - [facility] Isolated Testing performed at [facility] O:ESBLPESCL Urine Culture - FR Antibiotic Interpretation SIOBHAN Status Urine Culture - FR Meropenem S F Organism: 1.1 [place] Urine Culture - [facility] Isolated Testing performed at [facility] O:ESBLPESCL Urine Culture - [facility] Antibiotic Interpretation SIOBHAN Status Urine Culture - FR Meropenem/Vaborbactam S F Organism: 1.1 [place] Urine Culture - [facility] Isolated Testing performed at [facility] O:ESBLPESCL Urine Culture - [facility] Antibiotic Interpretation SIOBHAN Status Urine Culture - FR Nitrofurantoin S F Organism: 1.1 [place] Urine Culture - [facility] Isolated Testing performed at [facility] O:ESBLPESCL Urine Culture - [facility] Antibiotic Interpretation SIOBHAN Status Urine Culture - FR Tetracycline R F Organism: 1.1 [place] Urine Culture - [facility] Isolated Testing performed at [facility] O:ESBLPESCL Urine Culture - FR Antibiotic Interpretation SIOBHAN Status Urine Culture - FR Tigecycline S F Organism: 1.1 [place] Urine Culture - [facility] Isolated Testing performed at [facility] O:ESBLPESCL Urine Culture - FR Antibiotic Interpretation SIOBHAN Status Urine Culture - FR Tobramycin I F Organism: 1.1 [place] Urine Culture - [facility] Isolated Testing performed at [facility] O:ESBLPESCL Urine Culture - [facility] Antibiotic Interpretation SIOBHAN Status Urine Culture - FR Ampicillin/Sulbactam I F Organism: 1.1 [place] Urine Culture - [facility] Isolated Testing performed at [facility] O:ESBLPESCL Urine Culture - [facility] Antibiotic Interpretation SIOBHAN Status Urine Culture - FR Cefazolin R F Organism: 1.1 [place] Urine Culture - [facility] Isolated Testing performed at [facility] O:ESBLPESCL Urine Culture - [facility] Antibiotic Interpretation SIOBHAN Status Urine Culture - FR Cefepime R F Organism: 1.1 [place] Urine Culture - [facility] Isolated Testing performed at [facility] O:ESBLPESCL Urine Culture - [facility] Antibiotic Interpretation SIOBHAN Status Urine Culture - FR Ceftriaxone R F Organism: 1.1 [place] Count Urine Culture - [facility] Isolated Testing performed at [facility] O:ESBLPESCL Urine Culture - [facility] Antibiotic Interpretation SIOBHAN Status Urine Culture - FR Cefuroxime R F Organism: 1.1 [place] Count Urine Culture - FR Isolated Testing performed at [facility] O:ESBLPESCL Urine Culture - [facility] Antibiotic Interpretation SIOBHAN Status Urine Culture - FR Piperacillin/Tazoba ctam S F Organism: 1.1 [place] Count Urine Culture - FR Isolated Testing performed at [facility] O:ESBLPESCL Urine Culture - [facility] Antibiotic Interpretation SIOBHAN Status Urine Culture - FR Trimethoprim/Sulfa R F Organism: 1.1 [place] Count Urine Culture - FR Isolated Testing performed at [facility] O:ESBLPESCL Urine Culture - [facility] Antibiotic Interpretation SIOBHAN Status Performing Lab: see note SEE REPORT - [employer]ed [employer] Assembly Repairer Id information not found for OBX-specific type proof reproducer legend ML - [facility] LB UA Micro, reflex to culture Reviewed date:03/09/2025 06:51:33 PM Interpretation: Performing Lab: Notes/Report: [facility] , Color Urine LT. YELLOW YELLOW Clarity Urine CLEAR CLEAR Specific [place] Urine 1.015 1.005-1.025 pH Urine 6.0 5.0-9.0 [...] SEEN NONE SEEN #/LPF Urine Culture Indicated YES-[facility] Performing Lab: see note ML - [facility] LB CBC AUTO DIFF Reviewed date:03/09/2025 06:51:33 PM Interpretation: Performing Lab: Notes/Report: [facility] , White Blood Count 9.4 4.0-11.0 [...] 3/uL Performing Lab: see note ML - [facility] LB Urine Culture - FR Reviewed date:01/09/2025 08:52:33 PM Interpretation: Performing Lab: Notes/Report: [facility] , Urine Culture - FR See Below For Report Isolated Urine Culture - FR O:ESCCOL Testing performed at [facility] Antibiotic Interpretation SIOBHAN Status Urine Culture - FR Organism: 1.1 [place] Count Urine Culture - FR [address], [place] [address] Isolated Urine Culture - FR O:ESCCOL Testing performed at [facility] Antibiotic Interpretation SIOBHAN Status Urine Culture - FR Organism: 1.1 [place] Count Urine Culture - [facility] See Below For Report Isolated Urine Culture - [facility] O:ESCCOL Testing performed at [facility] Antibiotic Interpretation SIOBHAN Status Urine Culture - FR Organism: 1.1 [place] Count Urine Culture - [facility] See Below For Report Isolated Urine Culture - [facility] O:ESCCOL Testing performed at [facility] Antibiotic Interpretation SIOBHAN Status Urine Culture - FR Organism: 1.1 [place] Count Urine Culture - [facility] >100,000 Isolated Urine Culture - FR O:ESCCOL Testing performed at [facility] Antibiotic Interpretation SIOBHAN Status Urine Culture - [facility] Organism: 1.1 [place] Count Urine Culture - [facility] See Below For Report Isolated Urine Culture - FR O:ESCCOL Testing performed at [facility] Antibiotic Interpretation SIOBHAN Status Urine Culture - FR Organism: 1.1 [place] Count Urine Culture - [facility] Amikacin S F Isolated Urine Culture - FR O:ESCCOL Testing performed at [facility] Antibiotic Interpretation SIOBHAN Status Urine Culture - FR Organism: 1.1 [place] Count Urine Culture - [facility] Amoxicillin/Clavula vibha S F Isolated Urine Culture - [facility] O:ESCCOL Testing performed at [facility] Antibiotic Interpretation SIOBHAN Status Urine Culture - FR Organism: 1.1 [place] Count Urine Culture - [facility] Ampicillin S F Isolated Urine Culture - FR O:ESCCOL Testing performed at [facility] Antibiotic Interpretation SIOBHAN Status Urine Culture - [facility] Organism: 1.1 [place] Count Urine Culture - [facility] Aztreonam S F Isolated Urine Culture - [facility] O:ESCCOL Testing performed at [facility] Antibiotic Interpretation SIOBHAN Status Urine Culture - [facility] Organism: 1.1 [place] Count Urine Culture - [facility] Ceftazidime S F Isolated Urine Culture - [facility] O:ESCCOL Testing performed at [facility] Antibiotic Interpretation SIOBHAN Status Urine Culture - [facility] Organism: 1.1 [place] Count Urine Culture - [facility] Ceftazidime/Avibactam S F Isolated Urine Culture - [facility] O:ESCCOL Testing performed at [facility] Antibiotic Interpretation SIOBHAN Status Urine Culture - FR Organism: 1.1 [place] Count Urine Culture - [facility] Ceftolozane/Tazobac iqbal S F Isolated Urine Culture - FR O:ESCCOL Testing performed at [facility] Antibiotic Interpretation SIOBHAN Status Urine Culture - [facility] Organism: 1.1 [place] Count Urine Culture - [facility] Ciprofloxacin R F Isolated Urine Culture - FR O:ESCCOL Testing performed at [facility] Antibiotic Interpretation SIOBHAN Status Urine Culture - FR Organism: 1.1 [place] Count Urine Culture - [facility] Ertapenem S F Isolated Urine Culture - FR O:ESCCOL Testing performed at [facility] Antibiotic Interpretation SIOBHAN Status Urine Culture - FR Organism: 1.1 [place] Count Urine Culture - [facility] Gentamicin S F Isolated Urine Culture - FR O:ESCCOL Testing performed at [facility] Antibiotic Interpretation SIOBHAN Status Urine Culture - [facility] Organism: 1.1 [place] Count Urine Culture - [facility] Levofloxacin R F Isolated Urine Culture - FR O:ESCCOL Testing performed at [facility] Antibiotic Interpretation SIOBHAN Status Urine Culture - FR Organism: 1.1 [place] Count Urine Culture - FR Meropenem S F Isolated Urine Culture - FR O:ESCCOL Testing performed at [facility] Antibiotic Interpretation SIOBHAN Status Urine Culture - FR Organism: 1.1 [place] Count Urine Culture - FR Meropenem/Vaborbactam S F Isolated Urine Culture - FR O:ESCCOL Testing performed at [facility] Antibiotic Interpretation SIOBHAN Status Urine Culture - FR Organism: 1.1 [place] Count Urine Culture - [facility] Nitrofurantoin S F Isolated Urine Culture - FR O:ESCCOL Testing performed at [facility] Antibiotic Interpretation SIOBHAN Status Urine Culture - FR Organism: 1.1 [place] Count Urine Culture - [facility] Tetracycline R F Isolated Urine Culture - FR O:ESCCOL Testing performed at [facility] Antibiotic Interpretation SIOBHAN Status Urine Culture - FR Organism: 1.1 [place] Count Urine Culture - [facility] Tigecycline S F Isolated Urine Culture - [facility] O:ESCCOL Testing performed at [facility] Antibiotic Interpretation SIOBHAN Status Urine Culture - FR Organism: 1.1 [place] Count Urine Culture - [facility] Tobramycin S F Isolated Urine Culture - FR O:ESCCOL Testing performed at [facility] Antibiotic Interpretation SIOBHAN Status Urine Culture - FR Organism: 1.1 [place] Count Urine Culture - FR Ampicillin/Sulbactam S F Isolated Urine Culture - FR O:ESCCOL Testing performed at [facility] Antibiotic Interpretation SIOBHAN Status Urine Culture - FR Organism: 1.1 [place] Count Urine Culture - [facility] Cefazolin S F Isolated Urine Culture - FR O:ESCCOL Testing performed at [facility] Antibiotic Interpretation SIOBHAN Status Urine Culture - FR Organism: 1.1 [place] Count Urine Culture - [facility] Cefepime S F Isolated Urine Culture - FR O:ESCCOL Testing performed at [facility] Antibiotic Interpretation SIOBHAN Status Urine Culture - FR Organism: 1.1 [place] Count Urine Culture - FR Ceftriaxone S F Isolated Urine Culture - FR O:ESCCOL Testing performed at [facility] Antibiotic Interpretation SIOBHAN Status Urine Culture - [facility] Organism: 1.1 [place] Count Urine Culture - [facility] Cefuroxime S F Isolated Urine Culture - [facility] O:ESCCOL Testing performed at [facility] Antibiotic Interpretation SIOBHAN Status Urine Culture - [facility] Organism: 1.1 [place] Count Urine Culture - [facility] Piperacillin/Tazoba ctam S F Isolated Urine Culture - [facility] O:ESCCOL Testing performed at [facility] Antibiotic Interpretation SIOBHAN Status Urine Culture - [facility] Organism: 1.1 [place] Count Urine Culture - [facility] Trimethoprim/Sulfa S F Isolated Urine Culture - [facility] O:ESCCOL Testing performed at [facility] Antibiotic Interpretation SIOBHAN Status Urine Culture - [facility] Organism: 1.1 [place] Count Performing Lab: see note ML - [facility] LB SEE REPORT - [employer]ed [employer] Assembly Repairer Id information not found for OBX-specific type proof reproducer legend TSH Reviewed date:01/03/2025 02:56:40 PM Interpretation: Performing Lab: Notes/Report: [facility] , Thyroid Stimulating Hormone 2.788 0.358-3.740 uIU/mL Performing Lab: see note ML - [facility] LB T4 Reviewed date:01/03/2025 02:56:40 PM Interpretation: Performing Lab: Notes/Report: [facility] , T4 Thyroxine 8.20 4.80-13.90 ug/dL Performing Lab: see note - [facility] LB PROF 14(COMP METB) Reviewed date:01/03/2025 02:56:40 PM Interpretation: Performing Lab: Notes/Report: [facility] , Sodium 140 136-145 mmol/L Potassium [...] 0.9 Performing Lab: see note ML - [facility] LIPID PROFILE Reviewed date:01/03/2025 02:56:40 PM Interpretation: Performing Lab: Notes/Report: [facility] , Triglycerides 220 <=150 mg/dL Cholesterol [...] RISK Performing Lab: see note ML - [facility] GLYCOHEMOGLOBIN A1C Reviewed date:01/03/2025 02:56:40 PM Interpretation: Performing Lab: Notes/Report: [facility] , Glycohemoglobin A1C 6.3 4.5-6.2 % ADA THERAPEUTIC TARGET < 7.0 ACTION SUGGESTED > 7.0 ADA RECOMMENDED LIMIT 4.0 - 6.0 Estimated Average Glucose 134 Performing Lab: see note ML - [facility] FREE T3 Reviewed date:01/03/2025 02:56:40 PM Interpretation: Performing Lab: Notes/Report: [facility] , Free T3 3.08 2.18-3.98 pg/mL Performing Lab: see note ML - [facility] CBC AUTO DIFF Reviewed date:01/03/2025 02:56:40 PM Interpretation: Performing Lab: Notes/Report: [facility] , White Blood Count 4.6 4.0-11.0 [...] Performing Lab: see note ML - [facility] LB XR lumbar spine 2-3V Reviewed date:03/23/2025 05:03:13 PM Interpretation: Performing Lab: Notes/Report: Source Facility: [place] [address] [place] [address] XRay Report Signed Patient: ARMANDO SWEET MR#: [id number] : 1950 Acct:[id number] Age/Sex: 74 / F ADM Date: 03/23/25 Loc: ER Attending Dr: Ordering Physician: Manuela Tucker Date of Service: 03/23/25 Procedure(s): XR lumbar spine 2-3V Accession Number(s): [id number] cc: Manuela Tucker; Scotty Holly M.D. [place] [address] Patient Name: ARMANDO SWEET MRN: [id number] date: 1950 Sex: F Assigned Patient Location: ER Current Patient Location: ER Accession/Order Number: [id number] Exam Date: 03/23/2025 15:00 Report Date: 03/23/2025 [...] Herman M.D. 03/23/2025 3:02 PM Dictation Location: [place] [address] Electronically authenticated by: [id number] Y Date: 03/23/2025 15:02 Dictated By: Emir Herman D.O. Signed By: 03/23/25 1504 DD/ 1502 TD/TT: Occupational Therapy Professor: [place] [address] XRay Report Signed Patient: DO RICO SWEET MR#: [id number] : 1950 Acct:[id number] Age/Sex: 74 / F ADM Date: 03/23/25 Loc: ER Attending Dr: Ordering Physician: Manuela Tucker Date of Service: 03/23/25 Procedure(s): XR lum bar spine 2-3V Accession Number(s): [id number] cc: Manuela santiago; Scotty Holly M.D. The [address] [address] Patient Name: ARMANDO SWEET MRN: [id number] date: 1950 Sex: F Assigned Patient Location: ER Current Patient Loca tion: ER Accession/Order Numb er: [id number] Exam Date: 03/23/2025 15:00 Report Date: 03/23/2025 [...] Herman M.D. 03/23/2025 3:02 PM Dictation Location: [place] [address] Electronically authenticated by: [id number] Y Date: 03/23/2025 15:02 Dictated By: Donald Herman D.O. Signed By: 03/23/25 1504 DD/ 1502 TD/TT: Occupational Therapy Professor: XR hip LT 2V w/ pelvis Reviewed date:03/23/2025 05:03:13 PM Interpretation: Performing Lab: Notes/Report: Source Facility: [place] [address] XRay Report Signed Patient: ARMANDO SWEET MR#: [id number] : 1950 Acct:[id number] Age/Sex: 74 / F ADM Date: 03/23/25 Loc: ER Attending Dr: Ordering Physician: Manuela Tucker Date of Service: 03/23/25 Procedure(s): XR hip LT 2V w/ pelvis Accession Number(s): [id number] cc: Manuela Tucker; Scotty Holly M.D. [place] [id number] Patient Name: ARMANDO SWEET MRN: [id number] date: 1950 Sex: F Assigned Patient Location: ER Current Patient Location: ER Accession/Order Number: [id number] Exam Date: 03/23/2025 14:57 Report Date: 03/23/2025 14:59 At the request of: MANUELA TUCKER II PA Procedure: XR hip LT 2V w/ pelvis [...] Herman M.D. 03/23/2025 2:59 PM Dictation Location: [place] [address] Electronically authenticated by: [id number] Y Date: 03/23/2025 14:59 Dictated By: Emir Herman D.O. Signed By: 03/23/25 1501 DD/ 1459 TD/TT: Occupational Therapy Professor: [place] [address] XRay Report Signed Patient: DO RICO SWEET MR#: [id number] : 1950 Acct:[id number] Age/Sex: 74 / F ADM Date: 03/23/25 Loc: ER Attending Dr: Ordering Physician: Manuela Tucker Date of Service: 03/23/25 Procedure(s): XR hip LT 2V w/ pelvis Accession Number(s): [id number] cc: Manuela santiago; Scotty Holly M.D. The [place] [id number] Patient Name: ARMANDO SWEET MRN: [id number] date: 1950 Sex: F Assigned Patient Location: ER Current Patient Loca tion: ER Accession/Order Numb er: [id number] Exam Date: 03/23/2025 14:57 Report Date: 03/23/2025 14:59 At the request of: MANUELA TUCKER II PA Procedure: XR hip LT 2V w/ pelvis [...] Herman M.D. 03/23/2025 2:59 PM Dictation Location: [place] [address] Electronically authenticated by: [id number] Y Date: 03/23/2025 14:59 Dictated By: Donald Herman D.O. Signed By: 03/23/25 1501 DD/ 1459 TD/TT: Occupational Therapy Professor: XR KNEE LT 3V Reviewed date:03/23/2025 05:03:13 PM Interpretation: Performing Lab: Notes/Report: Source Facility: [place] [address] XRay Report Signed Patient: ARMANDO SWEET MR#: [id number] : 1950 Acct:[id number] Age/Sex: 74 / F ADM Date: 03/23/25 Loc: ER Attending Dr: Ordering Physician: Manuela Tucker Date of Service: 03/23/25 Procedure(s): XR knee LT 3V Accession Number(s): [id number] cc: Manuela Tucker; Scotty Holly M.D. [place] [id number] Patient Name: ARMANDO SWEET MRN: [id number] date: 1950 Sex: F Assigned Patient Location: ER Current Patient Location: ER Accession/Order Number: [id number] Exam Date: 03/23/2025 14:59 Report Date: 03/23/2025 15:00 At the request of: MANUELA CLARK Procedure: XR knee LT 3V 3 views left knee plain film COMPARISON: None HISTORY: Left knee pain ACUTE FINDINGS: No acute findings DEGENERATIVE CHANGE: Fqgu-zy-uwik contact medial degeneration. Moderate patellofemoral degeneration. SOFT TISSUE FINDINGS: Unremarkable JOINT EFFUSION: None POSTOP CHANGES: None BONE MINERALIZATION: Adequate XR/XR knee LT 3V IMPRESSION: Extensive left knee degeneration Impression dictated by: Emir Herman M.D. 03/23/2025 3:00 PM Dictation Location: [facility] [place] Electronically authenticated by: [id number] Y Date: 03/23/2025 15:00 Dictated By: Emir Herman D.O. Signed By: 03/23/25 1503 DD/ 1500 TD/TT: Occupational Therapy Professor: [place] [address] XRay Report Signed Patient: DO RICO SWEET MR#: [id number] : 1950 Acct:[id number] Age/Sex: 74 / F ADM Date: 03/23/25 Loc: ER Attending Dr: Ordering Physician: Manuela Tucker Date of Service: 03/23/25 Procedure(s): XR kne e LT 3V Accession Number(s): [id number] cc: Manuela santiago; Scotty Holly M.D. [place] [address] Patient Name: ARMANDO SWEET MRN: [id number] date: 1950 Sex: F Assigned Patient Location: ER Current Patient Loca tion: ER Accession/Order Numb er: [id number] Exam Date: 03/23/2025 14:59 Report Date: 03/23/2025 15:00 At the request of: MANUELA CLARK Procedure: XR knee LT 3V [address] ain film COMPARISON: None HISTORY: Left knee pain ACUTE FINDINGS: No a cute findings DEGENERATIVE CHANGE: Pcgm-jp-cbav contact medial degeneration. Moderate patellofemoral degeneration. SOFT TISSUE FINDINGS : Unremarkable JOINT EFFUSION: None POSTOP CHANGES: None BONE MINERALIZATION: Adequate X R/XR knee LT 3V IMPRESSION: Extensiv e left knee degeneration Impression dictated by: Emir Herman M.D. 03/23/2025 3:00 PM Dictation Location: [facility] [place] Electronically authenticated by: [id number] Y Date: 03/23/2025 15:00 Dictated By: Donald Herman D.O. Signed By: 03/23/25 1503 DD/ 99 TD/TT: Occupational Therapy Professor: XR chest 2V Reviewed date:03/09/2025 06:51:33 PM Interpretation: Performing Lab: Notes/Report: Source Facility: [place] [address] XRay Report Signed Patient: ARMANDO SWEET MR#: [id number] : 1950 Acct:[id number] Age/Sex: 74 / F ADM Date: 03/08/25 Loc: ER Attending Dr: Ordering Physician: Kennedy Wharton Date of Service: 03/08/25 Procedure(s): XR chest 2V Accession Number(s): [id number] cc: Kennedy Wharton; Scotty Holly M.D. [place] [address] Patient Name: ARMANDO SWEET MRN: [id number] date: 1950 Sex: F Assigned Patient Location: ED.MAIN Current Patient Location: ED.MAIN Accession/Order Number: [id number] Exam Date: 03/09/2025 00:11 Report Date: 03/09/2025 [...] Garsia M.D. 03/09/2025 12:12 AM Dictation Location: [place] [address] Electronically authenticated by: [id number] Y Date: 03/09/2025 00:12 Dictated By: Tommy Garsia M.D. Signed By: 03/09/25 0014 DD/ 001 TD/TT: Occupational Therapy Professor: [place] [address] XRay Report Signed Patient: DO RICO SWEET MR#: [id number] : 1950 Acct:[id number] Age/Sex: 74 / F ADM Date: 03/08/25 Loc: ER Attending Dr: Ordering Physician: Kennedy Wharton Date of Service: 03/08/25 Procedure(s): XR chest 2V Accession Number(s): [id number] cc: Kennedy Wharton; Scotty Holly M.D. [place] [address] Patient Name: ARMANDO SWEET MRN: [id number] date: 1950 Sex: F Assigned Patient Location: ED.MAIN Current Patient Loca tion: ED.MAIN Accession/Order Numb er: [id number] Exam Date: 03/09/2025 00:11 Report Date: 03/09/2025 [...] Garsia M.D. 03/09/2025 12:12 AM Dictation Location: [place] [address] Electronically authenticated by: [id number] Y Date: 03/09/2025 00:12 Dictated By: Lorraine Garsia M.D. Signed By: 03/09/25 0014 DD/ TD/TT: Occupational Therapy Professor: ECG 12 lead Reviewed date:03/14/2025 08:59:32 PM Interpretation: Performing Lab: Notes/Report: Source Facility: [place] [address] [place] [address] Electrocardiograph Report Signed Patient: ARMANDO SWEET MR#: [id number] : 1950 Acct:[id number] Age/Sex: 74 / F ADM Date: 03/08/25 Loc: [place] 222-[address]: Urban Holden M.D. Ordering Physician: Kennedy Wharton Date of Service: 03/08/25 Procedure(s): ECG 12 lead Accession Number(s): [id number] cc: [facility] Test Date: 2025-03-08 Pat Name: ARMANDO SWEET Department: Room: - Gender: Female Home Health Aide: : 1950 Requested By: [id number] Order Number: [id number] Reading MD: CASE MIR Measurements Intervals [place] Rate: 99 P: 43 AL: 160 QRS: -22 QRSD: 92 T: 110 QT: 342 QTc: 398 Interpretive Statements 1100 Sinus rhythm 5234 Left ventricular hypertrophy with repolarization abnormality 7202 Moderate left axis deviation 9150 abnormal ECG No previous ECG available for comparison Electronically Signed On 03-14-2025 13:00:47 EDT by CASE MIR Dictated By: Case Mir M.D. Signed By: 03/14/25 1300 DD/ 2324 TD/TT: Occupational Therapy Professor: [place] [address] Electrocardiograph Report Signed Patient: DO RICO SWEET MR#: [id number] : 1950 Acct:[id number] Age/Sex: 74 / F ADM Date: 03/08/25 Loc: [place] 222-[address]: Urban Holden M.D. Ordering Physician: Kennedy Wharton Date of Service: 03/08/25 Procedure(s): ECG 12 lead Accession Number(s): [id number] cc: [facility] Test Date: 2025-03-08 Pat Name: ARMANDO NELSON JENNIFER Department: 45 Room: - Gender: Female Home Health Aide: : 1950 Requ ested By: [id number] Order Number: [id number] Reading MD: CASE MIR Measurements Intervals [place] Rate: 99 P: 43 AL: 160 QRS: -22 QRSD: 92 T: 110 QT: 342 QTc: 398 Interpretive Statements 1100 Sinus rhythm 5234 Left ventricula r hypertrophy with repolarization abnormality 7202 Moderate left a xis deviation 9150 abnormal ECG No previous ECG avai lable for comparison Electronically Ines d On 03-14-2025 13:00:47 EDT by CASE MIR Dictated By: Case Mir M.D. Signed By: 03/14/25 1300 DD/ 2324 TD/TT: Occupational Therapy Professor: Troponin I High Sensitivity Reviewed date:03/09/2025 06:51:33 PM Interpretation: Performing Lab: Notes/Report: [facility] , Troponin I High Sensitivity 38.3 4.0-51.3 pg/mL NOTE: HIGH-SENSITIVITY TROPONIN ASSAY IS NOT INTENDED TO BE PERCENTILE OF cTnI DISTRIBUTION IN A REFERENCE POPULATION, REFERENCE LIMIT (URL) OF TROPONIN, DEFINED THE 99TH UNIVERSAL DEFINITION OF MYOCARDIAL INFARCTION. THE UPPER 99TH PERCENTILE = 51.4 PG/ML CUT-OFF POINTS HAVE BEEN ESTABLISHED BASED ON THE FOURTH HAS BEEN CONFIRMED THE DECISION THRESHOLD FOR MN WITH OTHER DIAGNOSTIC AND CLINICAL INFORMATION. DIAGNOSIS. USED IN ISOLATION BUT SHOULD BE INTERPRETED IN CONJUNCTION Performing Lab: see note ML - [facility] LB PROF CHEM 8 (BAS METB) Reviewed date:03/09/2025 06:51:33 PM Interpretation: Performing Lab: Notes/Report: [facility] , Sodium 134 136-145 mmol/L Potassium [...] mg/dL Performing Lab: see note ML - [facility] LB LACTATE or LACTIC ACID Reviewed date:03/09/2025 06:51:33 PM Interpretation: Performing Lab: Notes/Report: [facility] , Lactate/Lactic Acid 0.9 0.4-2.0 mmol/L Performing Lab: see note ML - [facility] LB D-DIMER Reviewed date:03/09/2025 06:51:33 PM Interpretation: Performing Lab: Notes/Report: [facility] , D Dimer 1.60 <=0.59 mg/L [...] Performing Lab: see note ML - [facility] LB BNP Reviewed date:03/09/2025 06:51:33 PM Interpretation: Performing Lab: Notes/Report: [facility] , NT Pro B Type Natriuretic Pept 1057.0 <=900.0 pg/mL Performing Lab: see note ML - [facility] Reason For Referral Diagnosis 1 Positive occult stoo l blood test (R19.5) Referral Organization [facility] Referring Provider First Name Morteza Referring Provider Last Name Elayne Referring Provider Speciality Family [facility] kendall Referred Provider Tavo Borrego Referred Provider [...] Problem Status W/U Status Risk Notes Problem 71292093 Essential (primary) hypertension (I10) Active confirmed Problem 58910666 Obstructive slee p apnea (adult) (pediatric) (G47.33) Active confirmed Problem Chronic obstructive pulmonary disease (85537767) Chronic obstructive pulmonary disease, unspecified (J44.9) Active confirmed Problem 65696853 Hyperlipidemia, unspecified (E78.5) Active confirmed Problem 34971982 Restless legs syndrome (G25.81) Active confirmed Problem 967632229 Nonrheumatic aortic (valve) insufficiency (I35.1) Active confirmed Problem 548786945 Unspecified asthma, uncomplicated (J45.909) Active confirmed Problem 42977114 Alopecia areata, unspecified (L63.9) Active confirmed Problem 979225712 Unspecified osteoarthritis, unspecified site (M19.90) Active confirmed Problem 44370772 Other cervical disc degeneration, unspecified cervical region (M50.30) Active confirmed Problem 760090409850046 Synovial cyst of popliteal space [[place]], right knee (M71.21) Active confirmed Problem 454273688717203 Synovial cyst of popliteal space [[place]], left knee (M71.22) Active confirmed Problem 21289437 Chronic fatigue, unspecified (R53.82) Active confirmed Problem 74725564 Polydipsia (R63.1) Active confirmed Problem Neuropathy (079849668) Neuropathy (G62.9) Active confirmed Problem Hyperlipidaemia (02976100) Borderline hyperlipidemia (E78.5) Active confirmed Vital Signs Blood pressure diastolic 78 mm Hg 04/27/2025 Height 66 in 04/27/2025 Blood pressure systolic 124 mm Hg 04/27/2025 Weight 262.0 lbs 04/27/2025 BMI 42.28 kg/m2 04/27/2025 Encounters Encounter Location Date Provider Diagnosis [address] [address] 06/02/2024 Morteza Hoy Urinary frequency R3 5.0 ; Obstructive sleep apnea (adult) (pediatric) G47.33 ; Essential (primary) hypertension I10 ; Unspecified osteoarthritis, unspecified site M19.90 and Polydipsia R63.[address] [address] 04/10/2025 Morteza Hoy Urinary frequency R3 5.0 and Chronic obstructive pulmonary disease, unspecified J44.[address] [address] 04/27/2025 Morteza Hoy UTI (urinary tract infection), uncomplicated N39.0 and Dysuria R30.0 [facility] [address] [place] [address] 05/16/2024 Morteza Holly [facility] [address] [facility] [place] [address] 06/02/2024 Morteza Holly [facility] [address] [place] [address] 06/30/2024 Morteza srikanth [facility] [address] [place] [address] 08/03/2024 Morteza Miky Urinary frequency R3 5.0 [facility] [address] [place] [address] 08/08/2024 Morteza [facility] [address] [place] [address] 08/09/2024 Morteza Holly [facility] [address] [place] [address] 11/22/2024 Morteza Hoy Urinary urgency R39. 15 ; Other fatigue R53.83 ; Other abnormal glucose R73.09 ; Borderline hyperlipidemia E78.5 and Encounter for screening for malignant neoplasm of rectum Z12.12 [facility] [address] [place] [address] 01/03/2025 Morteza srikanth [facility] [address] [place] [address] 01/05/2025 Morteza Holly [facility] [address] [place] [address] 01/08/2025 Morteza [facility] [address] [place] [address] 01/11/2025 Morteza [facility] [address] [place] [address] 01/24/2025 Morteza Hoy Dysuria R30.0 [facility] [address] [place] [address] 01/31/2025 Morteza srikanth [facility] [address] [place] [address] 03/09/2025 Morteza Housersrikanth [facility] [address] [facility] [place] [address] 03/12/2025 Morteza oHlly Positive occult stoo l blood test R19.5 [facility] [address] [facility] [place] [address] 03/13/2025 Morteza Housersrikanth [facility] [address] [facility] [place] [address] 03/14/2025 Morteza Miksrikanth [facility] [address] [facility] [place] [address] 03/23/2025 Morteza Holly [facility] [address] [facility] [place] [address] 03/27/2025 Morteza Housersrikanth [facility] [address] [facility] [place] [address] 04/03/2025 Morteza Holly Urinary frequency R3 5.0 [facility] [address] [facility] [place] [address] 04/10/2025 Morteza Miksrikanth [facility] [address] [facility] [place] [address] 04/13/2025 Morteza Housersrikanth [facility] [address] [facility] [place] [address] 04/16/2025 Morteza Holly [facility] [address] [facility] [place] [address] 04/24/2025 Morteza Holly [facility] [address] [facility] [place] [address] 04/25/2025 Morteza Holly [facility] [address] [facility] [place] [address] 04/28/2025 Morteza Holly [facility] [address] [facility] [place] [address] 05/04/2025 Morteza Holly Low back pain at [facility] sites M54.50 Assessments Encounter Date Diagnosis (ICD Code) Assessment Notes Treatment Notes Treatment Clinical Notes Section Notes 06/02/2024 Obstructive sleep apnea (adult) (pediatric) (ICD-10 - G47.33) wearing mask 06/02/2024 Urinary frequency (ICD-10 - R35.0) 04/10/2025 Chronic obstructive pulmonary disease, unspecified (ICD-10 - J44.9) stable - no cough 04/10/2025 Urinary frequency (ICD-10 - R35.0) 04/27/2025 UTI (urinary tract infection), uncomplicated (ICD-10 [...] until they are finished. You can use [id number] acetaminophen or ibuprofen if needed for pain. You should follow up with your Primary Care Physician or return to clinic if not improving in the next 3-5 days. 08/03/2024 Urinary frequency (ICD-10 - R35.0) 11/22/2024 Urinary urgency (ICD-10 - R39.15) 01/24/2025 Dysuria (ICD-10 - R30.0) 03/12/2025 Positive occult stool blood test (ICD-10 - R19.5) 04/03/2025 Urinary frequency (ICD-10 - R35.0) 05/04/2025 Low back pain at multiple sites (ICD-10 - M54.50) 11/22/2024 Other fatigue (ICD-10 - R53.83) 04/27/2025 Dysuria (ICD-10 - R30.0) 06/02/2024 Essential (primary) hypertension (ICD-10 - I10) great control 06/02/2024 Unspecified osteoarthritis, unspecified site (ICD-10 - M19.90) stabel with meds 11/22/2024 Other abnormal glucose (ICD-10 - R73.09) 06/02/2024 Polydipsia (ICD-10 - R63.1) treating for [...] 11/22/2024 CMP - Comprehensive Metabolic Panel 10/30 XR Spine Lumbosacral 2 or 3 Views 2024 CBC AUTO DIFF 11/22/2024 CULTURE URINE 04/10/2025 GLYCOHEMOGLOBIN A1C 11/04/2023 GLYCOHEMOGLOBIN A1C 11/22/2024 LIPID PROFILE 11/22/2024 SNR 04 URINALYSIS 11/02/2023 THYROID PROFILE WITH TSH 11/04/2023 URINE MICROSCOPIC ONLY 11/22/2024 US JAXON DOP LEG BRYAN 04/06/2023 THYROID PANEL (T4/TSH/FREE T3) MRI Lumbar Spine w/o contrast 05/04/2025 Insurance Providers Payer Name Payer Address Payer Phone Subscriber Number Group Number Insured Name Patient Relationship to Insured Coverage Start Date Coverage End Date MEDICARE [place] [address] [phone] [id number] Armando Sweet Self - patient is the insured O MEDICARE SUPPLEMEN T [address] [place] [phone] [id number] Armando Sweet Self - patient is the [...]
--- OUTSIDE RECORDS SUMMARY | 2025-05-09 12:53 | XMS_ITS | Clinical Summary ---
Author Organization [facility] Address [address] [place] [address] Care Team Providers Care Collet Gluer Name Role Phone Jamie Holly MD Primary Care Provider [phone] Allergies Active Allergy Reactions Criticality Noted Date [...] BREAKFAST AND EVENING MEAL 180 tablet 3 05/14/202 5 Active Active Problems Problem Noted Date Diagnosed Date Chronic diastolic congestive heart failure 10/06 Nonrheumatic aortic valve stenosis 10/06/2022 Nonrheumatic aortic valve insufficiency 10/06/19 Primary hypertension 10/06/2022 Mixed hyperlipidemia 10/06/2022 Chronic obstructive pulmonary disease 10/06/2022 LEXI (obstructive sleep apnea) 10/06/2022 Morbid obesity 10/06/2022 Encounters Date Type Department Care Team Description 03/31/2025 Refill [facility] Heart at [facility] [address] [place] [address] Samson Love MD Essential hypertension from Last 3 Months Family History [...] COVID-19 Vaccine (1 - 2023-2 5 season) 2025 Influenza Vaccine (#1) 2025 HIB Vaccines Aged [...] patient's age to complete this topic Insurance [employer] MED[employer]ARE [employer]VANTAGE Care Teams Collet Gluer Relationship Specialty Start Date End Date Jamie Holly MD [address] [facility] [address] [address] PCP - General 10/06/22
--- OUTSIDE RECORDS SUMMARY | 2025-05-09 12:53 | XMS_ITS | Encounter Summary ---
Author Organization [employer] Address [id number] [address] [place] [address] Care Team Providers Care Import Export Clerk Name Role Phone Unavailable Primary Care Provider Unavailabl e Encounter Details Date Type Department Care Team (Late st Contact Info) Description 01/22/2021 Telephone [facility] [address] [place] [address] Keisha Fair CMA Social History Tobacco Use [...]
--- OUTSIDE RECORDS SUMMARY | 2025-05-09 12:53 | XMS_ITS | Encounter Summary ---
Author Organization [facility] Address [address] [place] [address] Care Team Providers Care Financial Reporting Specialist Name Role Phone Jamie Holly MD Primary Care Provider [phone] Reason for Visit * Reason Comments Med Refill Encounter Details Date Type Department Care Team (Late st Contact Info) Description 12/25/2023 Refill [facility] Heart at [facility] [address] [place] [address] Samson Love MD [address] [facility] [address] [facility] [place] [address] Benign hypertensive heart disease with heart failure [...] (CMS/HCC) documented in this encounter Care Teams Financial Reporting Specialist Relationship Specialty Start Date End Date Jamie Holly MD [address] [facility] [address] [address] PCP - General 10/06/22 documented as of this encounter
--- OUTSIDE RECORDS SUMMARY | 2025-05-09 12:54 | XMS_ITS | Encounter Summary ---
Author Organization The [facility] Address [address] [place] [address] Care Team Providers Care Lockstitch Sleeve Maker Name Role Phone Jamie Holly MD Primary Care Provider [phone] Reason for Visit * Reason Comments Med Refill Encounter Details Date Type Department Care Team ([facility] st Contact Info) Description 10/19/2022 Refill [facility] Heart at [facility] [address] [place] [address] Samson Love MD [address] [facility] [address] [facility] [place] [address] Mixed hyperlipidemia; Nonrheumatic aortic (valve) insufficiency; Primary [...] hypertension documented in this encounter Care Teams Lockstitch Sleeve Maker Relationship Special[place] [address] [place], [place] [address] [address] PCP - General 10/06/22 documented as of this encounter
--- OUTSIDE RECORDS SUMMARY | 2025-05-09 12:54 | XMS_ITS | Encounter Summary ---
Author Organization [facility] Address [address] [place] [address] Care Team Providers Care Deputy Chief Executive Name Role Phone Jamie Holly MD Primary Care Provider [phone] Reason for Visit * Reason Comments Med Refill Encounter Details Date Type Department Care Team (Late st Contact Info) Description 11/16/2023 Refill [facility] Heart at [facility] [address] [place] [address] Samson Love MD [address] [facility] [address] [facility] [place] [address] Benign hypertensive heart disease with heart failure (CMS/HCC); Nonrheumatic aortic (valve) insufficiency Social History Tobacco Use Types Packs/Day Years Used Date Smoking Tobacco: Former Cigarettes Smokeless Tobacco: Never Alcohol Use Standard Drinks/Week Comments Yes 0 (1 standard drink = 0.6 oz pur e alcohol) occasional ME Safety & Environment Answer Date Rec orded [...] insufficiency documented in this encounter Care Teams Deputy Chief Executive Relationship Specialty Start Date End Date Jamie Holly MD [address] [facility] [address] [place] [id number] PCP - General 10/06/22 documented as of this encounter
--- OUTSIDE RECORDS SUMMARY | 2025-05-09 12:54 | XMS_ITS | Encounter Summary ---
Author Organization [facility] Address [address] [place] [address] Care Team Providers Care Food Production Supervisor Name Role Phone Jamie Holly MD Primary Care Provider [phone] Reason for Visit * Reason Comments Med Refill Encounter Details Date Type Department Care Team ([facility] st Contact Info) Description 10/24/2023 Refill [facility] Heart at [facility] [address] [place] [address] Samson Love MD [address] [facility] [address] [facility] [place] [address] Mixed hyperlipidemia; Primary hypertension Social History Tobacco [...] hypertension documented in this encounter Care Teams Food Production Supervisor Relationship Specialty Start Date End Date Jamie Holly MD [address] [facility] [place] [address] PCP - General 10/06/22 documented as of this encounter
--- OUTSIDE RECORDS SUMMARY | 2025-05-09 12:54 | XMS_ITS | Clinical Summary ---
Author Organization [facility] Address [id number] [address] [place] [address] Care Team Providers Care Ceo Name Role Phone Unavailable Primary Care Provider [...]
--- OUTSIDE RECORDS SUMMARY | 2025-05-09 12:54 | XMS_ITS | Encounter Summary ---
Author Organization [facility] Address [address] [place] [address] Care Team Providers Care Gluing Pressman Name Role Phone Jamie Holly MD Primary Care Provider [phone] Reason for Visit * Reason Comments Med Refill Encounter Details Date Type Department Care Team (Late st Contact Info) Description 04/07/2023 Refill [facility] Heart at [facility] [address] [place] [address] Samson Love MD [address] [facility] [address] [facility] [place] [id number] Essential hypertension Social History Tobacco Use Types [...] hypertension documented in this encounter Care Teams Gluing Pressman Relationship Specialty Start Date End Date Jamie Holly MD [address] [facility] [address] [address] PCP - General 10/06/22 documented as of this encounter
--- NOTE | 2025-05-09 13:05 | XR_ITS ---
The [address] [address] Patient Name: ARMANDO COOK MRN: [id number] date: 1950 Sex: F Assigned Patient Location: [facility] Current Patient Location: [facility] Accession/Order Number: [id number] Exam Date: 05/09/2025 13:00 Report Date: 05/09/2025 13:44 At the request of: SCOTTY RIZVI MD Procedure: XR lumbar spine 2-3V 2 views Lumbar Spine HISTORY: Acute low back pain. Left radiculopathy. COMPARISON: 03/23/2025 POSTSURGICAL CHANGES: None BONY ALIGNMENT: Mild straightening HYPERMOBILITY:No bending imaging. LISTHESIS:Minor degenerative listhesis FRACTURE: A developing 50% L3 anterior wedge compression fracture. DEGENERATIVE CHANGES: Similar degenerative change greatest in the lower lumbar facets. SOFT TISSUES: Atherosclerosis BONY MINERALIZATION:Diffuse osteopenia XR/XR lumbar spine 2-3V IMPRESSION: Developing of 50% anterior right fracture of the L3 vertebral body. Likely acute. May further assessed with MRI of the lumbar spine. Similar degenerative change greatest at the lower lumbar facets. Diffuse osteopenia. Impression dictated by: Emir Herman M.D. 05/09/2025 1:44 PM Dictation Location: [place] [address] Electronically authenticated by: [id number] Y Date: 05/09/2025 13:44
--- OUTSIDE RECORDS SUMMARY | 2025-05-09 13:14 | XMS_ITS | CCD ---
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 Name Role Phone PHYSICIAN, DEFAULT Unavailable Unavailable [...] Provider Scotty Holly MD Primary Care Provider [phone] Kennedy Wharton MD Attending Provider Scotty Holly Primary Care Physician Tavo ALONZO Attending Unavailable Scotty Holly Referring Unavailable Scotty Holly MD Attending Provider Scotty Holly Admitting Unavailable Scotty Holly Attending Unavailable Kennedy Wharton Admitting Unavailable Kennedy Wharton Attending Unavailable Scotty Holly Admitting Unavailable Scotty Holly Attending Unavailable Allergies Allergy Classification Reported Allergen(s) Allergy Type Date of Onset Reaction(s) Facility (2 sources) Amoxicillin / Clavulanate; Translations: [Augmentin] Drug Allergy 11-01-201 7 [facility]ository (2 sources) Cephalexin; Translations: [Keflex] Drug Allergy 7 [facility] (1 source) natural latex rubber Drug allergy (disorder) [facility] (2 sources) Theophylline; Translations: [theophylline] Drug Allergy 7 [facility] (2 sources) Cephalexin; Translations: [cephalexin] Drug Allergy 8 Rash, Itching (finding) [facility] (1 source) Cephalexin Drug Allergy 8 Rash [facility] (3 sources) Latex; Translations: [Latex] Drug Intolerance 9 Rash, Itching, Weal (disorder) [facility] (1 source) Amoxicillin / Clavulanate; Translations: [amoxicillin-cl avulanate] Drug Allergy Weal (disorder) [facility] (1 source) Theophylline; Translations: [theophylline] Drug Allergy Weal (disorder) [facility] Medications Current Medications Medication Drug Class(es) Dates [...] Nom (U) ORGANISM: Escherichia coli (ESBL) (O:ESCCOLESBL) [place] Count >100,000 Aerobic SIOBHAN Charge (NMIC56) ---- [...] RESISTANT TO ALL B-LACTAM DRUGS. PERFORMED BY: [place] [address] PATHOLOGIST GROUNDS AND NURSERY SPECIALIST NETTIE OLIVERA M.D. Normal [facility] Comment on above: Performed By: #### C UU #### [address] 36on 03-31-2025 36 Patient hasn't been seen since 2022 Normal [facility] Urine Cultureon 03-09-2025 Bacteria identified Cx Nom (U) ORGANISM: Escherichia coli (ESBL) (O:ESCCOLESBL) [place] Count >100,000 Aerobic SIOBHAN Charge (NMIC56) ---- [...] RESISTANT TO ALL B-LACTAM DRUGS. PERFORMED BY: [place] [address] PATHOLOGIST GROUNDS AND NURSERY SPECIALIST NETTIE OLIVERA M.D. Normal [facility] Comment on above: Performed By: #### C UU #### [address] Urine cultureOrdered By: Marin Wharton on 03-09-2025 Bacteria identified Cx Nom (U) Escherichia coli (ESBL) Abnormal [facility] Urine Cultureon 01-03-2025 Bacteria identified Cx Nom (U) ORGANISM: Escherichia coli (O:ESCCOL) [place] Count >100,000 Aerobic SIOBHAN Charge (NMIC56) ---- [...] RESISTANT TO ALL B-LACTAM DRUGS. PERFORMED BY: [place] [address] PATHOLOGIST GROUNDS AND NURSERY SPECIALIST RENETTA ALONZO M.D. Normal [facility] Comment on above: Performed By: #### C UU #### [address] Urine cultureOrdered By: Héctor Holly on 01-03-2025 Bacteria identified Cx Nom (U) Escherichia coli Abnormal [facility] ECHOCARDIO M/2D COMPLETEon 0 10-07-2022 ECHOCARDIO M/2D COMPLETE Patient: ARMANDO SWEET Exam Date: 10/07/2022 : 1950 Gender:F Ordering : DR MIRACLE HUERTAS M.D. Admission #: [id number] Family : DR SCOTTY HOLLY . Order #: [id number] CLICK HERE TO VIEW EXAM ECHOCARDIOGRAM REPORT [...] Huertas M.D. on 10/07/2022 at 20:22 Normal [facility] INSULINon 04-30-2022 Insulin 14.5 uIU/mL Normal 2.6-24.9 [facility] Comment on above: Performed By: #### I NSULIN #### [facility] [address] [place] [address] Dr. Vicki Muro OCC BLD IMMUNO SCREENon 04-02 OCCULT BLOOD Negative Normal NEGATIVE [facility] Comment on above: Performed By: #### I NSULIN #### [facility] [address] [place] [address] Dr. Vicki Muro T4, T3U, FTI LABCORPon 04-30 Free Thyroxine Index 1.9 Normal 1.2-4.9 [facility] Comment on above: Performed By: #### T HYLC #### [facility] [address] [place] [address] Dr. Vicki Muro T3 Uptake 25 % Normal 24-39 [facility] Comment on above: Performed By: #### T HYLC #### [facility] [address] [address] [address] Vicki Muro T4 [Mass/Vol] 7.5 ug/dL Normal 4.5-12.0 [facility] Comment on above: Performed By: #### T HYLC #### [facility] [address] [address] [address] Vicki Muro VIT D 25-OH LABCORPon 2021 Vitamin D, 25-Hydroxy 54.8 ng/mL Normal 30.0-100.0 [facility] Comment on above: Result Comment: Ghislaine min D deficiency has been defined by the [place] of [employer] and an Endocrine Society practice guideline as a level of serum 25-OH vitamin D less than 20 ng/mL (1,2). The Endocrine Society went on to further define vitamin D insufficiency as a level between 21 and 29 ng/mL (2). 1. IOM ([place] of [employer]). 2010. Dietary reference intakes for calcium and D. [place]: The National Academies Press. 2. [place] MF, Michael [place], Gaby JACOBS, et al. Evaluation, treatment, and prevention of vitamin D deficiency: an Endocrine Society clinical practice guideline. JCEM. 2010; 96(7):1911-30. Performed By: #### I NSULIN #### [facility] [address] [place] [address] Dr. Vicki Muro BNPon 04-29-2022 Natriuretic peptide B (Bld) [Mass/Vol] 350.0 pg/mL Normal <=900.0 [facility] Comment on above: Performed By: #### L IPID, CMP, BNP, TSH #### [facility] [address] [address] [address] Vicki Muro CBC AUTO DIFFon 04-29-2022 BASO # 0.0 103/ul Normal 0.0-0.1 [facility] Comment on above: Performed By: #### I NSULIN #### [facility] [address] [address] [address] Vicki Muro Basophils/100 WBC (Bld) 0.8 % Normal 0.2-2.0 [facility] Comment on above: Performed By: #### I NSULIN #### [facility] [address] [place] [address] Dr. Vicki Muro EO # 0.1 103/ul Normal 0.0-0.7 [facility] Comment on above: Performed By: #### I NSULIN #### [facility] [address] [place] [address] Dr. Vicki Muro Eosinophils/100 WBC (Bld) 2.4 % Normal 0.9-7.0 [facility] Comment on above: Performed By: #### I NSULIN #### [facility] [address] [place] [address] Dr. Vicki Muro Erythrocyte distribution width (RBC) [Ratio] 12.7 % Normal 11.0-15.0 [facility] Comment on above: Performed By: #### I NSULIN #### [facility] [address] [place] [address] Dr. Vicki Muro Hematocrit (Bld) [Volume fraction] 39.1 % Normal 36.0-48.0 [facility] Comment on above: Performed By: #### I NSULIN #### [facility] [address] [place] [address] Dr. Vicki Muro Hemoglobin (Bld) [Mass/Vol] 13.0 g/dL Normal 12.0-16.0 [facility] Comment on above: Performed By: #### I NSULIN #### [facility] [address] [place] [address] Dr. Vicki Muro IG # 0.01 10e3/ul Normal 0.00-0.03 [facility] Comment on above: Performed By: #### I NSULIN #### [facility] [address] [place] [address] Dr. Vicki Muro IG % 0.2 % Normal 0.0-0.5 [facility] Comment on above: Performed By: #### I NSULIN #### [facility] [address] [place] [address] Dr. Vicki Muro LYMPH # 1.6 103/ul Normal 1.2-3.8 [facility] Comment on above: Performed By: #### I NSULIN #### [facility] [address] [address] [address] Vicki Muro Lymphocytes/100 WBC (Bld) 29.5 % Normal 20.5-60.0 [facility] Comment on above: Performed By: #### I NSULIN #### [facility] [address] [address] [address] Vicki Muro MANUAL DIFF REQ NO Normal [facility] Comment on above: Performed By: #### I NSULIN #### [facility] [address] [place] [address] Dr. Vicki Muro MCH (RBC) [Entitic mass] 29.7 pg Normal 26.7-34.0 [facility] Comment on above: Performed By: #### I NSULIN #### [facility] [address] [place] [address] Dr. Vicki Muro MCHC (RBC) [Mass/Vol] 33.2 g/dL Normal 29.9-35.2 [facility] Comment on above: Performed By: #### I NSULIN #### [facility] [address] [place] [address] Dr. Vicki Muro MCV (RBC) [Entitic vol] 89.3 fL Normal 81.0-99.0 [facility] Comment on above: Performed By: #### I NSULIN #### [facility] [address] [place] [address] Dr. Vicki Muro MONO # 0.4 103/ul Normal 0.3-0.8 [facility] Comment on above: Performed By: #### I NSULIN #### [facility] [address] [place] [address] Dr. Vicki Muro Monocytes/100 WBC (Bld) 6.6 % Normal 1.7-12.0 [facility] Comment on above: Performed By: #### I NSULIN #### [facility] [address] [place] [address] Dr. Vicki Muro NEUT # 3.2 103/ul Normal 1.4-6.5 [facility] Comment on above: Performed By: #### I NSULIN #### [facility] [address] [address] [address] Vicki Muro Neutrophils/100 WBC (Bld) 60.5 % Normal 43.0-75.0 [facility] Comment on above: Performed By: #### I NSULIN #### [facility] [address] [address] [address] Vicki Muro Platelet mean volume (Bld) [Entitic vol] 10.0 fL Normal 9.5-13.5 [facility] Comment on above: Performed By: #### I NSULIN #### [facility] [address] [address] [address] Vicki Muro PLT 212 103/ul Normal 150-450 [facility] Comment on above: Performed By: #### I NSULIN #### [facility] [address] [place] [address] Dr. Vicki Muro RBC 4.38 106/ul Normal 4.20-5.40 [facility] Comment on above: Performed By: #### I NSULIN #### [facility] [address] [address] [address] Vicki Muro WBC 5.3 103/ul Normal 4.0-11.0 [facility] Comment on above: Performed By: #### I NSULIN #### [facility] [address] [place] [address] Dr. Vicki Muro GLYCOHEMOGLOBIN A1Con 2021 ADA RECOMMENDATION SEE BELOW Normal [facility] Comment on above: Result Comment: ADA RECOMMENDED LIMIT 4.0 - 6.0 ADA THERAPEUTIC TARGET < 7.0 ACTION SUGGESTED > 7.0 Performed By: #### I NSULIN #### [facility] [address] [place] [address] Dr. Vicki Muro Glucose [Mass/Vol] 126 mg/dL Normal [facility] Comment on above: Performed By: #### I NSULIN #### [facility] [address] [address] [address] Vicki Muro HbA1c (Bld) [Mass fraction] 6.0 % Normal 4.5-6.2 [facility] Comment on above: Performed By: #### I NSULIN #### [facility] [address] [address] [address] Vicki Muro IRONon 04-29-2022 Iron [Mass/Vol] 63.0 ug/dL Normal 50.0-170.[address] [facility] Comment on above: Performed By: #### I SIERRA #### [facility] [address] [address] [address] Vicki Muro LIPID PROFILEon 04-29-2022 CHOL-HDL RATIO NORM SEE BELOW Normal [facility] Comment on above: Result Comment: 3.3 - 4.4 LOW RISK 4.4 - 7.1 AVERAGE RISK 7.1 - 11.0 MODERATE RISK >11.0 HIGH RISK Performed By: #### L IPID, CMP, BNP, TSH #### [facility] [address] [address] [address] Vicki Muro Cholesterol [Mass/Vol] 179 mg/dL Normal <=200 [facility] Comment on above: Performed By: #### L IPID, CMP, BNP, TSH #### [facility] [address] [address] [address] Vicki Muro Cholesterol in HDL [Mass/Vol] 53 mg/dL Normal 40-60 [facility] Comment on above: Performed By: #### L IPID, CMP, BNP, TSH #### [facility] [address] [address] [address] Vicki Muro Cholesterol in LDL [Mass/Vol] 85.8 mg/dL Normal [facility] Comment on above: Performed By: #### L IPID, CMP, BNP, TSH #### [facility] [address] [address] [address] Vicki Muro Cholesterol.total/Ch olesterol in HDL [Mass ratio] 3.4 {ratio} Normal [facility] Comment on above: Performed By: #### L IPID, CMP, BNP, TSH #### [facility] [address] [address] [address] Vicki Muro HDL NORMAL > or = 60 mg/dl - LO W CARDIOVASCULAR RISK <40 mg/dl - HIGH CARDIOVASCULAR RISK Normal [facility] Comment on above: Performed By: #### L IPID, CMP, BNP, TSH #### [facility] [address] [address] [address] Vicki Muro LDL CALC NORMAL SEE BELOW Normal [facility] Comment on above: Result Comment: <100 mg/dl OPTIMAL 100 - 129 mg/dl NEAR OR ABOVE OPTIMAL 130 - 159 mg/dl BORDERLINE HIGH 160 - 189 mg/dl HIGH >190 mg/dl VERY HIGH Performed By: #### L IPID, CMP, BNP, TSH #### [facility] [address] [address] [address] Vicki Muro Triglyceride [Mass/Vol] 201 mg/dL Critically high <=150 [facility] Comment on above: Performed By: #### L IPID, CMP, BNP, TSH #### [facility] [address] [address] [address] Vicki Muro VLDL CALC 40.2 mg/dL Normal [facility] Comment on above: Performed By: #### L IPID, CMP, BNP, TSH #### [facility] [address] [address] [address] Vicki Muro PROF 14(COMP METB)on 022 Albumin [Mass/Vol] 3.8 g/dL Normal 3.4-5.0 [facility] Comment on above: Performed By: #### L IPID, CMP, BNP, TSH #### [facility] [address] [address] [address] Vicki Muro Albumin/Globulin [Mass ratio] 1.0 {ratio} Normal [facility] Comment on above: Performed By: #### L IPID, CMP, BNP, TSH #### [facility] [address] [address] [address] Vicki Muro ALP [Catalytic activity/Vol] 108 U/L Normal 46-116 [facility] Comment on above: Performed By: #### L IPID, CMP, BNP, TSH #### [facility] [address] [address] [address] Vicki Muro ALT [Catalytic activity/Vol] 29 U/L Normal 14-59 [facility] Comment on above: Performed By: #### L IPID, CMP, BNP, TSH #### [facility] [address] [address] [address] Vicki Muro Anion gap [Moles/Vol] 13.1 mmol/L Normal [facility] Comment on above: Performed By: #### L IPID, CMP, BNP, TSH #### [facility] [address] [place] [address] Dr. Vicki Muro AST [Catalytic activity/Vol] 24 U/L Normal 15-37 [facility] Comment on above: Performed By: #### L IPID, CMP, BNP, TSH #### [facility] [address] [place] [address] Dr. Vicki Muro Bilirubin [Mass/Vol] 0.4 mg/dL Normal 0.2-1.0 [facility] Comment on above: Performed By: #### L IPID, CMP, BNP, TSH #### [facility] [address] [place] [address] Dr. Vicki Muro Calcium [Mass/Vol] 9.2 mg/dL Normal 8.5-10.1 [facility] Comment on above: Performed By: #### L IPID, CMP, BNP, TSH #### [facility] [address] [place] [address] Dr. Vicki Muro Chloride [Moles/Vol] 103 mmol/L Normal 98-107 [facility] Comment on above: Performed By: #### L IPID, CMP, BNP, TSH #### [facility] [address] [place] [address] Dr. Vicki Muro CO2 [Moles/Vol] 27.7 mmol/L Normal 21.0-32.0 [facility] Comment on above: Performed By: #### L IPID, CMP, BNP, TSH #### [facility] [address] [place] [address] Dr. Vicki Muro Creatinine [Mass/Vol] 0.81 mg/dL Normal 0.55-1.02 [facility] Comment on above: Performed By: #### L IPID, CMP, BNP, TSH #### [facility] [address] [address] [address] Vicki Muro EGFR-AF CANADIAN >60 Normal >=60 [facility] Comment on above: Performed By: #### L IPID, CMP, BNP, TSH #### [facility] [address] [address] [address] Vicki Muro EGFR-NON AF CANADIAN >60 Normal >=60 [facility] Comment on above: Performed By: #### L IPID, CMP, BNP, TSH #### [facility] [address] [address] [address] Vicki Muro Globulin (S) [Mass/Vol] 3.8 g/dL Normal [facility] Comment on above: Performed By: #### L IPID, CMP, BNP, TSH #### [facility] [address] [address] [address] Vicki Muro Glucose [Mass/Vol] 132 mg/dL Critically high 74-106 [facility] Comment on above: Performed By: #### L IPID, CMP, BNP, TSH #### [facility] [address] [address] [address] Vicki Muro Potassium [Moles/Vol] 3.8 mmol/L Normal 3.5-5.1 [facility] Comment on above: Performed By: #### L IPID, CMP, BNP, TSH #### [facility] [address] [address] [address] Vicki Muro Protein [Mass/Vol] 7.6 g/dL Normal 6.4-8.2 [facility] Comment on above: Performed By: #### L IPID, CMP, BNP, TSH #### [facility] [address] [address] [address] Vicki Muro Sodium [Moles/Vol] 140 mmol/L Normal 136-145 [facility] Comment on above: Performed By: #### L IPID, CMP, BNP, TSH #### [facility] [address] [address] [address] Vicki Muro Urea nitrogen [Mass/Vol] 10.0 mg/dL Normal 7.0-18.0 [facility] Comment on above: Performed By: #### L IPID, CMP, BNP, TSH #### [facility] [address] [address] [address] Vicki Muro Urea nitrogen/Creatinine [Mass ratio] 12.3 mg/mg Normal [facility] Comment on above: Performed By: #### L IPID, CMP, BNP, TSH #### [facility] [address] [address] [address] Vicki Muro TSHon 04-29-2022 TSH 2.265 uIU/mL Normal 0.358-3.740 [facility] Comment on above: Performed By: #### L IPID, CMP, BNP, TSH #### [facility] [address] [place] [address] Dr. Vicki Muro ECHOCARDIO M/2D COMPLETEon 0 12-30-2021 ECHOCARDIO M/2D COMPLETE Patient: ARMANDO SWEET Exam Date: 12/30/2021 : 1950 Gender:F Ordering : DR MIRACLE HUERTAS M.D. Admission #: [id number] Family : Order #: [id number] CLICK HERE TO VIEW EXAM ECHOCARDIOGRAM REPORT [...] Area(A4C): 21.80 cm2 Left Atrium Systolic Volume(A2C): 13956 mm3 Left Atrium Systolic Volume(A4C): 81796 mm3 Mitral Valve MV E to A [...] M.D. on 12/30/2021 at 15:20 Normal [facility] HEMOGRAM AND PLATELon 2021 Hematocrit (Bld) [Volume fraction] 39.8 % Normal 36.0-48.0 [facility] Comment on above: Performed By: #### H H #### [facility] [address] [address] [address] Vicki Muro Hemoglobin (Bld) [Mass/Vol] 13.0 g/dL Normal 12.0-16.0 [facility] Comment on above: Performed By: #### H H #### [facility] [address] [address] [address] Vicki Muro MCH (RBC) [Entitic mass] 30.2 pg Normal 26.7-34.0 [facility] Comment on above: Performed By: #### H H #### [facility] [address] [address] [address] Vicki Muro MCHC (RBC) [Mass/Vol] 32.7 g/dL Normal 29.9-35.2 [facility] Comment on above: Performed By: #### H H #### [facility] [address] [address] [address] Vicki Muro MCV (RBC) [Entitic vol] 92.6 fL Normal 81.0-99.0 [facility] Comment on above: Performed By: #### H H #### [facility] [address] [address] [address] Vicki Muro PLT 194 103/ul Normal 150-450 [facility] Comment on above: Performed By: #### H H #### [facility] [address] [address] [address] Vicki Muro RBC 4.30 106/ul Normal 4.20-5.40 [facility] Comment on above: Performed By: #### H H #### [facility] [address] [address] [address] Vicki Muro WBC 4.7 103/ul Normal 4.0-11.0 [facility] Comment on above: Performed By: #### H H #### [facility] [address] [address] [address] Vicki Muro LIPID PROFILEon 10-29-2021 CHOL-HDL RATIO NORM SEE BELOW Normal [facility] Comment on above: Result Comment: 3.3 - 4.4 LOW RISK 4.4 - 7.1 AVERAGE RISK 7.1 - 11.0 MODERATE RISK >11.0 HIGH RISK Performed By: #### I NSULIN #### [facility] [address] [address] [address] Vicki Muro Cholesterol [Mass/Vol] 193 mg/dL Normal <=200 [facility] Comment on above: Performed By: #### I NSULIN #### [facility] [address] [address] [address] Vicki Muro Cholesterol in HDL [Mass/Vol] 55 mg/dL Normal [facility] Comment on above: Performed By: #### I NSULIN #### [facility] [address] [address] [address] Vicki Muro Cholesterol in LDL [Mass/Vol] 97.2 mg/dL Normal [facility] Comment on above: Performed By: #### I NSULIN #### [facility] [address] [address] [address] Vicki Muro Cholesterol.total/Ch olesterol in HDL [Mass ratio] 3.5 {ratio} Normal [facility] Comment on above: Performed By: #### I NSULIN #### [facility] [address] [address] [address] Vicki Muro HDL NORMAL > or = 60 mg/dl - LO W CARDIOVASCULAR RISK <40 mg/dl - HIGH CARDIOVASCULAR RISK Normal [facility] Comment on above: Performed By: #### I NSULIN #### [facility] [address] [address] [address] Vicki Muro LDL CALC NORMAL SEE BELOW Normal [facility] Comment on above: Result Comment: <100 mg/dl OPTIMAL 100 - 129 mg/dl NEAR OR ABOVE OPTIMAL 130 - 159 mg/dl BORDERLINE HIGH 160 - 189 mg/dl HIGH >190 mg/dl VERY HIGH Performed By: #### I NSULIN #### [facility] [address] [address] [address] Vicki Muro Triglyceride [Mass/Vol] 204 mg/dL Critically high <=150 [facility] Comment on above: Performed By: #### I NSULIN #### [facility] [address] [place] [address] Dr. Vicki Muro VLDL CALC 40.8 mg/dL Normal [facility] Comment on above: Performed By: #### I NSULIN #### [facility] [address] [place] [address] Dr. Vicki Muro PROF 14(COMP METB)on 022 Albumin [Mass/Vol] 3.6 g/dL Normal 3.5-5.0 [facility] Comment on above: Performed By: #### I NSULIN #### [facility] [address] [place] [address] Dr. Vicki Muro Albumin/Globulin [Mass ratio] 1.0 {ratio} Normal [facility] Comment on above: Performed By: #### I NSULIN #### [facility] [address] [place] [address] Dr. Vicki Muro ALP [Catalytic activity/Vol] 92 U/L Normal 38-126 [facility] Comment on above: Performed By: #### I NSULIN #### [facility] [address] [place] [address] Dr. Vicki Muro ALT [Catalytic activity/Vol] 30 U/L Normal 9-52 [facility] Comment on above: Performed By: #### I NSULIN #### [facility] [address] [address] [address] Vicki Muro Anion gap [Moles/Vol] 11.3 mmol/L Normal [facility] Comment on above: Performed By: #### I NSULIN #### [facility] [address] [place] [address] Dr. Vicki Muro AST [Catalytic activity/Vol] 23 U/L Normal 14-36 [facility] Comment on above: Performed By: #### I NSULIN #### [facility] [address] [address] [address] Vicki Muro Bilirubin [Mass/Vol] 0.4 mg/dL Normal 0.2-1.3 [facility] Comment on above: Performed By: #### I NSULIN #### [facility] [address] [place] [address] Dr. Vicki Muro Calcium [Mass/Vol] 9.0 mg/dL Normal 8.4-10.2 [facility] Comment on above: Performed By: #### I NSULIN #### [facility] [address] [place] [address] Dr. Vicki Muro Chloride [Moles/Vol] 104 mmol/L Normal 98-107 [facility] Comment on above: Performed By: #### I NSULIN #### [facility] [address] [place] [address] Dr. Vicki Muro CO2 [Moles/Vol] 25.9 mmol/L Normal 22.0-30.0 [facility] Comment on above: Performed By: #### I NSULIN #### [facility] [address] [place] [address] Dr. Vicki Muro Creatinine [Mass/Vol] 0.86 mg/dL Normal 0.52-1.04 [facility] Comment on above: Performed By: #### I NSULIN #### [facility] [address] [place] [address] Dr. Vicki Muro EGFR-AF CANADIAN >60 Normal >=60 [facility] Comment on above: Performed By: #### I NSULIN #### [facility] [address] [place] [address] Dr. Vicki Muro EGFR-NON AF CANADIAN >60 Normal >=60 [facility] Comment on above: Performed By: #### I NSULIN #### [facility] [address] [address] [address] Vicki Muro Globulin (S) [Mass/Vol] 3.6 g/dL Normal [facility] Comment on above: Performed By: #### I NSULIN #### [facility] [address] [address] [address] Vicki Muro Glucose [Mass/Vol] 119 mg/dL Critically high 74-106 T [facility] Comment on above: Performed By: #### I NSULIN #### [facility] [address] [place] [address] Dr. Vicki Muro Potassium [Moles/Vol] 4.4 mmol/L Normal 3.4-5.0 [facility] Comment on above: Performed By: #### I NSULIN #### [facility] [address] [address] [address] Vicki Muor Protein [Mass/Vol] 7.2 g/dL Normal 6.1-8.2 [facility] Comment on above: Performed By: #### I NSULIN #### [facility] [address] [place] [address] Dr. Vicki Muro Sodium [Moles/Vol] 137 mmol/L Normal 137-145 [facility] Comment on above: Performed By: #### I NSULIN #### [facility] [address] [address] [address] Vicki Muro Urea nitrogen [Mass/Vol] 14.0 mg/dL Normal 7.0-17.0 [facility] Comment on above: Performed By: #### I NSULIN #### [facility] [address] [place] [address] Dr. Vicki Muro Urea nitrogen/Creatinine [Mass ratio] 16.3 mg/mg Normal [facility] Comment on above: Performed By: #### I NSULIN #### [facility] [address] [place] [address] Dr. Vicki Muro Encounters Encounter Date Encounter Type Care Provider Facility Start: 04-13-2025 End: 04-13-2025 ambulatory Scotty Holly [facility] Work Phone: Start: 04-13-2025 End: 04-13-2025 Departed Referred Scotty Andersen MD -[facility] Start: 03-29-2025 End: 03-29-2025 ambulatory Tavo Olman [place] Facility:[facility] Start: 03-29-2025 End: 03-29-2025 Patient encounter [facility] Start: 03-13-2025 ambulatory Tavo [place] Facility:[facility] Start: 03-09-2025 End: 03-09-2025 ambulatory Kennedy Wharton [facility] Work Phone: Start: 03-09-2025 End: 03-09-2025 Departed Referred Kennedy Wharton MD -[facility] Start: 01-27-2025 End: 02-01-2025 Transcribe Orders Scotty Holly MD Work Phone: Referring Physician Comment on above: Hypertension, unspec ified type (Primary Dx); Hyperlipidemia, unspecified hyperlipidemia type Start: 01-03-2025 End: 01-03-2025 ambulatory Scotty Holly [facility] Work Phone: Start: 01-03-2025 End: 01-03-2025 Departed Referred Scotty Holly MD Work Phone: [facility] Start: [...] End: 08-10-2018 Patient encounter procedure DEFAULT PHYSICIAN Facility:[facility] Start: 06-03-2018 End: 06-04-2018 Patient encounter procedure 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 Facility:[facility] Procedures Date Procedure Procedure Detail Performing [...] RSV Vaccine (1 - 1-dose 75+ series) [facility] Start: 05-01-2025 Influenza vaccination Influenza Vaccine (Season Ended) [facility] Start: 04-13-2025 Bacteria identified in Urine by Culture Urine Culture [facility] Start: 04-13-2025 Urine culture [facility] Start: 03-09-2025 Bacteria identified in Urine by Culture Urine Culture [facility] Start: 03-09-2025 Urine culture [facility] Start: 01-03-2025 Bacteria identified in Urine by Culture Urine Culture [facility] Start: 01-03-2025 Urine culture [facility] Start: 08-31-2024 Advance Directive Discussion Advance Directive Discussion [facility] Start: 05-01-2024 Covid-19 Vaccine ( season) Covid-19 Vaccine ( season) [facility] Start: 2017 Screening for osteoporosis Bone Density Screening [facility] Start: 08-16-2011 Diabetes Screening Diabetes Screening [facility] Start: 2002 Pneumococcal Vaccine: 50+ (1 of 1 - PCV) Pneumococcal Vaccine: 50+ (1 of 1 - PCV) [facility] Start: 2002 Shingrix Vaccine (1 of 2) Shingrix Vaccine (1 of 2) [facility] Start: 1997 Lipid panel Lipid Screening [facility] Start: 1997 Screening for malignant neoplasm of colon [facility] Start: 1992 Screening for malignant neoplasm of breast Mammogram Screening [facility] Start: 1971 Urine microalbumin profile DTaP,Tdap,Td Vaccine (1 - Tdap) [facility] Start: 1970 Anxiety Screening Anxiety Screening [facility] Start: 1970 Depression Screening Depression Screening [facility] Start: 1970 Hepatitis C screening Hepatitis C Screening [facility] Payers Date Payer Category Payer Medicare [id number] 2025 Private Health Insurance [id number] 2025 Self-pay 2024 Medicare (Managed Care) [employer] MED[employer]ARE [id number] 2005 Private Health Insurance [employer] [id number] 1959 Medicare [id number] 1959 Unknown [id number] 1952 Unknown [id number] [id number]. 2.647 1952 Unknown [id number] 2.16.840.1.322876.3.579. 2.647 1952 Unknown [id number] 2.16.840.1.594434.3.579. 2.593 1952 Unknown [id number] 2.16.840.1.488969.3.579. 2.593 1952 Unknown [id number] 2.16.840.1.415067.3.579. 2.593 1952 Unknown [id number] 2.16.840.1.909205.3.579. 2.593 1952 Unknown [id number] 2.16.840.1.758535.3.579. 2.593 1952 Unknown [id number] 2.16.840.1.557265.3.579. 2.1259 1952 Unknown [id number] 2.16.840.1.698032.3.579. 2.727 Private Health Insurance [employer] [id number] Unknown Unknown [id number] 2.16.840.1.874932.3.579. 2.531 Unknown [id number] 2.16.840.1.666273.3.579. 2.531 Unknown [id number] [id number]. 2.531 Social History Date Type Detail [facility] Start: 12-12-2009 End: 01-05-2025 Sex Female (finding) [facility] Start: 1950 Sex Assigned At Female F [facility] Start: 1950 Sex assigned at Not on file [facility] Gender identity Not on file [facility] Tobacco smoking status [facility] Procedure Code Equipment Code Equipment Origin al Text Equipment Identifier Dates Blood Sugar Diagnostic strip Start: 03-12-2025 Lancets misc Start: 03-12-2025 Evaluation + Plan note Note Date & Type Note Facility Evaluation + Plan note No data available for this section [facility] Evaluation note Note Date & Type Note Facility Evaluation note No assessment information availa ble [facility] Work Phone: Evaluation note Note Date & Type Note Facility Evaluation note Diagnosis Hypertension, unspecified type- Primary Hyperlipidemia, unspecified hyperlipidemia type documented in this encounter [facility] Discharge instructions Note Date & Type Note Facility Hospital Discharge instructions No data available for this section [facility] Progress note Note Date & Type Note Facility Progress note No data available for this section [facility] Reason for referral (narrative) Note Date & Type Note Facility Reason for referral (narrative) No reason for referral information available [facility] Work Phone: Summary Purpose Family [...] section and content) DATE CREATED AUTHOR 08/11/2018 [facility] DATE CREATED AUTHOR AUTHOR'S ORGANIZ ATION 10/10/2022 [facility] DATE CREATED AUTHOR AUTHOR'S ORGANIZ ATION 11/18/2023 [facility] EPIC DATE CREATED AUTHOR AUTHOR'S ORGANIZ ATION 04/01/2025 [facility] DATE CREATED AUTHOR AUTHOR'S ORGANIZ ATION 04/02/2025 [facility] DATE CREATED AUTHOR AUTHOR'S ORGANIZ ATION 04/17/2025 [facility] Care Teams (unrecognized sec tion and content) Team Status: Inactive Member Role Status Dates Scotty Holly MD Attending Provider Active Sta rt: January 03, 2025 End: January 03, 2025 [employer] 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 [facility]. provides no warranty or guarantee of the accuracy or completeness of information in this document.
== END 2025-05-09 12:52 | disposition home or self-care (01) ==
LOC: RAD 12:51
PROVIDERS: PCP Family Medicine; Visit Provider Family Medicine
DX: M54.50 Low back pain, unspecified (principal); M85.88 Other specified disorders of bone density and structure, other site
CPT/HCPCS: 72100

== ENCOUNTER 2025-05-16 08:22 | Outpatient (OUT) | payer MEDICARE, SELFPAY ==
--- OUTSIDE RECORDS SUMMARY | 2025-05-16 08:26 | XMS_ITS | CCD ---
Author Organization [facility] CliniSymi Care Team Providers Care Internet Sales Manager Name Role Phone PHYSICIAN, DEFAULT Unavailable Unavailable [...] Provider Scotty Holly MD Primary Care Provider [phone] Kennedy Wharton MD Attending Provider Scotty Holly [...] Translations: [Augmentin] Drug Allergy 11-01-201 7 [facility] (2 sources) Cephalexin; Translations: [Keflex] Drug Allergy 7 [facility] (1 source) natural latex rubber Drug allergy (disorder) [facility] (2 sources) Theophylline; Translations: [theophylline] Drug Allergy 7 [facility] (2 sources) Cephalexin; Translations: [cephalexin] Drug Allergy 8 Rash, Itching (finding) [facility] (1 source) Cephalexin Drug Allergy 8 Rash [facility] (3 sources) Latex; Translations: [Latex] Drug Intolerance 9 Rash, Itching, Weal (disorder) [facility] (1 source) Amoxicillin / Clavulanate; Translations: [amoxicillin-cl avulanate] Drug Allergy Weal (disorder) [facility] (1 source) Theophylline; Translations: [theophylline] Drug Allergy Weal (disorder) [facility] [place] Medications Current Medications Medication Drug Class(es) Dates [...] Nom (U) ORGANISM: Escherichia coli (ESBL) (O:ESCCOLESBL) [place] Count >100,000 Aerobic SIOBHAN Charge (NMIC56) ---- [...] RESISTANT TO ALL B-LACTAM DRUGS. PERFORMED BY: [place] [address] PATHOLOGIST PUPPY SITTER NETTIE OLIVERA M.D. Normal [facility] Comment on above: Performed By: #### C UU #### [address] 36on 03-31-2025 36 Patient hasn't been seen since 2022 Normal [facility] Urine Cultureon 03-09-2025 Bacteria identified Cx Nom (U) ORGANISM: Escherichia coli (ESBL) (O:ESCCOLESBL) [place] Count >100,000 Aerobic SIOBHAN Charge (NMIC56) ---- [...] RESISTANT TO ALL B-LACTAM DRUGS. PERFORMED BY: [place] [address] PATHOLOGIST PUPPY SITTER NETTIE OLIVERA M.D. Normal [facility] Comment on above: Performed By: #### C UU #### [address] Urine cultureOrdered By: Marin Wharton on 03-09-2025 Bacteria identified Cx Nom (U) Escherichia coli (ESBL) Abnormal [facility] Urine Cultureon 01-03-2025 Bacteria identified Cx Nom (U) ORGANISM: Escherichia coli (O:ESCCOL) [place] Count >100,000 Aerobic SIOBHAN Charge (NMIC56) ---- [...] RESISTANT TO ALL B-LACTAM DRUGS. PERFORMED BY: [place] [address] PATHOLOGIST PUPPY SITTER RENETTA ALONZO M.D. Normal [facility] Comment on above: Performed By: #### C UU #### [address] Urine cultureOrdered By: Héctor Holly on 01-03-2025 Bacteria identified Cx Nom (U) Escherichia coli Abnormal [facility] ECHOCARDIO M/2D COMPLETEon 0 10-07-2022 ECHOCARDIO M/2D COMPLETE Patient: ARMANDO SWEET Exam Date: 10/07/2022 : 1950 Gender:F Ordering : DR MIRACLE HUERTAS M.D. Admission #: [id number] Family : DR SCOTTY HOLLY . Order #: [id number] CLICK HERE TO VIEW EXAM ECHOCARDIOGRAM REPORT [...] Huertas M.D. on 10/07/2022 at 20:22 Normal [facility] INSULINon 04-30-2022 Insulin 14.5 uIU/mL Normal 2.6-24.9 [facility] Comment on above: Performed By: #### I NSULIN #### [facility] [address] [place] [address] Dr. Vicki Muro OCC BLD IMMUNO SCREENon 04-02 OCCULT BLOOD Negative Normal NEGATIVE [facility] Comment on above: Performed By: #### I NSULIN #### [facility] [address] [place] [address] Dr. Vicki Muro T4, T3U, FTI LABCORPon 04-30 Free Thyroxine Index 1.9 Normal 1.2-4.9 [facility] Comment on above: Performed By: #### T HYLC #### [facility] [address] [place] [address] Dr. Vicki Muro T3 Uptake 25 % Normal 24-39 [facility] Comment on above: Performed By: #### T HYLC #### [facility] [address] [address] [address] Vicki Muro T4 [Mass/Vol] 7.5 ug/dL Normal 4.5-12.0 [facility] Comment on above: Performed By: #### T HYLC #### [facility] [address] [address] [address] Vicki Muro VIT D 25-OH LABCORPon 2021 Vitamin D, 25-Hydroxy 54.8 ng/mL Normal 30.0-100.0 [facility] Comment on above: Result Comment: Ghislaine min D deficiency has been defined by the [place] of Medicine and an Endocrine Society practice guideline as a level of serum 25-OH vitamin D less than 20 ng/mL (1,2). The Endocrine Society went on to further define vitamin D insufficiency as a level between 21 and 29 ng/mL (2). 1. IOM ([place] of Medicine). 2010. Dietary reference intakes for calcium and D. [place]: The National Academies Press. 2. [place], Michael [place], Gaby JACOBS, et al. Evaluation, treatment, and prevention of vitamin D deficiency: an Endocrine Society clinical practice guideline. JCEM. 2010; 96(7):1911-30. Performed By: #### I NSULIN #### [facility] [address] [place] [address] Dr. Vicki Muro BNPon 04-29-2022 Natriuretic peptide B (Bld) [Mass/Vol] 350.0 pg/mL Normal <=900.0 [facility] Comment on above: Performed By: #### L IPID, CMP, BNP, TSH #### [facility] [address] [address] [address] Vicki Muro CBC AUTO DIFFon 04-29-2022 BASO # 0.0 103/ul Normal 0.0-0.1 [facility] Comment on above: Performed By: #### I NSULIN #### [facility] [address] [address] [address] Vicki Muro Basophils/100 WBC (Bld) 0.8 % Normal 0.2-2.0 [facility] Comment on above: Performed By: #### I NSULIN #### [facility] [address] [place] [address] Dr. Vicki Muro EO # 0.1 103/ul Normal 0.0-0.7 [facility] Comment on above: Performed By: #### I NSULIN #### [facility] [address] [place] [address] Dr. Vicki Muro Eosinophils/100 WBC (Bld) 2.4 % Normal 0.9-7.0 [facility] Comment on above: Performed By: #### I NSULIN #### [facility] [address] [place] [address] Dr. Vicki Muro Erythrocyte distribution width (RBC) [Ratio] 12.7 % Normal 11.0-15.0 [facility] Comment on above: Performed By: #### I NSULIN #### [facility] [address] [place] [address] Dr. Vicki Muro Hematocrit (Bld) [Volume fraction] 39.1 % Normal 36.0-48.0 [facility] Comment on above: Performed By: #### I NSULIN #### [facility] [address] [place] [address] Dr. Vicki Muro Hemoglobin (Bld) [Mass/Vol] 13.0 g/dL Normal 12.0-16.0 [facility] Comment on above: Performed By: #### I NSULIN #### [facility] [address] [place] [address] Dr. Vicki Muro IG # 0.01 10e3/ul Normal 0.00-0.03 [facility] Comment on above: Performed By: #### I NSULIN #### [facility] [address] [place] [address] Dr. Vicki Muro IG % 0.2 % Normal 0.0-0.5 [facility] Comment on above: Performed By: #### I NSULIN #### [facility] [address] [place] [address] Dr. Vicki Muro LYMPH # 1.6 103/ul Normal 1.2-3.8 [facility] Comment on above: Performed By: #### I NSULIN #### [facility] [address] [address] [address] Vicki Muro Lymphocytes/100 WBC (Bld) 29.5 % Normal 20.5-60.0 [facility] Comment on above: Performed By: #### I NSULIN #### [facility] [address] [address] [address] Vicki Muro MANUAL DIFF REQ NO Normal [facility] Comment on above: Performed By: #### I NSULIN #### [facility] [address] [place] [address] Dr. Vicki Muro MCH (RBC) [Entitic mass] 29.7 pg Normal 26.7-34.0 [facility] Comment on above: Performed By: #### I NSULIN #### [facility] [address] [place] [address] Dr. Vicki Muro MCHC (RBC) [Mass/Vol] 33.2 g/dL Normal 29.9-35.2 [facility] Comment on above: Performed By: #### I NSULIN #### [facility] [address] [place] [address] Dr. Vicki Muro MCV (RBC) [Entitic vol] 89.3 fL Normal 81.0-99.0 [facility] Comment on above: Performed By: #### I NSULIN #### [facility] [address] [place] [address] Dr. Vicki Muro MONO # 0.4 103/ul Normal 0.3-0.8 [facility] Comment on above: Performed By: #### I NSULIN #### [facility] [address] [place] [address] Dr. Vicki Muro Monocytes/100 WBC (Bld) 6.6 % Normal 1.7-12.0 [facility] Comment on above: Performed By: #### I NSULIN #### [facility] [address] [place] [address] Dr. Vicki Muro NEUT # 3.2 103/ul Normal 1.4-6.5 [facility] Comment on above: Performed By: #### I NSULIN #### [facility] [address] [address] [address] Vicki Muro Neutrophils/100 WBC (Bld) 60.5 % Normal 43.0-75.0 [facility] Comment on above: Performed By: #### I NSULIN #### [facility] [address] [address] [address] Vicki Muro Platelet mean volume (Bld) [Entitic vol] 10.0 fL Normal 9.5-13.5 [facility] Comment on above: Performed By: #### I NSULIN #### [facility] [address] [address] [address] Vicki Muro PLT 212 103/ul Normal 150-450 [facility] Comment on above: Performed By: #### I NSULIN #### [facility] [address] [place] [address] Dr. Vicki Muro RBC 4.38 106/ul Normal 4.20-5.40 [facility] Comment on above: Performed By: #### I NSULIN #### [facility] [address] [address] [address] Vicki Muro WBC 5.3 103/ul Normal 4.0-11.0 [facility] Comment on above: Performed By: #### I NSULIN #### [facility] [address] [place] [address] Dr. Vicki Muro GLYCOHEMOGLOBIN A1Con 2021 ADA RECOMMENDATION SEE BELOW Normal [facility] Comment on above: Result Comment: ADA RECOMMENDED LIMIT 4.0 - 6.0 ADA THERAPEUTIC TARGET < 7.0 ACTION SUGGESTED > 7.0 Performed By: #### I NSULIN #### [facility] [address] [place] [address] Dr. Vicki Muro Glucose [Mass/Vol] 126 mg/dL Normal [facility] Comment on above: Performed By: #### I NSULIN #### [facility] [address] [address] [address] Vicki Muro HbA1c (Bld) [Mass fraction] 6.0 % Normal 4.5-6.2 [facility] Comment on above: Performed By: #### I NSULIN #### [facility] [address] [address] [address] Vicki Muro IRONon 04-29-2022 Iron [Mass/Vol] 63.0 ug/dL Normal 50.0-170.0 [facility] Comment on above: Performed By: #### I SIERRA #### [facility] [address] [address] [address] Vicki Muro LIPID PROFILEon 04-29-2022 CHOL-HDL RATIO NORM SEE BELOW Normal [facility] Comment on above: Result Comment: 3.3 - 4.4 LOW RISK 4.4 - 7.1 AVERAGE RISK 7.1 - 11.0 MODERATE RISK >11.0 HIGH RISK Performed By: #### L IPID, CMP, BNP, TSH #### [facility] [address] [address] [address] Vicki Muro Cholesterol [Mass/Vol] 179 mg/dL Normal <=200 [facility] Comment on above: Performed By: #### L IPID, CMP, BNP, TSH #### [facility] [address] [address] [address] Vicki Muro Cholesterol in HDL [Mass/Vol] 53 mg/dL Normal 40-60 [facility] Comment on above: Performed By: #### L IPID, CMP, BNP, TSH #### [facility] [address] [address] [address] Vicki Muro Cholesterol in LDL [Mass/Vol] 85.8 mg/dL Normal [facility] Comment on above: Performed By: #### L IPID, CMP, BNP, TSH #### [facility] [address] [address] [address] Vicki Muro Cholesterol.total/Ch olesterol in HDL [Mass ratio] 3.4 {ratio} Normal [facility] Comment on above: Performed By: #### L IPID, CMP, BNP, TSH #### [facility] [address] [address] [address] Vicki Muro HDL NORMAL > or = 60 mg/dl - LO W CARDIOVASCULAR RISK <40 mg/dl - HIGH CARDIOVASCULAR RISK Normal [facility] Comment on above: Performed By: #### L IPID, CMP, BNP, TSH #### [facility] [address] [address] [address] Vicki Muro LDL CALC NORMAL SEE BELOW Normal [facility] Comment on above: Result Comment: <100 mg/dl OPTIMAL 100 - 129 mg/dl NEAR OR ABOVE OPTIMAL 130 - 159 mg/dl BORDERLINE HIGH 160 - 189 mg/dl HIGH >190 mg/dl VERY HIGH Performed By: #### L IPID, CMP, BNP, TSH #### [facility] [address] [address] [address] Vicki Muro Triglyceride [Mass/Vol] 201 mg/dL Critically high <=150 [facility] Comment on above: Performed By: #### L IPID, CMP, BNP, TSH #### [facility] [address] [address] [address] Vicki Muro VLDL CALC 40.2 mg/dL Normal [facility] Comment on above: Performed By: #### L IPID, CMP, BNP, TSH #### [facility] [address] [address] [address] Vicki Muro PROF 14(COMP METB)on 022 Albumin [Mass/Vol] 3.8 g/dL Normal 3.4-5.0 [facility] Comment on above: Performed By: #### L IPID, CMP, BNP, TSH #### [facility] [address] [address] [address] Vicki Muro Albumin/Globulin [Mass ratio] 1.0 {ratio} Normal [facility] Comment on above: Performed By: #### L IPID, CMP, BNP, TSH #### [facility] [address] [address] [address] Vicki Muro ALP [Catalytic activity/Vol] 108 U/L Normal 46-116 [facility] Comment on above: Performed By: #### L IPID, CMP, BNP, TSH #### [facility] [address] [address] [address] Vicki Muro ALT [Catalytic activity/Vol] 29 U/L Normal 14-59 [facility] Comment on above: Performed By: #### L IPID, CMP, BNP, TSH #### [facility] [address] [address] [address] Vicki Muro Anion gap [Moles/Vol] 13.1 mmol/L Normal [facility] Comment on above: Performed By: #### L IPID, CMP, BNP, TSH #### [facility] [address] [place] [address] Dr. Vicki Muro AST [Catalytic activity/Vol] 24 U/L Normal 15-37 [facility] Comment on above: Performed By: #### L IPID, CMP, BNP, TSH #### [facility] [address] [place] [address] Dr. Vicki Muro Bilirubin [Mass/Vol] 0.4 mg/dL Normal 0.2-1.0 [facility] Comment on above: Performed By: #### L IPID, CMP, BNP, TSH #### [facility] [address] [place] [address] Dr. Vicki Muro Calcium [Mass/Vol] 9.2 mg/dL Normal 8.5-10.1 [facility] Comment on above: Performed By: #### L IPID, CMP, BNP, TSH #### [facility] [address] [place] [address] Dr. Vicki Muro Chloride [Moles/Vol] 103 mmol/L Normal 98-107 [facility] Comment on above: Performed By: #### L IPID, CMP, BNP, TSH #### [facility] [address] [place] [address] Dr. Vicki Muro CO2 [Moles/Vol] 27.7 mmol/L Normal 21.0-32.0 [facility] Comment on above: Performed By: #### L IPID, CMP, BNP, TSH #### [facility] [address] [place] [address] Dr. Vicki Muro Creatinine [Mass/Vol] 0.81 mg/dL Normal 0.55-1.02 [facility] Comment on above: Performed By: #### L IPID, CMP, BNP, TSH #### [facility] [address] [address] [address] Vicki Muro EGFR-AF NIUEAN >60 Normal >=60 [facility] Comment on above: Performed By: #### L IPID, CMP, BNP, TSH #### [facility] [address] [address] [address] Vicki Muro EGFR-NON AF NIUEAN >60 Normal >=60 [facility] Comment on above: Performed By: #### L IPID, CMP, BNP, TSH #### [facility] [address] [address] [address] Vicki Muro Globulin (S) [Mass/Vol] 3.8 g/dL Normal [facility] Comment on above: Performed By: #### L IPID, CMP, BNP, TSH #### [facility] [address] [address] [address] Vicki Muro Glucose [Mass/Vol] 132 mg/dL Critically high 74-106 [facility] Comment on above: Performed By: #### L IPID, CMP, BNP, TSH #### [facility] [address] [address] [address] Vicki Muro Potassium [Moles/Vol] 3.8 mmol/L Normal 3.5-5.1 [facility] Comment on above: Performed By: #### L IPID, CMP, BNP, TSH #### [facility] [address] [address] [address] Vicki Muro Protein [Mass/Vol] 7.6 g/dL Normal 6.4-8.2 [facility] Comment on above: Performed By: #### L IPID, CMP, BNP, TSH #### [facility] [address] [address] [address] Vicki Muro Sodium [Moles/Vol] 140 mmol/L Normal 136-145 [facility] Comment on above: Performed By: #### L IPID, CMP, BNP, TSH #### [facility] [address] [address] [address] Vicki Muro Urea nitrogen [Mass/Vol] 10.0 mg/dL Normal 7.0-18.0 [facility] Comment on above: Performed By: #### L IPID, CMP, BNP, TSH #### [facility] [address] [address] [address] Vicki Muro Urea nitrogen/Creatinine [Mass ratio] 12.3 mg/mg Normal [facility] Comment on above: Performed By: #### L IPID, CMP, BNP, TSH #### [facility] [address] [address] [address] Vicki Muro TSHon 04-29-2022 TSH 2.265 uIU/mL Normal 0.358-3.740 [facility] Comment on above: Performed By: #### L IPID, CMP, BNP, TSH #### [facility] [address] [place] [address] Dr. Vicki Muro ECHOCARDIO M/2D COMPLETEon 0 12-30-2021 ECHOCARDIO M/2D COMPLETE Patient: ARMANDO SWEET Exam Date: 12/30/2021 : 1950 Gender:F Ordering : DR MIRACLE HUERTAS M.D. Admission #: [id number] Family : Order #: [id number] CLICK HERE TO VIEW EXAM ECHOCARDIOGRAM REPORT [...] stenosis. DVI 0.3, BERNARDO (VTI) 1.45 cm?, BERNADRO (Vmax) 1.14 cm?, mean 18 mmHg, peak [...] Area(A4C): 21.80 cm2 Left Atrium Systolic Volume(A2C): 24163 mm3 Left Atrium Systolic Volume(A4C): 47473 mm3 Mitral Valve MV E to A [...] M.D. on 12/30/2021 at 15:20 Normal [facility] HEMOGRAM AND PLATELon 2021 Hematocrit (Bld) [Volume fraction] 39.8 % Normal 36.0-48.0 [facility] Comment on above: Performed By: #### H H #### [facility] [address] [address] [address] Vicki Muro Hemoglobin (Bld) [Mass/Vol] 13.0 g/dL Normal 12.0-16.0 [facility] Comment on above: Performed By: #### H H #### [facility] [address] [address] [address] Vicki Muro MCH (RBC) [Entitic mass] 30.2 pg Normal 26.7-34.0 [facility] Comment on above: Performed By: #### H H #### [facility] [address] [address] [address] Vicki Muro MCHC (RBC) [Mass/Vol] 32.7 g/dL Normal 29.9-35.2 [facility] Comment on above: Performed By: #### H H #### [facility] [address] [address] [address] Vicki Muro MCV (RBC) [Entitic vol] 92.6 fL Normal 81.0-99.0 [facility] Comment on above: Performed By: #### H H #### [facility] [address] [address] [address] Vicki Muro PLT 194 103/ul Normal 150-450 [facility] Comment on above: Performed By: #### H H #### [facility] [address] [address] [address] Vicki Muro RBC 4.30 106/ul Normal 4.20-5.40 [facility] Comment on above: Performed By: #### H H #### [facility] [address] [address] [address] Vicki Muro WBC 4.7 103/ul Normal 4.0-11.0 [facility] Comment on above: Performed By: #### H H #### [facility] [address] [address] [address] Vicki Muro LIPID PROFILEon 10-29-2021 CHOL-HDL RATIO NORM SEE BELOW Normal [facility] Comment on above: Result Comment: 3.3 - 4.4 LOW RISK 4.4 - 7.1 AVERAGE RISK 7.1 - 11.0 MODERATE RISK >11.0 HIGH RISK Performed By: #### I NSULIN #### [facility] [address] [address] [address] Vicki Muro Cholesterol [Mass/Vol] 193 mg/dL Normal <=200 [facility] Comment on above: Performed By: #### I NSULIN #### [facility] [address] [address] [address] Vicki Muro Cholesterol in HDL [Mass/Vol] 55 mg/dL Normal [facility] Comment on above: Performed By: #### I NSULIN #### [facility] [address] [address] [address] Vicki Muro Cholesterol in LDL [Mass/Vol] 97.2 mg/dL Normal [facility] Comment on above: Performed By: #### I NSULIN #### [facility] [address] [address] [address] Vicki Muro Cholesterol.total/Ch olesterol in HDL [Mass ratio] 3.5 {ratio} Normal [facility] Comment on above: Performed By: #### I NSULIN #### [facility] [address] [address] [address] Vicki Muro HDL NORMAL > or = 60 mg/dl - LO W CARDIOVASCULAR RISK <40 mg/dl - HIGH CARDIOVASCULAR RISK Normal [facility] Comment on above: Performed By: #### I NSULIN #### [facility] [address] [address] [address] Vicki Muro LDL CALC NORMAL SEE BELOW Normal [facility] Comment on above: Result Comment: <100 mg/dl OPTIMAL 100 - 129 mg/dl NEAR OR ABOVE OPTIMAL 130 - 159 mg/dl BORDERLINE HIGH 160 - 189 mg/dl HIGH >190 mg/dl VERY HIGH Performed By: #### I NSULIN #### [facility] [address] [address] [address] Vicki Muro Triglyceride [Mass/Vol] 204 mg/dL Critically high <=150 [facility] Comment on above: Performed By: #### I NSULIN #### [facility] [address] [place] [address] Dr. Vicki Muro VLDL CALC 40.8 mg/dL Normal [facility] Comment on above: Performed By: #### I NSULIN #### [facility] [address] [place] [address] Dr. Vicki Muro PROF 14(COMP METB)on 022 Albumin [Mass/Vol] 3.6 g/dL Normal 3.5-5.0 [facility] Comment on above: Performed By: #### I NSULIN #### [facility] [address] [place] [address] Dr. Vicki Muro Albumin/Globulin [Mass ratio] 1.0 {ratio} Normal [facility] Comment on above: Performed By: #### I NSULIN #### [facility] [address] [place] [address] Dr. Vicki Muro ALP [Catalytic activity/Vol] 92 U/L Normal 38-126 [facility] Comment on above: Performed By: #### I NSULIN #### [facility] [address] [place] [address] Dr. Vicki Muro ALT [Catalytic activity/Vol] 30 U/L Normal 9-52 [facility] Comment on above: Performed By: #### I NSULIN #### [facility] [address] [address] [address] Vicki Muro Anion gap [Moles/Vol] 11.3 mmol/L Normal [facility] Comment on above: Performed By: #### I NSULIN #### [facility] [address] [place] [address] Dr. Vicki Muro AST [Catalytic activity/Vol] 23 U/L Normal 14-36 [facility] Comment on above: Performed By: #### I NSULIN #### [facility] [address] [address] [address] Vicki Muro Bilirubin [Mass/Vol] 0.4 mg/dL Normal 0.2-1.3 [facility] Comment on above: Performed By: #### I NSULIN #### [facility] [address] [place] [address] Dr. Vicki Muro Calcium [Mass/Vol] 9.0 mg/dL Normal 8.4-10.2 [facility] Comment on above: Performed By: #### I NSULIN #### [facility] [address] [place] [address] Dr. Vicki Muro Chloride [Moles/Vol] 104 mmol/L Normal 98-107 [facility] Comment on above: Performed By: #### I NSULIN #### [facility] [address] [place] [address] Dr. Vicki Muro CO2 [Moles/Vol] 25.9 mmol/L Normal 22.0-30.0 [facility] Comment on above: Performed By: #### I NSULIN #### [facility] [address] [place] [address] Dr. Vicki Muro Creatinine [Mass/Vol] 0.86 mg/dL Normal 0.52-1.04 [facility] Comment on above: Performed By: #### I NSULIN #### [facility] [address] [place] [address] Dr. Vicki Muro EGFR-AF NIUEAN >60 Normal >=60 [facility] Comment on above: Performed By: #### I NSULIN #### [facility] [address] [place] [address] Dr. Vicki Muro EGFR-NON AF NIUEAN >60 Normal >=60 [facility] Comment on above: Performed By: #### I NSULIN #### [facility] [address] [address] [address] Vicki Muro Globulin (S) [Mass/Vol] 3.6 g/dL Normal [facility] Comment on above: Performed By: #### I NSULIN #### [facility] [address] [address] [address] Vicki Muro Glucose [Mass/Vol] 119 mg/dL Critically high 74-106 [facility] Comment on above: Performed By: #### I NSULIN #### [facility] [address] [place] [address] Dr. Vicki Muro Potassium [Moles/Vol] 4.4 mmol/L Normal 3.4-5.0 [facility] Comment on above: Performed By: #### I NSULIN #### [facility] [address] [address] [address] Vicki Muro Protein [Mass/Vol] 7.2 g/dL Normal 6.1-8.2 [facility] Comment on above: Performed By: #### I NSULIN #### [facility] [address] [place] [address] Dr. Vicki Muro Sodium [Moles/Vol] 137 mmol/L Normal 137-145 [facility] Comment on above: Performed By: #### I NSULIN #### [facility] [address] [address] [address] Vicki Muro Urea nitrogen [Mass/Vol] 14.0 mg/dL Normal 7.0-17.0 [facility] Comment on above: Performed By: #### I NSULIN #### [facility] [address] [place] [address] Dr. Vicki Muro Urea nitrogen/Creatinine [Mass ratio] 16.3 mg/mg Normal [facility] Comment on above: Performed By: #### I NSULIN #### [facility] [address] [place] [address] Dr. Vicki Muro Encounters Encounter Date Encounter Type Care Provider Facility Start: 04-13-2025 End: 04-13-2025 ambulatory Scotty Holly [facility] Work Phone: Start: 04-13-2025 End: 04-13-2025 Departed Referred Scotty Andersen MD -[facility] Start: 03-29-2025 End: 03-29-2025 ambulatory Tavo Olman [place] Facility:[facility] Start: 03-29-2025 End: 03-29-2025 Patient encounter procedure Tavo Thurman SANGITASyed [facility] [place] Start: 03-13-2025 ambulatory Tavo [place] Facility:[facility] Start: 03-09-2025 End: 03-09-2025 ambulatory Kennedy Wharton [facility] Work Phone: Start: 03-09-2025 End: 03-09-2025 Departed Referred Kennedy Wharton MD -[facility] Start: 01-27-2025 End: 02-01-2025 Transcribe Orders Scotty Holly MD Work Phone: Referring Physician Comment on above: Hypertension, unspec ified type (Primary Dx); Hyperlipidemia, unspecified hyperlipidemia type Start: 01-03-2025 End: 01-03-2025 ambulatory Scotty Holly [facility] Work Phone: Start: 01-03-2025 End: 01-03-2025 Departed Referred Scotty Holly MD Work Phone: [facility] Start: 11-17-2023 End: 11-17-2023 ambulatory DAGO [...] End: 08-10-2018 Patient encounter procedure DEFAULT PHYSICIAN Facility:[facility] Start: 06-03-2018 End: 06-04-2018 Patient encounter procedure DEFAULT PHYSICIAN Facility:[facility] Procedures Date Procedure Procedure Detail Performing [...] RSV Vaccine (1 - 1-dose 75+ series) [facility] Start: 05-01-2025 Influenza vaccination Influenza Vaccine (Season Ended) [facility] Start: 04-13-2025 Bacteria identified in Urine by Culture Urine Culture [facility] Start: 04-13-2025 Urine culture [facility] Start: 03-09-2025 Bacteria identified in Urine by Culture Urine Culture [facility] Start: 03-09-2025 Urine culture [facility] Start: 01-03-2025 Bacteria identified in Urine by Culture Urine Culture [facility] Start: 01-03-2025 Urine culture [facility] Start: 08-31-2024 Advance Directive Discussion Advance Directive Discussion [facility] Start: 05-01-2024 Covid-19 Vaccine ( season) Covid-19 Vaccine ( season) [facility] Start: 2017 Screening for osteoporosis Bone Density Screening [facility] Start: 08-16-2011 Diabetes Screening Diabetes Screening [facility] Start: 2002 Pneumococcal Vaccine: 50+ (1 of 1 - PCV) Pneumococcal Vaccine: 50+ (1 of 1 - PCV) [facility] Start: 2002 Shingrix Vaccine (1 of 2) Shingrix Vaccine (1 of 2) [facility] Start: 1997 Lipid panel Lipid Screening [facility] Start: 1997 Screening for malignant neoplasm of colon [facility] Start: 1992 Screening for malignant neoplasm of breast Mammogram Screening [facility] Start: 1971 Urine microalbumin profile DTaP,Tdap,Td Vaccine (1 - Tdap) [facility] Start: 1970 Anxiety Screening Anxiety Screening [facility] Start: 1970 Depression Screening Depression Screening [facility] Start: 1970 Hepatitis C screening Hepatitis C Screening [facility] Payers Date Payer Category Payer Medicare [id number] 2025 Private Health Insurance [id number] 2025 Self-pay 2024 Medicare (Managed Care) [employer] MEDICARE [id number] 2005 Private Health Insurance [employer] [id number] 1959 Medicare [id number] 1959 Unknown [id number] 1952 Unknown [id number] [id number]. 2.647 1952 Unknown [id number] 2.16.840.1.825761.3.579. 2.647 1952 Unknown [id number] 2.16.840.1.436483.3.579. 2.593 1952 Unknown [id number] 2.16.840.1.400105.3.579. 2.593 1952 Unknown [id number] 2.16.840.1.971122.3.579. 2.593 1952 Unknown [id number] 2.16.840.1.365153.3.579. 2.593 1952 Unknown [id number] 2.16.840.1.150220.3.579. 2.593 1952 Unknown [id number] 2.16.840.1.018886.3.579. 2.1259 1952 Unknown [id number] 2.16.840.1.801736.3.579. 2.727 Private Health Insurance [employer] [id number] Unknown Unknown [id number] 2.16.840.1.240412.3.579. 2.531 Unknown [id number] 2.16.840.1.240409.3.579. 2.531 Unknown [id number] 2.16.840.1.843216.3.579. 2.531 Social History Date Type Detail Facility [facility] Start: 12-12-2009 End: 01-05-2025 Sex Female (finding) [facility] Start: 1950 Sex Assigned At Female F [facility] Start: 1950 Sex assigned at Not on file [facility] Gender identity Not on file [facility] Tobacco smoking status [facility] Medical Equipment Procedure Code Equipment Code Equipment Origin al Text Equipment Identifier Dates Blood Sugar Diagnostic strip Start: 03-12-2025 Lancets misc Start: 03-12-2025 Evaluation + Plan note Note Date & Type Note Facility Evaluation + Plan note No data available for this section [facility] Evaluation note Note Date & Type Note Facility Evaluation note No assessment information availa ble [facility] Work Phone: Evaluation note Note Date & Type Note Facility Evaluation note Diagnosis Hypertension, unspecified type- Primary Hyperlipidemia, unspecified hyperlipidemia type documented in this encounter [facility] Discharge instructions Note Date & Type Note Facility Hospital Discharge instructions No data available for this section [facility] [place] Progress note Note Date & Type Note Facility Progress note No data available for this section [facility] [place] Reason for referral (narrative) Note Date & Type Note Facility Reason for referral (narrative) No reason for referral information available [facility] Work Phone: Summary Purpose Family [...] section and content) DATE CREATED AUTHOR 08/11/2018 [facility] DATE CREATED AUTHOR AUTHOR'S ORGANIZ ATION 10/10/2022 [facility] DATE CREATED AUTHOR AUTHOR'S ORGANIZ ATION 11/18/2023 [facility] EPIC DATE CREATED AUTHOR AUTHOR'S ORGANIZ ATION 04/01/2025 [facility] DATE CREATED AUTHOR AUTHOR'S ORGANIZ ATION 04/02/2025 [facility] DATE CREATED AUTHOR AUTHOR'S ORGANIZ ATION 04/17/2025 [facility] Care Teams (unrecognized sec tion and content) Team Status: Inactive Member Role Status Dates Scotty Holly MD Attending Provider Active Sta rt: January 03, 2025 End: January 03, 2025 Internet Sales Manager Relationship Specialty Start Date End Date Scotty Holly MD PCP - General 05/08/08 Team Status: Inactive Member Role Status Dates Kennedy Wharton MD Attending Provider Active St art: March 09, 2025 End: March 09, 2025 Team Status: Inactive Member Role Status Dates Scotty oHlly MD Attending Provider Active Sta rt: April [...] or prosecute any alcohol or drug abuse patient.[facility] FOR RECORDS PERTAINING TO PATIENTS WHO ARE [...] BE BASED ON THE PRIMARY CLINICAL RECORDS. [facility]. provides no warranty or guarantee of the accuracy or completeness of information in this document.
--- NOTE | 2025-05-16 08:27 | MR_ITS ---
The [address] [address] Patient Name: ARMANDO COOK MRN: [id number] date: 1950 Sex: F Assigned Patient Location: MRI Current Patient Location: MRI Accession/Order Number: [id number] Exam Date: 05/16/2025 08:50 Report Date: 05/16/2025 11:32 At the request of: SCOTTY RIZVI MD Procedure: MR lumbar spine wo con MRI LUMBAR SPINE WITHOUT CONTRAST COMPARISON: Plain films 05/19/2025 CLINICAL DATA: Follow-up lumbar compression fracture. Back pain and left leg weakness. Multiecho imaging in the axial and sagittal plane was performed without contrast. There is subtle levoscoliotic curvature. There is no significant displacement on the sagittal sequences. There is increasing concavity at superior endplate of L4. There is similar wedge deformity involving the inferior endplate of L3. These sites show associated increased STIR signal compatible with edema and recent compression deformity. The conus medullaris terminates at T12-L1 and is normal in size and signal. No paraspinal soft tissue abnormalities are seen. At T12-L1 and L1-2, there is no significant disc disease or stenosis. At L2-3, there is mild annular disc bulging, greater toward the neural foramen. There is minor facet and ligament hypertrophy. There is mild thecal sac effacement. Mild to moderate inferior foraminal encroachment is also seen, greater on the right. At L3-4, there is disco-osteophytic bulging as well as facet and ligamentous hypertrophy with moderate to severe thecal sac effacement and foraminal encroachment. At L4-5, there is minor annular disc bulging. Moderate facet and ligamentous hypertrophy are seen. There is at least moderate narrowing of central canal. There is mild foraminal encroachment, greater on the right. At the lumbosacral junction there is minor annular disc bulging. Bilateral facet hypertrophy is seen. There is subtle thecal sac effacement and minimal inferior foraminal encroachment. MR/MR lumbar spine wo con IMPRESSION: RECENT COMPRESSION DEFORMITIES AT L3 AND L4, DESCRIBED. DISCOVERTEBRAL DEGENERATIVE CHANGES WITH ASSOCIATED STENOSIS, GREATEST AT THE L3-4 AND L4-5 LEVELS, OUTLINED ABOVE. Impression dictated by: Rosa Isela Coello M.D. 05/16/2025 11:32 AM Dictation Location: [address] [address] Electronically authenticated by: [id number] Y Date: 05/16/2025 11:32
== END 2025-05-16 08:23 | disposition home or self-care (01) ==
LOC: MRI 08:23
PROVIDERS: PCP Family Medicine; Visit Provider Family Medicine
DX: S32.000A Wedge compression fracture of unspecified lumbar vertebra, initial encounter for closed fracture (principal)
CPT/HCPCS: 72148

== ENCOUNTER 2025-05-25 12:25 | Outpatient (OUT) | payer MEDICARE, SELFPAY ==
--- OUTSIDE RECORDS SUMMARY | 2025-05-22 12:15 | XMS_ITS ---
Author Organization [facility] [place] Address [address] [place] [address] Care Team Providers Care Rn Testing Name Role Phone Morteza Holly Primary Care Provider REASON FOR VISIT dark urine Encounters Encounter Location Date Provider Diagnosis [facility] [address] [place] [address] 05/22/2025 Morteza Holly UTI (urinary tract infection) N39.0 Assessments Encounter Date Diagnosis (ICD Code) Assessment Notes Treatment Notes Treatment Clinical Notes Section Notes 05/22/2025 UTI (urinary tract infection) (ICD-10 - N39.0) Plan Of Treatment Pending Test Test Name Order Date UA (URINALYSIS, COMPLETE) 05/22/2025 Urine Culture 05/22/2025 URINE MICROSCOPIC ONLY 05/22/2025 Progress Notes * Hilary COOKDOB: [birth year] (75 yo F)Acc No.[id number]:05/22/2025 Patient: Zarina Hilary RICHARD :1950 A ge:75 Y S ex:Female Address:[address] [place], [address] Subjective: * Chief Complaints: * D ark urine * Medical History: * Surgical History: * Hospitalization/Major Diagno stic Procedure: * Medications: Objective: * Vitals: * Physical Examination: Assessment: * Assessment: 1. U TI (urinary tract infection) - N39.0 (Primary) Plan: * Treatment: * Procedure Codes: * true * Date: Generated for Damaris palumbo/Amaury/Abel on: 0 05/25/2025 12:26 PM EDT
--- OUTSIDE RECORDS SUMMARY | 2025-05-25 12:27 | XMS_ITS | Encounter Summary ---
Author Organization [facility] Address [address] [place], [place] [id number] Care Team Providers Care Maternal Child Nurse Name Role Phone Jamie Holly MD Primary Care Provider [phone] Source Comments In the event this information is protected by the Federal Confidentiality of Alcohol and Drug AbusePatient Records regulations: The Federal rules restrict any use of the information to criminally investigate or prosecute any alcohol or drug abuse patient.[facility] Reason for Referral * Outpatient Procedure (Routine) - Authorized Specialty Diagnoses / Procedures Referred By Contac t Referred To [facility] Diagnoses Primary hypertension Procedures ECG COMPLETE ECG ROUTINE ECG W/LEAST 12 LDS W/I&R Carrie Cole MD [address] [place], [place] [id number] Phone: tel: fax: [facility] [place] [phone] Referral ID Status Reason Start Date Expiration Date Visits Requested Visits Authorized [id number] Authorized Auto-Generat ed Referral 05/23/2025 05/23/2026 1 1 Encounter Details Date Type Department Care Team (Late st Contact Info) Description 05/23/2025 Orders Only Cardiology [address] [place] [address] Carrie Cole MD [address] [place] [address] Primary hypertension (Primary Dx) Social History Tobacco Use Types Packs/Day Years Used Date Smoking Tobacco: Never Assessed Comments No Sex and Gender Information Value Date Recorded Sex Assigned at Not on file Legal Sex Female 8:16 AM EST Gender Identity Not on file Sexual Orientation Not on file documented as of this encounter Plan of Treatment Upcoming Encounters Date Type Department Care Team (Late st Contact Info) Description 11/23/2025 12:15 PM EDT Office Visit Cardiology [address] [place] [id number] CONSULT CARDIO 11/23/2025 12:45 PM EDT Procedure Cardiology [address] [place] [address] CONSULT CARDIO 11/23/2025 1:45 PM EDT Office Visit Cardiology [address] [place] [id number] Carrie Cole MD [address] [place] [address] CONSULT CARDIO Scheduled Orders Name Type Priority Associated Diagnoses Orde r Schedule ECG COMPLETE ECG Routine Primary hypertension 1 Occurrences starting 05/23/2025 until 05/23/2026 documented as of this encounter Visit Diagnoses Diagnosis Primary hypertension- Primary Unspecified essential hypertension documented in this encounter Care Teams Maternal Child Nurse Relationship Specialty Start Date End Date Jamie Holly MD PCP - General 05/08/08 documented as of this encounter
--- OUTSIDE RECORDS SUMMARY | 2025-05-25 12:27 | XMS_ITS | Clinical Summary ---
Author Organization [facility] Address [address] [place] [address] Care Team Providers Care Telesales Advisor Name Role Phone Jamie Holly MD Primary Care Provider [phone] Allergies Active Allergy Reactions Criticality Noted Date [...] Insurance MEDICARE [employer] MED[employer]ARE [employer]VANTAGE Care Teams Telesales Advisor Relationship Specialty Start Date End Date Jamie Holly MD [address] [place] [phone] PCP - General Family Medicine 11/17/23
--- OUTSIDE RECORDS SUMMARY | 2025-05-25 12:27 | XMS_ITS | Encounter Summary ---
Author Organization [facility] Address [address] [place] [address] Care Team Providers Care Accounts Receivable Processor Name Role Phone Jamie Holly MD Primary Care Provider [phone] Reason for Visit * Reason Comments Med Refill Encounter Details Date Type Department Care Team (Late st Contact Info) Description 12/25/2023 Refill [facility] [address] [place] [address] Samson Love MD [address] [facility] [address] [facility] [place] [address] Benign hypertensive heart disease with [...] (CMS/HCC) documented in this encounter Care Teams Accounts Receivable Processor Relationship Specialty Start Date End Date Jamie Holly MD [address] [facility] [address] [address] PCP - General 10/06/22 documented as of this encounter
--- OUTSIDE RECORDS SUMMARY | 2025-05-25 12:27 | XMS_ITS | Encounter Summary ---
Author Organization [facility] Address [address] [place] [address] Care Team Providers Care Secretary Book Keeper Name Role Phone Jamie Holly MD Primary Care Provider [phone] Reason for Visit * Reason Comments Med Refill Encounter Details Date Type Department Care Team (Late st Contact Info) Description 04/07/2023 Refill [facility] at [facility] [address] [place] [address] Samson Love MD [address] [facility] [address] [facility] [place] [phone] Essential hypertension Social History Tobacco Use Types [...] hypertension documented in this encounter Care Teams Secretary Book Keeper Relationship Specialty Start Date End Date Jamie Holly MD [address] [facility] [address] [address] PCP - General 10/06/22 documented as of this encounter
--- OUTSIDE RECORDS SUMMARY | 2025-05-25 12:27 | XMS_ITS | Encounter Summary ---
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
--- OUTSIDE RECORDS SUMMARY | 2025-05-25 12:27 | XMS_ITS | Patient Health Record ---
Author Organization [facility] in [place] Address [address] [place] [address] Care Team Providers Care Coil Former Name Role Phone Morteza Holly Primary Care [...] PM Interpretation: Performing Lab: Notes/Report: Source Facility: [place] [address] [place] [address] Ultrasound Report Signed Patient: ARMANDO SWEET MR#: [id number] : 1950 Acct:[id number] Age/Sex: 74 / F ADM Date: 05/04/25 Loc: US Attending Dr: Scotty Holly M.D. Ordering Physician: Scotty Holly M.D. Date of Service: 05/04/25 Procedure(s): US renal bladder Accession Number(s): [id number] cc: Scotty Holly M.D. [place] [address] Patient Name: ARMANDO SWEET MRN: [id number] date: 1950 Sex: F Assigned Patient Location: US Current Patient Location: US Accession/Order Number: [id number] Exam Date: 05/04/2025 12:40 Report Date: 05/04/2025 [...] Coello M.D. 05/04/2025 1:24 PM Dictation Location: [place] [address] Electronically authenticated by: [id number] Y Date: 05/04/2025 13:24 Dictated By: Rosa Isela Coello M.D. Signed By: 05/04/25 1326 DD/ 1324 TD/TT: Dry Primer Powder Blender: [place] [facility] [place] Reviewed date:01/09/2025 08:52:33 PM Interpretation: Performing Lab: Notes/Report: [facility] Urine Culture - [facility] See Below For Report Urine [facility] - [facility] Testing performed at [facility] O:ESCCOL Isolated Urine Culture - [facility] [place] Count Organism: 1.1 Antibiotic Interpretation SIOBHAN Status Urine Culture - [facility] [address] [place] [address] Urine Culture - [facility] Testing performed at [facility] O:ESCCOL Isolated Urine Culture - [facility] [place] Count Organism: 1.1 Antibiotic Interpretation SIOBHAN Status Urine Culture - [facility] See Below For Report Urine Culture - [facility] Testing performed at [facility] O:ESCCOL Isolated Urine Culture - [facility] [place] Count Organism: 1.1 Antibiotic Interpretation SIOBHAN Status Urine Culture - [facility] See Below For Report Urine Culture - [facility] Testing performed at [facility] O:ESCCOL Isolated Urine Culture - [facility] [place] Count Organism: 1.1 Antibiotic Interpretation SIOBHAN Status [facility]rine Culture [facility] >100,000 [facility]rine [facility] Testing performed at [facility] O:ESCCOL Isolated Urine Culture - [facility] [place] Count Organism: 1.1 Antibiotic Interpretation SIOBHAN Status Urine Culture - [facility] See Below For Report Urine Culture - [facility] Testing performed at [facility] O:ESCCOL Isolated Urine Culture - [facility] [place] Count Organism: 1.1 Antibiotic Interpretation SIOBHAN Status Urine Culture - [facility] Amikacin S F Urine Culture - [facility] Testing performed at [facility] O:ESCCOL Isolated Urine Culture - [facility] [place] Count Organism: 1.1 Antibiotic Interpretation SIOBHAN Status Urine Culture - [facility] Amoxicillin/Clavula juan e S F Urine Culture - [facility] Testing performed at [facility] O:ESCCOL Isolated Urine Culture - [facility] [place] Count Organism: 1.1 Antibiotic Interpretation SIOBHAN Status Urine Culture - [facility] Ampicillin S F Urine Culture - [facility] Testing performed at [facility] O:ESCCOL Isolated Urine Culture - [facility] [place] Count Organism: 1.1 Antibiotic Interpretation SIOBHAN Status Urine Culture - [facility] Aztreonam S F Urine Culture - [facility] Testing performed at [facility] O:ESCCOL Isolated Urine Culture - [facility] [place] Count Organism: 1.1 Antibiotic Interpretation SIOBHAN Status Urine Culture - [facility] Ceftazidime S F Urine Culture - [facility] Testing performed at [facility] O:ESCCOL Isolated Urine Culture - [facility] [place] Count Organism: 1.1 Antibiotic Interpretation SIOBHAN Status Urine Culture - [facility] Ceftazidime/Avibact am S F Urine Culture - [facility] Testing performed at [facility] O:ESCCOL Isolated Urine Culture - [facility] [place] Count Organism: 1.1 Antibiotic Interpretation SIOBHAN Status Urine Culture - [facility] Ceftolozane/Tazobac iqbal S F Urine Culture - [facility] Testing performed at [facility] O:ESCCOL Isolated Urine Culture - [facility] [place] Count Organism: 1.1 Antibiotic Interpretation SIOBHAN Status Urine Culture - [facility] Ciprofloxacin R F Urine Culture - [facility] Testing performed at [facility] O:ESCCOL Isolated Urine Culture - [facility] [place] Count Organism: 1.1 Antibiotic Interpretation SIOBHAN Status Urine Culture - [facility] Ertapenem S F Urine Culture - [facility] Testing performed at [facility] O:ESCCOL Isolated Urine Culture - [facility] [place] Count Organism: 1.1 Antibiotic Interpretation SIOBHAN Status Urine Culture - [facility] Gentamicin S F Urine Culture - [facility] Testing performed at [facility] O:ESCCOL Isolated Urine Culture - [facility] [place] Count Organism: 1.1 Antibiotic Interpretation SIOBHAN Status Urine Culture - [facility] Levofloxacin R F Urine Culture - [facility] Testing performed at [facility] O:ESCCOL Isolated Urine Culture - [facility] [place] Count Organism: 1.1 Antibiotic Interpretation SIOBHAN Status Urine Culture - [facility] Meropenem S F Urine Culture - [facility] Testing performed at [facility] O:ESCCOL Isolated Urine Culture - [facility] [place] Count Organism: 1.1 Antibiotic Interpretation SIOBHAN Status Urine Culture - [facility] Meropenem/Vaborbact am S F Urine Culture - [facility] Testing performed at [facility] O:ESCCOL Isolated Urine Culture - [facility] [place] Count Organism: 1.1 Antibiotic Interpretation SIOBHAN Status Urine Culture - [facility] Nitrofurantoin S F Urine Culture - [facility] Testing performed at [facility] O:ESCCOL Isolated Urine Culture - [facility] [place] Count Organism: 1.1 Antibiotic Interpretation SIOBHAN Status Urine Culture - [facility] Tetracycline R F Urine Culture - [facility] Testing performed at [facility] O:ESCCOL Isolated Urine Culture - [facility] [place] Count Organism: 1.1 Antibiotic Interpretation SIOBHAN Status Urine Culture - [facility] Tigecycline S F Urine Culture - [facility] Testing performed at [facility] O:ESCCOL Isolated Urine Culture - [facility] [place] Count Organism: 1.1 Antibiotic Interpretation SIOBHAN Status Urine Culture - [facility] Tobramycin S F Urine Culture - [facility] Testing performed at [facility] O:ESCCOL Isolated Urine Culture - [facility] [place] Count Organism: 1.1 Antibiotic Interpretation SIOBHAN Status Urine Culture - [facility] Ampicillin/Sulbacta m S F Urine Culture - [facility] Testing performed at [facility] O:ESCCOL Isolated Urine Culture - [facility] [place] Count Organism: 1.1 Antibiotic Interpretation SIOBHAN Status Urine Culture - [facility] Cefazolin S F Urine Culture - [facility] Testing performed at [facility] O:ESCCOL Isolated Urine Culture - [facility] [place] Count Organism: 1.1 Antibiotic Interpretation SIOBHAN Status Urine Culture - [facility] Cefepime S F Urine Culture - [facility] Testing performed at [facility] O:ESCCOL Isolated Urine Culture - [facility] [place] Count Organism: 1.1 Antibiotic Interpretation SIOBHAN Status Urine Culture - [facility] Ceftriaxone S F Urine Culture - [facility] Testing performed at [facility] O:ESCCOL Isolated Urine Culture - [facility] [place] Count Organism: 1.1 Antibiotic Interpretation SIOBHAN Status Urine Culture - [facility] Cefuroxime S F Urine Culture - [facility] Testing performed at [facility] O:ESCCOL Isolated Urine Culture - [facility] [place] Count Organism: 1.1 Antibiotic Interpretation SIOBHAN Status Urine Culture - [facility] Piperacillin/Tazoba cta m S F Urine Culture - [facility] Testing performed at [facility] O:ESCCOL Isolated Urine Culture - [facility] [place] Count Organism: 1.1 Antibiotic Interpretation SIOBHAN Status Urine Culture - [facility] Trimethoprim/Sulfa S F Urine Culture - [facility] Testing performed at [facility] O:ESCCOL Isolated Urine Culture - [facility] [place] Count Organism: 1.1 Antibiotic Interpretation SIOBHAN Status Performing Lab: see note ML - [facility] LB SEE REPORT - Arch Support Technician Id information not found for OBX-specific pastrycook legend Occult Blood* Reviewed date:03/12/2025 04:17:26 PM Interpretation: Performing Lab: Notes/Report: [facility] , Occult Blood Positive Performing Lab: see note ML - [facility] LB UA Micro, reflex to culture Reviewed date:03/09/2025 06:51:33 PM Interpretation: Performing Lab: Notes/Report: [facility] , Color Urine LT. YELLOW YELLOW Clarity Urine CLEAR CLEAR Specific [place] Urine 1.015 1.005-1.025 pH Urine 6.0 5.0-9.0 [...] SEEN NONE SEEN #/LPF Urine Culture Indicated YES-[facility] Performing Lab: see note ML - [facility] LB Urine Culture - [facility] Reviewed date:03/14/2025 08:59:32 PM Interpretation: Performing Lab: Notes/Report: [facility] , Urine Culture - [facility] See Below For Report Urine Culture - [facility] Testing performed at [facility] O:ESBLPESCL Isolated Urine Culture - [facility] [place] Count Organism: 1.1 Antibiotic Interpretation SIOBHAN Status Urine Culture - [facility] [address] [place] [address] [place] [address] Urine Culture - [facility] Testing performed at [facility] O:ESBLPESCL Isolated Urine Culture - [facility] [place] Count Organism: 1.1 Antibiotic Interpretation SIOBHAN Status Urine Culture - [facility] See Below For Report Urine Culture - [facility] Testing performed at [facility] O:ESBLPESCL Isolated Urine Culture - [facility] [place] Count Organism: 1.1 Antibiotic Interpretation SIOBHAN Status Urine Culture - [facility] See Below For Report Urine Culture - [facility] Testing performed at [facility] O:ESBLPESCL Isolated Urine Culture - [facility] [place] Count Organism: 1.1 Antibiotic Interpretation SIOBHAN Status Urine Culture - [facility] >100,000 Urine Culture - [facility] Testing performed at [facility] O:ESBLPESCL Isolated Urine Culture - [facility] [place] Count Organism: 1.1 Antibiotic Interpretation SIOBHAN Status Urine Culture - [facility] See Below For Report Urine Culture - [facility] Testing performed at [facility] O:ESBLPESCL Isolated Urine Culture - [facility] [place] Count Organism: 1.1 Antibiotic Interpretation SIOBHAN Status Urine Culture - [facility] Amikacin S F Urine Culture - [facility] Testing performed at [facility] O:ESBLPESCL Isolated Urine Culture - [facility] [place] Count Organism: 1.1 Antibiotic Interpretation SIOBHAN Status Urine Culture - [facility] Amoxicillin/Clavula juan e S F Urine Culture - [facility] Testing performed at [facility] O:ESBLPESCL Isolated Urine Culture - [facility] [place] Count Organism: 1.1 Antibiotic Interpretation SIOBHAN Status Urine Culture - [facility] Ampicillin R F Urine Culture - [facility] Testing performed at [facility] O:ESBLPESCL Isolated Urine Culture - [facility] [place] Count Organism: 1.1 Antibiotic Interpretation SIOBHAN Status Urine Culture - [facility] Aztreonam R F Urine Culture - [facility] Testing performed at [facility] O:ESBLPESCL Isolated Urine Culture - [facility] [place] Count Organism: 1.1 Antibiotic Interpretation SIOBHAN Status Urine Culture - [facility] Ceftazidime R F Urine Culture - [facility] Testing performed at [facility] O:ESBLPESCL Isolated Urine Culture - [facility] [place] Count Organism: 1.1 Antibiotic Interpretation SIOBHAN Status Urine Culture - [facility] Ceftazidime/Avibact am S F Urine Culture - [facility] Testing performed at [facility] O:ESBLPESCL Isolated Urine Culture - [facility] [place] Count Organism: 1.1 Antibiotic Interpretation SIOBHAN Status Urine Culture - [facility] Ceftolozane/Tazobac iqbal S F Urine Culture - [facility] Testing performed at [facility] O:ESBLPESCL Isolated Urine Culture - [facility] [place] Count Organism: 1.1 Antibiotic Interpretation SIOBHAN Status Urine Culture - [facility] Ciprofloxacin I F Urine Culture - [facility] Testing performed at [facility] O:ESBLPESCL Isolated Urine Culture - [facility] [place] Count Organism: 1.1 Antibiotic Interpretation SIOBHAN Status Urine Culture - [facility] Ertapenem S F Urine Culture - [facility] Testing performed at [facility] O:ESBLPESCL Isolated Urine Culture - [facility] [place] Count Organism: 1.1 Antibiotic Interpretation SIOBHAN Status Urine Culture - [facility] Gentamicin R F Urine Culture - [facility] Testing performed at [facility] O:ESBLPESCL Isolated Urine Culture - [facility] [place] Count Organism: 1.1 Antibiotic Interpretation SIOBHAN Status Urine Culture - [facility] Levofloxacin S F Urine Culture - [facility] Testing performed at [facility] O:ESBLPESCL Isolated Urine Culture - [facility] [place] Count Organism: 1.1 Antibiotic Interpretation SIOBHAN Status Urine Culture - [facility] Meropenem S F Urine Culture - [facility] Testing performed at [facility] O:ESBLPESCL Isolated Urine Culture - [facility] [place] Count Organism: 1.1 Antibiotic Interpretation SIOBHAN Status Urine Culture - [facility] Meropenem/Vaborbact am S F Urine Culture - [facility] Testing performed at [facility] O:ESBLPESCL Isolated Urine Culture - [facility] [place] Count Organism: 1.1 Antibiotic Interpretation SIOBHAN Status Urine Culture - [facility] Nitrofurantoin S F Urine Culture - [facility] Testing performed at [facility] O:ESBLPESCL Isolated Urine Culture - [facility] [place] Count Organism: 1.1 Antibiotic Interpretation SIOBHAN Status Urine Culture - [facility] Tetracycline R F Urine Culture - [facility] Testing performed at [facility] O:ESBLPESCL Isolated Urine Culture - [facility] [place] Count Organism: 1.1 Antibiotic Interpretation SIOBHAN Status Urine Culture - [facility] Tigecycline S F Urine Culture - [facility] Testing performed at [facility] O:ESBLPESCL Isolated Urine Culture - [facility] [place] Count Organism: 1.1 Antibiotic Interpretation SIOBHAN Status Urine Culture - [facility] Tobramycin R F Urine Culture - [facility] Testing performed at [facility] O:ESBLPESCL Isolated Urine Culture - [facility] [place] Count Organism: 1.1 Antibiotic Interpretation SIOBHAN Status Urine Culture - [facility] Ampicillin/Sulbacta m I F Urine Culture - [facility] Testing performed at [facility] O:ESBLPESCL Isolated Urine Culture - [facility] [place] Count Organism: 1.1 Antibiotic Interpretation SIOBHAN Status Urine Culture - [facility] Cefazolin R F Urine Culture - [facility] Testing performed at [facility] O:ESBLPESCL Isolated Urine Culture - [facility] [place] Count Organism: 1.1 Antibiotic Interpretation SIOBHAN Status Urine Culture - [facility] Cefepime R F Urine Culture - [facility] Testing performed at [facility] O:ESBLPESCL Isolated Urine Culture - [facility] [place] Count Organism: 1.1 Antibiotic Interpretation SIOBHAN Status Urine Culture - [facility] Ceftriaxone R F Urine Culture - [facility] Testing performed at [facility] O:ESBLPESCL Isolated Urine Culture - [facility] [place] Count Organism: 1.1 Antibiotic Interpretation SIOBHAN Status Urine Culture - [facility] Cefuroxime R F Urine Culture - [facility] Testing performed at [facility] O:ESBLPESCL Isolated Urine Culture - [facility] [place] Count Organism: 1.1 Antibiotic Interpretation SIOBHAN Status Urine Culture - [facility] Piperacillin/Tazoba cta m S F Urine Culture - [facility] Testing performed at [facility] O:ESBLPESCL Isolated Urine Culture - [facility] [place] Count Organism: 1.1 Antibiotic Interpretation SIOBHAN Status Urine Culture - [facility] Trimethoprim/Sulfa R F [place] [facility] [place] [facility] O:ESBLPESCL Isolated Urine Culture [place] [facility] [place] Count Organism: 1.1 Antibiotic Interpretation SIOBHAN Status Performing Lab: see note ML - [facility] LB SEE REPORT - Arch Support Technician Id information not found for OBX-specific pastrycook legend PROF 14(COMP METB) Reviewed date:03/12/2025 04:17:26 PM Interpretation: Performing Lab: Notes/Report: [facility] , Sodium 136 136-145 mmol/L Potassium [...] 0.7 Performing Lab: see note ML - [facility] LB CBC no Diff (Hemogram) Reviewed date:03/12/2025 04:17:26 PM Interpretation: Performing Lab: Notes/Report: [facility] , White Blood Count 11.6 4.0-11.0 10 [...] 10.4 9.5-13.5 fL Performing Lab: see note ML - [facility] LB CA echo doppler complete Reviewed date:03/12/2025 04:17:26 PM Interpretation: Performing Lab: Notes/Report: Source Facility: [facility]-[address] [place] [address] [place] [address] Cardiology Report Signed Patient: ARMANDO SWEET MR#: [id number] : 1950 Acct:[id number] Age/Sex: 74 / F ADM Date: 03/08/25 Loc: [place] 222-[address]: Urban Holden M.D. Ordering Physician: Urban Holden M.D. Date of Service: 03/09/25 Procedure(s): CA echo doppler complete Accession Number(s): [id number] cc: Scotty Holly M.D.; Urban Holden M.D. Patient Name: ARMANDO SWEET MR#: [id number] : 1950 Exam Date: 03/09/2025 Ordering Doctor: [...] Area (VTI): 1.87 cm2, 1.87 cm2 Deceleration [place]: Pressure Half-Time: Peak Velocity(Antegrade Flow): 2.11 m/s, [...] M.D. Signed By: 03/10/251749 DD/ 48 TD/TT: Dry Primer Powder Blender: XR KNEE LT 3V Reviewed date:03/23/2025 05:03:13 PM Interpretation: Performing Lab: Notes/Report: Source Facility: [place] [address] XRay Report Signed Patient: ARMANDO SWEET MR#: [id number] : 1950 Acct:[id number] Age/Sex: 74 / F ADM Date: 03/23/25 Loc: ER Attending Dr: Ordering Physician: Manuela Gutierrez Date of Service: 03/23/25 Procedure(s): XR knee LT 3V Accession Number(s): [id number] cc: Manuela Gutierrez; Scotty Holly M.D. [place] [address] Patient Name: ARMANDO SWEET MRN: [id number] date: 1950 Sex: F Assigned Patient Location: ER Current Patient Location: ER Accession/Order Number: [id number] Exam Date: 03/23/2025 14:59 Report Date: 03/23/2025 15:00 At the request of: MANUELA CLARK Procedure: XR knee LT 3V 3 views left knee plain film COMPARISON: None HISTORY: Left knee pain ACUTE FINDINGS: No acute findings DEGENERATIVE CHANGE: Ovfz-zs-ylst contact medial degeneration. Moderate patellofemoral degeneration. SOFT TISSUE FINDINGS: Unremarkable JOINT EFFUSION: None POSTOP CHANGES: None BONE MINERALIZATION: Adequate XR/XR knee LT 3V IMPRESSION: Extensive left knee degeneration Impression dictated by: Emir Herman M.D. 03/23/2025 3:00 PM Dictation Location: [place] [address] Electronically authenticated by: [id number] Y Date: 03/23/2025 15:00 Dictated By: Emir Herman D.O. Signed By: 03/23/25 1503 DD/ 1500 TD/TT: Dry Primer Powder Blender: XR hip LT 2V w/ pelvis Reviewed date:03/23/2025 05:03:13 PM Interpretation: Performing Lab: Notes/Report: Source Facility: [place] [address] [place] [address] XRay Report Signed Patient: ARMANDO SWEET MR#: [id number] : 1950 Acct:[id number] Age/Sex: 74 / F ADM Date: 03/23/25 Loc: ER Attending Dr: Ordering Physician: Manuela Gutierrez Date of Service: 03/23/25 Procedure(s): XR hip LT 2V w/ pelvis Accession Number(s): [id number] cc: Manuela Gutierrez; Scotty Holly M.D. [place] [address] Patient Name: ARMANDO SWEET MRN: [id number] date: 1950 Sex: F Assigned Patient Location: ER Current Patient Location: ER Accession/Order Number: [id number] Exam Date: 03/23/2025 14:57 Report Date: 03/23/2025 [...] Herman M.D. 03/23/2025 2:59 PM Dictation Location: [place] [address] Electronically authenticated by: [id number] Y Date: 03/23/2025 14:59 Dictated By: Emir Herman D.O. Signed By: 03/23/25 150 DD/ 1459 TD/TT: Dry Primer Powder Blender: XR lumbar spine 2-3V Reviewed date:03/23/2025 05:03:13 PM Interpretation: Performing Lab: Notes/Report: Source Facility: [place] [address] XRay Report Signed Patient: ARMANDO SWEET MR#: [id number] : 1950 Acct:[id number] Age/Sex: 74 / F ADM Date: 03/23/25 Loc: ER Attending Dr: Ordering Physician: Manuela Gutierrez Date of Service: 03/23/25 Procedure(s): XR lumbar spine 2-3V Accession Number(s): [id number] cc: Manuela Gutierrez; Scotty Holly M.D. [place] [address] Patient Name: ARMANDO SWEET MRN: [facility]:[id number] date: 1950 Sex: F Assigned Patient Location: ER Current Patient Location: ER Accession/Order Number: [id number] Exam Date: 03/23/2025 15:00 Report Date: 03/23/2025 [...] Herman M.D. 03/23/2025 3:02 PM Dictation Location: [place] [address] Electronically authenticated by: [id number] Y Date: 03/23/2025 15:02 Dictated By: Emir Herman D.O. Signed By: 03/23/25 1504 DD/ 1502 TD/TT: Dry Primer Powder Blender: UA RANDOM W or MICROSCOPIC Reviewed date:04/13/2025 04:49:25 PM Interpretation: Performing Lab: Notes/Report: [facility] , Color Urine LT. YELLOW YELLOW Clarity Urine CLEAR CLEAR Specific [place] Urine 1.015 1.005-1.025 pH Urine 5.5 5.0-9.0 [...] ORDERED Performing Lab: see note ML - [facility] LB Urine Culture [facility] Reviewed date:04/17/2025 01:58:49 PM Interpretation: Performing Lab: Notes/Report: [facility] , Urine Culture - [facility] See Below For Report Urine Culture - [facility] Testing performed at [facility] O:ESBLPESCL Isolated Urine Culture - [facility] [place] Count Organism: 1.1 Antibiotic Interpretation SIOBHAN Status Urine Culture - [facility] [address] [place] [address] Urine Culture - [facility] Testing performed at [facility] O:ESBLPESCL Isolated Urine Culture - [facility] [place] Count Organism: 1.1 Antibiotic Interpretation SIOBHAN Status Urine Culture - [facility] See Below For Report Urine Culture - [facility] Testing performed at [facility] O:ESBLPESCL Isolated Urine Culture - [facility] [place] Count Organism: 1.1 Antibiotic Interpretation SIOBHAN Status Urine Culture - [facility] See Below For Report Urine Culture - [facility] Testing performed at [facility] O:ESBLPESCL Isolated Urine Culture - [facility] [place] Count Organism: 1.1 Antibiotic Interpretation SIOBHAN Status Urine Culture - [facility] >100,000 Urine Culture - [facility] Testing performed at [facility] O:ESBLPESCL Isolated Urine Culture - [facility] [place] Count Organism: 1.1 Antibiotic Interpretation SIOBHAN Status Urine Culture - [facility] See Below For Report Urine Culture - [facility] Testing performed at [facility] O:ESBLPESCL Isolated Urine Culture - [facility] [place] Count Organism: 1.1 Antibiotic Interpretation SIOBHAN Status Urine Culture - [facility] Amikacin S F Urine Culture - [facility] Testing performed at [facility] O:ESBLPESCL Isolated Urine Culture - [facility] [place] Count Organism: 1.1 Antibiotic Interpretation SIOBHAN Status Urine Culture - [facility] Amoxicillin/Clavula juan e S F Urine Culture - [facility] Testing performed at [facility] O:ESBLPESCL Isolated Urine Culture - [facility] [place] Count Organism: 1.1 Antibiotic Interpretation SIOBHAN Status Urine Culture - [facility] Ampicillin R F Urine Culture - [facility] Testing performed at [facility] O:ESBLPESCL Isolated Urine Culture - [facility] [place] Count Organism: 1.1 Antibiotic Interpretation SIOBHAN Status Urine Culture - [facility] Aztreonam R F Urine Culture - [facility] Testing performed at [facility] O:ESBLPESCL Isolated Urine Culture - [facility] [place] Count Organism: 1.1 Antibiotic Interpretation SIOBHAN Status [facility] Ceftazidime R [facility] Testing performed at [facility] O:ESBLPESCL Isolated Urine Culture - [facility] [place] Count Organism: 1.1 Antibiotic Interpretation SIOBHAN Status U[facility] Ceftazidime/Avibact am S F Urine Culture - [facility] Testing performed at [facility] O:ESBLPESCL Isolated Urine Culture - [facility] [place] Count Organism: 1.1 Antibiotic Interpretation SIOBHAN Status U[facility] Ceftolozane/Tazobac iqbal S F Urine Culture - [facility] Testing performed at [facility] O:ESBLPESCL Isolated Urine Culture - [facility] [place] Count Organism: 1.1 Antibiotic Interpretation SIOBHAN Status U[facility] Ciprofloxacin S F Urine [facility] - [facility] Testing performed at [facility] O:ESBLPESCL Isolated Urine Culture - [facility] [place] Count Organism: 1.1 Antibiotic Interpretation SIOBHAN Status U[facility] Ertapenem S F Urine [facility] Testing performed at [facility] O:ESBLPESCL Isolated Urine Culture - [facility] [place] Count Organism: 1.1 Antibiotic Interpretation SIOBHAN Status Urine [facility] Gentamicin R F Urine [facility] Testing performed at [facility] O:ESBLPESCL Isolated Urine Culture - [facility] [place] Count Organism: 1.1 Antibiotic Interpretation SIOBHAN Status Urine [facility] Levofloxacin S F Urine Culture [facility] Testing performed at [facility] O:ESBLPESCL Isolated Urine Culture - [facility] [place] Count Organism: 1.1 Antibiotic Interpretation SIOBHAN Status U[facility] Meropenem S F Urine Culture [facility] Testing performed at [facility] O:ESBLPESCL Isolated Urine Culture - [facility] [place] Count Organism: 1.1 Antibiotic Interpretation SIOBHAN Status U[facility] Meropenem/Vaborbact am S F Urine Culture [facility] Testing performed at [facility] O:ESBLPESCL Isolated Urine Culture - [facility] [place] Count Organism: 1.1 Antibiotic Interpretation SIOBHAN Status Urine [facility] Nitrofurantoin S F Urine Culture - [facility] Testing performed at [facility] O:ESBLPESCL Isolated Urine Culture - [facility] [place] Count Organism: 1.1 Antibiotic Interpretation SIOBHAN Status Urine [facility] Tetracycline R F Urine Culture [facility] Testing performed at [facility] O:ESBLPESCL Isolated Urine Culture - [facility] [place] Count Organism: 1.1 Antibiotic Interpretation SIOBHAN Status Urine Culture [facility] Tigecycline S F Urine Culture [facility] Testing performed at [facility] O:ESBLPESCL Isolated Urine Culture - [facility] [place] Count Organism: 1.1 Antibiotic Interpretation SIOBHAN Status U[facility] Tobramycin I F Urine Culture [facility] Testing performed at [facility] O:ESBLPESCL Isolated Urine Culture - [facility] [place] Count Organism: 1.1 Antibiotic Interpretation SIOBHAN Status U[facility] Ampicillin/Sulbacta m I F Urine Culture [facility] Testing performed at [facility] O:ESBLPESCL Isolated Urine Culture - [facility] [place] Count Organism: 1.1 Antibiotic Interpretation SIOBHAN Status Urine Culture [facility] Cefazolin R F Urine Culture - [facility] Testing performed at [facility] O:ESBLPESCL Isolated Urine Culture - [facility] [place] Count Organism: 1.1 Antibiotic Interpretation SIOBHAN Status Urine Culture [facility] Cefepime R F Urine Culture - [facility] Testing performed at [facility] O:ESBLPESCL Isolated Urine Culture - [facility] [place] Count Organism: 1.1 Antibiotic Interpretation SIOBHAN Status Urine Culture [facility] Ceftriaxone R F Urine Culture - [facility] Testing performed at [facility] O:ESBLPESCL Isolated Urine Culture - [facility] [place] Count Organism: 1.1 Antibiotic Interpretation SIOBHAN Status Urine Culture [facility] Cefuroxime R F Urine Culture - [facility] Testing performed at [facility] O:ESBLPESCL Isolated Urine Culture - [facility] [place] Count Organism: 1.1 Antibiotic Interpretation SIOBHAN Status Urine Culture [facility] Piperacillin/Tazoba cta m S F Urine Culture - [facility] Testing performed at [facility] O:ESBLPESCL Isolated Urine Culture - [facility] [place] Count Organism: 1.1 Antibiotic Interpretation SIOBHAN Status Urine [facility] Trimethoprim/Sulfa R F Urine Culture [facility] Testing performed at [facility] O:ESBLPESCL Isolated Urine Culture - [facility] [place] Count Organism: 1.1 Antibiotic Interpretation SIOBHAN Status Performing Lab: see note ML - [facility] LB SEE REPORT - Arch Support Technician Id information not found for OBX-specific pastrycook legend XR lumbar spine 2-3V Reviewed date:2025 02:27:57 PM Interpretation: Performing Lab: Notes/Report: Source Facility: [place] [address] XRay Report Signed Patient: ARMANDO SWEET MR#: [id number] : 1950 Acct:[id number] Age/Sex: 75 / F ADM Date: 05/09/25 Loc: RAD Attending Dr: Scotty Holly M.D. Ordering Physician: Scotty Holly M.D. Date of Service: 05/09/25 Procedure(s): XR lumbar spine 2-3V Accession Number(s): [id number] cc: Scotty Holly M.D. [place] [address] Patient Name: ARMANDO SWEET MRN: [id number] date: 1950 Sex: F Assigned Patient Location: [facility] Current Patient Location: [facility] Accession/Order Number: [id number] Exam Date: 2025 13:00 Report Date: 2025 13:44 At the request of: SCOTTY HOLLY MD Procedure: XR lumbar spine 2-3V 2 views Lumbar Spine HISTORY: Acute low back pain. Left radiculopathy. COMPARISON: 03/23/2025 POSTSURGICAL CHANGES: None BONY ALIGNMENT: Mild straightening HYPERMOBILITY:No bending imaging. LISTHESIS:Minor degenerative listhesis FRACTURE: A developing 50% L3 anterior wedge compression fracture. DEGENERATIVE CHANGES: Similar degenerative change greatest in the lower lumbar facets. SOFT TISSUES: Atherosclerosis BONY MINERALIZATION:Diffuse osteopenia XR/XR lumbar spine 2-3V IMPRESSION: Developing of 50% anterior right fracture of the L3 vertebral body. Likely acute. May further assessed with MRI of the lumbar spine. Similar degenerative change greatest at the lower lumbar facets. Diffuse osteopenia. Impression dictated by: Emir Herman M.D. 2025 1:44 PM Dictation Location: [place] [address] Electronically authenticated by: [id number] Y Date: 2025 13:44 Dictated By: Emir Herman D.O. Signed By: 05/09/25 1346 DD/ 1344 TD/TT: Dry Primer Powder Blender: MR lumbar spine wo con Reviewed date:05/16/2025 05:35:42 PM Interpretation: Performing Lab: Notes/Report: Source Facility: [place] [address] Magnetic Resonance Report Signed Patient: ARMANDO SWEET MR#: [id number] : 1950 Acct:[id number] Age/Sex: 75 / F ADM Date: 05/16/25 Loc: MRI Attending Dr: Scotty Holly M.D. Ordering Physician: Scotty Holly M.D. Date of Service: 05/16/25 Procedure(s): MR lumbar spine wo con Accession Number(s): [id number] cc: Scotty Holly M.D. [place] [address] Patient Name: ARMANDO SWEET MRN: [facility]:[id number] date: 1950 Sex: F Assigned Patient Location: MRI Current Patient Location: MRI Accession/Order Number: [id number] Exam Date: 05/16/2025 08:50 Report Date: 05/16/2025 11:32 At the request of: SCOTTY HOLLY MD Procedure: MR lumbar spine wo con MRI LUMBAR SPINE WITHOUT CONTRAST COMPARISON: Plain films 05/19/2025 CLINICAL DATA: Follow-up lumbar compression fracture. Back pain and left leg weakness. Multiecho imaging in the axial and sagittal plane was performed without contrast. There is subtle levoscoliotic curvature. There is no significant displacement on the sagittal sequences. There is increasing concavity at superior endplate of L4. There is similar wedge deformity involving the inferior endplate of L3. These sites show associated increased STIR signal compatible with edema and recent compression deformity. The conus medullaris terminates at T12-L1 and is normal in size and signal. No paraspinal soft tissue abnormalities are seen. At T12-L1 and L1-2, there is no significant disc disease or stenosis. At L2-3, there is mild annular disc bulging, greater toward the neural foramen. There is minor facet and ligament hypertrophy. There is mild thecal sac effacement. Mild to moderate inferior foraminal encroachment is also seen, greater on the right. At L3-4, there is disco-osteophytic bulging as well as facet and ligamentous hypertrophy with moderate to severe thecal sac effacement and foraminal encroachment. At L4-5, there is minor annular disc bulging. Moderate facet and ligamentous hypertrophy are seen. There is at least moderate narrowing of central canal. There is mild foraminal encroachment, greater on the right. At the lumbosacral junction there is minor annular disc bulging. Bilateral facet hypertrophy is seen. There is subtle thecal sac effacement and minimal inferior foraminal encroachment. MR/MR lumbar spine wo con IMPRESSION: RECENT COMPRESSION DEFORMITIES AT L3 AND L4, DESCRIBED. DISCOVERTEBRAL DEGENERATIVE CHANGES WITH ASSOCIATED STENOSIS, GREATEST AT THE L3-4 AND L4-5 LEVELS, OUTLINED ABOVE. Impression dictated by: Rosa Isela Coello M.D. 05/16/2025 11:32 AM [facility] Electronically authenticated by: [id number] Y Date: 05/16/2025 11:32 Dictated By: Rosa Isela Coello M.D. Signed By: 05/16/25 1135 DD/ 113 TD/TT: Dry Primer Powder Blender: XR chest 2V Reviewed date:03/09/2025 06:51:33 PM Interpretation: Performing Lab: Notes/Report: Source Facility: [place] [address] XRay Report Signed Patient: ARMANDO SWEET MR#: [id number] : 1950 Acct:[id number] Age/Sex: 74 / F ADM Date: 03/08/25 Loc: ER Attending Dr: Ordering Physician: Kennedy Wharton Date of Service: 03/08/25 Procedure(s): XR chest 2V Accession Number(s): [id number] cc: Kennedy Wharton; Scotty Holly M.D. [place] [address] Patient Name: ARMANDO SWEET MRN: [id number] date: 1950 Sex: F Assigned Patient Location: ED.MAIN Current Patient Location: ED.MAIN Accession/Order Number: [id number] Exam Date: 03/09/2025 00:11 Report Date: 03/09/2025 [...] Garsia M.D. 03/09/2025 12:12 AM Dictation Location: [place] [address] Electronically authenticated by: [id number] Y Date: 03/09/2025 00:12 Dictated By: Tommy Garsia M.D. Signed By: 03/09/25 0014 DD/ TD/TT: Dry Primer Powder Blender: ECG 12 lead Reviewed date:03/14/2025 08:59:32 PM Interpretation: Performing Lab: Notes/Report: Source Facility: [place] [address] [place] [address] Electrocardiograph Report Signed Patient: ARMANDO SWEET MR#: [id number] : 1950 Acct:[id number] Age/Sex: 74 / F ADM Date: 03/08/25 Loc: [place] 222-[address]: Urban Holden M.D. Ordering Physician: Kennedy Wharton Date of Service: 03/08/25 Procedure(s): ECG 12 lead Accession Number(s): [id number] cc: [facility] Test Date: 2025-03-08 Pat Name: ARMANDO SWEET Department: Room: - Gender: Female Lab Rn: : 1950 Requested By: [id number] Order Number: [id number] Reading MD: CASE MIR Measurements Intervals [place] Rate: 99 P: 43 LA: 160 QRS: -22 QRSD: 92 T: 110 QT: 342 QTc: 398 Interpretive Statements 1100 Sinus rhythm 5234 Left ventricular hypertrophy with repolarization abnormality 7202 Moderate left axis deviation 9150 abnormal ECG No previous ECG available for comparison Electronically Signed On 03-14-2025 13:00:47 EDT by CASE MIR Dictated By: Case Mir M.D. Signed By: 03/14/25 1300 DD/ 2324 TD/TT: Dry Primer Powder Blender: Troponin I High Sensitivity Reviewed date:03/09/2025 06:51:33 PM Interpretation: Performing Lab: Notes/Report: [facility] , Troponin I High Sensitivity 38.3 4.0-51.3 pg/mL CUT-OFF POINTS HAVE BEEN ESTABLISHED BASED ON THE FOURTH UNIVERSAL DEFINITION OF MYOCARDIAL INFARCTION. THE UPPER REFERENCE LIMIT (URL) OF TROPONIN, DEFINED THE 99TH PERCENTILE OF cTnI DISTRIBUTION IN A REFERENCE POPULATION, HAS BEEN CONFIRMED THE DECISION THRESHOLD FOR UT DIAGNOSIS. 99TH PERCENTILE = 51.4 PG/ML NOTE: HIGH-SENSITIVITY TROPONIN ASSAY IS NOT INTENDED TO BE USED IN ISOLATION BUT SHOULD BE INTERPRETED IN CONJUNCTION WITH OTHER DIAGNOSTIC AND CLINICAL INFORMATION. Performing Lab: see note ML - [facility] LB PROF CHEM 8 (BAS METB) Reviewed date:03/09/2025 06:51:33 PM Interpretation: Performing Lab: Notes/Report: [facility] , Sodium 134 136-145 mmol/L Potassium 3.9 [...] mg/dL Performing Lab: see note ML - [facility] LB LACTATE or LACTIC ACID Reviewed date:03/09/2025 06:51:33 PM Interpretation: Performing Lab: Notes/Report: [facility] , Lactate/Lactic Acid 0.9 0.4-2.0 mmol/L Performing Lab: see note ML - [facility] LB D-DIMER Reviewed date:03/09/2025 06:51:33 PM Interpretation: Performing Lab: Notes/Report: [facility] , D Dimer 1.60 <=0.59 mg/L FEU RESULTS CALLED TO AUGUST ROTH RN @BY Cecilia Roche at 0126 Increases in D-Dimer concentration observed with thromboembolic events can be variable due to localization, size, and age of the thrombus. Therefore, a thromboembolic event cannot be diagnosed with certainty on the basis of the reference range. D-Dimers may also be elevated for a variety of disorders including advanced age, , coronary disease, cancer, liver disease, infection, inflammation, hematoma, DIC, trauma, post-surgery, diabetes, thrombolytic or anticoagulant therapy, stress, and generalized hospitalization. Performing Lab: see note ML - [facility] LB CBC AUTO DIFF Reviewed date:03/09/2025 06:51:33 PM Interpretation: Performing Lab: Notes/Report: [facility] , White Blood Count 9.4 4.0-11.0 10 [...] Performing Lab: see note ML - [facility] LB BNP Reviewed date:03/09/2025 06:51:33 PM Interpretation: Performing Lab: Notes/Report: [facility] , NT Pro B Type Natriuretic Pept 1057.0 <=900.0 pg/mL Performing Lab: see note ML - [facility] LB UA RANDOM W or MICROSCOPIC Reviewed date:01/03/2025 02:56:40 PM Interpretation: Performing Lab: Notes/Report: [facility] , Color Urine LT. YELLOW YELLOW Clarity Urine SL CLOUDY CLEAR Specific [place] Urine 1.020 1.005-1.025 pH Urine 6.0 5.0-9.0 [...] ORDERED Performing Lab: see note ML - [facility] LB TSH Reviewed date:01/03/2025 02:56:40 PM Interpretation: Performing Lab: Notes/Report: [facility] , Thyroid Stimulating Hormone 2.788 0.358-3.740 uIU/mL Performing Lab: see note ML - [facility] LB T4 Reviewed date:01/03/2025 02:56:40 PM Interpretation: Performing Lab: Notes/Report: [facility] , T4 Thyroxine 8.20 4.80-13.90 ug/dL Performing Lab: see note ML - [facility] LB PROF 14(COMP METB) Reviewed date:01/03/2025 02:56:40 PM Interpretation: Performing Lab: Notes/Report: [facility] , Sodium 140 136-145 mmol/L Potassium 4.1 [...] 0.9 Performing Lab: see note ML - [facility] LB LIPID PROFILE Reviewed date:01/03/2025 02:56:40 PM Interpretation: Performing Lab: Notes/Report: [facility] , Triglycerides 220 <=150 mg/dL Cholesterol 240 <=200 mg/dL HDL Cholesterol 49 40-60 mg/dL > or =60 mg/dl - LOW CARDIOVASCULAR RISK <40 mg/dl - HIGH CARDIOVASCULAR RISK LDL Cholesterol Calculated 147.0 <100 mg/dl OPTIMAL 100-129 mg/dl NEAR OR ABOVE OPTIMAL 130-159 mg/dl BORDERLINE HIGH 160-189 mg/dl HIGH >190 mg/dl VERY HIGH VLDL CHOLESTEROL 44.0 Chol HDL Ratio 4.9 3.3 - 4.4 LOW RISK 4.4 - 7.1 AVERAGE RISK 7.1 - 11.0 MODERATE RISK >11.0 HIGH RISK Performing Lab: see note ML - [facility] GLYCOHEMOGLOBIN A1C Reviewed date:01/03/2025 02:56:40 PM Interpretation: Performing Lab: Notes/Report: [facility] , Glycohemoglobin A1C 6.3 4.5-6.2 % ADA RECOMMENDED LIMIT 4.0 - 6.0 ADA THERAPEUTIC TARGET < 7.0 ACTION SUGGESTED > 7.0 Estimated Average Glucose 134 Performing Lab: see note ML - [facility] FREE T3 Reviewed date:01/03/2025 02:56:40 PM Interpretation: Performing Lab: Notes/Report: [facility] , Free T3 3.08 2.18-3.98 pg/mL Performing Lab: see note - [facility] CBC AUTO DIFF Reviewed date:01/03/2025 02:56:40 PM Interpretation: Performing Lab: Notes/Report: [facility] , White Blood Count 4.6 4.0-11.0 10 [...] Performing Lab: see note ML - [facility] LB UA DIP NONAUTO WO MICRO (810 02) - IN OFFICE Reviewed date:01/03/2025 02:56:40 PM Interpretation: Performing Lab: Notes/Report: COLOR bright yellow CLARITY clear GLUCOSE n BILIRUBIN n KETONE n SPECIFIC GRAVITY 1.010 BLOOD 5-10 PH n PROTEIN 150 UROBILINOGEN n NITRITE n LEUKOCYTE ESTERASE 70++ Reason For Referral Diagnosis 1 Positive occult stoo l blood test (R19.5) Referral Organization [facility] Referring Provider First Name Morteza Referring Provider Last Name Elayne Referring Provider Speciality Family [facility] kendall Referred Provider Tavo Borrego Referred Provider Specialty General Surg ana Referral Priority Routine Medications Medication SIG (Take, Route, Frequency, Duration) Notes Start Date End Date Status Cefdinir 300 MG 2 capsule Orally once a day; Duration: 10 days tolerated in the past 04/27/2025 Active Potassium Chloride ER 10 MEQ 1 tablet with food Orally Twice a day; Duration: 90 days Active Valium 10 MG 1 tablet as needed - M54.1 Orally once about 1 hour before procedure; Duration: 1 days 05/10/2025 Active metFORMIN HCl 500 MG 1 tablet with a meal Orally Once a day; Duration: 30 days 04/03/2025 Active Zinc Active Budesonide 0.5 MG/2ML 2 mL Inhalation Twice a day 07/14/2023 Active Nebulizer - Use daily with solution four times daily as needed; Duration: 90 days Nebulizer Machine or Nebulizer Compressor 02/26/2023 Active Carvedilol 6.25 MG 1 tablet with food Orally Twice a day Active Nebulizer Mask and Tubing-Adult - Dx: Asthma dx J45.99 qid prn; Duration: 30 days Active Daily-Shari Multivitamin - TAKE 2 TABLETS BY MOUTH EVERY DAY WITH ENERGY ; Duration: 30 days Active Venlafaxine HCl ER 75 MG TAKE 1 CAPSULE BY MOUTH EVERY DAY; Duration: 90 days Active Ibuprofen 800 MG TAKE 1 TABLET BY MOUTH EVERY 6 HOURS NEEDED WITH FOOD OR MILK; Duration: 30 Active Ventolin HFA 108 (90 Base) MCG/ACT 2 puff as needed Inhalation every 4 hrs; Duration: 30 PRN 07/14/2023 Active Albuterol Sulfate (2.5 MG/3ML) 0.083% 3 mL as needed Inhalation every 6 hrs Dx: J45.909 PRN 02/25/2023 Active Vitamin B12 1000 MCG 1 tablet Orally Once a day; Duration: 90 days 01/31/2025 Active Aspirin 81 MG 1 tablet Orally Once a day Active Magnesium 400 MG as directed Orally once daily 06/02/2024 Active Nebulizer Mask and Tubing-Adult - Nebulizer mask and tubing Dx: Asthma Daily; Duration: 365 days 04/03/2023 Active Cetirizine HCl 10 MG TAKE 1 TABLET BY MOUTH EVERY DAY FOR 90 DAYS; Duration: 90 Active tiZANidine HCl 4 MG 1 tablet at bedtime as needed Orally Once a day; Duration: 30 days 04/03/2025 Active Compression Stocking Below Knee 20-30mmHg - 04/03/2023 Active Torsemide 20 MG 1 tablet Orally Once a day Active Pyridium 200 MG 1 tablet after meals Orally Three times a day; Duration: 2 days 04/27/2025 Active Social History Tobacco [...] Problem Status W/U Status Risk Notes Problem Essential hypertension (77214958) Essential (primary) hypertension (I10) Active confirmed Problem Obstructive sleep apnea syndrome (disorder) (79326762) Obstructive sleep apnea (adult) (pediatric) (G47.33) Active confirmed Problem Chronic obstructive pulmonary disease (61882283) Chronic obstructive pulmonary disease, unspecified (J44.9) Active confirmed Problem Hyperlipidemia (19924949) Hyperlipidemia, unspecified (E78.5) Active confirmed Problem Restless legs syndrome (60316612) Restless legs syndrome (G25.81) Active confirmed Problem Aortic valve disorder (4455262) Nonrheumatic aortic (valve) insufficiency (I35.1) Active confirmed Problem Uncomplicated asthma (disorder) (572612242) Unspecified asthma, uncomplicated (J45.909) Active confirmed Problem Alopecia areata (55922157) Alopecia areata, unspecified (L63.9) Active confirmed Problem Osteoarthritis (752332976) Unspecified osteoarthritis, unspecified site (M19.90) Active confirmed Problem Degeneration of cervical intervertebral disc (12477108) Other cervical disc degeneration, unspecified cervical region (M50.30) Active confirmed Problem Synovial popliteal cyst of right knee (disorder) (7746979987) Synovial cyst of popliteal space [[place]], right knee (M71.21) Active confirmed Problem Synovial popliteal cyst of left knee (disorder) (7531590075) Synovial cyst of popliteal space [[place]], left knee (M71.22) Active confirmed Problem Chronic fatigue syndrome (disorder) (27247588) Chronic fatigue, unspecified (R53.82) Active confirmed Problem Excessive thirst (97115856) Polydipsia (R63.1) Active confirmed Problem Senile osteoporosis (26655135) Senile osteoporosis (M81.0) Active confirmed Problem Neuropathy (539995733) Neuropathy (G62.9) Active confirmed Problem Compression fracture of lumbar spine (disorder) (962596783) Lumbar compression fracture (S32.000A) Active confirmed Problem Hyperlipidaemia (07503183) Borderline hyperlipidemia (E78.5) Active confirmed Problem Pathological fracture of vertebra (381229684) Compression fracture of lumbar vertebrae, non-traumatic, initial encounter (M48.56XA) Active confirmed Vital Signs Blood pressure diastolic 78 mm Hg 04/27/2025 Height 66 in 04/27/2025 Blood pressure systolic 124 mm Hg 04/27/2025 Weight 262.0 lbs 04/27/2025 BMI 42.28 kg/m2 04/27/2025 Encounters Encounter Location Date Provider Diagnosis [address] [address] 04/10/2025 Morteza Hoy Urinary frequency R3 5.0 and Chronic obstructive pulmonary disease, unspecified J44.[address] [address] 04/27/2025 Morteza Hoy UTI (urinary tract infection), uncomplicated N39.0 and Dysuria R30.[address] [address] 06/02/2024 Morteza Hoy Urinary frequency R3 5.0 ; Obstructive sleep apnea (adult) (pediatric) G47.33 ; Essential (primary) hypertension I10 ; Unspecified osteoarthritis, unspecified site M19.90 and Polydipsia R63.1 [facility] [address] [place] [address] 06/02/2024 [facility] [address] [place] [address] 06/30/[address] [address] 08/03/2024 Morteza Hoy Urinary frequency R3 5.[address] [address] 08/08/[address] [facility] [address] [place] [address] 08/09/[address] [facility] [address] [place] [place] [address] 11/22/2024 Morteza Miky Urinary urgency R39. 15 ; Other fatigue R53.83 ; Other abnormal glucose R73.09 ; Borderline hyperlipidemia E78.5 and Encounter for screening for malignant neoplasm of rectum Z12.12 [facility] [address] [place] [place] [address] 01/03/[address] [facility] [address] [place] [address] 01/05/[address] [facility] [address] [place] [address] 01/08/[address] [facility] [address] [place] [address] 01/11/[address] [facility] [address] [place] [address] 01/24/2025 Morteza Holly Dysuria R30.0 [facility] [address] [place] [address] 01/31/[address] [facility] [address] [place] [address] 03/09/[address] [facility] [address] [place] [address] 03/12/2025 Morteza Holly Positive occult stoo l blood test R19.5 [facility] [address] [place] [address] 03/13/[address] [facility] [address] [place] [address] 03/14/[address] [facility] [address] [place] [address] 03/23/2025 Morteza Holly [facility] [address] [facility] [place] [address] 03/27/[address] [facility] [address] [place] [place] [address] 04/03/2025 Morteza Housery Urinary frequency R3 5.0 [facility] [address] [place] [address] 04/10/[address] [facility] [address] [place] [address] 04/13/[address] [facility] [address] [place] [address] 04/16/2025 Morteza Holly [facility] [address] [place] [facility] [address] 04/24/[address] [facility] [address] [place] [place] [address] 04/25/[address] [facility] [address] [place] [address] 04/28/[address] [facility] [address] [place] [address] 05/04/2025 Morteza Housery Low back pain at medical center hospital sites M54.50 [facility] [address] [place] [address] [facility] [address] [place] [address] 05/10/2025 Morteza Hoy Lumbar compression fracture S32.000A [facility] [address] [place] [address] 05/16/2025 Morteza Hoy Senile osteoporosis M81.0 and Lumbar compression fracture S32.000A [facility] [address] [place] [address] 05/22/2025 Morteza Hoy UTI (urinary tract infection) N39.0 Assessments Encounter [...] until they are finished. You can use [id number] acetaminophen or ibuprofen if needed for pain. [...] pain at multiple sites (ICD-10 - M54.50) 05/10/2025 Lumbar compression fracture (ICD-10 - S32.000A) 05/16/2025 Senile osteoporosis (ICD-10 - M81.0) 05/16/2025 Lumbar compression fracture (ICD-10 - S32.000A) 05/22/2025 UTI (urinary tract infection) (ICD-10 - N39.0) 11/22/2024 Other fatigue (ICD-10 - R53.83) 04/27/2025 [...] (URINALYSIS, COMPLETE) 11/22/2024 UA (URINALYSIS, COMPLETE) 01/24/2025 UA (URINALYSIS, COMPLETE) 05/22/2025 US Lower Extremity LT 04/03/2023 US Lower Extremity RT 04/03/2023 MRI Lumbar Spine w/o contrast 05/10/2025 T3 FREE, T4 FREE and TSH 11/02/2023 Urinalysis Microscopic 04/10/2025 Urine Culture 11/02/2023 Urine Culture 11/22/2024 Urine Culture 01/24/2025 Urine Culture 05/22/2025 FECAL OCCULT BLOOD 11/22/2024 CMP - Comprehensive Metabolic Panel 10/30 XR Spine Lumbosacral 2 or 3 Views 2024 CBC AUTO DIFF 11/22/2024 CULTURE URINE 04/10/2025 GLYCOHEMOGLOBIN A1C 11/04/2023 GLYCOHEMOGLOBIN A1C 11/22/2024 LIPID PROFILE 11/22/2024 SNR 04 URINALYSIS 11/02/2023 THYROID PROFILE WITH TSH 11/04/2023 URINE MICROSCOPIC ONLY 11/22/2024 URINE MICROSCOPIC ONLY 05/22/2025 US JAXON DOP LEG BRYAN 04/06/2023 XR DEXA BONE DENSITY 05/16/2025 THYROID PANEL (T4/TSH/FREE T3) MRI Lumbar Spine w/o contrast 05/04/2025 Insurance Providers Payer Name Payer Address Payer Phone Subscriber Number Group Number Insured Name Patient Relationship to Insured Coverage Start Date Coverage End Date MEDICARE [place] [address] [id number] Armando Sweet Self - patient is the insured MMO MEDICARE SUPPLEMEN T [address] [place] [id number] Armando Sweet Self - patient is the [...]
--- OUTSIDE RECORDS SUMMARY | 2025-05-25 12:27 | XMS_ITS | Clinical Summary ---
Author Organization [facility] Address [address] [place] [address] Care Team Providers Care Corporate Accounting Manager Name Role Phone Jamie Holly MD Primary Care Provider [phone] Allergies Active Allergy Reactions Criticality Noted Date [...] Encounters Date Type Department Care Team Description 05/23/2025 Orders Only Cardiology [address] [place], [place] [id number] Carrie Cole MD Primary hypertension (Primary Dx) from Last 3 Months Social History Tobacco [...] Mass Index - - Plan of Treatment Upcoming Encounters Date Type Department Care Team (Late st Contact Info) Description 11/23/2025 12:15 PM EDT Office Visit Cardiology [address] [place], [place] [address] CONSULT CARDIO 11/23/2025 12:45 PM EDT Procedure Cardiology [address] [place] [address] CONSULT CARDIO 11/23/2025 1:45 PM EDT Office Visit Cardiology [address] [place], [place] [id number] Carrie Cole MD [address] [place] [address] CONSULT CARDIO Health Maintenance Due Date Last Done Comments [...] 08/16/2008 11:05 AM EST Alopecia Areata [facility] Admitting Clerk Use Medicatn from Last 3 Months or Most Recently Relevant to Health Maintenance Results * COMP METABOLIC PANEL (08/16/2008 11:05 AM EST) Protein, Total 7.4 6.0 - 8.4 g/dL [facility] Albumin 4.3 3.5 - 5.0 g/dL [facility] Calcium 9.6 8.5 - 10.5 mg/dL [facility] Bilirubin, Total 0.2 0.0 - 1.5 [...] [facility] eGFR- >60 [facility] eGFR-All Other Races >60 [facility] [...] Sue Yoo MD LABORATORY Final Resul t [facility] [address] [place] [address] from Last 3 Months or Most Recently Relevant to Health Maintenance Insurance [employer] MEDICARE Care Teams Corporate Accounting Manager Relationship Specialty Start Date End Date Jamie Holly MD PCP - General 05/08/08
--- OUTSIDE RECORDS SUMMARY | 2025-05-25 12:27 | XMS_ITS | Clinical Summary ---
Author Organization [facility] Address [address] [place] [address] Care Team Providers Care Manager Division Name Role Phone Jamie Holly MD Primary Care Provider [phone] Allergies Active Allergy Reactions Criticality Noted Date [...] Type Department Care Team Description 03/31/2025 Refill [facility] Heart at [facility] [address] [place] [address] Samson Love MD Essential hypertension from Last [...] topic Insurance [employer] MEDICARE ADVANTAGE Care Teams Manager Division Relationship Specialty Start Date End Date Jamie Holly MD [address] [facility] [address] [address] PCP - General 10/06/22
--- OUTSIDE RECORDS SUMMARY | 2025-05-25 12:27 | XMS_ITS | Encounter Summary ---
Author Organization [facility] Address [address] [place] [address] Care Team Providers Care [employer] Name Role Phone Jamie Holly MD Primary Care Provider [phone] Reason for Visit * Reason Comments Med Refill Encounter Details Date Type Department Care Team ([facility] st Contact Info) Description 10/24/2023 Refill [facility] at [facility] [address] [place] [address] Samson Love MD [address] [facility] [address] [facility] [place] [address] Mixed hyperlipidemia; Primary hypertension Social [...] hypertension documented in this encounter Care Teams [employer] Relationship Specialty Start Date End Date Jamie Holly MD [address] [place] [address] PCP - General 10/06/22 documented as of this encounter
--- OUTSIDE RECORDS SUMMARY | 2025-05-25 12:27 | XMS_ITS | Encounter Summary ---
Author Organization [employer] Address [id number] [address] [place] [address] Care Team Providers Care Pot Reliner Name Role Phone Unavailable Primary Care Provider Unavailabl e Encounter Details Date Type Department Care Team (Late st Contact Info) Description 01/22/2021 Telephone [facility] [address] [place] [address] Keisha Fair CMA Social History Tobacco Use [...]
--- OUTSIDE RECORDS SUMMARY | 2025-05-25 12:27 | XMS_ITS | Clinical Summary ---
Author Organization [facility] Address [id number] [address] [place] [address] Care Team Providers Care Senior Commissary Agent Name Role Phone Unavailable Primary Care Provider [...]
--- OUTSIDE RECORDS SUMMARY | 2025-05-25 12:27 | XMS_ITS | Encounter Summary ---
Author Organization [facility] Address [address] [place] [address] Care Team Providers Care Head Of Store Operations Name Role Phone Jamie Holly MD Primary Care Provider [phone] Reason for Visit * Reason Comments Med Refill Encounter Details Date Type Department Care Team ([facility] st Contact Info) Description 10/19/2022 Refill [facility] Heart at [facility] [address] [place] [address] Samson Love MD [address] [facility] [address] [facility] [place] [address] Mixed hyperlipidemia; Nonrheumatic aortic (valve) [...] hypertension documented in this encounter Care Teams Head Of Store Operations Relationship Specialty [place] [address] [place], [place] [address] [place] [address] PCP - General 10/06/22 documented as of this encounter
--- OUTSIDE RECORDS SUMMARY | 2025-05-25 12:27 | XMS_ITS | CCD ---
Author Organization [facility] [employer] Care Team Providers Care Plans Examiner Name Role Phone PHYSICIAN, DEFAULT Unavailable Unavailable [...] Provider Scotty Holly MD Primary Care Provider [phone] Kennedy Wharton MD Attending Provider Scotty Holly Primary Care Physician [phone] Tavo ALONZO Attending Unavailable Scotty Holly Referring Unavailable Scotty Holly MD Attending Provider Scotty Holly Admitting Unavailable Scotty Holly Attending Unavailable Kennedy Wharton Admitting Unavailable Kennedy Wharton Attending Unavailable Scotty Holly Admitting Unavailable Scotty Holly Attending Unavailable Allergies Allergy Classification Reported Allergen(s) Allergy Type Date of Onset Reaction(s) Facility (2 sources) Amoxicillin / Clavulanate; Translations: [Augmentin] Drug Allergy 11-01-201 7 [facility] Repository (2 sources) Cephalexin; Translations: [Keflex] Drug Allergy 7 [facility] Repository (1 source) natural latex rubber Drug allergy (disorder) [facility] Rep[facility] (2 sources) Theophylline; Translations: [theophylline] Drug Allergy 7 [facility] (2 sources) Cephalexin; Translations: [cephalexin] Drug Allergy 8 Rash, Itching (finding) [facility] (1 source) Cephalexin Drug Allergy 8 Rash [facility] (3 sources) Latex; Translations: [Latex] Drug Intolerance 9 Rash, Itching, Weal (disorder) [facility] (1 source) Amoxicillin / Clavulanate; Translations: [amoxicillin-cl avulanate] Drug Allergy Weal (disorder) [facility] (1 source) Theophylline; Translations: [theophylline] Drug Allergy Weal (disorder) [facility] [employer] Medications Current Medications Medication Drug Class(es) Dates [...] Nom (U) ORGANISM: Escherichia coli (ESBL) (O:ESCCOLESBL) [place] Count >100,000 Aerobic SIOBHAN Charge (NMIC56) ---- [...] RESISTANT TO ALL B-LACTAM DRUGS. PERFORMED BY: [place] [address] PATHOLOGIST AERONAUTICAL ENGINEERING TEACHER NETTIE OLIVERA M.D. Normal [facility] Comment on above: Performed By: #### C UU #### [address] 36on 03-31-2025 36 Patient hasn't been seen since 2022 Normal [facility] Urine Cultureon 03-09-2025 Bacteria identified Cx Nom (U) ORGANISM: Escherichia coli (ESBL) (O:ESCCOLESBL) [place] Count >100,000 Aerobic SIOBHAN Charge (NMIC56) ---- [...] RESISTANT TO ALL B-LACTAM DRUGS. PERFORMED BY: [place] [address] PATHOLOGIST AERONAUTICAL ENGINEERING TEACHER NETTIE OLIVERA M.D. Normal [facility] Comment on above: Performed By: #### C UU #### [address] Urine cultureOrdered By: Marin Wharton on 03-09-2025 Bacteria identified Cx Nom (U) Escherichia coli (ESBL) Abnormal [facility] Urine Cultureon 01-03-2025 Bacteria identified Cx Nom (U) ORGANISM: Escherichia coli (O:ESCCOL) [place] Count >100,000 Aerobic SIOBHAN Charge (NMIC56) ---- [...] RESISTANT TO ALL B-LACTAM DRUGS. PERFORMED BY: [place] [address] PATHOLOGIST AERONAUTICAL ENGINEERING TEACHER RENETTA ALONZO M.D. Normal [facility] Comment on above: Performed By: #### C UU #### [address] Urine cultureOrdered By: Héctor Holly on 01-03-2025 Bacteria identified Cx Nom (U) Escherichia coli Abnormal [facility] ECHOCARDIO M/2D COMPLETEon 0 10-07-2022 ECHOCARDIO M/2D COMPLETE Patient: ARMANDO SWEET Exam Date: 10/07/2022 : 1950 Gender:F Ordering : DR MIRACLE HUERTAS M.D. Admission #: [id number] Family : DR SCOTTY HOLLY . Order #: [id number] CLICK HERE TO VIEW EXAM ECHOCARDIOGRAM REPORT [...] M.D. on 10/07/2022 at 20:22 Normal [facility] INSULINon 04-30-2022 Insulin 14.5 uIU/mL Normal 2.6-24.9 [facility] Comment on above: Performed By: #### I NSULIN #### [facility] [address] [place] [address] Dr. Vicki Muro OCC BLD IMMUNO SCREENon 04-02 OCCULT BLOOD Negative Normal NEGATIVE [facility] Comment on above: Performed By: #### I NSULIN #### [facility] [address] [place] [address] Dr. Vicki Muro T4, T3U, FTI LABCORPon 04-30 Free Thyroxine Index 1.9 Normal 1.2-4.9 [facility] Comment on above: Performed By: #### T HYLC #### [facility] [address] [place] [address] Dr. Vicki Muro T3 Uptake 25 % Normal 24-39 [facility] Comment on above: Performed By: #### T HYLC #### [facility] [address] [address] [address] Vicki Muro T4 [Mass/Vol] 7.5 ug/dL Normal 4.5-12.0 [facility] Comment on above: Performed By: #### T HYLC #### [facility] [address] [address] [address] Vicki Muro VIT D 25-OH LABCORPon 2021 Vitamin D, 25-Hydroxy 54.8 ng/mL Normal 30.0-100.0 [facility] Comment on above: Result Comment: Ghislaine min D deficiency has been defined by the [place] of [employer] and an Endocrine Society practice guideline as a level of serum 25-OH vitamin D less than 20 ng/mL (1,2). The Endocrine Society went on to further define vitamin D insufficiency as a level between 21 and 29 ng/mL (2). 1. IOM ([place] of [employer]). 2010. Dietary reference intakes for calcium and D. [place]: The National Academies Press. 2. [place] MF, Michael [place], Gaby JACOBS, et al. Evaluation, treatment, and prevention of vitamin D deficiency: an Endocrine Society clinical practice guideline. JCEM. 2010; 96(7):1911-30. Performed By: #### I NSULIN #### [facility] [address] [place] [address] Dr. Vicki Muro BNPon 04-29-2022 Natriuretic peptide B (Bld) [Mass/Vol] 350.0 pg/mL Normal <=900.0 [facility] Comment on above: Performed By: #### L IPID, CMP, BNP, TSH #### [facility] [address] [address] [address] Vicki Muro CBC AUTO DIFFon 04-29-2022 BASO # 0.0 103/ul Normal 0.0-0.1 [facility] Comment on above: Performed By: #### I NSULIN #### [facility] [address] [address] [address] Vicki Muro Basophils/100 WBC (Bld) 0.8 % Normal 0.2-2.0 [facility] Comment on above: Performed By: #### I NSULIN #### [facility] [address] [place] [address] Dr. Vicki Muro EO # 0.1 103/ul Normal 0.0-0.7 [facility] Comment on above: Performed By: #### I NSULIN #### [facility] [address] [place] [address] Dr. Vicki Muro Eosinophils/100 WBC (Bld) 2.4 % Normal 0.9-7.0 [facility] Comment on above: Performed By: #### I NSULIN #### [facility] [address] [place] [address] Dr. Vicki Muro Erythrocyte distribution width (RBC) [Ratio] 12.7 % Normal 11.0-15.0 [facility] Comment on above: Performed By: #### I NSULIN #### [facility] [address] [place] [address] Dr. Vicki Muro Hematocrit (Bld) [Volume fraction] 39.1 % Normal 36.0-48.0 [facility] Comment on above: Performed By: #### I NSULIN #### [facility] [address] [place] [address] Dr. Vicki Muro Hemoglobin (Bld) [Mass/Vol] 13.0 g/dL Normal 12.0-16.0 [facility] Comment on above: Performed By: #### I NSULIN #### [facility] [address] [place] [address] Dr. Vicki Muro IG # 0.01 10e3/ul Normal 0.00-0.03 [facility] Comment on above: Performed By: #### I NSULIN #### [facility] [address] [place] [address] Dr. Vicki Muro IG % 0.2 % Normal 0.0-0.5 [facility] Comment on above: Performed By: #### I NSULIN #### [facility] [address] [place] [address] Dr. Vicki Muro LYMPH # 1.6 103/ul Normal 1.2-3.8 [facility] Comment on above: Performed By: #### I NSULIN #### [facility] [address] [address] [address] Vicki Muro Lymphocytes/100 WBC (Bld) 29.5 % Normal 20.5-60.0 [facility] Comment on above: Performed By: #### I NSULIN #### [facility] [address] [address] [address] Vicki Muro MANUAL DIFF REQ NO Normal [facility] Comment on above: Performed By: #### I NSULIN #### [facility] [address] [place] [address] Dr. Vicki Muro MCH (RBC) [Entitic mass] 29.7 pg Normal 26.7-34.0 [facility] Comment on above: Performed By: #### I NSULIN #### [facility] [address] [place] [address] Dr. Vicki Muro MCHC (RBC) [Mass/Vol] 33.2 g/dL Normal 29.9-35.2 [facility] Comment on above: Performed By: #### I NSULIN #### [facility] [address] [place] [address] Dr. Vicki Muro MCV (RBC) [Entitic vol] 89.3 fL Normal 81.0-99.0 [facility] Comment on above: Performed By: #### I NSULIN #### [facility] [address] [place] [address] Dr. Vicki Muro MONO # 0.4 103/ul Normal 0.3-0.8 [facility] Comment on above: Performed By: #### I NSULIN #### [facility] [address] [place] [address] Dr. Vicki Muro Monocytes/100 WBC (Bld) 6.6 % Normal 1.7-12.0 [facility] Comment on above: Performed By: #### I NSULIN #### [facility] [address] [place] [address] Dr. Vicki Muro NEUT # 3.2 103/ul Normal 1.4-6.5 [facility] Comment on above: Performed By: #### I NSULIN #### [facility] [address] [address] [address] Vicki Muro Neutrophils/100 WBC (Bld) 60.5 % Normal 43.0-75.0 [facility] Comment on above: Performed By: #### I NSULIN #### [facility] [address] [address] [address] Vicki Muro Platelet mean volume (Bld) [Entitic vol] 10.0 fL Normal 9.5-13.5 [facility] Comment on above: Performed By: #### I NSULIN #### [facility] [address] [address] [address] Vicki Muro PLT 212 103/ul Normal 150-450 [facility] Comment on above: Performed By: #### I NSULIN #### [facility] [address] [place] [address] Dr. Vicki Muro RBC 4.38 106/ul Normal 4.20-5.40 [facility] Comment on above: Performed By: #### I NSULIN #### [facility] [address] [address] [address] Vicki Muro WBC 5.3 103/ul Normal 4.0-11.0 [facility] Comment on above: Performed By: #### I NSULIN #### [facility] [address] [place] [address] Dr. Vicki Muro GLYCOHEMOGLOBIN A1Con 2021 ADA RECOMMENDATION SEE BELOW Normal [facility] Comment on above: Result Comment: ADA RECOMMENDED LIMIT 4.0 - 6.0 ADA THERAPEUTIC TARGET < 7.0 ACTION SUGGESTED > 7.0 Performed By: #### I NSULIN #### [facility] [address] [place] [address] Dr. Vicki Muro Glucose [Mass/Vol] 126 mg/dL Normal [facility] Comment on above: Performed By: #### I NSULIN #### [facility] [address] [address] [address] Vicki Muro HbA1c (Bld) [Mass fraction] 6.0 % Normal 4.5-6.2 [facility] Comment on above: Performed By: #### I NSULIN #### [facility] [address] [address] [address] Vicki Muro IRONon 04-29-2022 Iron [Mass/Vol] 63.0 ug/dL Normal 50.0-170.0 [facility] Comment on above: Performed By: #### I SIERRA #### [facility] [address] [address] [address] Vicki Muro LIPID PROFILEon 04-29-2022 CHOL-HDL RATIO NORM SEE BELOW Normal [facility] Comment on above: Result Comment: 3.3 - 4.4 LOW RISK 4.4 - 7.1 AVERAGE RISK 7.1 - 11.0 MODERATE RISK >11.0 HIGH RISK Performed By: #### L IPID, CMP, BNP, TSH #### [facility] [address] [address] [address] Vicki Muro Cholesterol [Mass/Vol] 179 mg/dL Normal <=200 [facility] Comment on above: Performed By: #### L IPID, CMP, BNP, TSH #### [facility] [address] [address] [address] Vicki Muro Cholesterol in HDL [Mass/Vol] 53 mg/dL Normal 40-60 [facility] Comment on above: Performed By: #### L IPID, CMP, BNP, TSH #### [facility] [address] [address] [address] Vicki Muro Cholesterol in LDL [Mass/Vol] 85.8 mg/dL Normal [facility] Comment on above: Performed By: #### L IPID, CMP, BNP, TSH #### [facility] [address] [address] [address] Vicki Muro Cholesterol.total/Ch olesterol in HDL [Mass ratio] 3.4 {ratio} Normal [facility] Comment on above: Performed By: #### L IPID, CMP, BNP, TSH #### [facility] [address] [address] [address] Vicki Muro HDL NORMAL > or = 60 mg/dl - LO W CARDIOVASCULAR RISK <40 mg/dl - HIGH CARDIOVASCULAR RISK Normal [facility] Comment on above: Performed By: #### L IPID, CMP, BNP, TSH #### [facility] [address] [address] [address] Vicki Muro LDL CALC NORMAL SEE BELOW Normal [facility] Comment on above: Result Comment: <100 mg/dl OPTIMAL 100 - 129 mg/dl NEAR OR ABOVE OPTIMAL 130 - 159 mg/dl BORDERLINE HIGH 160 - 189 mg/dl HIGH >190 mg/dl VERY HIGH Performed By: #### L IPID, CMP, BNP, TSH #### [facility] [address] [address] [address] Vicki Muro Triglyceride [Mass/Vol] 201 mg/dL Critically high <=150 [facility] Comment on above: Performed By: #### L IPID, CMP, BNP, TSH #### [facility] [address] [address] [address] Vicki Muro VLDL CALC 40.2 mg/dL Normal [facility] Comment on above: Performed By: #### L IPID, CMP, BNP, TSH #### [facility] [address] [address] [address] Vicki Muro PROF 14(COMP METB)on 022 Albumin [Mass/Vol] 3.8 g/dL Normal 3.4-5.0 [facility] Comment on above: Performed By: #### L IPID, CMP, BNP, TSH #### [facility] [address] [address] [address] Vicki Muro Albumin/Globulin [Mass ratio] 1.0 {ratio} Normal [facility] Comment on above: Performed By: #### L IPID, CMP, BNP, TSH #### [facility] [address] [address] [address] Vicki Muro ALP [Catalytic activity/Vol] 108 U/L Normal 46-116 [facility] Comment on above: Performed By: #### L IPID, CMP, BNP, TSH #### [facility] [address] [address] [address] Vicki Muro ALT [Catalytic activity/Vol] 29 U/L Normal 14-59 [facility] Comment on above: Performed By: #### L IPID, CMP, BNP, TSH #### [facility] [address] [address] [address] Vicki Muro Anion gap [Moles/Vol] 13.1 mmol/L Normal [facility] Comment on above: Performed By: #### L IPID, CMP, BNP, TSH #### [facility] [address] [place] [address] Dr. Vicki Muro AST [Catalytic activity/Vol] 24 U/L Normal 15-37 [facility] Comment on above: Performed By: #### L IPID, CMP, BNP, TSH #### [facility] [address] [place] [address] Dr. Vicki Muro Bilirubin [Mass/Vol] 0.4 mg/dL Normal 0.2-1.0 [facility] Comment on above: Performed By: #### L IPID, CMP, BNP, TSH #### [facility] [address] [place] [address] Dr. Vicki Muro Calcium [Mass/Vol] 9.2 mg/dL Normal 8.5-10.1 [facility] Comment on above: Performed By: #### L IPID, CMP, BNP, TSH #### [facility] [address] [place] [address] Dr. Vicki Muro Chloride [Moles/Vol] 103 mmol/L Normal 98-107 [facility] Comment on above: Performed By: #### L IPID, CMP, BNP, TSH #### [facility] [address] [place] [address] Dr. Vicki Muro CO2 [Moles/Vol] 27.7 mmol/L Normal 21.0-32.0 [facility] Comment on above: Performed By: #### L IPID, CMP, BNP, TSH #### [facility] [address] [place] [address] Dr. Vicki Muro Creatinine [Mass/Vol] 0.81 mg/dL Normal 0.55-1.02 [facility] Comment on above: Performed By: #### L IPID, CMP, BNP, TSH #### [facility] [address] [address] [address] Vicki Muro EGFR-AF [place] >60 Normal >=60 [facility] Comment on above: Performed By: #### L IPID, CMP, BNP, TSH #### [facility] [address] [address] [address] Vicki Muro EGFR-NON AF [place] >60 Normal >=60 [facility] Comment on above: Performed By: #### L IPID, CMP, BNP, TSH #### [facility] [address] [address] [address] Vicki Muro Globulin (S) [Mass/Vol] 3.8 g/dL Normal [facility] Comment on above: Performed By: #### L IPID, CMP, BNP, TSH #### [facility] [address] [address] [address] Vicki Muro Glucose [Mass/Vol] 132 mg/dL Critically high 74-106 [facility] Comment on above: Performed By: #### L IPID, CMP, BNP, TSH #### [facility] [address] [address] [address] Vicki Muro Potassium [Moles/Vol] 3.8 mmol/L Normal 3.5-5.1 [facility] Comment on above: Performed By: #### L IPID, CMP, BNP, TSH #### [facility] [address] [address] [address] Vicki Muro Protein [Mass/Vol] 7.6 g/dL Normal 6.4-8.[address] [facility] Comment on above: Performed By: #### L IPID, CMP, BNP, TSH #### [facility] [address] [address] [address] Vicki Muro Sodium [Moles/Vol] 140 mmol/L Normal 136-145 [facility] Comment on above: Performed By: #### L IPID, CMP, BNP, TSH #### [facility] [address] [address] [address] Vicki Muro Urea nitrogen [Mass/Vol] 10.0 mg/dL Normal 7.0-18.0 [facility] Comment on above: Performed By: #### L IPID, CMP, BNP, TSH #### [facility] [address] [address] [address] Vicki Muro Urea nitrogen/Creatinine [Mass ratio] 12.3 mg/mg Normal [facility] Comment on above: Performed By: #### L IPID, CMP, BNP, TSH #### [facility] [address] [address] [address] Vicki Muro TSHon 04-29-2022 TSH 2.265 uIU/mL Normal 0.358-3.740 [facility] Comment on above: Performed By: #### L IPID, CMP, BNP, TSH #### [facility] [address] [place] [address] Dr. Vicki Muro ECHOCARDIO M/2D COMPLETEon 0 12-30-2021 ECHOCARDIO M/2D COMPLETE Patient: ARMANDO SWEET Exam Date: 12/30/2021 : 1950 Gender:F Ordering : DR MIRACLE HUERTAS M.D. Admission #: [id number] Family : Order #: [id number] CLICK HERE TO VIEW EXAM ECHOCARDIOGRAM REPORT [...] Area(A4C): 21.80 cm2 Left Atrium Systolic Volume(A2C): 18563 mm3 Left Atrium Systolic Volume(A4C): 96727 mm3 Mitral Valve MV E to A [...] M.D. on 12/30/2021 at 15:20 Normal [facility] HEMOGRAM AND PLATELon 2021 Hematocrit (Bld) [Volume fraction] 39.8 % Normal 36.0-48.0 [facility] Comment on above: Performed By: #### H H #### [facility] [address] [address] [address] Vicki Muro Hemoglobin (Bld) [Mass/Vol] 13.0 g/dL Normal 12.0-16.0 [facility] Comment on above: Performed By: #### H H #### [facility] [address] [address] [address] Vicki Muro MCH (RBC) [Entitic mass] 30.2 pg Normal 26.7-34.0 [facility] Comment on above: Performed By: #### H H #### [facility] [address] [address] [address] Vicki Muro MCHC (RBC) [Mass/Vol] 32.7 g/dL Normal 29.9-35.2 [facility] Comment on above: Performed By: #### H H #### [facility] [address] [address] [address] Vicki Muro MCV (RBC) [Entitic vol] 92.6 fL Normal 81.0-99.0 [facility] Comment on above: Performed By: #### H H #### [facility] [address] [address] [address] Vicki Muro PLT 194 103/ul Normal 150-450 [facility] Comment on above: Performed By: #### H H #### [facility] [address] [address] [address] Vicki Muro RBC 4.30 106/ul Normal 4.20-5.40 [facility] Comment on above: Performed By: #### H H #### [facility] [address] [address] [address] Vicki Muro WBC 4.7 103/ul Normal 4.0-11.0 [facility] Comment on above: Performed By: #### H H #### [facility] [address] [address] [address] Vicki Muro LIPID PROFILEon 10-29-2021 CHOL-HDL RATIO NORM SEE BELOW Normal [facility] Comment on above: Result Comment: 3.3 - 4.4 LOW RISK 4.4 - 7.1 AVERAGE RISK 7.1 - 11.0 MODERATE RISK >11.0 HIGH RISK Performed By: #### I NSULIN #### [facility] [address] [address] [address] Vicki Muro Cholesterol [Mass/Vol] 193 mg/dL Normal <=200 [facility] Comment on above: Performed By: #### I NSULIN #### [facility] [address] [address] [address] Vicki Muro Cholesterol in HDL [Mass/Vol] 55 mg/dL Normal [facility] Comment on above: Performed By: #### I NSULIN #### [facility] [address] [address] [address] Vicki Muro Cholesterol in LDL [Mass/Vol] 97.2 mg/dL Normal [facility] Comment on above: Performed By: #### I NSULIN #### [facility] [address] [address] [address] Vicki Muro Cholesterol.total/Ch olesterol in HDL [Mass ratio] 3.5 {ratio} Normal [facility] Comment on above: Performed By: #### I NSULIN #### [facility] [address] [address] [address] Vicki Muro HDL NORMAL > or = 60 mg/dl - LO W CARDIOVASCULAR RISK <40 mg/dl - HIGH CARDIOVASCULAR RISK Normal [facility] Comment on above: Performed By: #### I NSULIN #### [facility] [address] [address] [address] Vicki Muro LDL CALC NORMAL SEE BELOW Normal [facility] Comment on above: Result Comment: <100 mg/dl OPTIMAL 100 - 129 mg/dl NEAR OR ABOVE OPTIMAL 130 - 159 mg/dl BORDERLINE HIGH 160 - 189 mg/dl HIGH >190 mg/dl VERY HIGH Performed By: #### I NSULIN #### [facility] [address] [address] [address] Vicki Muro Triglyceride [Mass/Vol] 204 mg/dL Critically high <=150 [facility] Comment on above: Performed By: #### I NSULIN #### [facility] [address] [place] [address] Dr. Vicki Muro VLDL CALC 40.8 mg/dL Normal [facility] Comment on above: Performed By: #### I NSULIN #### [facility] [address] [place] [address] Dr. Vicki Muro PROF 14(COMP METB)on 022 Albumin [Mass/Vol] 3.6 g/dL Normal 3.5-5.0 [facility] Comment on above: Performed By: #### I NSULIN #### [facility] [address] [place] [address] Dr. Vicki Muro Albumin/Globulin [Mass ratio] 1.0 {ratio} Normal [facility] Comment on above: Performed By: #### I NSULIN #### [facility] [address] [place] [address] Dr. Vicki Muro ALP [Catalytic activity/Vol] 92 U/L Normal 38-126 [facility] Comment on above: Performed By: #### I NSULIN #### [facility] [address] [place] [address] Dr. Vicki Muro ALT [Catalytic activity/Vol] 30 U/L Normal 9-52 [facility] Comment on above: Performed By: #### I NSULIN #### [facility] [address] [address] [address] Vicki Muro Anion gap [Moles/Vol] 11.3 mmol/L Normal [facility] Comment on above: Performed By: #### I NSULIN #### [facility] [address] [place] [address] Dr. Vicki Muro AST [Catalytic activity/Vol] 23 U/L Normal 14-36 [facility] Comment on above: Performed By: #### I NSULIN #### [facility] [address] [address] [address] Vicki Muro Bilirubin [Mass/Vol] 0.4 mg/dL Normal 0.2-1.3 [facility] Comment on above: Performed By: #### I NSULIN #### [facility] [address] [place] [address] Dr. Vicki Muro Calcium [Mass/Vol] 9.0 mg/dL Normal 8.4-10.[address] [facility] Comment on above: Performed By: #### I NSULIN #### [facility] [address] [place] [address] Dr. Vicki Muro Chloride [Moles/Vol] 104 mmol/L Normal 98-107 [facility] Comment on above: Performed By: #### I NSULIN #### [facility] [address] [place] [address] Dr. Vicki Muro CO2 [Moles/Vol] 25.9 mmol/L Normal 22.0-30.0 The [facility] Comment on above: Performed By: #### I NSULIN #### [facility] [address] [place] [address] Dr. Vicki Muro Creatinine [Mass/Vol] 0.86 mg/dL Normal 0.52-1.04 [facility] Comment on above: Performed By: #### I NSULIN #### [facility] [address] [place] [address] Dr. Vicki Muro EGFR-AF [place] >60 Normal >=60 The [facility] Comment on above: Performed By: #### I NSULIN #### [facility] [address] [place] [address] Dr. Vicki Muro EGFR-NON AF [place] >60 Normal >=60 [facility] Comment on above: Performed By: #### I NSULIN #### [facility] [address] [address] [address] Vicki Muro Globulin (S) [Mass/Vol] 3.6 g/dL Normal [facility] Comment on above: Performed By: #### I NSULIN #### [facility] [address] [address] [address] Vicki Muro Glucose [Mass/Vol] 119 mg/dL Critically high 74-106 [facility] Comment on above: Performed By: #### I NSULIN #### [facility] [address] [place] [address] Dr. Vicki Muro Potassium [Moles/Vol] 4.4 mmol/L Normal 3.4-5.0 [facility] Comment on above: Performed By: #### I NSULIN #### [facility] [address] [address] [address] Vicki Muro Protein [Mass/Vol] 7.2 g/dL Normal 6.1-8.2 [facility] Comment on above: Performed By: #### I NSULIN #### [facility] [address] [place] [address] Dr. Vicki Muro Sodium [Moles/Vol] 137 mmol/L Normal 137-145 [facility] Comment on above: Performed By: #### I NSULIN #### [facility] [address] [address] [address] Vicki Muro Urea nitrogen [Mass/Vol] 14.0 mg/dL Normal 7.0-17.0 [facility] Comment on above: Performed By: #### I NSULIN #### [facility] [address] [place] [address] Dr. Vicki Muro Urea nitrogen/Creatinine [Mass ratio] 16.3 mg/mg Normal [facility] Comment on above: Performed By: #### I NSULIN #### [facility] [address] [place] [address] Dr. Vicki Muro Encounters Encounter Date Encounter Type Care Provider Facility Start: 04-13-2025 End: 04-13-2025 ambulatory Scotty Holly [facility] Work Phone: Start: 04-13-2025 End: 04-13-2025 Departed Referred Scotty Andersen MD -[facility] Start: 03-29-2025 End: 03-29-2025 ambulatory Tavo Olman [place] Facility:[facility] Start: 03-29-2025 End: 03-29-2025 Patient encounter procedure Tavo Thurman [facility] Start: 03-13-2025 ambulatory Tavo [place] Facility:[facility] Start: 03-09-2025 End: 03-09-2025 ambulatory Kennedy Wharton [facility] Work Phone: Start: 03-09-2025 End: 03-09-2025 Departed Referred Kennedy Wharton MD -[facility] Start: 01-27-2025 End: 02-01-2025 Transcribe Orders Scotty Holly MD Work Phone: Referring Physician Comment on above: Hypertension, unspec ified type (Primary Dx); Hyperlipidemia, unspecified hyperlipidemia type Start: 01-03-2025 End: 01-03-2025 ambulatory Scotty Holly [facility] Work Phone: Start: 01-03-2025 End: 01-03-2025 Departed Referred Scotty Holly MD Work Phone: [facility] Start: 11-17-2023 End: 11-17-2023 ambulatory DAGO [...] procedure DEFAULT PHYSICIAN Facility:[facility] Procedures Date Procedure Procedure [...] RSV Vaccine (1 - 1-dose 75+ series) [facility] Start: 05-01-2025 Influenza vaccination Influenza Vaccine (Season Ended) [facility] Start: 04-13-2025 Bacteria identified in Urine by Culture Urine Culture [facility] Start: 04-13-[address] [facility] Start: 03-09-2025 Bacteria identified in Urine by Culture Urine Culture [facility] Start: 03-09-[address] [facility] Start: 01-03-2025 Bacteria identified in Urine by Culture Urine Culture [facility] Start: 01-03-[address] [facility] Start: 08-31-2024 Advance Directive Discussion Advance Directive Discussion [facility] Start: 05-01-2024 Covid-19 Vaccine ( season) Covid-19 Vaccine ( season) [facility] Start: 2017 Screening for osteoporosis Bone Density Screening [facility] Start: 08-16-2011 Diabetes Screening Diabetes Screening [facility] Start: 2002 Pneumococcal Vaccine: 50+ (1 of 1 - PCV) Pneumococcal Vaccine: 50+ (1 of 1 - PCV) [facility] Start: 2002 Shingrix Vaccine (1 of 2) Shingrix Vaccine (1 of 2) [facility] Start: 1997 Lipid panel Lipid Screening [facility] Start: 1997 Screening for malignant neoplasm of colon [facility] Start: 1992 Screening for malignant neoplasm of breast Mammogram Screening [facility] Start: 1971 Urine microalbumin profile DTaP,Tdap,Td Vaccine (1 - Tdap) [facility] Start: 1970 Anxiety Screening Anxiety Screening [facility] Start: 1970 Depression Screening Depression Screening [facility] Start: 1970 Hepatitis C screening Hepatitis C Screening [facility] Payers Date Payer Category Payer Medicare [id number] 2025 Private Health Insurance [id number] 2025 Self-pay 2024 Medicare (Managed Care) [employer] MED[employer]ARE [id number] 2005 Private Health Insurance [employer] [id number] 1959 Medicare [id number] 1959 Unknown [id number] 1952 Unknown [id number] [id number]. 2.647 1952 Unknown [id number] 2.16.840.1.714992.3.579. 2.647 1952 Unknown [id number] 2.16.840.1.288025.3.579. 2.593 1952 Unknown [id number] 2.16.840.1.942145.3.579. 2.593 1952 Unknown [id number] 2.16.840.1.364411.3.579. 2.593 1952 Unknown [id number] 2.16.840.1.989472.3.579. 2.593 1952 Unknown [id number] 2.16.840.1.062184.3.579. 2.593 1952 Unknown [id number] 2.16.840.1.934776.3.579. 2.1259 1952 Unknown [id number] 2.16.840.1.670049.3.579. 2.727 Private Health Insurance [employer] [id number] Unknown Unknown [id number] [id number]. 2.531 Unknown [id number] [id number]. 2.531 Unknown [id number] [id number]. 2.531 Social History Date Type Detail Facility [facility] if ever smoked [facility] Start: 12-12-2009 End: 01-05-2025 Sex Female (finding) [facility] Start: 1950 Sex Assigned At Female F [facility] Start: 1950 Sex assigned at Not on file [facility] Gender identity Not on file [facility] Tobacco smoking status [facility] Medical Equipment Procedure Code Equipment Code Equipment Origin al Text Equipment Identifier Dates Blood Sugar Diagnostic strip Start: 03-12-2025 Lancets misc Start: 03-12-2025 Evaluation + Plan note Note Date & Type Note Facility Evaluation + Plan note No data available for this section [facility] Evaluation note Note Date & Type Note Facility Evaluation note No assessment information availa ble [facility] Work Phone: Evaluation note Note Date & Type Note Facility Evaluation note Diagnosis Hypertension, unspecified type- Primary Hyperlipidemia, unspecified hyperlipidemia type documented in this encounter [facility] Discharge instructions Note Date & Type Note Facility Hospital Discharge instructions No data available for this section [facility] Progress note Note Date & Type Note Facility Progress note No data available for this section [facility] Reason for referral (narrative) Note Date & Type Note Facility Reason for referral (narrative) No reason for referral information available [facility] Work Phone: Summary Purpose Family History [...] section and content) DATE CREATED AUTHOR 08/11/2018 [facility] DATE CREATED AUTHOR AUTHOR'S ORGANIZ ATION 10/10/2022 [facility] DATE CREATED AUTHOR AUTHOR'S ORGANIZ ATION 11/18/2023 [facility] EPIC DATE CREATED AUTHOR AUTHOR'S ORGANIZ ATION 04/01/2025 Turner June [facility] DATE CREATED AUTHOR AUTHOR'S ORGANIZ ATION 04/02/2025 [facility] DATE CREATED AUTHOR AUTHOR'S ORGANIZ ATION 04/17/2025 [facility] Care Teams (unrecognized sec tion and content) Team Status: Inactive Member Role Status Dates Scotty Holly MD Attending Provider Active Sta rt: January 03, 2025 End: January 03, 2025 Plans Examiner Relationship Specialty Start Date End Date Scotty [...] or prosecute any alcohol or drug abuse patient.[facility] FOR RECORDS PERTAINING TO PATIENTS [...] BE BASED ON THE PRIMARY CLINICAL RECORDS. [facility]. provides no warranty or guarantee of the accuracy or completeness of information in this document.
[2025-05-25 13:10] LABS: Glucose Urine UA NEGATIVE (NEGATIVE)
[2025-05-25 13:26] LABS: Cast Seen? NONE SEEN #/LPF (NONE SEEN); Crystals Seen? None Seen #/HPF (None Seen); Urine Culture Indicated ALREADY ORDERED
== END 2025-05-25 12:26 | disposition home or self-care (01) ==
LOC: RAD 12:25
PROVIDERS: PCP Family Medicine; Visit Provider Family Medicine
DX: M81.0 Age-related osteoporosis without current pathological fracture (principal); N39.0 Urinary tract infection, site not specified; M85.88 Other specified disorders of bone density and structure, other site
CPT/HCPCS: 77080; 81001; 87086; 87088; 87186